=== PATIENT | male | born 1940 | race Two or more races ===

== ENCOUNTER 2020-04-18 07:06 | Inpatient (IN) | payer MEDICAID ==
[~2020-04-18] VITALS: Ht 167.6 cm; Wt 78.0 kg
--- NOTE | 2020-04-18 07:09 | Emergency Room Report ---
History of Present Illness General Source: Patient, EMS Present Illness HPI Patient is an 79-year-old male brought in by EMS after increased difficulty with breathing. Reports having previous coronavirus infection. Had been having increased fever and chills several days ago. Reports having minimal cough. Increased difficulty with sleeping. Prior history of diabetes, hypertension, high cholesterol, prostate disease. Patient had recent emergency department visit at [facility] and was diagnosed with coronavirus.He states he takes multiple medications but does not recall what they are. Patient had oxygen saturation in the mid 80s with paramedics and was started on 4 L nasal cannula. Nonproductive cough. Denies any chest pain or pressure. Allergies: Coded Allergies: No Known Allergies (Unverified , 04/18/20) Patient History Past Medical History: see triage record Reviewed Nursing Documentation: PMH: Agreed; PSxH: Agreed Review of Systems Constitutional: Reports: fever, malaise Respiratory: Reports: cough, shortness of breath All Other Systems: negative except mentioned in HPI Physical Exam General Appearance: alert, GCS 15, mild distress, obese ENT: hearing grossly normal Neck: full range of motion Respiratory: chest non-tender, normal breath sounds Cardiovascular #1: normal peripheral pulses, regular rate, rhythm, no edema Gastrointestinal: normal inspection, soft Neurologic: alert, motor strength/tone normal, supervisor fleshing III-XII nml as tested, oriented x3 Psychiatric: normal inspection Skin: no rash Medical Decision Making Diagnostic Impression: Primary Impression: Coronavirus infection Additional Impressions: Hypoxia Diabetes ER Course Patient presented for shortness of breath. Differential diagnosis include was not limited to coronavirus infection, pneumonia, congestive heart failure, myocardial infarction among others. Because of complexity of patient's case laboratory tests and imaging studies were ordered. Patient was initially hypoxic. Oxygen saturation on initial presentation was in the mid 80s. He was started on supplemental oxygen via nasal cannula. Chest x-ray 1 view interpreted by me showed normal cardiac size with patchy infiltrates to the left lung greater than the right lung, no effusion. Patient given Decadron as well as Lovenox. He was started on IV antibiotics empirically. Patient was discussed with From [facility] EPRP case #[id number]. [facility] authorized admission. Dr. Romie Murray was contacted for inpatient management due to capitated physician for [facility]. Labs Test 04/18/20 07:09 White Blood Count 6.8 K/UL (4.8-10.8) Red Blood Count 5.09 M/UL (4.70-6.10) Hemoglobin 15.2 G/DL (14.2-18.0) Hematocrit 43.2 % (42.0-52.0) Mean Corpuscular Volume 85 FL (80-99) Mean Corpuscular Hemoglobin 29.9 PG (27.0-31.0) Mean Corpuscular Hemoglobin Concent 35.2 G/DL (32.0-36.0) Red Cell Distribution Width 12.3 % (11.6-14.8) Platelet Count 242 K/UL (150-450) Mean Platelet Volume 7.6 FL (6.5-10.1) Neutrophils (%) (Auto) 70.2 % (45.0-75.0) Lymphocytes (%) (Auto) 18.6 % (20.0-45.0) Monocytes (%) (Auto) 10.4 % (1.0-10.0) Eosinophils (%) (Auto) 0.2 % (0.0-3.0) Basophils (%) (Auto) 0.6 % (0.0-2.0) EKG Diagnostic Results Rate: tachycardiac - 115 Rhythm: other - Sinus tachycardia with frequent PACs Status: unchanged Disposition: ADMITTED INPATIENT Condition: Stable Luis Espinal MD Apr 18, 2020 07:09
[2020-04-18 07:10] VITALS: BP 139/88
--- NOTE | 2020-04-18 07:10 | NUR ---
ED Nurse Note: Pt brought in by ambulance from home c/o resp distress. Pt reports being covid +. Per EMS, pt hd O2 sat of 81% on room air at home. EMS applied 4 L NC and O2 sat was 91% upon arrival. Per ED MD, placed patient on simple mask @ 6 L, pt O2 sat 96%. Respirations even and unlabored at rest. With exertion, patient becomes short of breath and O2 sat drops to 80s. A+Ox4 speaking in complete sentences. Pt reports not being able to sleep due to his symptoms. HR elevated @ 115. Pt afebrile and BP stable as documented.
[2020-04-18] MEDS ORDERED: Vitamin D 400 units TAB ORAL ONE (07:15)
[2020-04-18] MEDS ORDERED: Enoxaparin 100mg Inj SUBQ ONE (07:15)
[2020-04-18] MEDS ORDERED: Azithromycin 500 MG in NS 275 ML IVPB ONE (07:15)
[2020-04-18] MEDS ORDERED: cefTRIAXone 1 GM in NS 55 ML IV ONE (07:15)
[2020-04-18 07:29] LABS: BASOPHILS % (AUTO) 0.6 % (0.0-2.0); EOSINOPHILS % (AUTO) 0.2 % (0.0-3.0); HEMATOCRIT 43.2 % (42.0-52.0); HEMOGLOBIN 15.2 G/DL (14.2-18.0); LYMPHOCYTES % (AUTO) 18.6 % (20.0-45.0); MEAN CORPUSCULAR VOLUME 85 FL (80-99); MONOCYTES % (AUTO) 10.4 % (1.0-10.0); NEUTROPHILS % (AUTO) 70.2 % (45.0-75.0); PLATELET COUNT 242 K/UL (150-450); RED BLOOD COUNT 5.09 M/UL (4.70-6.10); RED CELL DISTRIBUTION WIDTH 12.3 % (11.6-14.8); WHITE BLOOD COUNT 6.8 K/UL (4.8-10.8)
--- NOTE | 2020-04-18 08:02 | NUR ---
ED Nurse Note: urine sent to lab
[2020-04-18 08:04] LABS: ANION GAP 7 mmol/L (5-15); BLOOD UREA NITROGEN 20 mg/dL (7-18); CARBON DIOXIDE 33 MMOL/L (21-32); CHLORIDE 95 MMOL/L (98-107); CREATININE 1.1 MG/DL (0.55-1.30); SODIUM 134 MMOL/L (136-145)
[2020-04-18 08:04] LABS: APPEARANCE,URINE CLEAR; BILIRUBIN, URINE NEGATIVE (NEGATIVE); COLOR,URINE YELLOW; GLUCOSE, URINE (UA) NEGATIVE (NEGATIVE); KETONES,URINE NEGATIVE (NEGATIVE); LEUKOCYTE ESTERASE ,URINE NEGATIVE (NEGATIVE); NITRITE,URINE NEGATIVE (NEGATIVE); PH,URINE 7 (4.5-8.0); PROTEIN,URINE 1+ (NEGATIVE); UROBILINOGEN,URINE 4 MG/DL (0.0-1.0)
[2020-04-18 08:19] LABS: ALANINE AMINOTRANSFERASE 28 U/L (12-78); ALBUMIN 2.8 G/DL (3.4-5.0); ALBUMIN/GLOBULIN RATIO 0.5 (1.0-2.7); ALKALINE PHOSPHATASE 45 U/L (46-116); ASPARTATE AMINO TRANSFERASE 38 U/L (15-37); BILIRUBIN,TOTAL 1.1 MG/DL (0.2-1.0); CKMB 1.3 NG/ML (0.0-3.6); CREATINE KINASE 58 U/L (26-308); FERRITIN 721 NG/ML (8-388); LACTATE DEHYDROGENASE 319 U/L (81-234); PHOSPHORUS 2.7 MG/DL (2.5-4.9)
[2020-04-18 08:20] LABS: BILIRUBIN,DIRECT 0.5 MG/DL (0.0-0.3)
--- NOTE | 2020-04-18 08:26 | NUR ---
CONTACTI KRISTIN FREGOSO, PATIENTS DAUGHTER [phone]
--- NOTE | 2020-04-18 08:54 | Diagnostic Imaging Report ---
Indication: Shortness of breath Technique: One view of the chest Comparison: none Findings: There are bilateral patchy and streaky infiltrates in a peribronchovascular distribution, left greater than right. Heart size is normal. Pleural spaces are clear. Impression: Bilateral infiltrates, consistent with multifocal pneumonia, likely viral
[2020-04-18 09:00] VITALS: BP 135/84
[2020-04-18] MEDS ORDERED: Metoclopramide 10mg/2ml Inj IVP ONE (10:00)
--- NOTE | 2020-04-18 10:42 | Consultation ---
History of Present Illness General Date patient seen: Apr 18, 2020 Chief Complaint: Dyspnea/Respdistress Present Illness HPI 79-year-old male with hx of DM, HTN, BPH recent [place] virus infection, brought in by EMS with CC of difficulty with breathing, fever and chills several days ago. Patient had recent emergency department visit at [place] and was diagnosed with coronavirus. Patient had oxygen saturation in the mid 80s with paramedics and was started on 4 L nasal cannula. His CXR in Er showed interstitial pneumonia. Pt is admitted for further management. Allergies: Coded Allergies: No Known Allergies (Unverified , 04/18/20) Patient History Healthcare decision maker Resuscitation status Advanced Directive on File Past Medical/Surgical History Past Medical/Surgical History: (1) BPH (benign prostatic hyperplasia) (2) History of hypertension Review of Systems Respiratory: Reports: cough, shortness of breath Physical Exam General Appearance: WD/WN, no apparent distress Lines, tubes and drains: peripheral HEENT: normocephalic, atraumatic Neck: non-tender, supple Respiratory/Chest: chest wall non-tender, normal breath sounds Cardiovascular/Chest: normal peripheral pulses, regular rhythm Abdomen: hyperactive bowel sounds Genitourinary/Rectal: normal rectal exam Extremities: normal range of motion, non-tender Last 24 Hour Vital Signs Date Time Temp Pulse Resp B/P (MAP) Pulse Ox O2 Delivery O2 Flow Rate FiO2 04/18/20 09:00 97.9 118 16 135/84 95 Simple Mask 6.0 04/18/20 07:10 98.6 112 28 139/88 96 Simple Mask 6.0 04/18/20 07:10 112 28 Simple Mask 6.0 04/18/20 07:00 98.4 101 22 145/83 (103) 94 Nasal Cannula 4.0 Laboratory Tests Test 04/18/20 07:09 04/18/20 08:00 04/18/20 09:10 White Blood Count 6.8 K/UL (4.8-10.8) Red Blood Count 5.09 M/UL (4.70-6.10) Hemoglobin 15.2 G/DL (14.2-18.0) Hematocrit 43.2 % (42.0-52.0) Mean Corpuscular Volume 85 FL (80-99) Mean Corpuscular Hemoglobin 29.9 PG (27.0-31.0) Mean Corpuscular Hemoglobin Concent 35.2 G/DL (32.0-36.0) Red Cell Distribution Width 12.3 % (11.6-14.8) Platelet Count 242 K/UL (150-450) Mean Platelet Volume 7.6 FL (6.5-10.1) Neutrophils (%) (Auto) 70.2 % (45.0-75.0) Lymphocytes (%) (Auto) 18.6 % (20.0-45.0) L Monocytes (%) (Auto) 10.4 % (1.0-10.0) H Eosinophils (%) (Auto) 0.2 % (0.0-3.0) Basophils (%) (Auto) 0.6 % (0.0-2.0) Prothrombin Time 11.1 SEC (9.30-11.50) Prothromb Time International Ratio 1.0 (0.9-1.1) Activated Partial Thromboplast Time 28 SEC (23-33) D-Dimer 0.64 mg/L FEU (0.00-0.49) H Sodium Level 134 MMOL/L (136-145) L Potassium Level 3.0 MMOL/L (3.5-5.1) L Chloride Level 95 MMOL/L (98-107) L Carbon Dioxide Level 33 MMOL/L (21-32) H Anion Gap 7 mmol/L (5-15) Blood Urea Nitrogen 20 mg/dL (7-18) H Creatinine 1.1 MG/DL (0.55-1.30) Estimat Glomerular Filtration Rate > 60 mL/min (>60) Glucose Level 200 MG/DL (74-106) H Lactic Acid Level 2.40 mmol/L (0.4-2.0) H 1.90 mmol/L (0.66-2.22) Calcium Level 9.0 MG/DL (8.5-10.1) Phosphorus Level 2.7 MG/DL (2.5-4.9) Magnesium Level 1.7 MG/DL (1.8-2.4) L Ferritin 721 NG/ML (8-388) H Total Bilirubin 1.1 MG/DL (0.2-1.0) H Direct Bilirubin 0.5 MG/DL (0.0-0.3) H Aspartate Amino Transf (AST/SGOT) 38 U/L (15-37) H Alanine Aminotransferase (ALT/SGPT) 28 U/L (12-78) Alkaline Phosphatase 45 U/L (46-116) L Lactate Dehydrogenase 319 U/L (81-234) H Total Creatine Kinase 58 U/L (26-308) Creatine Kinase MB 1.3 NG/ML (0.0-3.6) Creatine Kinase MB Relative Index 2.2 Troponin I 0.001 ng/mL (0.000-0.056) C-Reactive Protein, Quantitative 16.5 mg/dL (0.00-0.90) H Pro-B-Type Natriuretic Peptide 225 pg/mL (0-125) H Total Protein 8.0 G/DL (6.4-8.2) Albumin 2.8 G/DL (3.4-5.0) L Globulin 5.2 g/dL Albumin/Globulin Ratio 0.5 (1.0-2.7) L Lipase 261 U/L (73-393) Urine Color Yellow Urine Appearance Clear Urine pH 7 (4.5-8.0) Urine Specific [place] 1.010 (1.005-1.035) Urine Protein 1+ (NEGATIVE) H Urine Glucose (UA) Negative (NEGATIVE) Urine Ketones Negative (NEGATIVE) Urine Blood 1+ (NEGATIVE) H Urine Nitrite Negative (NEGATIVE) Urine Bilirubin Negative (NEGATIVE) Urine Urobilinogen 4 MG/DL (0.0-1.0) H Urine Leukocyte Esterase Negative (NEGATIVE) Urine RBC 0-2 /HPF (0 - 0) H Urine WBC 0 /HPF (0 - 0) Urine Squamous Epithelial Cells Occasional /LPF Urine Bacteria Occasional /HPF (NONE) Microbiology Date/Time Source Procedure Growth Status 04/18/20 07:09 Nasopharynx SARS-CoV-2 RdRp Gene Assay - Final Complete Height (Feet): 5 Height (Inches): 10.00 Weight (Pounds): 180 Medications Current Medications Medications (Trade) Dose Ordered Sig/Lucy Route PRN Reason Start Time Stop Time Status Last Admin Dose Admin Acetaminophen (Tylenol) 650 mg Q4H PRN ORAL FEVER 04/18/20 10:45 05/18/20 10:44 UNV Albuterol/ Ipratropium (Albuterol/ Ipratropium) 3 ml EVERY 4 HOURS PRN HHN Shortness of Breath 04/18/20 10:45 04/23/20 10:44 UNV Azithromycin 250 mg/Dextrose 275 ml @ 275 mls/hr Q24HRS IV 04/18/20 10:45 04/23/20 10:44 UNV Ceftriaxone Sodium 1 gm/ Dextrose 55 ml @ 110 mls/hr Q24H IVPB 04/18/20 10:45 04/25/20 10:44 UNV Dexamethasone (Decadron) 6 mg DAILY ORAL 04/19/20 09:00 05/19/20 08:59 UNV Dextrose (Dextrose 50%) 25 ml Q30M PRN IV Hypoglycemia 04/18/20 10:45 07/17/20 10:44 UNV Dextrose (Dextrose 50%) 50 ml Q30M PRN IV Hypoglycemia 04/18/20 10:45 07/17/20 10:44 UNV Heparin Sodium (Porcine) (Heparin 5000 units/ml) 5,000 units EVERY 12 HOURS SUBQ 04/18/20 21:00 06/02/20 20:59 UNV Ondansetron HCl (Zofran) 4 mg Q6H PRN IVP Nausea & Vomiting 04/18/20 10:45 05/18/20 10:44 UNV Polyethylene Glycol (Miralax) 17 gm DAILYPRN PRN ORAL Constipation 04/18/20 10:45 05/18/20 10:44 UNV Promethazine HCl/ Codeine (Phenergan with Codeine) 5 ml Q6H PRN ORAL cough 04/18/20 10:45 05/18/20 10:44 Assessment/Plan Problem List: (1) Coronavirus infection ICD Codes: B34.2 - Coronavirus infection, unspecified SNOMED: 811818710 (2) Hypoxia ICD Codes: R09.02 - Hypoxemia SNOMED: 091384942 (3) History of hypertension ICD Codes: Z86.79 - Personal history of other diseases of the circulatory system SNOMED: 415110592 (4) BPH (benign prostatic hyperplasia) ICD Codes: N40.0 - Benign prostatic hyperplasia without lower urinary tract symptoms SNOMED: 221846079 (5) Diabetes ICD Codes: E11.9 - Type 2 diabetes mellitus without complications SNOMED: 70767845 Assessment/Plan: respiratory isolation titrate fio2 to sat of 92 f/u inflammatory markers abx and sterids as per ID sliding scale and diabetic diet antitussive symptomatic treatment dvt prophylaxis Angel Daniel MD Apr 18, 2020 10:42
[2020-04-18] MEDS ORDERED: Miralax 17gm pkt ORAL PRN (10:45)
[2020-04-18] MEDS ORDERED: Albuterol/Ipratropium 3ml neb HHN PRN (10:45)
--- NOTE | 2020-04-18 10:53 | Consultation ---
Consult Note Consult Note I am asked to evaluate the patient at the request of Dr. Murray for fluid and electrolyte management Patient was seen in the emergency room Discussed with RN CONSTANZA Patient is an 79-year-old male brought in by EMS after increased difficulty with breathing. Reports having previous coronavirus infection. Had been having increased fever and chills several days ago. Reports having minimal cough. Increased difficulty with sleeping. Prior history of diabetes, hypertension, high cholesterol, prostate disease. Patient had recent emergency department visit at [facility] and was diagnosed with coronavirus.He states he takes multiple medications but does not recall what they are. Patient had oxygen saturation in the mid 80s with paramedics and was started on 4 L nasal cannula. Nonproductive cough. Denies any chest pain or pressure. Allergies: No Known Allergies (Unverified , 04/18/20) Review of Systems Constitutional: Reports: fever, malaise Respiratory: Reports: cough, shortness of breath All Other Systems: negative except mentioned in HPI Labs reviewed: Low sodium, low magnesium, low potassium Patient on oxygen via mask, tachycardic Physical Exam Narrative Gen: NAD HEENT: NCAT Pulm: BL chest rise Abd: Soft, NTND Ext: No c/c/e Neuro: Awake, interactive Last 24 Hour Vital Signs Date Time Temp Pulse Resp B/P (MAP) Pulse Ox O2 Delivery O2 Flow Rate FiO2 04/18/20 09:00 97.9 118 16 135/84 95 Simple Mask 6.0 04/18/20 07:10 98.6 112 28 139/88 96 Simple Mask 6.0 04/18/20 07:10 112 28 Simple Mask 6.0 04/18/20 07:00 98.4 101 22 145/83 (103) 94 Nasal Cannula 4.0 . Assessment/Plan Electrolyte imbalance Low sodium, low magnesium, low potassium Coronavirus infection, hypoxia Diabetes mellitus Plan: Normal saline with potassium IV Mag sulfate IV Protonix and stool softener Antibiotics Monitor electrolytes and renal parameters Per orders Roberto Yang MD Apr 18, 2020 10:53
[2020-04-18 11:00] VITALS: BP 131/79
[2020-04-18] MEDS ORDERED: HYDROCHLOROTHIA50 MG ORAL (11:00)
[2020-04-18] MEDS ORDERED: MOBIC7.5 MG ORAL (11:00)
[2020-04-18] MEDS ORDERED: AMLODIPINE BESYL5 MG ORAL (11:00)
[2020-04-18] MEDS ORDERED: CRESTOR10 M2 ORAL (11:00)
[2020-04-18] MEDS ORDERED: FLOMAX0.4 MG ORAL (11:00)
[2020-04-18] MEDS ORDERED: COZAAR50 MG ORAL (11:00)
[2020-04-18] MEDS ORDERED: ASPIRIN81 MG ORAL (11:00)
[2020-04-18] MEDS ORDERED: METFORMIN HCL500 M1 ORAL (11:00)
--- NOTE | 2020-04-18 11:37 | Consultation ---
History of Present Illness General Date patient seen: Apr 18, 2020 Time patient seen: 11:33 Chief Complaint: Dyspnea/Respdistress Referring physician: PCP Reason for Consultation: COVID+ Present Illness HPI 79yo M who p/w SOB, COVID positive for which ID is consulted. Pt reports increased fevers/chills x several days. Minimal cough. Difficulty sleeping. In house has been AF, HDS but requiring simple face mask satting only 95%. No pain, no allergies to abx Just some issues breathing Minimal cough Dx'd w/ COVID on 04/12, flu neg at that time PMH: DM2 HTN HLD Prostate disease Allergies: Coded Allergies: No Known Allergies (Unverified , 04/18/20) Medication History Scheduled Amlodipine Besylate* (Amlodipine Besylate*), 5 MG ORAL DAILY, (Reported) Aspirin* (Aspirin*), 81 MG ORAL DAILY, (Reported) Hydrochlorothiazide* (Hydrochlorothiazide*), 50 MG ORAL DAILY, (Reported) Losartan Potassium* (Cozaar*), 100 MG ORAL DAILY, (Reported) Meloxicam* (Mobic*), 7.5 MG ORAL DAILY, (Reported) Metformin Hcl* (Metformin Hcl*), 500 MG ORAL TWICE A DAY, (Reported) Rosuvastatin Calcium* (Crestor*), 10 MG ORAL DAILY, (Reported) Tamsulosin HCl (Flomax), 0.4 MG ORAL DAILY, (Reported) Patient History Healthcare decision maker Resuscitation status Advanced Directive on File Review of Systems ROS Narrative 10-point neg except as noted in HPI Physical Exam Physical Exam Narrative Gen: NAD HEENT: NCAT Pulm: BL chest rise Abd: Soft, NTND Ext: No c/c/e Neuro: Awake, interactive Last 24 Hour Vital Signs Date Time Temp Pulse Resp B/P (MAP) Pulse Ox O2 Delivery O2 Flow Rate FiO2 04/18/20 09:00 97.9 118 16 135/84 95 Simple Mask 6.0 04/18/20 07:10 98.6 112 28 139/88 96 Simple Mask 6.0 04/18/20 07:10 112 28 Simple Mask 6.0 04/18/20 07:00 98.4 101 22 145/83 (103) 94 Nasal Cannula 4.0 Laboratory Tests Test 04/18/20 07:09 04/18/20 08:00 04/18/20 09:10 White Blood Count 6.8 K/UL (4.8-10.8) Red Blood Count 5.09 M/UL (4.70-6.10) Hemoglobin 15.2 G/DL (14.2-18.0) Hematocrit 43.2 % (42.0-52.0) Mean Corpuscular Volume 85 FL (80-99) Mean Corpuscular Hemoglobin 29.9 PG (27.0-31.0) Mean Corpuscular Hemoglobin Concent 35.2 G/DL (32.0-36.0) Red Cell Distribution Width 12.3 % (11.6-14.8) Platelet Count 242 K/UL (150-450) Mean Platelet Volume 7.6 FL (6.5-10.1) Neutrophils (%) (Auto) 70.2 % (45.0-75.0) Lymphocytes (%) (Auto) 18.6 % (20.0-45.0) L Monocytes (%) (Auto) 10.4 % (1.0-10.0) H Eosinophils (%) (Auto) 0.2 % (0.0-3.0) Basophils (%) (Auto) 0.6 % (0.0-2.0) Prothrombin Time 11.1 SEC (9.30-11.50) Prothromb Time International Ratio 1.0 (0.9-1.1) Activated Partial Thromboplast Time 28 SEC (23-33) D-Dimer 0.64 mg/L FEU (0.00-0.49) H Sodium Level 134 MMOL/L (136-145) L Potassium Level 3.0 MMOL/L (3.5-5.1) L Chloride Level 95 MMOL/L (98-107) L Carbon Dioxide Level 33 MMOL/L (21-32) H Anion Gap 7 mmol/L (5-15) Blood Urea Nitrogen 20 mg/dL (7-18) H Creatinine 1.1 MG/DL (0.55-1.30) Estimat Glomerular Filtration Rate > 60 mL/min (>60) Glucose Level 200 MG/DL (74-106) H Lactic Acid Level 2.40 mmol/L (0.4-2.0) H 1.90 mmol/L (0.66-2.22) Calcium Level 9.0 MG/DL (8.5-10.1) Phosphorus Level 2.7 MG/DL (2.5-4.9) Magnesium Level 1.7 MG/DL (1.8-2.4) L Ferritin 721 NG/ML (8-388) H Total Bilirubin 1.1 MG/DL (0.2-1.0) H Direct Bilirubin 0.5 MG/DL (0.0-0.3) H Aspartate Amino Transf (AST/SGOT) 38 U/L (15-37) H Alanine Aminotransferase (ALT/SGPT) 28 U/L (12-78) Alkaline Phosphatase 45 U/L (46-116) L Lactate Dehydrogenase 319 U/L (81-234) H Total Creatine Kinase 58 U/L (26-308) Creatine Kinase MB 1.3 NG/ML (0.0-3.6) Creatine Kinase MB Relative Index 2.2 Troponin I 0.001 ng/mL (0.000-0.056) C-Reactive Protein, Quantitative 16.5 mg/dL (0.00-0.90) H Pro-B-Type Natriuretic Peptide 225 pg/mL (0-125) H Total Protein 8.0 G/DL (6.4-8.2) Albumin 2.8 G/DL (3.4-5.0) L Globulin 5.2 g/dL Albumin/Globulin Ratio 0.5 (1.0-2.7) L Lipase 261 U/L (73-393) Urine Color Yellow Urine Appearance Clear Urine pH 7 (4.5-8.0) Urine Specific [place] 1.010 (1.005-1.035) Urine Protein 1+ (NEGATIVE) H Urine Glucose (UA) Negative (NEGATIVE) Urine Ketones Negative (NEGATIVE) Urine Blood 1+ (NEGATIVE) H Urine Nitrite Negative (NEGATIVE) Urine Bilirubin Negative (NEGATIVE) Urine Urobilinogen 4 MG/DL (0.0-1.0) H Urine Leukocyte Esterase Negative (NEGATIVE) Urine RBC 0-2 /HPF (0 - 0) H Urine WBC 0 /HPF (0 - 0) Urine Squamous Epithelial Cells Occasional /LPF Urine Bacteria Occasional /HPF (NONE) Microbiology Date/Time Source Procedure Growth Status 04/18/20 07:09 Nasopharynx SARS-CoV-2 RdRp Gene Assay - Final Complete Height (Feet): 5 Height (Inches): 10.00 Weight (Pounds): 180 Medications Current Medications Medications (Trade) Dose Ordered Sig/Lucy Route PRN Reason Start Time Stop Time Status Last Admin Dose Admin Acetaminophen (Tylenol) 650 mg Q4H PRN ORAL FEVER 04/18/20 10:45 05/18/20 10:44 Albuterol/ Ipratropium (Combivent Respimat) 1 puff Q4H PRN INH Shortness of Breath 04/18/20 11:15 05/18/20 11:14 Azithromycin 250 mg/Dextrose 275 ml @ 275 mls/hr Q24H IV 04/19/20 09:00 04/24/20 08:59 Ceftriaxone Sodium 1 gm/ Dextrose 55 ml @ 110 mls/hr Q24H IVPB 04/19/20 09:00 04/26/20 08:59 Dexamethasone (Decadron) 6 mg DAILY ORAL 04/19/20 09:00 04/28/20 09:01 Dextrose (Dextrose 50%) 25 ml Q30M PRN IV Hypoglycemia 04/18/20 10:45 07/17/20 10:44 Dextrose (Dextrose 50%) 50 ml Q30M PRN IV Hypoglycemia 04/18/20 10:45 07/17/20 10:44 Docusate Sodium (Colace) 100 mg THREE TIMES A DAY ORAL 04/18/20 13:00 05/18/20 12:59 Heparin Sodium (Porcine) (Heparin 5000 units/ml) 5,000 units EVERY 12 HOURS SUBQ 04/18/20 21:00 06/02/20 20:59 Insulin Aspart (NovoLOG) BEFORE MEALS AND HS SUBQ 04/18/20 11:30 07/17/20 11:29 Magnesium Sulfate 100 ml @ 100 mls/hr Q1H IVPB 04/18/20 11:15 04/18/20 13:14 Ondansetron HCl (Zofran) 4 mg Q6H PRN IVP Nausea & Vomiting 04/18/20 10:45 05/18/20 10:44 Pantoprazole (Protonix) 40 mg EVERY 12 HOURS ORAL 04/18/20 21:00 05/18/20 20:59 Polyethylene Glycol (Miralax) 17 gm DAILYPRN PRN ORAL Constipation 04/18/20 10:45 05/18/20 10:44 Potassium Chloride 30 meq/ Sodium Chloride 1,015 ml @ 50 mls/hr [id number] IV 04/18/20 13:00 05/18/20 12:59 Promethazine HCl/ Codeine (Phenergan with Codeine) 5 ml Q6H PRN ORAL cough 04/18/20 10:45 05/18/20 10:44 Assessment/Plan Assessment/Plan: 79yo M with: COVID pna Acute hypoxia 2/2 severe COVID pna Afebrile Normal WBC Lymphopenia Elevated AST to 38 likely 2/2 COVID 04/12 COVID positive; flu neg 04/18 COVID rapid test positive BCx p Resp cx p CXR: BL pna UA neg Cr 1.1 PMH: DM2 HTN HLD Prostate disease Plan: Start RDV #1/5 Cont dex 6mg daily #1 Cont empiric CTX/azithro #1/5 for now This institution does not have access to convalescent plasma, and as pt 6 days out from diagnosis less likely to benefit from it. F/u Bcx, resp cx Monitor CBC/CMP Monitor resp status Monitor temp curve, hemodynamics D/w RN and Dr. Daniel and pharmacy Thank you for this consult. [facility] will continue to follow. Andria Pond M.D. Apr 18, 2020 11:37
[2020-04-18] MEDS: NovoLOG Insulin Flexpen SUBQ SCH ×3 (12:14→21:20)
[2020-04-18] MEDS: Docusate 100mg cap ORAL SCH ×2 (12:49→16:58)
[2020-04-18 13:00] VITALS: BP 141/79
[2020-04-18 15:00] VITALS: BP 149/74
[2020-04-18] MEDS ORDERED: Loading Dose:Remdesivir 200mg/NS 210ml IV SCH ×2 (15:00)
--- NOTE | 2020-04-18 17:45 | History & Physical ---
History and Physical History & Physicial Dictated for Int Med-Dr Murray no. [id number]. Fili Alfaro MD Apr 18, 2020 17:45
--- NOTE | 2020-04-18 18:22 | Consultation ---
History of Present Illness General Date patient seen: Apr 18, 2020 Reason for Hospitalization: Dyspnea/Respdistress Present Illness HPI 79-year-old male with multiple medical comorbidities brought in by EMS after increased difficulty with breathing. Reports having previous coronavirus infection. Had been having increased fever and chills several days ago. Reports having minimal cough. Increased difficulty with sleeping. Prior history of diabetes, hypertension, high cholesterol, prostate disease. Patient had recent emergency department visit at [facility] and was diagnosed with coronavirus.He states he takes multiple medications but does not recall what they are. Patient had oxygen saturation in the mid 80s with paramedics and was started on 4 L nasal cannula. Nonproductive cough. Denies any chest pain or pressure. on admission abnormal lft's, elevated t bili. surgery called to evaluate and assist with care. patient seen, chart reviewed. Allergies: Coded Allergies: No Known Allergies (Unverified , 04/18/20) COVID-19 Screening Contact w/high risk pt: Yes Experienced COVID-19 symptoms?: Yes Coronavirus symptoms experienc: Shortness of Breath Medication History Scheduled Amlodipine Besylate* (Amlodipine Besylate*), 5 MG ORAL DAILY, (Reported) Aspirin* (Aspirin*), 81 MG ORAL DAILY, (Reported) Hydrochlorothiazide* (Hydrochlorothiazide*), 50 MG ORAL DAILY, (Reported) Losartan Potassium* (Cozaar*), 100 MG ORAL DAILY, (Reported) Meloxicam* (Mobic*), 7.5 MG ORAL DAILY, (Reported) Metformin Hcl* (Metformin Hcl*), 500 MG ORAL TWICE A DAY, (Reported) Rosuvastatin Calcium* (Crestor*), 10 MG ORAL DAILY, (Reported) Tamsulosin HCl (Flomax), 0.4 MG ORAL DAILY, (Reported) Patient History Limited by: medical condition History Provided By: Medical Record, PMD Healthcare decision maker N Resuscitation status Advanced Directive on File Past Medical/Surgical History Past Medical/Surgical History: (1) Diabetes (2) Hypoxia (3) Coronavirus infection (4) History of hypertension (5) BPH (benign prostatic hyperplasia) Review of Systems Review of Symptoms General ROS: no weight loss or fever Psychological ROS: no depression or mood changes, no memory loss Ophthalmic ROS: no visual changes or eye irritation ENT ROS: no nasal congestion, hearing loss, dizziness Allergy and Immunology ROS: no allergic symptoms or urticaria Hematological and Lymphatic ROS: no swollen glands, unusual bleeding or bruising Endocrine ROS: no polyuria, polydipsia, weight changes, temperature intolerance Respiratory ROS: no cough, shortness of breath, or wheezing Cardiovascular ROS: no chest pain or dyspnea on exertion Gastrointestinal ROS: denies abdominal pain, bright red blood in stool. Musculoskeletal ROS: no myalgias or arthralgias Neurological ROS: no TIA or stroke symptoms Dermatological ROS: no new or changing skin lesions, rashes or pruritis Physical Exam Physical Exam General appearance: alert, cooperative, no distress, appears stated age Head: Normocephalic, without obvious abnormality, atraumatic Eyes: conjunctivae/corneas clear. PERRL, EOM's intact. Fundi benign Throat: Lips, mucosa, and tongue normal. Teeth and gums normal Neck: supple, symmetrical, trachea midline, no adenopathy, thyroid: not enlarged, symmetric, no tenderness/mass/nodules, no carotid bruit and no JVD Lungs: clear to auscultation bilaterally Heart: regular rate and rhythm, S1, S2 normal, no murmur, click, rub or gallop Abdomen: soft, non-tender. Bowel sounds normal. No masses, no organomegaly Extremities: extremities normal, atraumatic, no cyanosis or edema Pulses: 2+ and symmetric Skin: Skin color, texture, turgor normal. No rashes or lesions Neurologic: Grossly normal Last 24 Hour Vital Signs Date Time Temp Pulse Resp B/P (MAP) Pulse Ox O2 Delivery O2 Flow Rate FiO2 04/18/20 13:00 103 22 141/79 96 Simple Mask 6.0 04/18/20 11:00 98.6 112 22 131/79 96 Simple Mask 8.0 04/18/20 09:00 97.9 118 16 135/84 95 Simple Mask 6.0 04/18/20 07:10 98.6 112 28 139/88 96 Simple Mask 6.0 04/18/20 07:10 112 28 Simple Mask 6.0 04/18/20 07:00 98.4 101 22 145/83 (103) 94 Nasal Cannula 4.0 Laboratory Tests Test 04/18/20 07:09 04/18/20 08:00 04/18/20 09:10 White Blood Count 6.8 K/UL (4.8-10.8) Red Blood Count 5.09 M/UL (4.70-6.10) Hemoglobin 15.2 G/DL (14.2-18.0) Hematocrit 43.2 % (42.0-52.0) Mean Corpuscular Volume 85 FL (80-99) Mean Corpuscular Hemoglobin 29.9 PG (27.0-31.0) Mean Corpuscular Hemoglobin Concent 35.2 G/DL (32.0-36.0) Red Cell Distribution Width 12.3 % (11.6-14.8) Platelet Count 242 K/UL (150-450) Mean Platelet Volume 7.6 FL (6.5-10.1) Neutrophils (%) (Auto) 70.2 % (45.0-75.0) Lymphocytes (%) (Auto) 18.6 % (20.0-45.0) L Monocytes (%) (Auto) 10.4 % (1.0-10.0) H Eosinophils (%) (Auto) 0.2 % (0.0-3.0) Basophils (%) (Auto) 0.6 % (0.0-2.0) Prothrombin Time 11.1 SEC (9.30-11.50) Prothromb Time International Ratio 1.0 (0.9-1.1) Activated Partial Thromboplast Time 28 SEC (23-33) D-Dimer 0.64 mg/L FEU (0.00-0.49) H Sodium Level 134 MMOL/L (136-145) L Potassium Level 3.0 MMOL/L (3.5-5.1) L Chloride Level 95 MMOL/L (98-107) L Carbon Dioxide Level 33 MMOL/L (21-32) H Anion Gap 7 mmol/L (5-15) Blood Urea Nitrogen 20 mg/dL (7-18) H Creatinine 1.1 MG/DL (0.55-1.30) Estimat Glomerular Filtration Rate > 60 mL/min (>60) Glucose Level 200 MG/DL (74-106) H Lactic Acid Level 2.40 mmol/L (0.4-2.0) H 1.90 mmol/L (0.66-2.22) Calcium Level 9.0 MG/DL (8.5-10.1) Phosphorus Level 2.7 MG/DL (2.5-4.9) Magnesium Level 1.7 MG/DL (1.8-2.4) L Ferritin 721 NG/ML (8-388) H Total Bilirubin 1.1 MG/DL (0.2-1.0) H Direct Bilirubin 0.5 MG/DL (0.0-0.3) H Aspartate Amino Transf (AST/SGOT) 38 U/L (15-37) H Alanine Aminotransferase (ALT/SGPT) 28 U/L (12-78) Alkaline Phosphatase 45 U/L (46-116) L Lactate Dehydrogenase 319 U/L (81-234) H Total Creatine Kinase 58 U/L (26-308) Creatine Kinase MB 1.3 NG/ML (0.0-3.6) Creatine Kinase MB Relative Index 2.2 Troponin I 0.001 ng/mL (0.000-0.056) C-Reactive Protein, Quantitative 16.5 mg/dL (0.00-0.90) H Pro-B-Type Natriuretic Peptide 225 pg/mL (0-125) H Total Protein 8.0 G/DL (6.4-8.2) Albumin 2.8 G/DL (3.4-5.0) L Globulin 5.2 g/dL Albumin/Globulin Ratio 0.5 (1.0-2.7) L Lipase 261 U/L (73-393) Urine Color Yellow Urine Appearance Clear Urine pH 7 (4.5-8.0) Urine Specific [place] 1.010 (1.005-1.035) Urine Protein 1+ (NEGATIVE) H Urine Glucose (UA) Negative (NEGATIVE) Urine Ketones Negative (NEGATIVE) Urine Blood 1+ (NEGATIVE) H Urine Nitrite Negative (NEGATIVE) Urine Bilirubin Negative (NEGATIVE) Urine Urobilinogen 4 MG/DL (0.0-1.0) H Urine Leukocyte Esterase Negative (NEGATIVE) Urine RBC 0-2 /HPF (0 - 0) H Urine WBC 0 /HPF (0 - 0) Urine Squamous Epithelial Cells Occasional /LPF Urine Bacteria Occasional /HPF (NONE) Microbiology Date/Time Source Procedure Growth Status 04/18/20 07:09 Nasopharynx SARS-CoV-2 RdRp Gene Assay - Final Complete Height (Feet): 5 Height (Inches): 10.00 Weight (Pounds): 180 Medications Current Medications Medications (Trade) Dose Ordered Sig/Lucy Route PRN Reason Start Time Stop Time Status Last Admin Dose Admin Acetaminophen (Tylenol) 650 mg Q4H PRN ORAL FEVER 04/18/20 10:45 05/18/20 10:44 Albuterol/ Ipratropium (Combivent Respimat) 1 puff Q4H PRN INH Shortness of Breath 04/18/20 11:15 05/18/20 11:14 Azithromycin 250 mg/Dextrose 275 ml @ 275 mls/hr Q24H IV 04/19/20 09:00 04/24/20 08:59 Ceftriaxone Sodium 1 gm/ Dextrose 55 ml @ 110 mls/hr Q24H IVPB 04/19/20 09:00 04/26/20 08:59 Dexamethasone (Decadron) 6 mg DAILY ORAL 04/19/20 09:00 04/28/20 09:01 Dextrose (Dextrose 50%) 25 ml Q30M PRN IV Hypoglycemia 04/18/20 10:45 07/17/20 10:44 Dextrose (Dextrose 50%) 50 ml Q30M PRN IV Hypoglycemia 04/18/20 10:45 07/17/20 10:44 Docusate Sodium (Colace) 100 mg THREE TIMES A DAY ORAL 04/18/20 13:00 05/18/20 12:59 Heparin Sodium (Porcine) (Heparin 5000 units/ml) 5,000 units EVERY 12 HOURS SUBQ 04/18/20 21:00 06/02/20 20:59 Insulin Aspart (NovoLOG) BEFORE MEALS AND HS SUBQ 04/18/20 11:30 07/17/20 11:29 04/18/20 17:49 Ondansetron HCl (Zofran) 4 mg Q6H PRN IVP Nausea & Vomiting 04/18/20 10:45 05/18/20 10:44 Pantoprazole (Protonix) 40 mg EVERY 12 HOURS ORAL 04/18/20 21:00 05/18/20 20:59 Polyethylene Glycol (Miralax) 17 gm DAILYPRN PRN ORAL Constipation 04/18/20 10:45 05/18/20 10:44 Potassium Chloride 30 meq/ Sodium Chloride 1,015 ml @ 50 mls/hr [id number] IV 04/18/20 13:00 05/18/20 12:59 04/18/20 13:10 Promethazine HCl/ Codeine (Phenergan with Codeine) 5 ml Q6H PRN ORAL cough 04/18/20 10:45 05/18/20 10:44 Remdesivir 100 mg/ Sodium Chloride 250 ml @ 250 mls/hr Q24H IV 04/19/20 15:00 04/22/20 15:59 Assessment/Plan Problem List: (1) Abnormal LFTs Assessment & Plan: elevated lft's t bili elevated direct <50% elevated unlikely obstructed biliary unlikely alon abd exam benign US hold for now given covid will follow clinically with exam and recs thank you ICD Codes: R94.5 - Abnormal results of liver function studies SNOMED: 004330606 (2) Diabetes ICD Codes: E11.9 - Type 2 diabetes mellitus without complications SNOMED: 23303500 (3) Hypoxia ICD Codes: R09.02 - Hypoxemia SNOMED: 076151088 (4) Coronavirus infection Assessment & Plan: There are bilateral patchy and streaky infiltrates in a peribronchovascular distribution, left greater than right. Heart size is normal. Pleural spaces are clear. Impression: Bilateral infiltrates, consistent with multifocal pneumonia, likely viral pulm input appreciated ID on abx and Rx pulm respiratory support ICD Codes: B34.2 - Coronavirus infection, unspecified SNOMED: 503729492 (5) History of hypertension ICD Codes: Z86.79 - Personal history of other diseases of the circulatory system SNOMED: 596875475 (6) BPH (benign prostatic hyperplasia) ICD Codes: N40.0 - Benign prostatic hyperplasia without lower urinary tract symptoms SNOMED: 305871259 Jesus Manuel Cruz Apr 18, 2020 18:22
--- NOTE | 2020-04-18 19:12 | NUR ---
HAND-OFF: Report given to REANNA Feliciano. Pt in stable condition; plan of care endorsed.
--- NOTE | 2020-04-18 19:20 | NUR ---
ED Nurse Note: Recieved report from am nurse to resume care, pt in room sitting on side of bed, awake, alert and oriented x 4, pt is turkmen speaking only, has patent IV site in right ac with fluids infusing, site intact, pt on 10l o2 via FM with o2 sat of 96%, pt has sob on exertion very severe, at rest ok, heart rhythm in nsr, pt is waiting for hospital room for admission, remains on Covid isolation precautions, will send to floor bed when available.
[2020-04-18 19:30] VITALS: BP 125/52
--- NOTE | 2020-04-18 19:40 | NUR ---
ED Nurse Note: Report given to floor nurse for pt admission, pt continues to sit on bed awake and alert, denies cp or any pain, no sob noted at rest, o2 sat=95%, IV site patent, all forms completed including belongings list, pt being taken to floor bed via gurney with ACLS and Covid precautions with monitoring, nad noted during transport to floor.
--- NOTE | 2020-04-18 19:45 | NUR ---
Received telephone report from MELODY Fairchild RN. Pt came from home due to hypoxia, fever and chills. + coronavirus, Pt on facial mask @ 10L O2. IV on R AC 18 G. Awaiting pt on the unit.
--- NOTE | 2020-04-18 19:55 | NUR ---
NURSE NOTES: Pt arrived in the unit on the [facility]. Pt ambulates to transfer from the [facility] to the hospital bed. Pt has steady gait. A/O x 4, faroese speaking, not in distress. Calm and pleasant, obeys command. Pt is on facial mask 10L O2 saturating 95%. No skin issues noted. IV on right AC 18 G is intact and patent. Pt ambulates to the bathroom and uses the urinal bedside. Belongings endorsed by ED nurse, Devorah. Recent labs, medication, and MD orders reviewed. Bed is locked and in lowest position, bed alarm on, call light is with the pt. Will continue to monitor pt. Will continue with the plan of care.
--- NOTE | 2020-04-18 21:14 | History and Physical Report ---
DATE OF ADMISSION: 04/18/2020 CHIEF COMPLAINT: The patient is an 79-year-old male with history of COVID-19 positive, who presents with chief complaint of shortness of breath. HISTORY OF PRESENT ILLNESS: The patient has a history of COVID positive per report. The patient presented to [facility] complaining of several-day history of shortness of breath. The patient also complains of subjective fevers and chills. The patient presented to [facility] emergency [facility]. The patient is admitted with shortness of breath and possible COVID-19 pneumonia. REVIEW OF SYSTEMS: CONSTITUTIONAL: The patient denies weight loss or weight gain. The patient complains of subjective fevers and chills, as above. HEENT: The patient denies ear or throat pain. The patient denies headache. CARDIOVASCULAR: The patient denies palpitations or chest pain. CHEST: The patient complains of shortness of breath. The patient complains of nonproductive cough. The patient denies wheezes. ABDOMEN: The patient denies nausea, vomiting, diarrhea, or constipation. GENITOURINARY: The patient denies dysuria or increased frequency of urination. NEUROMUSCULAR: The patient denies seizures or generalized weakness. PAST MEDICAL HISTORY: Significant for: 1. Diabetes type 2. 2. Hypertension. 3. Hypercholesterolemia. 4. Benign prostatic hypertrophy. PAST SURGICAL HISTORY: The patient denies. CURRENT MEDICATIONS: 1. Amlodipine 5 mg p.o. daily. 2. Aspirin 81 mg p.o. daily. 3. Hydrochlorothiazide 50 mg p.o. daily. 4. Losartan 100 mg p.o. daily. 5. Meloxicam 7.5 mg p.o. daily. 6. Metformin 500 mg p.o. twice daily. 7. Simvastatin 10 mg p.o. daily. 8. Flomax 0.4 mg p.o. daily. ALLERGIES: No known drug allergies. SOCIAL HISTORY: The patient denies tobacco or alcohol use. PHYSICAL EXAMINATION: VITAL SIGNS: Temperature 98.4, respirations 22, pulse 101, blood pressure 145/83. Pulse oximetry 94% on 4 liters nasal cannula and 95% on 6 liters with simple mask. GENERAL: The patient is a well-developed and well-nourished male, in no apparent distress. HEENT: Eyes, pupils are equal and responsive to light and accommodation. Extraocular movements are intact. NECK: Supple without lymphadenopathy. CHEST: Decreased breath sounds in bilateral bases, otherwise clear to auscultation without wheezes. CARDIOVASCULAR: Tachycardic, regular rhythm. S1, S2 normal without murmurs, rubs, or gallops. ABDOMEN: Soft, nontender, and nondistended. Positive bowel sounds. No evidence of hepatosplenomegaly. Currently, no rebound or guarding noted. EXTREMITIES: Negative for clubbing, cyanosis, or edema. RECTAL/GENITAL: Refused. NEUROLOGIC: Cranial nerves II through XII are grossly intact without focal deficits. Motor strength is 5/5 bilaterally. Deep tendon reflexes are 2+ plantar. IMAGING: A chest x-ray revealed bilateral infiltrates consistent with multifocal pneumonia. A COVID-19 rapid test was reported as positive. LABORATORY STUDIES: WBC 6.8, hemoglobin 15.2, hematocrit 43.2, platelets 242,000. Sodium 134, potassium 3.0, chloride 95, CO2 33, BUN 20, creatinine 1.1. Glucose 200. Troponin 0.001. ASSESSMENT: This is an 79-year-old male with: 1. COVID-19 positive. 2. Bilateral pneumonia. 3. Diabetes type 2. 4. Hypertension. 5. Hypercholesterolemia. 6. Benign prostatic hypertrophy. TREATMENT: 1. COVID-19 positive/bilateral pneumonia. A Pulmonary consultation has been obtained with Dr. Angel Daniel. The patient has been started empirically on remdesivir and Decadron intravenously. The patient has been started on antibiotics including ceftriaxone and azithromycin. Follow recommendations of Pulmonary. 2. Diabetes type 2. NovoLog sliding scale has been instituted. 3. Hypertension. Continue amlodipine, hydrochlorothiazide, and losartan as above. 4. Hypercholesterolemia. Continue simvastatin as above. 5. Benign prostatic hypertrophy. Continue Flomax as above. Fili Alfaro M.D. DR: ALEXSANDRA JOB#: [id number] CC:
[2020-04-18] MEDS: Heparin 5000 units/ml inj SUBQ SCH (21:21)
--- NOTE | 2020-04-18 23:00 | NUR ---
NURSE NOTES: Full assessment done. Evening medications administered per order. Pt is tolerating 10L O2 via facial mask saturating 94-95%. Pt is lying in bed in high jiménez position. Vital signs are stable. Sinus Rhythm on the classroom monitor. Will continue to monitor pt.
[2020-04-19] VITALS: BP 139/62
[2020-04-19 04:00] VITALS: BP 146/74
--- NOTE | 2020-04-19 04:00 | NUR ---
NURSE NOTES: Pt is sleeping in high jiménez position. Tolerating Bipap setting with O2 saturation is 98-99%. Not in acute distress. Vital signs remain stable. Will continue to closely monitor pt. Addendum: 04/19/20 at 0417 by Germaine Manzanares RN RN Tolerating facial mask
[2020-04-19] MEDS: NovoLOG Insulin Flexpen SUBQ SCH ×4 (06:05→23:11)
[2020-04-19 06:09] LABS: BASOPHILS % (AUTO) 0.6 % (0.0-2.0); HEMATOCRIT 40.4 % (42.0-52.0); HEMOGLOBIN 13.7 G/DL (14.2-18.0); LYMPHOCYTES % (AUTO) 11.2 % (20.0-45.0); MEAN CORPUSCULAR VOLUME 90 FL (80-99); MONOCYTES % (AUTO) 11.1 % (1.0-10.0); NEUTROPHILS % (AUTO) 77.1 % (45.0-75.0); PLATELET COUNT 319 K/UL (150-450); RED BLOOD COUNT 4.49 M/UL (4.70-6.10); RED CELL DISTRIBUTION WIDTH 12.1 % (11.6-14.8); WHITE BLOOD COUNT 8.5 K/UL (4.8-10.8)
[2020-04-19 06:57] LABS: ALANINE AMINOTRANSFERASE 23 U/L (12-78); ALBUMIN 2.5 G/DL (3.4-5.0); ALBUMIN/GLOBULIN RATIO 0.5 (1.0-2.7); ALKALINE PHOSPHATASE 42 U/L (46-116); ANION GAP 6 mmol/L (5-15); ASPARTATE AMINO TRANSFERASE 28 U/L (15-37); BILIRUBIN,TOTAL 0.7 MG/DL (0.2-1.0); BLOOD UREA NITROGEN 13 mg/dL (7-18); CALCIUM 8.8 MG/DL (8.5-10.1); CARBON DIOXIDE 32 MMOL/L (21-32); CHLORIDE 103 MMOL/L (98-107); CREATININE 0.8 MG/DL (0.55-1.30); PHOSPHORUS 2.4 MG/DL (2.5-4.9); POTASSIUM 3.2 MMOL/L (3.5-5.1); SODIUM 141 MMOL/L (136-145)
--- NOTE | 2020-04-19 07:10 | NUR ---
NURSE HAND-OFF REPORT: Important Events on Shift:New admission Patient Status: Full code Diet: CCHO (medium) Pending Orders: N Pending Results/Labs:N Pending MD notification:N Latest Vital Signs: Temperature 97.0 , Pulse 92 , B/P 146 /74 , Respiratory Rate 20 , O2 SAT 97 , Simple Mask, O2 Flow Rate 10.0 . Vital Sign Comment: stable EKG Rhythm: Sinus Rhythm Rhythm change?: N MD Notified?: - MD Response: Latest Rivas Fall Score: 35 Fall Risk: Medium Risk Safety Measures: Call light Within Reach, Bed Alarm Zone 2, Side Rails Side Rails x2, Bed position Low and Locked. Fall Precautions: Yellow Socks Patient Fall Education Report given to REANNA Harding.
[2020-04-19 07:13] LABS: CHOLESTEROL 99 MG/DL (< 200); HDL CHOLESTEROL 33 MG/DL (40-60); TRIGLYCERIDES 93 MG/DL (30-150)
--- NOTE | 2020-04-19 07:30 | NUR ---
NURSE NOTES: Received report from REANNA Herron. The patient is resting on the bed in jiménez position without acute chest pain or shortness of breath. The patient is AOx4, mainly [place] speaking, and able to make needs known via verbal communication. SR w/ HR of 80-100s on the maternal fetal physician. The patient is on 10L simple mask and oxygen saturation is 95-98%. The patient is on CCHO medium diet and has no difficulty in swallowing. No skin issue noted and able to do self repositioning. The patient has R AC 18G PIV that is intact and patent and running NS w/ 30mEq KCL @ 50mL/hr per order. New PIV inserted on L AC 22G that is intact and patent. The patient is using urinal for urination and using bathroom w/ staff assistance for defecation w/ steady gait. The patient's bed in the lowest position, call light in reach, and fall and aspiration precaution reinforced. PIV sites intact and patent. Will follow up the lab and order. Will closely monitor the patient. Will continue plan of care.
[2020-04-19 08:00] VITALS: BP 139/72
--- NOTE | 2020-04-19 08:00 | NUR ---
NURSE NOTES: Initial nursing assessment done. Initial vital signs taken. The patient is stable at this time. Will continue plan of care.
[2020-04-19] MEDS: cefTRIAXone 1 GM in D5W 55 ML IVPB SCH (08:55)
[2020-04-19] MEDS: Docusate 100mg cap ORAL SCH ×3 (08:55→17:11)
[2020-04-19] MEDS: Azithromycin 250 MG in D5W 275 ML IV SCH (08:55)
[2020-04-19] MEDS: Heparin 5000 units/ml inj SUBQ SCH ×2 (08:57→22:42)
[2020-04-19] MEDS ORDERED: Azithromycin 250 MG in D5W 275 ML IV SCH (09:00)
--- NOTE | 2020-04-19 09:03 | Infectious Diseases Prog Note ---
Assessment/Plan 79yo M with: COVID pna Acute hypoxia 2/2 severe COVID pna Afebrile Normal WBC Lymphopenia Elevated AST to 38 likely 2/2 COVID 04/12 COVID positive; flu neg 04/18 COVID rapid test positive BCx p Resp cx p CXR: BL pna UA neg Cr 1.1 PMH: DM2 HTN HLD Prostate disease Plan: Cont RDV #05/25 Cont dex 6mg daily #05/30 Cont empiric CTX/azithro #05/25 This institution does not have access to convalescent plasma, and as pt 6 days out from diagnosis less likely to benefit from it. F/u Bcx, resp cx Monitor CBC/CMP Monitor resp status Monitor temp curve, hemodynamics D/w RN Thank you for this consult. [facility] will continue to follow. Subjective Allergies: Coded Allergies: No Known Allergies (Unverified , 04/18/20) AF On simple face mask 10L, doing well WBC 8.5 NAD Objective Last 24 Hour Vital Signs Date Time Temp Pulse Resp B/P (MAP) Pulse Ox O2 Delivery O2 Flow Rate FiO2 04/19/20 08:27 94 Non-Rebreather 15.0 100 04/19/20 04:00 97.0 92 20 146/74 (98) 97 04/19/20 04:00 Simple Mask 10.0 04/19/20 04:00 10.0 04/19/20 04:00 64 04/19/20 00:00 10.0 04/19/20 00:00 Simple Mask 10.0 04/19/20 00:00 88 04/19/20 00:00 97.2 93 20 139/62 (87) 96 04/18/20 20:19 Simple Mask 10.0 04/18/20 19:50 98.2 84 24 125/52 95 Simple Mask 8.0 04/18/20 19:30 98.2 84 24 125/52 95 Simple Mask 8.0 04/18/20 15:00 98.2 109 22 149/74 97 Simple Mask 8.0 04/18/20 13:00 103 22 141/79 96 Simple Mask 6.0 04/18/20 11:00 98.6 112 22 131/79 96 Simple Mask 8.0 Height (Feet): 5 Height (Inches): 6.00 Weight (Pounds): 172 Cardiovascular: normal peripheral pulses Gen: NAD HEENT: NCAT Pulm: BL chest rise Abd: Non-distended Ext: No c/c/e Skin: No visible rashes Neuro: Awake Microbiology Date/Time Source Procedure Growth Status 04/18/20 07:09 Nasopharynx SARS-CoV-2 RdRp Gene Assay - Final Complete Laboratory Tests Test 04/18/20 09:10 04/18/20 21:10 04/19/20 05:40 04/19/20 06:02 Lactic Acid Level 1.90 mmol/L (0.66-2.22) POC Whole Blood Glucose 202 MG/DL (74-106) H 122 MG/DL (74-106) H White Blood Count 8.5 K/UL (4.8-10.8) Red Blood Count 4.49 M/UL (4.70-6.10) L Hemoglobin 13.7 G/DL (14.2-18.0) L Hematocrit 40.4 % (42.0-52.0) L Mean Corpuscular Volume 90 FL (80-99) Mean Corpuscular Hemoglobin 30.6 PG (27.0-31.0) Mean Corpuscular Hemoglobin Concent 34.0 G/DL (32.0-36.0) Red Cell Distribution Width 12.1 % (11.6-14.8) Platelet Count 319 K/UL (150-450) Mean Platelet Volume 7.0 FL (6.5-10.1) Neutrophils (%) (Auto) 77.1 % (45.0-75.0) H Lymphocytes (%) (Auto) 11.2 % (20.0-45.0) L Monocytes (%) (Auto) 11.1 % (1.0-10.0) H Eosinophils (%) (Auto) 0.0 % (0.0-3.0) Basophils (%) (Auto) 0.6 % (0.0-2.0) Erythrocyte Sedimentation Rate 63 MM/HR (0-20) H Sodium Level 141 MMOL/L (136-145) Potassium Level 3.2 MMOL/L (3.5-5.1) L Chloride Level 103 MMOL/L (98-107) Carbon Dioxide Level 32 MMOL/L (21-32) Anion Gap 6 mmol/L (5-15) Blood Urea Nitrogen 13 mg/dL (7-18) Creatinine 0.8 MG/DL (0.55-1.30) Estimat Glomerular Filtration Rate > 60 mL/min (>60) Glucose Level 128 MG/DL (74-106) H Hemoglobin A1c 7.1 % (4.3-6.0) H Uric Acid 2.7 MG/DL (2.6-7.2) Calcium Level 8.8 MG/DL (8.5-10.1) Phosphorus Level 2.4 MG/DL (2.5-4.9) L Magnesium Level 1.6 MG/DL (1.8-2.4) L Total Bilirubin 0.7 MG/DL (0.2-1.0) Direct Bilirubin 0.4 MG/DL (0.0-0.3) H Gamma Glutamyl Transpeptidase 26 U/L (5-85) Aspartate Amino Transf (AST/SGOT) 28 U/L (15-37) Alanine Aminotransferase (ALT/SGPT) 23 U/L (12-78) Alkaline Phosphatase 42 U/L (46-116) L Lactate Dehydrogenase 260 U/L (81-234) H C-Reactive Protein, Quantitative 11.9 mg/dL (0.00-0.90) H Pro-B-Type Natriuretic Peptide 353 pg/mL (0-125) H Total Protein 7.4 G/DL (6.4-8.2) Albumin 2.5 G/DL (3.4-5.0) L Globulin 4.9 g/dL Albumin/Globulin Ratio 0.5 (1.0-2.7) L Triglycerides Level 93 MG/DL (30-150) Cholesterol Level 99 MG/DL (< 200) LDL Cholesterol 48 mg/dL (<100) HDL Cholesterol 33 MG/DL (40-60) L Cholesterol/HDL Ratio 3.0 (3.3-4.4) L Vitamin B12 Level 546 PG/ML (193-986) Vitamin D 25-Hydroxy Pending 25-Hydroxy Vitamin D2 Pending 25-Hydroxy Vitamin D3 Pending Folate 17.9 NG/ML (8.6-58.9) Thyroid Stimulating Hormone (TSH) < 0.010 uiU/mL (0.358-3.740) Current Medications Medications (Trade) Dose Ordered Sig/Lucy Route PRN Reason Start Time Stop Time Status Last Admin Dose Admin Acetaminophen (Tylenol) 650 mg Q4H PRN ORAL FEVER 04/18/20 10:45 05/18/20 10:44 Albuterol/ Ipratropium (Combivent Respimat) 1 puff Q4H PRN INH Shortness of Breath 04/18/20 11:15 05/18/20 11:14 Azithromycin 250 mg/Dextrose 275 ml @ 275 mls/hr Q24H IV 04/19/20 09:00 04/24/20 08:59 04/19/20 08:55 Ceftriaxone Sodium 1 gm/ Dextrose 55 ml @ 110 mls/hr Q24H IVPB 04/19/20 09:00 04/26/20 08:59 04/19/20 08:55 Dexamethasone (Decadron) 6 mg DAILY ORAL 04/19/20 09:00 04/28/20 09:01 04/19/20 08:56 Dextrose (Dextrose 50%) 25 ml Q30M PRN IV Hypoglycemia 04/18/20 10:45 07/17/20 10:44 Dextrose (Dextrose 50%) 50 ml Q30M PRN IV Hypoglycemia 04/18/20 10:45 07/17/20 10:44 Docusate Sodium (Colace) 100 mg THREE TIMES A DAY ORAL 04/18/20 13:00 05/18/20 12:59 04/19/20 08:55 Heparin Sodium (Porcine) (Heparin 5000 units/ml) 5,000 units EVERY 12 HOURS SUBQ 04/18/20 21:00 06/02/20 20:59 04/19/20 08:57 Insulin Aspart (NovoLOG) BEFORE MEALS AND HS SUBQ 04/18/20 11:30 07/17/20 11:29 04/18/20 21:20 Ondansetron HCl (Zofran) 4 mg Q6H PRN IVP Nausea & Vomiting 04/18/20 10:45 05/18/20 10:44 Pantoprazole (Protonix) 40 mg EVERY 12 HOURS ORAL 04/18/20 21:00 05/18/20 20:59 04/19/20 08:56 Polyethylene Glycol (Miralax) 17 gm DAILYPRN PRN ORAL Constipation 04/18/20 10:45 05/18/20 10:44 Potassium Chloride 30 meq/ Sodium Chloride 1,015 ml @ 50 mls/hr [id number] IV 04/19/20 09:00 05/19/20 08:59 04/19/20 08:54 Promethazine HCl/ Codeine (Phenergan with Codeine) 5 ml Q6H PRN ORAL cough 04/18/20 10:45 05/18/20 10:44 Remdesivir 100 mg/ Sodium Chloride 250 ml @ 250 mls/hr Q24H IV 04/19/20 15:00 04/22/20 15:59 Andria Pond M.D. Apr 19, 2020 09:03
--- NOTE | 2020-04-19 10:00 | NUR ---
NURSE NOTES: Medications administered to the patient. The patient tolerated well. Will closely monitor the patient. Will continue plan of care.
--- NOTE | 2020-04-19 10:56 | Pulmonology Progress Note ---
Subjective ROS Limited/Unobtainable: Yes Constitutional: Reports: no symptoms HEENT: Repors: no symptoms Respiratory: Reports: no symptoms Allergies: Coded Allergies: No Known Allergies (Unverified , 04/18/20) Objective Last 24 Hour Vital Signs Date Time Temp Pulse Resp B/P (MAP) Pulse Ox O2 Delivery O2 Flow Rate FiO2 04/19/20 08:27 94 Non-Rebreather 15.0 100 04/19/20 08:00 97.1 89 20 139/72 (94) 96 04/19/20 08:00 89 04/19/20 04:00 97.0 92 20 146/74 (98) 97 04/19/20 04:00 Simple Mask 10.0 04/19/20 04:00 10.0 04/19/20 04:00 64 04/19/20 00:00 10.0 04/19/20 00:00 Simple Mask 10.0 04/19/20 00:00 88 04/19/20 00:00 97.2 93 20 139/62 (87) 96 04/18/20 20:19 Simple Mask 10.0 04/18/20 19:50 98.2 84 24 125/52 95 Simple Mask 8.0 04/18/20 19:30 98.2 84 24 125/52 95 Simple Mask 8.0 04/18/20 15:00 98.2 109 22 149/74 97 Simple Mask 8.0 04/18/20 13:00 103 22 141/79 96 Simple Mask 6.0 04/18/20 11:00 98.6 112 22 131/79 96 Simple Mask 8.0 Intake and Output 04/18/20 04/19/20 19:00 07:00 Intake Total 640 ml Balance 640 ml Intake Oral 40 ml IV Total 600 ml # Voids 1 3 # Bowel Movements 6 General Appearance: WD/WN, no acute distress HEENT: normocephalic Respiratory: chest wall non-tender, lungs clear Cardiovascular: normal peripheral pulses, normal rate Abdomen: normal bowel sounds, no organomegaly Genitourinary: normal external genitalia Extremities: no cyanosis Skin: no rash Neurologic: machine sander II-XII grossly normal Microbiology Date/Time Source Procedure Growth Status 04/18/20 07:09 Nasopharynx SARS-CoV-2 RdRp Gene Assay - Final Complete Laboratory Tests 04/18/20 21:10: POC Whole Blood Glucose 202H 04/19/20 05:40: White Blood Count 8.5, Red Blood Count 4.49L, Hemoglobin 13.7L, Hematocrit 40.4L , Mean Corpuscular Volume 90, Mean Corpuscular Hemoglobin 30.6, Mean Corpuscular Hemoglobin Concent 34.0, Red Cell Distribution Width 12.1, Platelet Count 319, Mean Platelet Volume 7.0, Neutrophils (%) (Auto) 77.1H, Lymphocytes (%) (Auto) 11.2L, Monocytes (%) (Auto) 11.1H, Eosinophils (%) (Auto) 0.0, Basophils (%) (Auto) 0.6, Erythrocyte Sedimentation Rate 63H, Sodium Level 141, Potassium Level 3.2L, Chloride Level 103, Carbon Dioxide Level 32, Anion Gap 6, Blood Urea Nitrogen 13, Creatinine 0.8, Estimat Glomerular Filtration Rate > 60, Glucose Level 128H, Hemoglobin A1c 7.1H, Uric Acid 2.7, Calcium Level 8.8, Phosphorus Level 2.4L, Magnesium Level 1.6L, Total Bilirubin 0.7, Direct Bilirubin 0.4H, Gamma Glutamyl Transpeptidase 26, Aspartate Amino Transf (AST/SGOT) 28, Alanine Aminotransferase (ALT/SGPT) 23, Alkaline Phosphatase 42L, Lactate Dehydrogenase 260H, C-Reactive Protein, Quantitative 11.9H, Pro-B-Type Natriuretic Peptide 353H, Total Protein 7.4, Albumin 2.5L, Globulin 4.9, Albumin/Globulin Ratio 0.5L , Triglycerides Level 93, Cholesterol Level 99, LDL Cholesterol 48, HDL Cholesterol 33L, Cholesterol/HDL Ratio 3.0L, Vitamin B12 Level 546, Vitamin D 25-Hydroxy [Pending], 25-Hydroxy Vitamin D2 [Pending], 25-Hydroxy Vitamin D3 [Pending], Folate 17.9, Thyroid Stimulating Hormone (TSH) < 0.010L 04/19/20 06:02: POC Whole Blood Glucose 122H Current Medications Medications (Trade) Dose Ordered Sig/Lucy Route PRN Reason Start Time Stop Time Status Last Admin Dose Admin Acetaminophen (Tylenol) 650 mg Q4H PRN ORAL FEVER 04/18/20 10:45 05/18/20 10:44 Albuterol/ Ipratropium (Combivent Respimat) 1 puff Q4H PRN INH Shortness of Breath 04/18/20 11:15 05/18/20 11:14 Azithromycin 250 mg/Dextrose 275 ml @ 275 mls/hr Q24H IV 04/19/20 09:00 04/24/20 08:59 04/19/20 08:55 Ceftriaxone Sodium 1 gm/ Dextrose 55 ml @ 110 mls/hr Q24H IVPB 04/19/20 09:00 04/26/20 08:59 04/19/20 08:55 Dexamethasone (Decadron) 6 mg DAILY ORAL 04/19/20 09:00 04/28/20 09:01 04/19/20 08:56 Dextrose (Dextrose 50%) 25 ml Q30M PRN IV Hypoglycemia 04/18/20 10:45 07/17/20 10:44 Dextrose (Dextrose 50%) 50 ml Q30M PRN IV Hypoglycemia 04/18/20 10:45 07/17/20 10:44 Docusate Sodium (Colace) 100 mg THREE TIMES A DAY ORAL 04/18/20 13:00 05/18/20 12:59 04/19/20 08:55 Heparin Sodium (Porcine) (Heparin 5000 units/ml) 5,000 units EVERY 12 HOURS SUBQ 04/18/20 21:00 06/02/20 20:59 04/19/20 08:57 Insulin Aspart (NovoLOG) BEFORE MEALS AND HS SUBQ 04/18/20 11:30 07/17/20 11:29 04/18/20 21:20 Ondansetron HCl (Zofran) 4 mg Q6H PRN IVP Nausea & Vomiting 04/18/20 10:45 05/18/20 10:44 Pantoprazole (Protonix) 40 mg EVERY 12 HOURS ORAL 04/18/20 21:00 05/18/20 20:59 04/19/20 08:56 Polyethylene Glycol (Miralax) 17 gm DAILYPRN PRN ORAL Constipation 04/18/20 10:45 05/18/20 10:44 Potassium Chloride 30 meq/ Sodium Chloride 1,015 ml @ 50 mls/hr [id number] IV 04/19/20 09:00 05/19/20 08:59 04/19/20 08:54 Potassium Chloride (K-Dur) 40 meq ONCE ONCE ORAL 04/19/20 11:00 12/31/20 11:01 UNV Promethazine HCl/ Codeine (Phenergan with Codeine) 5 ml Q6H PRN ORAL cough 04/18/20 10:45 05/18/20 10:44 Remdesivir 100 mg/ Sodium Chloride 250 ml @ 250 mls/hr Q24H IV 04/19/20 15:00 04/22/20 15:59 Assessment/Plan Problems: (1) Coronavirus infection (2) Hypoxia (3) History of hypertension (4) BPH (benign prostatic hyperplasia) (5) Diabetes Assessment/Plan respiratory isolation titrate fio2 to sat of 92 f/u inflammatory markers, CRP decreasing abx and sterids as per ID, on Remdesivir sliding scale and diabetic diet antitussive symptomatic treatment dvt prophylaxis Angel Daniel MD Apr 19, 2020 10:56
--- NOTE | 2020-04-19 11:00 | NUR ---
NURSE NOTES: Dr. Daniel at the bedside assessed the patient. Notified abnormal lab including Hgb drop from 15.2 to 13.7, K 3.2, D-dimer of 0.64. Dr. Daniel ordered KCL 40mEq PO once. Will administer as ordered. Will continue plan of care.
--- NOTE | 2020-04-19 11:30 | NUR ---
NURSE NOTES: BS 203 noted. Novolog administered per protocol. The patient tolerated well. Will closely monitor the patient. Will continue plan of care.
[2020-04-19 12:00] VITALS: BP 136/80
--- NOTE | 2020-04-19 13:26 | Nephrology Progress Note ---
Assessment/Plan Problem List: (1) Electrolyte imbalance (2) Coronavirus infection (3) Hypoxia (4) BPH (benign prostatic hyperplasia) Assessment Electrolyte imbalance Low sodium, low magnesium, low potassium Coronavirus infection, hypoxia Diabetes mellitus Plan Normal saline with potassium IV Mag sulfate IV Protonix and stool softener Antibiotics Monitor electrolytes and renal parameters Per orders Subjective ROS Limited/Unobtainable: Yes Objective Objective Last 24 Hour Vital Signs Date Time Temp Pulse Resp B/P (MAP) Pulse Ox O2 Delivery O2 Flow Rate FiO2 04/19/20 12:00 97.2 83 20 136/80 (98) 98 04/19/20 12:00 10.0 04/19/20 12:00 Simple Mask 10.0 04/19/20 08:27 94 Non-Rebreather 15.0 100 04/19/20 08:00 97.1 89 20 139/72 (94) 96 04/19/20 08:00 89 04/19/20 08:00 10.0 04/19/20 08:00 Simple Mask 10.0 04/19/20 04:00 97.0 92 20 146/74 (98) 97 04/19/20 04:00 Simple Mask 10.0 04/19/20 04:00 10.0 04/19/20 04:00 64 04/19/20 00:00 10.0 04/19/20 00:00 Simple Mask 10.0 04/19/20 00:00 88 04/19/20 00:00 97.2 93 20 139/62 (87) 96 04/18/20 20:19 Simple Mask 10.0 04/18/20 19:50 98.2 84 24 125/52 95 Simple Mask 8.0 04/18/20 19:30 98.2 84 24 125/52 95 Simple Mask 8.0 04/18/20 15:00 98.2 109 22 149/74 97 Simple Mask 8.0 Intake and Output 04/18/20 04/19/20 19:00 07:00 Intake Total 640 ml Balance 640 ml Intake Oral 40 ml IV Total 600 ml # Voids 1 3 # Bowel Movements 6 Laboratory Tests 04/18/20 21:10: POC Whole Blood Glucose 202H 04/19/20 05:40: White Blood Count 8.5, Red Blood Count 4.49L, Hemoglobin 13.7L, Hematocrit 40.4L , Mean Corpuscular Volume 90, Mean Corpuscular Hemoglobin 30.6, Mean Corpuscular Hemoglobin Concent 34.0, Red Cell Distribution Width 12.1, Platelet Count 319, Mean Platelet Volume 7.0, Neutrophils (%) (Auto) 77.1H, Lymphocytes (%) (Auto) 11.2L, Monocytes (%) (Auto) 11.1H, Eosinophils (%) (Auto) 0.0, Basophils (%) (Auto) 0.6, Erythrocyte Sedimentation Rate 63H, Sodium Level 141, Potassium Level 3.2L, Chloride Level 103, Carbon Dioxide Level 32, Anion Gap 6, Blood Urea Nitrogen 13, Creatinine 0.8, Estimat Glomerular Filtration Rate > 60, Glucose Level 128H, Hemoglobin A1c 7.1H, Uric Acid 2.7, Calcium Level 8.8, Phosphorus Level 2.4L, Magnesium Level 1.6L, Total Bilirubin 0.7, Direct Bilirubin 0.4H, Gamma Glutamyl Transpeptidase 26, Aspartate Amino Transf (AST/SGOT) 28, Alanine Aminotransferase (ALT/SGPT) 23, Alkaline Phosphatase 42L, Lactate Dehydrogenase 260H, C-Reactive Protein, Quantitative 11.9H, Pro-B-Type Natriuretic Peptide 353H, Total Protein 7.4, Albumin 2.5L, Globulin 4.9, Albumin/Globulin Ratio 0.5L , Triglycerides Level 93, Cholesterol Level 99, LDL Cholesterol 48, HDL Cholesterol 33L, Cholesterol/HDL Ratio 3.0L, Vitamin B12 Level 546, Vitamin D 25-Hydroxy [Pending], 25-Hydroxy Vitamin D2 [Pending], 25-Hydroxy Vitamin D3 [Pending], Folate 17.9, Thyroid Stimulating Hormone (TSH) < 0.010L 04/19/20 06:02: POC Whole Blood Glucose 122H 04/19/20 11:08: POC Whole Blood Glucose 203H Height (Feet): 5 Height (Inches): 6.00 Weight (Pounds): 172 General Appearance: lethargic EENT: other - On nonrebreather mask Cardiovascular: normal rate Respiratory/Chest: decreased breath sounds Abdomen: distended Roberto Yang MD Apr 19, 2020 13:26
--- NOTE | 2020-04-19 13:30 | NUR ---
NURSE NOTES: Dr. Yang was notified regarding abnormal lab. Dr. Yang ordered Mg sulfate 1gx4 total of 4grams to be administered. Will administer as ordered. Will continue plan of care.
--- NOTE | 2020-04-19 14:05 | Surgery Progress Note ---
Surgery Progress Note Subjective Additional Comments no acute events comfortable stable labs noted Objective Last 24 Hour Vital Signs Date Time Temp Pulse Resp B/P (MAP) Pulse Ox O2 Delivery O2 Flow Rate FiO2 04/19/20 12:00 97.2 83 20 136/80 (98) 98 04/19/20 12:00 10.0 04/19/20 12:00 Simple Mask 10.0 04/19/20 08:27 94 Non-Rebreather 15.0 100 04/19/20 08:00 97.1 89 20 139/72 (94) 96 04/19/20 08:00 89 04/19/20 08:00 10.0 04/19/20 08:00 Simple Mask 10.0 04/19/20 04:00 97.0 92 20 146/74 (98) 97 04/19/20 04:00 Simple Mask 10.0 04/19/20 04:00 10.0 04/19/20 04:00 64 04/19/20 00:00 10.0 04/19/20 00:00 Simple Mask 10.0 04/19/20 00:00 88 04/19/20 00:00 97.2 93 20 139/62 (87) 96 04/18/20 20:19 Simple Mask 10.0 04/18/20 19:50 98.2 84 24 125/52 95 Simple Mask 8.0 04/18/20 19:30 98.2 84 24 125/52 95 Simple Mask 8.0 04/18/20 15:00 98.2 109 22 149/74 97 Simple Mask 8.0 I&O Intake and Output 04/18/20 04/19/20 19:00 07:00 Intake Total 640 ml Balance 640 ml Intake Oral 40 ml IV Total 600 ml # Voids 1 3 # Bowel Movements 6 Dressing: saturated Cardiovascular: RSR Respiratory: decreased breath sounds Abdomen: soft, non-tender, present bowel sounds, non-distended Extremities: no tenderness, no cyanosis, other Laboratory Tests Test 04/18/20 21:10 04/19/20 05:40 04/19/20 06:02 04/19/20 11:08 POC Whole Blood Glucose 202 MG/DL (74-106) H 122 MG/DL (74-106) H 203 MG/DL (74-106) H White Blood Count 8.5 K/UL (4.8-10.8) Red Blood Count 4.49 M/UL (4.70-6.10) L Hemoglobin 13.7 G/DL (14.2-18.0) L Hematocrit 40.4 % (42.0-52.0) L Mean Corpuscular Volume 90 FL (80-99) Mean Corpuscular Hemoglobin 30.6 PG (27.0-31.0) Mean Corpuscular Hemoglobin Concent 34.0 G/DL (32.0-36.0) Red Cell Distribution Width 12.1 % (11.6-14.8) Platelet Count 319 K/UL (150-450) Mean Platelet Volume 7.0 FL (6.5-10.1) Neutrophils (%) (Auto) 77.1 % (45.0-75.0) H Lymphocytes (%) (Auto) 11.2 % (20.0-45.0) L Monocytes (%) (Auto) 11.1 % (1.0-10.0) H Eosinophils (%) (Auto) 0.0 % (0.0-3.0) Basophils (%) (Auto) 0.6 % (0.0-2.0) Erythrocyte Sedimentation Rate 63 MM/HR (0-20) H Sodium Level 141 MMOL/L (136-145) Potassium Level 3.2 MMOL/L (3.5-5.1) L Chloride Level 103 MMOL/L (98-107) Carbon Dioxide Level 32 MMOL/L (21-32) Anion Gap 6 mmol/L (5-15) Blood Urea Nitrogen 13 mg/dL (7-18) Creatinine 0.8 MG/DL (0.55-1.30) Estimat Glomerular Filtration Rate > 60 mL/min (>60) Glucose Level 128 MG/DL (74-106) H Hemoglobin A1c 7.1 % (4.3-6.0) H Uric Acid 2.7 MG/DL (2.6-7.2) Calcium Level 8.8 MG/DL (8.5-10.1) Phosphorus Level 2.4 MG/DL (2.5-4.9) L Magnesium Level 1.6 MG/DL (1.8-2.4) L Total Bilirubin 0.7 MG/DL (0.2-1.0) Direct Bilirubin 0.4 MG/DL (0.0-0.3) H Gamma Glutamyl Transpeptidase 26 U/L (5-85) Aspartate Amino Transf (AST/SGOT) 28 U/L (15-37) Alanine Aminotransferase (ALT/SGPT) 23 U/L (12-78) Alkaline Phosphatase 42 U/L (46-116) L Lactate Dehydrogenase 260 U/L (81-234) H C-Reactive Protein, Quantitative 11.9 mg/dL (0.00-0.90) H Pro-B-Type Natriuretic Peptide 353 pg/mL (0-125) H Total Protein 7.4 G/DL (6.4-8.2) Albumin 2.5 G/DL (3.4-5.0) L Globulin 4.9 g/dL Albumin/Globulin Ratio 0.5 (1.0-2.7) L Triglycerides Level 93 MG/DL (30-150) Cholesterol Level 99 MG/DL (< 200) LDL Cholesterol 48 mg/dL (<100) HDL Cholesterol 33 MG/DL (40-60) L Cholesterol/HDL Ratio 3.0 (3.3-4.4) L Vitamin B12 Level 546 PG/ML (193-986) Vitamin D 25-Hydroxy Pending 25-Hydroxy Vitamin D2 Pending 25-Hydroxy Vitamin D3 Pending Folate 17.9 NG/ML (8.6-58.9) Thyroid Stimulating Hormone (TSH) < 0.010 uiU/mL (0.358-3.740) Plan Problems: (1) Abnormal LFTs Assessment & Plan: elevated lft's t bili elevated direct <50% elevated unlikely obstructed biliary unlikely alon abd exam benign US hold for now given covid will follow clinically with exam and recs thank you (2) Diabetes (3) Hypoxia (4) Coronavirus infection Assessment & Plan: There are bilateral patchy and streaky infiltrates in a peribronchovascular distribution, left greater than right. Heart size is normal. Pleural spaces are clear. Impression: Bilateral infiltrates, consistent with multifocal pneumonia, likely viral pulm input appreciated ID on abx and Rx pulm respiratory support (5) History of hypertension (6) BPH (benign prostatic hyperplasia) Jesus Manuel Cruz Apr 19, 2020 14:05
[2020-04-19] MEDS: Maintenance Dose:Remdesivir 100mg/NS 230ml x 4 Doses IV SCH ×2 (14:41)
[2020-04-19] MEDS ORDERED: Maintenance Dose:Remdesivir 100mg/NS 230ml x 4 Doses IV SCH ×2 (15:00)
--- NOTE | 2020-04-19 15:00 | NUR ---
NURSE NOTES: The patient is resting comfortably without acute distress or shortness of breath. Tolerating 10L simple mask well. Will closely monitor the patient. Will continue plan of care.
[2020-04-19 16:00] VITALS: BP 141/54
--- NOTE | 2020-04-19 16:30 | NUR ---
NURSE NOTES: BS 228 noted. Novolog administered per protocol. Will closely monitor the patient. Will continue plan of care.
--- NOTE | 2020-04-19 16:40 | NUR ---
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
--- NOTE | 2020-04-19 18:00 | NUR ---
NURSE NOTES: Bed bath given to the patient. The patient tolerated well. Tolerating 10L simple mask well. Will closely monitor the patient. Will continue plan of care.
--- NOTE | 2020-04-19 19:30 | NUR ---
NURSE HAND-OFF REPORT: Important Events on Shift: KCL 40mEq PO, Mg Sulfate 1gmx4 4gm replaced, Tolerating 10L simple mask well Patient Status: Stable, Full code Diet: CCHO medium diet Pending Orders: N Pending Results/Labs: N Pending notification: N Latest Vital Signs: Temperature 97.5 , Pulse 105 , B/P 141 /54 , Respiratory Rate 20 , O2 SAT 99 , Simple Mask, O2 Flow Rate 10.0 . Vital Sign Comment: Stable EKG Rhythm: Sinus Tachycardia Rhythm change?: Kiarra JOE Notified?: Y -Dr. Fredy JOE Response: No New Orders Received Latest Rivas Fall Score: 35 Fall Risk: Medium Risk Safety Measures: Call light Within Reach, Bed Alarm Zone 2, Side Rails Side Rails x2, Bed position Low and Locked. Fall Precautions: Yellow Socks Yellow Gown Door Sign Patient Fall Education Report given to REANNA Lawler. The patient is stable at this time. Endorsed plan of care.
--- NOTE | 2020-04-19 19:33 | Internal Med Progress Note ---
Subjective Date of Service: Apr 19, 2020 Physician Name AngelinaFili Attending Physician Romie Murray MD Current Medications Medications (Trade) Dose Ordered Sig/Lucy Route PRN Reason Start Time Stop Time Status Last Admin Dose Admin Acetaminophen (Tylenol) 650 mg Q4H PRN ORAL FEVER 04/18/20 10:45 05/18/20 10:44 Albuterol/ Ipratropium (Combivent Respimat) 1 puff Q4H PRN INH Shortness of Breath 04/18/20 11:15 05/18/20 11:14 Azithromycin 250 mg/Dextrose 275 ml @ 275 mls/hr Q24H IV 04/19/20 09:00 04/24/20 08:59 04/19/20 08:55 Ceftriaxone Sodium 1 gm/ Dextrose 55 ml @ 110 mls/hr Q24H IVPB 04/19/20 09:00 04/26/20 08:59 04/19/20 08:55 Dexamethasone (Decadron) 6 mg DAILY ORAL 04/19/20 09:00 04/28/20 09:01 04/19/20 08:56 Dextrose (Dextrose 50%) 25 ml Q30M PRN IV Hypoglycemia 04/18/20 10:45 07/17/20 10:44 Dextrose (Dextrose 50%) 50 ml Q30M PRN IV Hypoglycemia 04/18/20 10:45 07/17/20 10:44 Docusate Sodium (Colace) 100 mg THREE TIMES A DAY ORAL 04/18/20 13:00 05/18/20 12:59 04/19/20 17:11 Heparin Sodium (Porcine) (Heparin 5000 units/ml) 5,000 units EVERY 12 HOURS SUBQ 04/18/20 21:00 06/02/20 20:59 04/19/20 08:57 Insulin Aspart (NovoLOG) BEFORE MEALS AND HS SUBQ 04/18/20 11:30 07/17/20 11:29 04/19/20 16:03 Ondansetron HCl (Zofran) 4 mg Q6H PRN IVP Nausea & Vomiting 04/18/20 10:45 05/18/20 10:44 Pantoprazole (Protonix) 40 mg EVERY 12 HOURS ORAL 04/18/20 21:00 05/18/20 20:59 04/19/20 08:56 Polyethylene Glycol (Miralax) 17 gm DAILYPRN PRN ORAL Constipation 04/18/20 10:45 05/18/20 10:44 Potassium Chloride 30 meq/ Sodium Chloride 1,015 ml @ 50 mls/hr [id number] IV 04/19/20 09:00 05/19/20 08:59 04/19/20 08:54 Promethazine HCl/ Codeine (Phenergan with Codeine) 5 ml Q6H PRN ORAL cough 04/18/20 10:45 05/18/20 10:44 Remdesivir 100 mg/ Sodium Chloride 250 ml @ 250 mls/hr Q24H IV 04/19/20 15:00 04/22/20 15:59 04/19/20 14:41 Allergies: Coded Allergies: No Known Allergies (Unverified , 04/18/20) ROS Limited/Unobtainable: Yes Subjective 79 YO M admitted with dyspnea. Now COVID 19 pneumonia. Cover for Int Carlos Eduardo - Dr Murray Objective Last Vital Signs Date Time Temp Pulse Resp B/P (MAP) Pulse Ox O2 Delivery O2 Flow Rate FiO2 04/19/20 16:00 Simple Mask 10.0 04/19/20 16:00 97.5 79 20 141/54 (83) 99 04/19/20 08:27 100 Laboratory Tests Test 04/18/20 21:10 04/19/20 05:40 04/19/20 06:02 04/19/20 11:08 POC Whole Blood Glucose 202 MG/DL (74-106) H 122 MG/DL (74-106) H 203 MG/DL (74-106) H White Blood Count 8.5 K/UL (4.8-10.8) Red Blood Count 4.49 M/UL (4.70-6.10) L Hemoglobin 13.7 G/DL (14.2-18.0) L Hematocrit 40.4 % (42.0-52.0) L Mean Corpuscular Volume 90 FL (80-99) Mean Corpuscular Hemoglobin 30.6 PG (27.0-31.0) Mean Corpuscular Hemoglobin Concent 34.0 G/DL (32.0-36.0) Red Cell Distribution Width 12.1 % (11.6-14.8) Platelet Count 319 K/UL (150-450) Mean Platelet Volume 7.0 FL (6.5-10.1) Neutrophils (%) (Auto) 77.1 % (45.0-75.0) H Lymphocytes (%) (Auto) 11.2 % (20.0-45.0) L Monocytes (%) (Auto) 11.1 % (1.0-10.0) H Eosinophils (%) (Auto) 0.0 % (0.0-3.0) Basophils (%) (Auto) 0.6 % (0.0-2.0) Erythrocyte Sedimentation Rate 63 MM/HR (0-20) H Sodium Level 141 MMOL/L (136-145) Potassium Level 3.2 MMOL/L (3.5-5.1) L Chloride Level 103 MMOL/L (98-107) Carbon Dioxide Level 32 MMOL/L (21-32) Anion Gap 6 mmol/L (5-15) Blood Urea Nitrogen 13 mg/dL (7-18) Creatinine 0.8 MG/DL (0.55-1.30) Estimat Glomerular Filtration Rate > 60 mL/min (>60) Glucose Level 128 MG/DL (74-106) H Hemoglobin A1c 7.1 % (4.3-6.0) H Uric Acid 2.7 MG/DL (2.6-7.2) Calcium Level 8.8 MG/DL (8.5-10.1) Phosphorus Level 2.4 MG/DL (2.5-4.9) L Magnesium Level 1.6 MG/DL (1.8-2.4) L Total Bilirubin 0.7 MG/DL (0.2-1.0) Direct Bilirubin 0.4 MG/DL (0.0-0.3) H Gamma Glutamyl Transpeptidase 26 U/L (5-85) Aspartate Amino Transf (AST/SGOT) 28 U/L (15-37) Alanine Aminotransferase (ALT/SGPT) 23 U/L (12-78) Alkaline Phosphatase 42 U/L (46-116) L Lactate Dehydrogenase 260 U/L (81-234) H C-Reactive Protein, Quantitative 11.9 mg/dL (0.00-0.90) H Pro-B-Type Natriuretic Peptide 353 pg/mL (0-125) H Total Protein 7.4 G/DL (6.4-8.2) Albumin 2.5 G/DL (3.4-5.0) L Globulin 4.9 g/dL Albumin/Globulin Ratio 0.5 (1.0-2.7) L Triglycerides Level 93 MG/DL (30-150) Cholesterol Level 99 MG/DL (< 200) LDL Cholesterol 48 mg/dL (<100) HDL Cholesterol 33 MG/DL (40-60) L Cholesterol/HDL Ratio 3.0 (3.3-4.4) L Vitamin B12 Level 546 PG/ML (193-986) Vitamin D 25-Hydroxy Pending 25-Hydroxy Vitamin D2 Pending 25-Hydroxy Vitamin D3 Pending Folate 17.9 NG/ML (8.6-58.9) Thyroid Stimulating Hormone (TSH) < 0.010 uiU/mL (0.358-3.740) Microbiology Date/Time Source Procedure Growth Status 04/18/20 07:09 Nasopharynx SARS-CoV-2 RdRp Gene Assay - Final Complete 04/18/20 07:09 Blood Blood Culture - Preliminary NO GROWTH AFTER 24 HOURS Resulted 04/18/20 07:09 Blood Blood Culture - Preliminary NO GROWTH AFTER 24 HOURS Resulted Intake and Output 04/18/20 04/19/20 19:00 07:00 Intake Total 640 ml Balance 640 ml Intake Oral 40 ml IV Total 600 ml # Voids 1 3 # Bowel Movements 6 Objective PHYSICAL EXAMINATION: GENERAL: The patient is a well-developed and well-nourished male, in no apparent distress. HEENT: Eyes, pupils are equal and responsive to light and accommodation. Extraocular movements are intact. NECK: Supple without lymphadenopathy. CHEST: Decreased breath sounds in bilateral bases, otherwise clear to auscultation without wheezes. CARDIOVASCULAR: Tachycardic, regular rhythm. S1, S2 normal without murmurs, rubs, or gallops. ABDOMEN: Soft, nontender, and nondistended. Positive bowel sounds. No evidence of hepatosplenomegaly. Currently, no rebound or guarding noted. EXTREMITIES: Negative for clubbing, cyanosis, or edema. RECTAL/GENITAL: Refused. NEUROLOGIC: Cranial nerves II through XII are grossly intact without focal deficits. Motor strength is 5/5 bilaterally. Deep tendon reflexes are 2+ plantar. Assessment/Plan Assessment/Plan ASSESSMENT: This is an 79-year-old male with: 1. COVID-19 positive. 2. Bilateral pneumonia. 3. Diabetes type 2. 4. Hypertension. 5. Hypercholesterolemia. 6. Benign prostatic hypertrophy. TREATMENT: 1. COVID-19 positive/bilateral pneumonia. A Pulmonary consultation has been obtained with Dr. Angel Daniel. The patient has been started empirically on remdesivir and Decadron intravenously. The patient has been started on antibiotics including ceftriaxone and azithromycin. Follow recommendations of Pulmonary. 2. Diabetes type 2. NovoLog sliding scale has been instituted. 3. Hypertension. Continue amlodipine, hydrochlorothiazide, and losartan as above. 4. Hypercholesterolemia. Continue simvastatin as above. 5. Benign prostatic hypertrophy. Continue Flomax as above. Fili Alfaro MD Apr 19, 2020 19:33
--- NOTE | 2020-04-19 19:35 | NUR ---
NURSE NOTES: Important Events on Shift: Received report from Meaghan Castillo RN. Pt tolerating simple mask, VS WNL, denies pain at this time. Will continue plan of care and close monitoring. Patient Status: Full code Diet: CCHO M Pending Orders: cmp, cbc, bilirubin, uric acid, crp, mag AM labs Pending Results/Labs: AM labs Pending MD notification: none Latest Vital Signs: Temperature 97.5 , Pulse 76 , B/P 133 /62 , Respiratory Rate 20 , O2 SAT 97 , Simple Mask, O2 Flow Rate 10.0 . Vital Sign Comment: EKG Rhythm: Sinus Rhythm Rhythm change?: N Notified?: Kiarra Daniel MD Response: No New Orders Received Latest Rivas Fall Score: 35 Fall Risk: Medium Risk Safety Measures: Call light Within Reach, Bed Alarm Zone 2, Side Rails Side Rails x2, Bed position Low and Locked. Fall Precautions: Yellow Socks Yellow Gown Door Sign Patient Fall Education
[2020-04-19 20:00] VITALS: BP 149/75
[2020-04-20] VITALS: BP 142/74
[2020-04-20 04:00] VITALS: BP 133/62
[2020-04-20 05:16] LABS: BASOPHILS % (AUTO) 0.6 % (0.0-2.0); EOSINOPHILS % (AUTO) 0.1 % (0.0-3.0); HEMOGLOBIN 13.6 G/DL (14.2-18.0); MEAN CORPUSCULAR VOLUME 88 FL (80-99); MONOCYTES % (AUTO) 11.8 % (1.0-10.0); NEUTROPHILS % (AUTO) 74.5 % (45.0-75.0); PLATELET COUNT 367 K/UL (150-450); RED BLOOD COUNT 4.45 M/UL (4.70-6.10); WHITE BLOOD COUNT 7.5 K/UL (4.8-10.8)
[2020-04-20] MEDS: NovoLOG Insulin Flexpen SUBQ SCH ×4 (05:53→20:30)
[2020-04-20 06:30] LABS: ALANINE AMINOTRANSFERASE 19 U/L (12-78); ALBUMIN 2.4 G/DL (3.4-5.0); ALBUMIN/GLOBULIN RATIO 0.5 (1.0-2.7); ALKALINE PHOSPHATASE 36 U/L (46-116); ASPARTATE AMINO TRANSFERASE 23 U/L (15-37); BILIRUBIN,DIRECT 0.2 MG/DL (0.0-0.3); BILIRUBIN,TOTAL 0.6 MG/DL (0.2-1.0); BLOOD UREA NITROGEN 12 mg/dL (7-18); CALCIUM 8.5 MG/DL (8.5-10.1); CARBON DIOXIDE 32 MMOL/L (21-32); CREATININE 0.7 MG/DL (0.55-1.30)
--- NOTE | 2020-04-20 06:33 | NUR ---
NURSE HAND-OFF REPORT: Important Events on Shift: None. Pt denies pain or distress during shift. Called Fredy for sleep PRN orders, no new orders received. Will endorse plan of care and close monitoring. Patient Status: full code Diet: CCHO M Pending Orders: none Pending Results/Labs: AM labs Pending MD notification: none Latest Vital Signs: Temperature 97.5 , Pulse 76 , B/P 133 /62 , Respiratory Rate 20 , O2 SAT 97 , Simple Mask, O2 Flow Rate 10.0 . Vital Sign Comment: EKG Rhythm: Sinus Rhythm Rhythm change?: N MD Notified?: Kiarra Daniel MD Response: No New Orders Received Latest Rivas Fall Score: 35 Fall Risk: Medium Risk Safety Measures: Call light Within Reach, Bed Alarm Zone 2, Side Rails Side Rails x2, Bed position Low and Locked. Fall Precautions: Yellow Socks Yellow Gown Door Sign Patient Fall Education Report to be given to Omega Villalba RN .
[2020-04-20 06:34] LABS: PHOSPHORUS 3.2 MG/DL (2.5-4.9)
--- NOTE | 2020-04-20 07:05 | NUR ---
Received report from REANNA Carrasco. patient is on the bed, awake, no signs of grimacing or distress. Patient is on a simple mask, 10 L, tolerating well. Patient has a L AC 22 g IV, R AC 22 g running NS with KCl 30 @ 50 cc/hr, and R 18 g FA, all patent, and intact. HOB elevated, bed is on lowest position, locked, side rails up. Patient will continue to be monitored.
[2020-04-20 07:17] LABS: CHLORIDE 103 MMOL/L (98-107); POTASSIUM 3.8 MMOL/L (3.5-5.1); SODIUM 141 MMOL/L (136-145)
[2020-04-20 08:00] VITALS: BP 141/76
[2020-04-20] MEDS: Docusate 100mg cap ORAL SCH ×3 (08:35→18:08)
[2020-04-20] MEDS: Heparin 5000 units/ml inj SUBQ SCH ×2 (08:37→20:20)
[2020-04-20] MEDS: cefTRIAXone 1 GM in D5W 55 ML IVPB SCH (08:41)
--- NOTE | 2020-04-20 08:56 | Infectious Diseases Prog Note ---
Assessment/Plan 79yo M with: COVID pna Acute hypoxia 2/2 severe COVID pna Afebrile Normal WBC Lymphopenia Elevated AST to 38 likely 2/2 COVID 04/12 COVID positive; flu neg 04/18 COVID rapid test positive BCx NTD Resp cx p CXR: BL pna UA neg Cr 1.1 PMH: DM2 HTN HLD Prostate disease Plan: Cont RDV #06/22 Cont dex 6mg daily #06/27 Cont empiric CTX/azithro #06/22 This institution does not have access to convalescent plasma, and as pt 6 days out from diagnosis less likely to benefit from it. F/u Bcx, resp cx Monitor CBC/CMP Monitor resp status Monitor temp curve, hemodynamics D/w RN Thank you for this consult. [facility] will continue to follow. Subjective Allergies: Coded Allergies: No Known Allergies (Unverified , 04/18/20) AF On simple face mask 10L, doing well WBC 7.5 NAD Objective Last 24 Hour Vital Signs Date Time Temp Pulse Resp B/P (MAP) Pulse Ox O2 Delivery O2 Flow Rate FiO2 04/20/20 04:00 84 04/20/20 04:00 Simple Mask 10.0 04/20/20 04:00 97.5 76 20 133/62 (85) 97 04/20/20 00:00 78 04/20/20 00:00 97.3 67 22 142/74 (96) 98 04/20/20 00:00 Simple Mask 10.0 04/19/20 20:00 97.5 87 20 149/75 (99) 99 04/19/20 20:00 Simple Mask 10.0 04/19/20 20:00 86 04/19/20 16:00 Simple Mask 10.0 04/19/20 16:00 10.0 04/19/20 16:00 97.5 79 20 141/54 (83) 99 04/19/20 16:00 105 04/19/20 14:06 100 04/19/20 12:00 97.2 83 20 136/80 (98) 98 04/19/20 12:00 10.0 04/19/20 12:00 Simple Mask 10.0 Height (Feet): 5 Height (Inches): 6.00 Weight (Pounds): 172 Gen: NAD HEENT: NCAT Pulm: BL chest rise Abd: Non-distended Ext: No c/c/e Skin: No visible rashes Neuro: Awake Microbiology Date/Time Source Procedure Growth Status 04/18/20 07:09 Nasopharynx SARS-CoV-2 RdRp Gene Assay - Final Complete 04/18/20 07:09 Blood Blood Culture - Preliminary NO GROWTH AFTER 24 HOURS Resulted 04/18/20 07:09 Blood Blood Culture - Preliminary NO GROWTH AFTER 24 HOURS Resulted Laboratory Tests Test 04/19/20 11:08 04/20/20 03:30 POC Whole Blood Glucose 203 MG/DL (74-106) H White Blood Count 7.5 K/UL (4.8-10.8) Red Blood Count 4.45 M/UL (4.70-6.10) L Hemoglobin 13.6 G/DL (14.2-18.0) L Hematocrit 39.0 % (42.0-52.0) L Mean Corpuscular Volume 88 FL (80-99) Mean Corpuscular Hemoglobin 30.6 PG (27.0-31.0) Mean Corpuscular Hemoglobin Concent 34.9 G/DL (32.0-36.0) Red Cell Distribution Width 13.0 % (11.6-14.8) Platelet Count 367 K/UL (150-450) Mean Platelet Volume 6.5 FL (6.5-10.1) Neutrophils (%) (Auto) 74.5 % (45.0-75.0) Lymphocytes (%) (Auto) 13.0 % (20.0-45.0) L Monocytes (%) (Auto) 11.8 % (1.0-10.0) H Eosinophils (%) (Auto) 0.1 % (0.0-3.0) Basophils (%) (Auto) 0.6 % (0.0-2.0) Erythrocyte Sedimentation Rate 80 MM/HR (0-20) H Sodium Level 141 MMOL/L (136-145) Potassium Level 3.8 MMOL/L (3.5-5.1) Chloride Level 103 MMOL/L (98-107) Carbon Dioxide Level 32 MMOL/L (21-32) Blood Urea Nitrogen 12 mg/dL (7-18) Creatinine 0.7 MG/DL (0.55-1.30) Estimat Glomerular Filtration Rate > 60 mL/min (>60) Glucose Level 92 MG/DL (74-106) Uric Acid 2.7 MG/DL (2.6-7.2) Calcium Level 8.5 MG/DL (8.5-10.1) Phosphorus Level 3.2 MG/DL (2.5-4.9) Magnesium Level 1.9 MG/DL (1.8-2.4) Total Bilirubin 0.6 MG/DL (0.2-1.0) Direct Bilirubin 0.2 MG/DL (0.0-0.3) Aspartate Amino Transf (AST/SGOT) 23 U/L (15-37) Alanine Aminotransferase (ALT/SGPT) 19 U/L (12-78) Alkaline Phosphatase 36 U/L (46-116) L C-Reactive Protein, Quantitative 7.0 mg/dL (0.00-0.90) H Total Protein 6.9 G/DL (6.4-8.2) Albumin 2.4 G/DL (3.4-5.0) L Globulin 4.5 g/dL Albumin/Globulin Ratio 0.5 (1.0-2.7) L Current Medications Medications (Trade) Dose Ordered Sig/Lucy Route PRN Reason Start Time Stop Time Status Last Admin Dose Admin Acetaminophen (Tylenol) 650 mg Q4H PRN ORAL FEVER 04/18/20 10:45 05/18/20 10:44 Albuterol/ Ipratropium (Combivent Respimat) 1 puff Q4H PRN INH Shortness of Breath 04/18/20 11:15 05/18/20 11:14 Azithromycin 250 mg/Dextrose 275 ml @ 275 mls/hr Q24H IV 04/19/20 09:00 04/24/20 08:59 04/19/20 08:55 Ceftriaxone Sodium 1 gm/ Dextrose 55 ml @ 110 mls/hr Q24H IVPB 04/19/20 09:00 04/26/20 08:59 04/20/20 08:41 Dexamethasone (Decadron) 6 mg DAILY ORAL 04/19/20 09:00 04/28/20 09:01 04/20/20 08:35 Dextrose (Dextrose 50%) 25 ml Q30M PRN IV Hypoglycemia 04/18/20 10:45 07/17/20 10:44 Dextrose (Dextrose 50%) 50 ml Q30M PRN IV Hypoglycemia 04/18/20 10:45 07/17/20 10:44 Docusate Sodium (Colace) 100 mg THREE TIMES A DAY ORAL 04/18/20 13:00 05/18/20 12:59 04/20/20 08:35 Heparin Sodium (Porcine) (Heparin 5000 units/ml) 5,000 units EVERY 12 HOURS SUBQ 04/18/20 21:00 06/02/20 20:59 04/20/20 08:37 Insulin Aspart (NovoLOG) BEFORE MEALS AND HS SUBQ 04/18/20 11:30 07/17/20 11:29 04/19/20 23:11 Ondansetron HCl (Zofran) 4 mg Q6H PRN IVP Nausea & Vomiting 04/18/20 10:45 05/18/20 10:44 Pantoprazole (Protonix) 40 mg EVERY 12 HOURS ORAL 04/18/20 21:00 05/18/20 20:59 04/20/20 08:35 Polyethylene Glycol (Miralax) 17 gm DAILYPRN PRN ORAL Constipation 04/18/20 10:45 05/18/20 10:44 Potassium Chloride 30 meq/ Sodium Chloride 1,015 ml @ 50 mls/hr [id number] IV 04/19/20 09:00 05/19/20 08:59 04/20/20 05:43 Promethazine HCl/ Codeine (Phenergan with Codeine) 5 ml Q6H PRN ORAL cough 04/18/20 10:45 05/18/20 10:44 Remdesivir 100 mg/ Sodium Chloride 250 ml @ 250 mls/hr Q24H IV 04/19/20 15:00 04/22/20 15:59 04/19/20 14:41 Andria Pond M.D. Apr 20, 2020 08:56
[2020-04-20] MEDS: Azithromycin 250 MG in D5W 275 ML IV SCH (09:08)
[2020-04-20 12:00] VITALS: BP 136/75
--- NOTE | 2020-04-20 12:19 | Pulmonology Progress Note ---
Subjective ROS Limited/Unobtainable: Yes Constitutional: Reports: no symptoms HEENT: Repors: no symptoms Respiratory: Reports: no symptoms Allergies: Coded Allergies: No Known Allergies (Unverified , 04/18/20) Subjective afebrile, no leukocytosis on FM 10 L/min no resp distress Objective Last 24 Hour Vital Signs Date Time Temp Pulse Resp B/P (MAP) Pulse Ox O2 Delivery O2 Flow Rate FiO2 04/20/20 08:00 Simple Mask 10.0 04/20/20 08:00 97.5 97 19 141/76 (97) 97 04/20/20 07:46 70 04/20/20 04:00 84 04/20/20 04:00 Simple Mask 10.0 04/20/20 04:00 97.5 76 20 133/62 (85) 97 04/20/20 00:00 78 04/20/20 00:00 97.3 67 22 142/74 (96) 98 04/20/20 00:00 Simple Mask 10.0 04/19/20 20:00 97.5 87 20 149/75 (99) 99 04/19/20 20:00 Simple Mask 10.0 04/19/20 20:00 86 04/19/20 16:00 Simple Mask 10.0 04/19/20 16:00 10.0 04/19/20 16:00 97.5 79 20 141/54 (83) 99 04/19/20 16:00 105 04/19/20 14:06 100 Intake and Output 04/19/20 04/20/20 19:00 07:00 Intake Total 700 ml 400 ml Output Total 1000 ml 600 ml Balance -300 ml -200 ml Intake Oral 700 ml 400 ml Output Urine Total 1000 ml 600 ml # Bowel Movements 5 4 General Appearance: WD/WN, no acute distress HEENT: normocephalic Respiratory: chest wall non-tender, lungs clear - with moderate air exchange , other - O2 via FM Cardiovascular: normal peripheral pulses, normal rate Abdomen: normal bowel sounds, no organomegaly Extremities: no edema Skin: no rash Neurologic: abnormal gait Musculoskeletal: normal muscle bulk Microbiology Date/Time Source Procedure Growth Status 04/18/20 07:09 Nasopharynx SARS-CoV-2 RdRp Gene Assay - Final Complete 04/18/20 07:09 Blood Blood Culture - Preliminary NO GROWTH AFTER 24 HOURS Resulted 04/18/20 07:09 Blood Blood Culture - Preliminary NO GROWTH AFTER 24 HOURS Resulted Laboratory Tests 04/20/20 03:30: White Blood Count 7.5, Red Blood Count 4.45L, Hemoglobin 13.6L, Hematocrit 39.0L , Mean Corpuscular Volume 88, Mean Corpuscular Hemoglobin 30.6, Mean Corpuscular Hemoglobin Concent 34.9, Red Cell Distribution Width 13.0, Platelet Count 367, Mean Platelet Volume 6.5, Neutrophils (%) (Auto) 74.5, Lymphocytes (%) (Auto) 13.0L, Monocytes (%) (Auto) 11.8H, Eosinophils (%) (Auto) 0.1, Basophils (%) (Auto) 0.6, Erythrocyte Sedimentation Rate 80H, Sodium Level 141, Potassium Level 3.8, Chloride Level 103, Carbon Dioxide Level 32, Blood Urea Nitrogen 12, Creatinine 0.7, Estimat Glomerular Filtration Rate > 60, Glucose Level 92, Uric Acid 2.7, Calcium Level 8.5, Phosphorus Level 3.2, Magnesium Level 1.9, Total Bilirubin 0.6, Direct Bilirubin 0.2, Aspartate Amino Transf (AST/SGOT) 23, Alanine Aminotransferase (ALT/SGPT) 19, Alkaline Phosphatase 36L, C-Reactive Protein, Quantitative 7.0H, Total Protein 6.9, Albumin 2.4L, Globulin 4.5, Albumin/Globulin Ratio 0.5L Current Medications Medications (Trade) Dose Ordered Sig/Lucy Route PRN Reason Start Time Stop Time Status Last Admin Dose Admin Acetaminophen (Tylenol) 650 mg Q4H PRN ORAL FEVER 04/18/20 10:45 05/18/20 10:44 Albuterol/ Ipratropium (Combivent Respimat) 1 puff Q4H PRN INH Shortness of Breath 04/18/20 11:15 05/18/20 11:14 Azithromycin 250 mg/Dextrose 275 ml @ 275 mls/hr Q24H IV 04/19/20 09:00 04/24/20 08:59 04/20/20 09:08 Ceftriaxone Sodium 1 gm/ Dextrose 55 ml @ 110 mls/hr Q24H IVPB 04/19/20 09:00 04/26/20 08:59 04/20/20 08:41 Dexamethasone (Decadron) 6 mg DAILY ORAL 04/19/20 09:00 04/28/20 09:01 04/20/20 08:35 Dextrose (Dextrose 50%) 25 ml Q30M PRN IV Hypoglycemia 04/18/20 10:45 07/17/20 10:44 Dextrose (Dextrose 50%) 50 ml Q30M PRN IV Hypoglycemia 04/18/20 10:45 07/17/20 10:44 Docusate Sodium (Colace) 100 mg THREE TIMES A DAY ORAL 04/18/20 13:00 05/18/20 12:59 04/20/20 08:35 Heparin Sodium (Porcine) (Heparin 5000 units/ml) 5,000 units EVERY 12 HOURS SUBQ 04/18/20 21:00 06/02/20 20:59 04/20/20 08:37 Insulin Aspart (NovoLOG) BEFORE MEALS AND HS SUBQ 04/18/20 11:30 07/17/20 11:29 04/19/20 23:11 Ondansetron HCl (Zofran) 4 mg Q6H PRN IVP Nausea & Vomiting 04/18/20 10:45 05/18/20 10:44 Pantoprazole (Protonix) 40 mg EVERY 12 HOURS ORAL 04/18/20 21:00 05/18/20 20:59 04/20/20 08:35 Polyethylene Glycol (Miralax) 17 gm DAILYPRN PRN ORAL Constipation 04/18/20 10:45 05/18/20 10:44 Potassium Chloride 30 meq/ Sodium Chloride 1,015 ml @ 50 mls/hr [id number] IV 04/19/20 09:00 05/19/20 08:59 04/20/20 05:43 Promethazine HCl/ Codeine (Phenergan with Codeine) 5 ml Q6H PRN ORAL cough 04/18/20 10:45 05/18/20 10:44 Remdesivir 100 mg/ Sodium Chloride 250 ml @ 250 mls/hr Q24H IV 04/19/20 15:00 04/22/20 15:59 04/19/20 14:41 Assessment/Plan Assessment/Plan ASSESSMENT Acute hypoxemic respiratory failure requiring face mask mask COVID-19 pneumonia Diabetes mellitus Hypertension Hyperlipidemia BPH PLAN OF CARE LYDIA isolation room supplemental oxygen; titrate to keep pulse ox above 92% Albuterol MDI steroids, remdesivir empiric abx as epr ID recs BCX 04/18 NGTD f/up with inflammatory markers : CRP down to 7.1 fup with CXR ac with heparin PPx dose BS management with SSI BP management GI prophylaxis supportive care case discussed and evaluated by supervising physician Sridevi Alfaro NP Apr 20, 2020 12:19 Mo Hinton MD Apr 20, 2020 20:27
--- NOTE | 2020-04-20 13:26 | Surgery Progress Note ---
Surgery Progress Note Subjective Additional Comments esr/crp noted comfortable no n/v labs stable Objective Last 24 Hour Vital Signs Date Time Temp Pulse Resp B/P (MAP) Pulse Ox O2 Delivery O2 Flow Rate FiO2 04/20/20 08:00 Simple Mask 10.0 04/20/20 08:00 97.5 97 19 141/76 (97) 97 04/20/20 07:46 70 04/20/20 04:00 84 04/20/20 04:00 Simple Mask 10.0 04/20/20 04:00 97.5 76 20 133/62 (85) 97 04/20/20 00:00 78 04/20/20 00:00 97.3 67 22 142/74 (96) 98 04/20/20 00:00 Simple Mask 10.0 04/19/20 20:00 97.5 87 20 149/75 (99) 99 04/19/20 20:00 Simple Mask 10.0 04/19/20 20:00 86 04/19/20 16:00 Simple Mask 10.0 04/19/20 16:00 10.0 04/19/20 16:00 97.5 79 20 141/54 (83) 99 04/19/20 16:00 105 04/19/20 14:06 100 I&O Intake and Output 04/19/20 04/20/20 19:00 07:00 Intake Total 700 ml 400 ml Output Total 1000 ml 600 ml Balance -300 ml -200 ml Intake Oral 700 ml 400 ml Output Urine Total 1000 ml 600 ml # Bowel Movements 5 4 Dressing: saturated Cardiovascular: RSR Respiratory: decreased breath sounds Abdomen: soft, non-tender, present bowel sounds Extremities: no tenderness, no cyanosis Laboratory Tests Test 04/19/20 15:57 04/19/20 23:04 04/20/20 03:30 04/20/20 05:50 POC Whole Blood Glucose 228 MG/DL (74-106) H Pending 93 MG/DL (74-106) White Blood Count 7.5 K/UL (4.8-10.8) Red Blood Count 4.45 M/UL (4.70-6.10) L Hemoglobin 13.6 G/DL (14.2-18.0) L Hematocrit 39.0 % (42.0-52.0) L Mean Corpuscular Volume 88 FL (80-99) Mean Corpuscular Hemoglobin 30.6 PG (27.0-31.0) Mean Corpuscular Hemoglobin Concent 34.9 G/DL (32.0-36.0) Red Cell Distribution Width 13.0 % (11.6-14.8) Platelet Count 367 K/UL (150-450) Mean Platelet Volume 6.5 FL (6.5-10.1) Neutrophils (%) (Auto) 74.5 % (45.0-75.0) Lymphocytes (%) (Auto) 13.0 % (20.0-45.0) L Monocytes (%) (Auto) 11.8 % (1.0-10.0) H Eosinophils (%) (Auto) 0.1 % (0.0-3.0) Basophils (%) (Auto) 0.6 % (0.0-2.0) Erythrocyte Sedimentation Rate 80 MM/HR (0-20) H Sodium Level 141 MMOL/L (136-145) Potassium Level 3.8 MMOL/L (3.5-5.1) Chloride Level 103 MMOL/L (98-107) Carbon Dioxide Level 32 MMOL/L (21-32) Blood Urea Nitrogen 12 mg/dL (7-18) Creatinine 0.7 MG/DL (0.55-1.30) Estimat Glomerular Filtration Rate > 60 mL/min (>60) Glucose Level 92 MG/DL (74-106) Uric Acid 2.7 MG/DL (2.6-7.2) Calcium Level 8.5 MG/DL (8.5-10.1) Phosphorus Level 3.2 MG/DL (2.5-4.9) Magnesium Level 1.9 MG/DL (1.8-2.4) Total Bilirubin 0.6 MG/DL (0.2-1.0) Direct Bilirubin 0.2 MG/DL (0.0-0.3) Aspartate Amino Transf (AST/SGOT) 23 U/L (15-37) Alanine Aminotransferase (ALT/SGPT) 19 U/L (12-78) Alkaline Phosphatase 36 U/L (46-116) L C-Reactive Protein, Quantitative 7.0 mg/dL (0.00-0.90) H Total Protein 6.9 G/DL (6.4-8.2) Albumin 2.4 G/DL (3.4-5.0) L Globulin 4.5 g/dL Albumin/Globulin Ratio 0.5 (1.0-2.7) L Test 04/20/20 11:14 POC Whole Blood Glucose 129 MG/DL (74-106) H Plan Problems: (1) Abnormal LFTs Assessment & Plan: elevated lft's t bili elevated direct <50% elevated unlikely obstructed biliary unlikely alon abd exam benign US hold for now given covid will follow clinically with exam and recs thank you (2) Diabetes (3) Hypoxia (4) Coronavirus infection Assessment & Plan: There are bilateral patchy and streaky infiltrates in a peribronchovascular distribution, left greater than right. Heart size is normal. Pleural spaces are clear. Impression: Bilateral infiltrates, consistent with multifocal pneumonia, likely viral pulm input appreciated ID on abx and Rx pulm respiratory support (5) History of hypertension (6) BPH (benign prostatic hyperplasia) Jesus Manuel Cruz Apr 20, 2020 13:26
--- NOTE | 2020-04-20 14:26 | NUR ---
CASE MANAGEMENT: REVIEW 04/20/2020 SI:COVID PNA VS: T 97.5 HR 97 RR 19 B/P 141/76 SATS 97% ON 10L/SIMPLE MASK LABS: ALP 36 CRP 7 IS:KCL IV @ 50 ML/HR PROTONIX IV Q12H DECADRON PO QD INSULIN ASPART SUBQ AC/HS CEFTRIAXONE IV Q24H AZITHROMYCIN IV Q24H REMDESIVIR IV Q24H (05/24) SDU PLAN OF CARE: CXR VENOUS DUPLEX
--- NOTE | 2020-04-20 15:08 | Internal Med Progress Note ---
Subjective Date of Service: Apr 20, 2020 Physician Name Fili Alfaro Attending Physician Romie Murray MD Current Medications Medications (Trade) Dose Ordered Sig/Lucy Route PRN Reason Start Time Stop Time Status Last Admin Dose Admin Acetaminophen (Tylenol) 650 mg Q4H PRN ORAL FEVER 04/18/20 10:45 05/18/20 10:44 Albuterol/ Ipratropium (Combivent Respimat) 1 puff Q4H PRN INH Shortness of Breath 04/18/20 11:15 05/18/20 11:14 Azithromycin 250 mg/Dextrose 275 ml @ 275 mls/hr Q24H IV 04/19/20 09:00 04/24/20 08:59 04/20/20 09:08 Ceftriaxone Sodium 1 gm/ Dextrose 55 ml @ 110 mls/hr Q24H IVPB 04/19/20 09:00 04/26/20 08:59 04/20/20 08:41 Dexamethasone (Decadron) 6 mg DAILY ORAL 04/19/20 09:00 04/28/20 09:01 04/20/20 08:35 Dextrose (Dextrose 50%) 25 ml Q30M PRN IV Hypoglycemia 04/18/20 10:45 07/17/20 10:44 Dextrose (Dextrose 50%) 50 ml Q30M PRN IV Hypoglycemia 04/18/20 10:45 07/17/20 10:44 Docusate Sodium (Colace) 100 mg THREE TIMES A DAY ORAL 04/18/20 13:00 05/18/20 12:59 04/20/20 12:11 Heparin Sodium (Porcine) (Heparin 5000 units/ml) 5,000 units EVERY 12 HOURS SUBQ 04/18/20 21:00 06/02/20 20:59 04/20/20 08:37 Insulin Aspart (NovoLOG) BEFORE MEALS AND HS SUBQ 04/18/20 11:30 07/17/20 11:29 04/19/20 23:11 Ondansetron HCl (Zofran) 4 mg Q6H PRN IVP Nausea & Vomiting 04/18/20 10:45 05/18/20 10:44 Pantoprazole (Protonix) 40 mg EVERY 12 HOURS ORAL 04/18/20 21:00 05/18/20 20:59 04/20/20 08:35 Polyethylene Glycol (Miralax) 17 gm DAILYPRN PRN ORAL Constipation 04/18/20 10:45 05/18/20 10:44 Potassium Chloride 30 meq/ Sodium Chloride 1,015 ml @ 50 mls/hr [id number] IV 04/19/20 09:00 05/19/20 08:59 04/20/20 05:43 Promethazine HCl/ Codeine (Phenergan with Codeine) 5 ml Q6H PRN ORAL cough 04/18/20 10:45 05/18/20 10:44 Remdesivir 100 mg/ Sodium Chloride 250 ml @ 250 mls/hr Q24H IV 04/19/20 15:00 04/22/20 15:59 04/19/20 14:41 Allergies: Coded Allergies: No Known Allergies (Unverified , 04/18/20) ROS Limited/Unobtainable: Yes Subjective 79 YO M admitted with dyspnea. Now COVID 19 pneumonia. Cover for Int Med - Dr Murray. Step down unit Objective Last Vital Signs Date Time Temp Pulse Resp B/P (MAP) Pulse Ox O2 Delivery O2 Flow Rate FiO2 04/20/20 08:00 Simple Mask 10.0 04/20/20 08:00 97.5 97 19 141/76 (97) 97 04/19/20 08:27 100 Laboratory Tests Test 04/19/20 15:57 04/19/20 23:04 04/20/20 03:30 04/20/20 05:50 POC Whole Blood Glucose 228 MG/DL (74-106) H Pending 93 MG/DL (74-106) White Blood Count 7.5 K/UL (4.8-10.8) Red Blood Count 4.45 M/UL (4.70-6.10) L Hemoglobin 13.6 G/DL (14.2-18.0) L Hematocrit 39.0 % (42.0-52.0) L Mean Corpuscular Volume 88 FL (80-99) Mean Corpuscular Hemoglobin 30.6 PG (27.0-31.0) Mean Corpuscular Hemoglobin Concent 34.9 G/DL (32.0-36.0) Red Cell Distribution Width 13.0 % (11.6-14.8) Platelet Count 367 K/UL (150-450) Mean Platelet Volume 6.5 FL (6.5-10.1) Neutrophils (%) (Auto) 74.5 % (45.0-75.0) Lymphocytes (%) (Auto) 13.0 % (20.0-45.0) L Monocytes (%) (Auto) 11.8 % (1.0-10.0) H Eosinophils (%) (Auto) 0.1 % (0.0-3.0) Basophils (%) (Auto) 0.6 % (0.0-2.0) Erythrocyte Sedimentation Rate 80 MM/HR (0-20) H Sodium Level 141 MMOL/L (136-145) Potassium Level 3.8 MMOL/L (3.5-5.1) Chloride Level 103 MMOL/L (98-107) Carbon Dioxide Level 32 MMOL/L (21-32) Blood Urea Nitrogen 12 mg/dL (7-18) Creatinine 0.7 MG/DL (0.55-1.30) Estimat Glomerular Filtration Rate > 60 mL/min (>60) Glucose Level 92 MG/DL (74-106) Uric Acid 2.7 MG/DL (2.6-7.2) Calcium Level 8.5 MG/DL (8.5-10.1) Phosphorus Level 3.2 MG/DL (2.5-4.9) Magnesium Level 1.9 MG/DL (1.8-2.4) Total Bilirubin 0.6 MG/DL (0.2-1.0) Direct Bilirubin 0.2 MG/DL (0.0-0.3) Aspartate Amino Transf (AST/SGOT) 23 U/L (15-37) Alanine Aminotransferase (ALT/SGPT) 19 U/L (12-78) Alkaline Phosphatase 36 U/L (46-116) L C-Reactive Protein, Quantitative 7.0 mg/dL (0.00-0.90) H Total Protein 6.9 G/DL (6.4-8.2) Albumin 2.4 G/DL (3.4-5.0) L Globulin 4.5 g/dL Albumin/Globulin Ratio 0.5 (1.0-2.7) L Test 04/20/20 11:14 POC Whole Blood Glucose 129 MG/DL (74-106) H Microbiology Date/Time Source Procedure Growth Status 04/18/20 07:09 Nasopharynx SARS-CoV-2 RdRp Gene Assay - Final Complete 04/18/20 07:09 Blood Blood Culture - Preliminary NO GROWTH AFTER 24 HOURS Resulted 04/18/20 07:09 Blood Blood Culture - Preliminary NO GROWTH AFTER 24 HOURS Resulted Intake and Output 04/19/20 04/20/20 19:00 07:00 Intake Total 700 ml 400 ml Output Total 1000 ml 600 ml Balance -300 ml -200 ml Intake Oral 700 ml 400 ml Output Urine Total 1000 ml 600 ml # Bowel Movements 5 4 Objective PHYSICAL EXAMINATION: GENERAL: The patient is a well-developed and well-nourished male, in no apparent distress. HEENT: Eyes, pupils are equal and responsive to light and accommodation. Extraocular movements are intact. NECK: Supple without lymphadenopathy. CHEST: Simple mask, Decreased breath sounds in bilateral bases, otherwise clear to auscultation without wheezes. CARDIOVASCULAR: Tachycardic, regular rhythm. S1, S2 normal without murmurs, rubs, or gallops. ABDOMEN: Soft, nontender, and nondistended. Positive bowel sounds. No evidence of hepatosplenomegaly. Currently, no rebound or guarding noted. EXTREMITIES: Negative for clubbing, cyanosis, or edema. RECTAL/GENITAL: Refused. NEUROLOGIC: Cranial nerves II through XII are grossly intact without focal deficits. Motor strength is 5/5 bilaterally. Deep tendon reflexes are 2+ plantar. Assessment/Plan Assessment/Plan ASSESSMENT: This is an 79-year-old male with: 1. COVID-19 positive. 2. Bilateral pneumonia. 3. Diabetes type 2. 4. Hypertension. 5. Hypercholesterolemia. 6. Benign prostatic hypertrophy. TREATMENT: 1. COVID-19 positive/bilateral pneumonia. Pulmonary consultation = Dr. Angel Daniel. Continue remdesivir and Decadron intravenously. antibiotics = ceftriaxone Inf Dis=Dr Pond 2. Diabetes type 2. NovoLog sliding scale has been instituted. 3. Hypertension. Continue amlodipine, hydrochlorothiazide, and losartan as above. 4. Hypercholesterolemia. Continue simvastatin as above. 5. Benign prostatic hypertrophy. Continue Flomax as above. Fili Alfaro MD Apr 20, 2020 15:08
[2020-04-20] MEDS: Maintenance Dose:Remdesivir 100mg/NS 230ml x 4 Doses IV SCH ×2 (15:19)
[2020-04-20 16:00] VITALS: BP 110/64
--- NOTE | 2020-04-20 17:07 | Nephrology Progress Note ---
Assessment/Plan Problem List: (1) Electrolyte imbalance (2) Coronavirus infection (3) Hypoxia (4) BPH (benign prostatic hyperplasia) Assessment Electrolyte imbalance Low sodium, low magnesium, low potassium Coronavirus infection, hypoxia Diabetes mellitus Plan April 20: Labs reviewed. Renal parameters and electrolytes stable. Continue per consultants. Previously: Normal saline with potassium IV Mag sulfate IV Protonix and stool softener Antibiotics Monitor electrolytes and renal parameters Per orders Subjective ROS Limited/Unobtainable: Yes Objective Objective Last 24 Hour Vital Signs Date Time Temp Pulse Resp B/P (MAP) Pulse Ox O2 Delivery O2 Flow Rate FiO2 04/20/20 16:00 98.8 80 19 110/64 (79) 98 04/20/20 16:00 Simple Mask 10.0 04/20/20 16:00 83 04/20/20 12:00 Simple Mask 10.0 04/20/20 12:00 98.8 87 18 136/75 (95) 98 04/20/20 11:48 86 04/20/20 08:00 Simple Mask 10.0 04/20/20 08:00 97.5 97 19 141/76 (97) 97 04/20/20 07:46 70 04/20/20 04:00 84 04/20/20 04:00 Simple Mask 10.0 04/20/20 04:00 97.5 76 20 133/62 (85) 97 04/20/20 00:00 78 04/20/20 00:00 97.3 67 22 142/74 (96) 98 04/20/20 00:00 Simple Mask 10.0 04/19/20 20:00 97.5 87 20 149/75 (99) 99 04/19/20 20:00 Simple Mask 10.0 04/19/20 20:00 86 Intake and Output 04/19/20 04/20/20 19:00 07:00 Intake Total 700 ml 400 ml Output Total 1000 ml 600 ml Balance -300 ml -200 ml Intake Oral 700 ml 400 ml Output Urine Total 1000 ml 600 ml # Bowel Movements 5 4 Current Medications Medications (Trade) Dose Ordered Sig/Lucy Route PRN Reason Start Time Stop Time Status Last Admin Dose Admin Acetaminophen (Tylenol) 650 mg Q4H PRN ORAL FEVER 04/18/20 10:45 05/18/20 10:44 Albuterol/ Ipratropium (Combivent Respimat) 1 puff Q4H PRN INH Shortness of Breath 04/18/20 11:15 05/18/20 11:14 Azithromycin 250 mg/Dextrose 275 ml @ 275 mls/hr Q24H IV 04/19/20 09:00 04/24/20 08:59 04/20/20 09:08 Ceftriaxone Sodium 1 gm/ Dextrose 55 ml @ 110 mls/hr Q24H IVPB 04/19/20 09:00 04/26/20 08:59 04/20/20 08:41 Dexamethasone (Decadron) 6 mg DAILY ORAL 04/19/20 09:00 04/28/20 09:01 04/20/20 08:35 Dextrose (Dextrose 50%) 25 ml Q30M PRN IV Hypoglycemia 04/18/20 10:45 07/17/20 10:44 Dextrose (Dextrose 50%) 50 ml Q30M PRN IV Hypoglycemia 04/18/20 10:45 07/17/20 10:44 Docusate Sodium (Colace) 100 mg THREE TIMES A DAY ORAL 04/18/20 13:00 05/18/20 12:59 04/20/20 12:11 Heparin Sodium (Porcine) (Heparin 5000 units/ml) 5,000 units EVERY 12 HOURS SUBQ 04/18/20 21:00 06/02/20 20:59 04/20/20 08:37 Insulin Aspart (NovoLOG) BEFORE MEALS AND HS SUBQ 04/18/20 11:30 07/17/20 11:29 04/19/20 23:11 Ondansetron HCl (Zofran) 4 mg Q6H PRN IVP Nausea & Vomiting 04/18/20 10:45 05/18/20 10:44 Pantoprazole (Protonix) 40 mg EVERY 12 HOURS ORAL 04/18/20 21:00 05/18/20 20:59 04/20/20 08:35 Polyethylene Glycol (Miralax) 17 gm DAILYPRN PRN ORAL Constipation 04/18/20 10:45 05/18/20 10:44 Potassium Chloride 30 meq/ Sodium Chloride 1,015 ml @ 50 mls/hr [id number] IV 04/19/20 09:00 05/19/20 08:59 04/20/20 05:43 Promethazine HCl/ Codeine (Phenergan with Codeine) 5 ml Q6H PRN ORAL cough 04/18/20 10:45 05/18/20 10:44 Remdesivir 100 mg/ Sodium Chloride 250 ml @ 250 mls/hr Q24H IV 04/19/20 15:00 04/22/20 15:59 04/20/20 15:19 Laboratory Tests 04/19/20 23:04: POC Whole Blood Glucose [Pending] 04/20/20 03:30: White Blood Count 7.5, Red Blood Count 4.45L, Hemoglobin 13.6L, Hematocrit 39.0L , Mean Corpuscular Volume 88, Mean Corpuscular Hemoglobin 30.6, Mean Corpuscular Hemoglobin Concent 34.9, Red Cell Distribution Width 13.0, Platelet Count 367, Mean Platelet Volume 6.5, Neutrophils (%) (Auto) 74.5, Lymphocytes (%) (Auto) 13.0L, Monocytes (%) (Auto) 11.8H, Eosinophils (%) (Auto) 0.1, Basophils (%) (Auto) 0.6, Erythrocyte Sedimentation Rate 80H, Sodium Level 141, Potassium Level 3.8, Chloride Level 103, Carbon Dioxide Level 32, Blood Urea Nitrogen 12, Creatinine 0.7, Estimat Glomerular Filtration Rate > 60, Glucose Level 92, Uric Acid 2.7, Calcium Level 8.5, Phosphorus Level 3.2, Magnesium Level 1.9, Total Bilirubin 0.6, Direct Bilirubin 0.2, Aspartate Amino Transf (AST/SGOT) 23, Alanine Aminotransferase (ALT/SGPT) 19, Alkaline Phosphatase 36L, C-Reactive Protein, Quantitative 7.0H, Total Protein 6.9, Albumin 2.4L, Globulin 4.5, Albumin/Globulin Ratio 0.5L 04/20/20 05:50: POC Whole Blood Glucose 93 04/20/20 11:14: POC Whole Blood Glucose 129H Height (Feet): 5 Height (Inches): 6.00 Weight (Pounds): 172 General Appearance: no apparent distress EENT: other - On simple mask Cardiovascular: tachycardia Respiratory/Chest: decreased breath sounds Abdomen: distended Roberto Yang MD Apr 20, 2020 17:07
--- NOTE | 2020-04-20 19:20 | NUR ---
NURSE HAND-OFF REPORT: Important Events on Shift: stable Patient Status: Diet: Pending Orders: Pending Results/Labs: Pending MD notification: Latest Vital Signs: Temperature 98.8 , Pulse 80 , B/P 110 /64 , Respiratory Rate 19 , O2 SAT 98 , Simple Mask, O2 Flow Rate 10.0 . Vital Sign Comment: EKG Rhythm: Sinus Rhythm Rhythm change?: N MD Notified?: Kiarra Daniel MD Response: No New Orders Received Latest Rivas Fall Score: 35 Fall Risk: Medium Risk Safety Measures: Call light Within Reach, Bed Alarm Zone 2, Side Rails Side Rails x2, Bed position Low and Locked. Fall Precautions: Yellow Socks Yellow Gown Door Sign Patient Fall Education Report given to REANNA Florence.
--- NOTE | 2020-04-20 19:23 | NUR ---
NURSE NOTES: Received report from REANNA See. patient is on the bed, awake, no signs of grimacing or distress noted, no signs or symptoms of acute cardiac or respiratory distress noted, bed alarm on, side rails up x's 3 and safety brakes engaged. Patient is on a simple mask 10 L, tolerating well- breathing unlabored and even, urinal at bedside and within easy reach, Patient has a Lt. wrist 22 g IV intact and patent, Rt. hand 22 g running NS with KCl 30 @ 50 cc/hr- iv intact and patent, HOB elevated- aspiration precautions observed, will continue to monitor pt. and with plan of care. Addendum: 04/20/20 at 1934 by MYRA RANDOLPH RN RN pt. aware to ask for assist when ambulating to commode.
[2020-04-20 20:00] VITALS: BP 142/86
[2020-04-21] VITALS: BP 138/70
--- NOTE | 2020-04-21 03:14 | NUR ---
NURSE NOTES: bed bath given, oral care provided, pt. appears to be sating well on current simple mask settings- sating at 99%- no distress noted- resting comfortably in bed- will continue to monitor pt. and with plan of care.
[2020-04-21 04:00] VITALS: BP 140/77
[2020-04-21] MEDS: NovoLOG Insulin Flexpen SUBQ SCH ×4 (05:30→21:00)
[2020-04-21 06:29] LABS: EOSINOPHILS % (AUTO) 0.5 % (0.0-3.0); HEMATOCRIT 40.6 % (42.0-52.0); HEMOGLOBIN 13.6 G/DL (14.2-18.0); LYMPHOCYTES % (AUTO) 11.6 % (20.0-45.0); MEAN CORPUSCULAR VOLUME 92 FL (80-99); MONOCYTES % (AUTO) 10.5 % (1.0-10.0); NEUTROPHILS % (AUTO) 76.5 % (45.0-75.0); PLATELET COUNT 427 K/UL (150-450); RED BLOOD COUNT 4.41 M/UL (4.70-6.10); RED CELL DISTRIBUTION WIDTH 12.3 % (11.6-14.8); WHITE BLOOD COUNT 10.1 K/UL (4.8-10.8)
[2020-04-21 06:33] LABS: ALANINE AMINOTRANSFERASE 23 U/L (12-78); ALBUMIN 2.5 G/DL (3.4-5.0); ALBUMIN/GLOBULIN RATIO 0.6 (1.0-2.7); ALKALINE PHOSPHATASE 40 U/L (46-116); ANION GAP 5 mmol/L (5-15); ASPARTATE AMINO TRANSFERASE 32 U/L (15-37); BILIRUBIN,DIRECT 0.4 MG/DL (0.0-0.3); BILIRUBIN,TOTAL 0.7 MG/DL (0.2-1.0); BLOOD UREA NITROGEN 18 mg/dL (7-18); CALCIUM 8.8 MG/DL (8.5-10.1); CARBON DIOXIDE 31 MMOL/L (21-32); CHLORIDE 104 MMOL/L (98-107); CREATININE 0.7 MG/DL (0.55-1.30); POTASSIUM 3.9 MMOL/L (3.5-5.1); SODIUM 140 MMOL/L (136-145)
--- NOTE | 2020-04-21 06:53 | NUR ---
NURSE HAND-OFF REPORT: Important Events on Shift:none- Patient Status: stable Diet: CCHO Pending Orders: Pending Results/Labs: Pending MD notification: Latest Vital Signs: Temperature 97.9 , Pulse 61 , B/P 140 /77 , Respiratory Rate 24 , O2 SAT 100 , Simple Mask, O2 Flow Rate 10.0 . Vital Sign Comment: EKG Rhythm: Sinus Rhythm Rhythm change?: N MD Notified?: Kiarra Daniel MD Response: No New Orders Received Latest Rivas Fall Score: 35 Fall Risk: Medium Risk Safety Measures: Call light Within Reach, Bed Alarm Zone 2, Side Rails Side Rails x2, Bed position Low and Locked. Fall Precautions: Yellow Socks Yellow Gown Door Sign Patient Fall Education Report given to Haily Cruz- aware to f/u on any abnormal am labs.
--- NOTE | 2020-04-21 07:00 | NUR ---
NURSE NOTES: Received patient from REANNA Florence. patient is awake and resting in bed without any acute distress noted. sinus rhythm on the monitor. on simple face mask 10L, toelrating well. urinal and commode at bedside. bed to lowest position and locked. call light within easy reach. side rails up x2. Will continue plan of care.
[2020-04-21 08:00] VITALS: BP 148/89
--- NOTE | 2020-04-21 08:36 | Diagnostic Imaging Report ---
EXAM: XR Chest, 1 View CLINICAL HISTORY: SOB TECHNIQUE: Frontal view of the chest. COMPARISON: Chest radiograph April 18, 2020. FINDINGS/IMPRESSION: Patchy bilateral airspace consolidations, consistent with severe multifocal infiltrate. Overall, minimal worsening when compared to previous study. Follow-up chest radiograph recommended. Suspect, small pleural effusions. No pneumothorax. Cardiomegaly.
--- NOTE | 2020-04-21 09:33 | NUR ---
CASE MANAGEMENT: REVIEW 04/21/2020 SI:COVID PNA VS: T 97.9 HR 105 RR 20 B/P 148/89 SATS 100% ON 10L/SIMPLE MASK LABS: DBILI 0.4 ALP 40 IS:KCL IV @ 50 ML/HR PROTONIX IV Q12H DECADRON PO QD INSULIN ASPART SUBQ AC/HS CEFTRIAXONE IV Q24H AZITHROMYCIN IV Q24H REMDESIVIR IV Q24H (06/21) SDU PLAN OF CARE: VENOUS DUPLEX
[2020-04-21] MEDS: Azithromycin 250 MG in D5W 275 ML IV SCH (09:39)
[2020-04-21] MEDS: Docusate 100mg cap ORAL SCH ×3 (09:39→17:18)
[2020-04-21] MEDS: Enoxaparin 40mg Inj SUBQ SCH (09:40)
[2020-04-21] MEDS: cefTRIAXone 1 GM in D5W 55 ML IVPB SCH (09:43)
[2020-04-21] MEDS ORDERED: NS 275ml ONE (09:55)
[2020-04-21] MEDS ORDERED: Tubing IV Secondary IV ONE (09:55)
--- NOTE | 2020-04-21 11:49 | Pulmonology Progress Note ---
Subjective ROS Limited/Unobtainable: Yes Constitutional: Reports: no symptoms HEENT: Repors: no symptoms Respiratory: Reports: no symptoms Allergies: Coded Allergies: No Known Allergies (Unverified , 04/18/20) Subjective afebrile, no leukocytosis on FM 10 L/min no resp distress Objective Last 24 Hour Vital Signs Date Time Temp Pulse Resp B/P (MAP) Pulse Ox O2 Delivery O2 Flow Rate FiO2 04/21/20 08:00 97.9 93 20 148/89 (108) 100 04/21/20 08:00 105 04/21/20 04:05 61 04/21/20 04:00 Simple Mask 10.0 04/21/20 04:00 97.9 60 24 140/77 (98) 100 04/21/20 00:01 71 04/21/20 00:00 Simple Mask 10.0 04/21/20 00:00 97.5 74 24 138/70 (92) 97 04/20/20 20:00 Simple Mask 10.0 04/20/20 20:00 97.7 93 20 142/86 (104) 97 04/20/20 19:40 73 04/20/20 19:20 96 Non-Rebreather 15.0 100 04/20/20 16:00 98.8 80 19 110/64 (79) 98 04/20/20 16:00 Simple Mask 10.0 04/20/20 16:00 83 04/20/20 12:00 Simple Mask 10.0 04/20/20 12:00 98.8 87 18 136/75 (95) 98 04/20/20 11:48 86 Intake and Output 04/20/20 04/21/20 19:00 07:00 Intake Total 1375 ml 583 ml Output Total 700 ml Balance 675 ml 583 ml Intake Oral 800 ml IV Total 575 ml 583 ml Output Urine Total 700 ml # Voids 6 # Bowel Movements 5 3 General Appearance: WD/WN, no acute distress HEENT: normocephalic Respiratory: chest wall non-tender, lungs clear - with moderate air exchange , other - O2 via FM Cardiovascular: normal peripheral pulses, normal rate Abdomen: normal bowel sounds, no organomegaly Extremities: no edema Skin: no rash Neurologic: abnormal gait Musculoskeletal: normal muscle bulk Laboratory Tests 04/20/20 17:41: POC Whole Blood Glucose 200H 04/20/20 20:25: POC Whole Blood Glucose [Pending] 04/21/20 05:03: POC Whole Blood Glucose 107H 04/21/20 05:25: White Blood Count 10.1, Red Blood Count 4.41L, Hemoglobin 13.6L, Hematocrit 40.6L, Mean Corpuscular Volume 92, Mean Corpuscular Hemoglobin 30.7, Mean Corpuscular Hemoglobin Concent 33.4, Red Cell Distribution Width 12.3, Platelet Count 427, Mean Platelet Volume 6.5, Neutrophils (%) (Auto) 76.5H, Lymphocytes (%) (Auto) 11.6L, Monocytes (%) (Auto) 10.5H, Eosinophils (%) (Auto) 0.5, Basophils (%) (Auto) 1.0, Sodium Level 140, Potassium Level 3.9, Chloride Level 104, Carbon Dioxide Level 31, Anion Gap 5, Blood Urea Nitrogen 18, Creatinine 0.7, Estimat Glomerular Filtration Rate > 60, Glucose Level 99, Calcium Level 8.8, Total Bilirubin 0.7, Direct Bilirubin 0.4H, Aspartate Amino Transf (AST/SGOT) 32, Alanine Aminotransferase (ALT/SGPT) 23, Alkaline Phosphatase 40L, Total Protein 6.8, Albumin 2.5L, Globulin 4.3, Albumin/Globulin Ratio 0.6L Current Medications Medications (Trade) Dose Ordered Sig/Lucy Route PRN Reason Start Time Stop Time Status Last Admin Dose Admin Acetaminophen (Tylenol) 650 mg Q4H PRN ORAL FEVER 04/18/20 10:45 05/18/20 10:44 Albuterol/ Ipratropium (Combivent Respimat) 1 puff Q4H PRN INH Shortness of Breath 04/18/20 11:15 05/18/20 11:14 Azithromycin 250 mg/Dextrose 275 ml @ 275 mls/hr Q24H IV 04/19/20 09:00 04/24/20 08:59 04/21/20 09:39 Ceftriaxone Sodium 1 gm/ Dextrose 55 ml @ 110 mls/hr Q24H IVPB 04/19/20 09:00 04/26/20 08:59 04/21/20 09:43 Dexamethasone (Decadron) 6 mg DAILY ORAL 04/19/20 09:00 04/28/20 09:01 04/21/20 09:40 Dextrose (Dextrose 50%) 25 ml Q30M PRN IV Hypoglycemia 04/18/20 10:45 07/17/20 10:44 Dextrose (Dextrose 50%) 50 ml Q30M PRN IV Hypoglycemia 04/18/20 10:45 07/17/20 10:44 Docusate Sodium (Colace) 100 mg THREE TIMES A DAY ORAL 04/18/20 13:00 05/18/20 12:59 04/21/20 09:39 Enoxaparin Sodium (Lovenox) 40 mg DAILY SUBQ 04/21/20 09:00 07/20/20 08:59 04/21/20 09:40 Insulin Aspart (NovoLOG) BEFORE MEALS AND HS SUBQ 04/18/20 11:30 07/17/20 11:29 04/20/20 20:30 Ondansetron HCl (Zofran) 4 mg Q6H PRN IVP Nausea & Vomiting 04/18/20 10:45 05/18/20 10:44 Pantoprazole (Protonix) 40 mg EVERY 12 HOURS ORAL 04/18/20 21:00 05/18/20 20:59 04/21/20 09:39 Polyethylene Glycol (Miralax) 17 gm DAILYPRN PRN ORAL Constipation 04/18/20 10:45 05/18/20 10:44 Potassium Chloride 30 meq/ Sodium Chloride 1,015 ml @ 50 mls/hr [id number] IV 04/19/20 09:00 05/19/20 08:59 04/21/20 00:17 Promethazine HCl/ Codeine (Phenergan with Codeine) 5 ml Q6H PRN ORAL cough 04/18/20 10:45 05/18/20 10:44 Remdesivir 100 mg/ Sodium Chloride 250 ml @ 250 mls/hr Q24H IV 04/19/20 15:00 04/22/20 15:59 04/20/20 15:19 Assessment/Plan Assessment/Plan ASSESSMENT Acute hypoxemic respiratory failure requiring face mask mask COVID-19 pneumonia Diabetes mellitus Hypertension Hyperlipidemia BPH PLAN OF CARE [facility] isolation room Date of sx onset: few days prior to presentation to ED on 04/18 Positive test: 04/18 rapid COVID + ( was tested positive prior as well) O2 FM 10 L/min HFA REM Day # 4 ( 04/18 - ) Dex Day# 4 ( 04/18 -) DVT PPX: Lovenox D dimer 0.64 Trend CRP 16.5 - > 7 CXR 1/2 -> Patchy bilateral airspace consolidations, consistent with severe multifocal infiltrate Abx per ID recs Monitor volumes and renal function Fup with consultants recs FC Discuss GOC BS management with SSI BP management GI prophylaxis supportive care case discussed and evaluated by supervising physician Sridevi Alfaro NP Apr 21, 2020 11:49 Mo Hinton MD Apr 21, 2020 19:29
[2020-04-21 12:00] VITALS: BP 140/75
--- NOTE | 2020-04-21 14:34 | Internal Med Progress Note ---
Subjective Date of Service: Apr 21, 2020 Physician Name Fili Alfaro Attending Physician Romie Murray MD Current Medications Medications (Trade) Dose Ordered Sig/Lucy Route PRN Reason Start Time Stop Time Status Last Admin Dose Admin Acetaminophen (Tylenol) 650 mg Q4H PRN ORAL FEVER 04/18/20 10:45 05/18/20 10:44 Albuterol/ Ipratropium (Combivent Respimat) 1 puff Q4H PRN INH Shortness of Breath 04/18/20 11:15 05/18/20 11:14 Azithromycin 250 mg/Dextrose 275 ml @ 275 mls/hr Q24H IV 04/19/20 09:00 04/24/20 08:59 04/21/20 09:39 Ceftriaxone Sodium 1 gm/ Dextrose 55 ml @ 110 mls/hr Q24H IVPB 04/19/20 09:00 04/26/20 08:59 04/21/20 09:43 Dexamethasone (Decadron) 6 mg DAILY ORAL 04/19/20 09:00 04/28/20 09:01 04/21/20 09:40 Dextrose (Dextrose 50%) 25 ml Q30M PRN IV Hypoglycemia 04/18/20 10:45 07/17/20 10:44 Dextrose (Dextrose 50%) 50 ml Q30M PRN IV Hypoglycemia 04/18/20 10:45 07/17/20 10:44 Docusate Sodium (Colace) 100 mg THREE TIMES A DAY ORAL 04/18/20 13:00 05/18/20 12:59 04/21/20 09:39 Enoxaparin Sodium (Lovenox) 40 mg DAILY SUBQ 04/21/20 09:00 07/20/20 08:59 04/21/20 09:40 Insulin Aspart (NovoLOG) BEFORE MEALS AND HS SUBQ 04/18/20 11:30 07/17/20 11:29 04/20/20 20:30 Ondansetron HCl (Zofran) 4 mg Q6H PRN IVP Nausea & Vomiting 04/18/20 10:45 05/18/20 10:44 Pantoprazole (Protonix) 40 mg EVERY 12 HOURS ORAL 04/18/20 21:00 05/18/20 20:59 04/21/20 09:39 Polyethylene Glycol (Miralax) 17 gm DAILYPRN PRN ORAL Constipation 04/18/20 10:45 05/18/20 10:44 Potassium Chloride 30 meq/ Sodium Chloride 1,015 ml @ 50 mls/hr [id number] IV 04/19/20 09:00 05/19/20 08:59 04/21/20 00:17 Promethazine HCl/ Codeine (Phenergan with Codeine) 5 ml Q6H PRN ORAL cough 04/18/20 10:45 05/18/20 10:44 Remdesivir 100 mg/ Sodium Chloride 250 ml @ 250 mls/hr Q24H IV 04/19/20 15:00 04/22/20 15:59 04/20/20 15:19 Allergies: Coded Allergies: No Known Allergies (Unverified , 04/18/20) ROS Limited/Unobtainable: Yes Subjective 79 YO M admitted with dyspnea. Now COVID 19 pneumonia. Cover for Int Med - Dr Murray. Step down unit Objective Last Vital Signs Date Time Temp Pulse Resp B/P (MAP) Pulse Ox O2 Delivery O2 Flow Rate FiO2 04/21/20 10:35 96 Non-Rebreather 15.0 100 04/21/20 08:00 97.9 93 20 148/89 (108) Laboratory Tests Test 04/20/20 17:41 04/20/20 20:25 04/21/20 05:03 04/21/20 05:25 POC Whole Blood Glucose 200 MG/DL (74-106) H Pending 107 MG/DL (74-106) H White Blood Count 10.1 K/UL (4.8-10.8) Red Blood Count 4.41 M/UL (4.70-6.10) L Hemoglobin 13.6 G/DL (14.2-18.0) L Hematocrit 40.6 % (42.0-52.0) L Mean Corpuscular Volume 92 FL (80-99) Mean Corpuscular Hemoglobin 30.7 PG (27.0-31.0) Mean Corpuscular Hemoglobin Concent 33.4 G/DL (32.0-36.0) Red Cell Distribution Width 12.3 % (11.6-14.8) Platelet Count 427 K/UL (150-450) Mean Platelet Volume 6.5 FL (6.5-10.1) Neutrophils (%) (Auto) 76.5 % (45.0-75.0) H Lymphocytes (%) (Auto) 11.6 % (20.0-45.0) L Monocytes (%) (Auto) 10.5 % (1.0-10.0) H Eosinophils (%) (Auto) 0.5 % (0.0-3.0) Basophils (%) (Auto) 1.0 % (0.0-2.0) Sodium Level 140 MMOL/L (136-145) Potassium Level 3.9 MMOL/L (3.5-5.1) Chloride Level 104 MMOL/L (98-107) Carbon Dioxide Level 31 MMOL/L (21-32) Anion Gap 5 mmol/L (5-15) Blood Urea Nitrogen 18 mg/dL (7-18) Creatinine 0.7 MG/DL (0.55-1.30) Estimat Glomerular Filtration Rate > 60 mL/min (>60) Glucose Level 99 MG/DL (74-106) Calcium Level 8.8 MG/DL (8.5-10.1) Total Bilirubin 0.7 MG/DL (0.2-1.0) Direct Bilirubin 0.4 MG/DL (0.0-0.3) H Aspartate Amino Transf (AST/SGOT) 32 U/L (15-37) Alanine Aminotransferase (ALT/SGPT) 23 U/L (12-78) Alkaline Phosphatase 40 U/L (46-116) L Total Protein 6.8 G/DL (6.4-8.2) Albumin 2.5 G/DL (3.4-5.0) L Globulin 4.3 g/dL Albumin/Globulin Ratio 0.6 (1.0-2.7) L Intake and Output 04/20/20 04/21/20 19:00 07:00 Intake Total 1375 ml 583 ml Output Total 700 ml Balance 675 ml 583 ml Intake Oral 800 ml IV Total 575 ml 583 ml Output Urine Total 700 ml # Voids 6 # Bowel Movements 5 3 Objective PHYSICAL EXAMINATION: GENERAL: The patient is a well-developed and well-nourished male, in no apparent distress. HEENT: Eyes, pupils are equal and responsive to light and accommodation. Extraocular movements are intact. NECK: Supple without lymphadenopathy. CHEST: Non rebreather mask, Decreased breath sounds in bilateral bases, otherwise clear to auscultation without wheezes. CARDIOVASCULAR: Tachycardic, regular rhythm. S1, S2 normal without murmurs, rubs, or gallops. ABDOMEN: Soft, nontender, and nondistended. Positive bowel sounds. No evidence of hepatosplenomegaly. Currently, no rebound or guarding noted. EXTREMITIES: Negative for clubbing, cyanosis, or edema. RECTAL/GENITAL: Refused. NEUROLOGIC: Cranial nerves II through XII are grossly intact without focal deficits. Motor strength is 5/5 bilaterally. Deep tendon reflexes are 2+ plantar. Assessment/Plan Assessment/Plan ASSESSMENT: This is an 79-year-old male with: 1. COVID-19 positive. 2. Bilateral pneumonia. 3. Diabetes type 2. 4. Hypertension. 5. Hypercholesterolemia. 6. Benign prostatic hypertrophy. TREATMENT: 1. COVID-19 positive/bilateral pneumonia. Pulmonary consultation = Dr. Angel Daniel. Continue remdesivir and Decadron intravenously. antibiotics = ceftriaxone and azithromycin Inf Dis=Dr Pond 2. Diabetes type 2. NovoLog sliding scale has been instituted. 3. Hypertension. Continue amlodipine, hydrochlorothiazide, and losartan as above. 4. Hypercholesterolemia. Continue simvastatin as above. 5. Benign prostatic hypertrophy. Continue Flomax as above. Fili Alfaro MD Apr 21, 2020 14:34
[2020-04-21] MEDS: Maintenance Dose:Remdesivir 100mg/NS 230ml x 4 Doses IV SCH ×2 (15:05)
--- NOTE | 2020-04-21 15:35 | Nephrology Progress Note ---
Assessment/Plan Problem List: (1) Electrolyte imbalance (2) Coronavirus infection (3) Hypoxia (4) BPH (benign prostatic hyperplasia) Assessment Electrolyte imbalance Low sodium, low magnesium, low potassium Coronavirus infection, hypoxia Diabetes mellitus Plan April 21: Labs reviewed. Renal parameters stable. Continue per consultants. Medication list reviewed. April 20: Labs reviewed. Renal parameters and electrolytes stable. Continue per consultants. Previously: Normal saline with potassium IV Mag sulfate IV Protonix and stool softener Antibiotics Monitor electrolytes and renal parameters Per orders Subjective ROS Limited/Unobtainable: No Constitutional: Reports: malaise, weakness Objective Objective Last 24 Hour Vital Signs Date Time Temp Pulse Resp B/P (MAP) Pulse Ox O2 Delivery O2 Flow Rate FiO2 04/21/20 12:00 Non-Rebreather 10.0 04/21/20 11:42 64 04/21/20 10:35 96 Non-Rebreather 15.0 100 04/21/20 08:00 97.9 93 20 148/89 (108) 100 04/21/20 08:00 105 04/21/20 08:00 Non-Rebreather 10.0 04/21/20 04:05 61 04/21/20 04:00 Simple Mask 10.0 04/21/20 04:00 97.9 60 24 140/77 (98) 100 04/21/20 00:01 71 04/21/20 00:00 Simple Mask 10.0 04/21/20 00:00 97.5 74 24 138/70 (92) 97 04/20/20 20:00 Simple Mask 10.0 04/20/20 20:00 97.7 93 20 142/86 (104) 97 04/20/20 19:40 73 04/20/20 19:20 96 Non-Rebreather 15.0 100 04/20/20 16:00 98.8 80 19 110/64 (79) 98 04/20/20 16:00 Simple Mask 10.0 04/20/20 16:00 83 Intake and Output 04/20/20 04/21/20 19:00 07:00 Intake Total 1375 ml 583 ml Output Total 700 ml Balance 675 ml 583 ml Intake Oral 800 ml IV Total 575 ml 583 ml Output Urine Total 700 ml # Voids 6 # Bowel Movements 5 3 Laboratory Tests 04/20/20 17:41: POC Whole Blood Glucose 200H 04/20/20 20:25: POC Whole Blood Glucose [Pending] 04/21/20 05:03: POC Whole Blood Glucose 107H 04/21/20 05:25: White Blood Count 10.1, Red Blood Count 4.41L, Hemoglobin 13.6L, Hematocrit 40.6L, Mean Corpuscular Volume 92, Mean Corpuscular Hemoglobin 30.7, Mean Corpuscular Hemoglobin Concent 33.4, Red Cell Distribution Width 12.3, Platelet Count 427, Mean Platelet Volume 6.5, Neutrophils (%) (Auto) 76.5H, Lymphocytes (%) (Auto) 11.6L, Monocytes (%) (Auto) 10.5H, Eosinophils (%) (Auto) 0.5, Basophils (%) (Auto) 1.0, Sodium Level 140, Potassium Level 3.9, Chloride Level 104, Carbon Dioxide Level 31, Anion Gap 5, Blood Urea Nitrogen 18, Creatinine 0.7, Estimat Glomerular Filtration Rate > 60, Glucose Level 99, Calcium Level 8.8, Total Bilirubin 0.7, Direct Bilirubin 0.4H, Aspartate Amino Transf (AST/SGOT) 32, Alanine Aminotransferase (ALT/SGPT) 23, Alkaline Phosphatase 40L, Total Protein 6.8, Albumin 2.5L, Globulin 4.3, Albumin/Globulin Ratio 0.6L 04/21/20 15:02: POC Whole Blood Glucose 174H Height (Feet): 5 Height (Inches): 6.00 Weight (Pounds): 172 General Appearance: no apparent distress EENT: other - On nonrebreather mask Cardiovascular: tachycardia, other - Variable rate Respiratory/Chest: decreased breath sounds Abdomen: distended Roberto Yang MD Apr 21, 2020 15:35
--- NOTE | 2020-04-21 15:51 | Surgery Progress Note ---
Surgery Progress Note Subjective Additional Comments ill appearing no n/v labs noted exam stable Objective Last 24 Hour Vital Signs Date Time Temp Pulse Resp B/P (MAP) Pulse Ox O2 Delivery O2 Flow Rate FiO2 04/21/20 12:00 Non-Rebreather 10.0 04/21/20 11:42 64 04/21/20 10:35 96 Non-Rebreather 15.0 100 04/21/20 08:00 97.9 93 20 148/89 (108) 100 04/21/20 08:00 105 04/21/20 08:00 Non-Rebreather 10.0 04/21/20 04:05 61 04/21/20 04:00 Simple Mask 10.0 04/21/20 04:00 97.9 60 24 140/77 (98) 100 04/21/20 00:01 71 04/21/20 00:00 Simple Mask 10.0 04/21/20 00:00 97.5 74 24 138/70 (92) 97 04/20/20 20:00 Simple Mask 10.0 04/20/20 20:00 97.7 93 20 142/86 (104) 97 04/20/20 19:40 73 04/20/20 19:20 96 Non-Rebreather 15.0 100 04/20/20 16:00 98.8 80 19 110/64 (79) 98 04/20/20 16:00 Simple Mask 10.0 04/20/20 16:00 83 I&O Intake and Output 04/20/20 04/21/20 19:00 07:00 Intake Total 1375 ml 583 ml Output Total 700 ml Balance 675 ml 583 ml Intake Oral 800 ml IV Total 575 ml 583 ml Output Urine Total 700 ml # Voids 6 # Bowel Movements 5 3 Dressing: saturated Cardiovascular: RSR Respiratory: decreased breath sounds Abdomen: non-tender, present bowel sounds, non-distended Extremities: no edema, no tenderness, no cyanosis Laboratory Tests Test 04/20/20 17:41 04/20/20 20:25 04/21/20 05:03 04/21/20 05:25 POC Whole Blood Glucose 200 MG/DL (74-106) H Pending 107 MG/DL (74-106) H White Blood Count 10.1 K/UL (4.8-10.8) Red Blood Count 4.41 M/UL (4.70-6.10) L Hemoglobin 13.6 G/DL (14.2-18.0) L Hematocrit 40.6 % (42.0-52.0) L Mean Corpuscular Volume 92 FL (80-99) Mean Corpuscular Hemoglobin 30.7 PG (27.0-31.0) Mean Corpuscular Hemoglobin Concent 33.4 G/DL (32.0-36.0) Red Cell Distribution Width 12.3 % (11.6-14.8) Platelet Count 427 K/UL (150-450) Mean Platelet Volume 6.5 FL (6.5-10.1) Neutrophils (%) (Auto) 76.5 % (45.0-75.0) H Lymphocytes (%) (Auto) 11.6 % (20.0-45.0) L Monocytes (%) (Auto) 10.5 % (1.0-10.0) H Eosinophils (%) (Auto) 0.5 % (0.0-3.0) Basophils (%) (Auto) 1.0 % (0.0-2.0) Sodium Level 140 MMOL/L (136-145) Potassium Level 3.9 MMOL/L (3.5-5.1) Chloride Level 104 MMOL/L (98-107) Carbon Dioxide Level 31 MMOL/L (21-32) Anion Gap 5 mmol/L (5-15) Blood Urea Nitrogen 18 mg/dL (7-18) Creatinine 0.7 MG/DL (0.55-1.30) Estimat Glomerular Filtration Rate > 60 mL/min (>60) Glucose Level 99 MG/DL (74-106) Calcium Level 8.8 MG/DL (8.5-10.1) Total Bilirubin 0.7 MG/DL (0.2-1.0) Direct Bilirubin 0.4 MG/DL (0.0-0.3) H Aspartate Amino Transf (AST/SGOT) 32 U/L (15-37) Alanine Aminotransferase (ALT/SGPT) 23 U/L (12-78) Alkaline Phosphatase 40 U/L (46-116) L Total Protein 6.8 G/DL (6.4-8.2) Albumin 2.5 G/DL (3.4-5.0) L Globulin 4.3 g/dL Albumin/Globulin Ratio 0.6 (1.0-2.7) L Test 04/21/20 15:02 POC Whole Blood Glucose 174 MG/DL (74-106) H Plan Problems: (1) Abnormal LFTs Assessment & Plan: elevated lft's t bili elevated direct <50% elevated unlikely obstructed biliary unlikely alon abd exam benign US hold for now given covid will follow clinically with exam and recs thank you (2) Diabetes (3) Hypoxia (4) Coronavirus infection Assessment & Plan: There are bilateral patchy and streaky infiltrates in a peribronchovascular distribution, left greater than right. Heart size is normal. Pleural spaces are clear. Impression: Bilateral infiltrates, consistent with multifocal pneumonia, likely viral pulm input appreciated ID on abx and Rx pulm respiratory support (5) History of hypertension (6) BPH (benign prostatic hyperplasia) Jesus Manuel Cruz Apr 21, 2020 15:51
[2020-04-21 16:00] VITALS: BP 143/79
--- NOTE | 2020-04-21 16:37 | NUR ---
NURSE NOTES: noted patient with a transfer order to Tele. vital signs stable. Belongings transferred. gave report to REANNA Jerez.
--- NOTE | 2020-04-21 19:22 | NUR ---
NURSE HAND-OFF REPORT: Important Events on Shift:[transfer from SDU to telemetry] Patient Status: [FULL CODE/stable] Diet: [CCHO medium] Pending Orders: [] Pending Results/Labs:[] Pending MD notification:[] Latest Vital Signs: Temperature 98.4 , Pulse 91 , B/P 143 /79 , Respiratory Rate 22 , O2 SAT 100 , Simple Mask, O2 Flow Rate 10.0 . Vital Sign Comment: [] EKG Rhythm: Sinus Rhythm Rhythm change?: N MD Notified?: Kiarra Daniel MD Response: No New Orders Received Latest Rivas Fall Score: 35 Fall Risk: Medium Risk Safety Measures: Call light Within Reach, Bed Alarm Zone 2, Side Rails Side Rails x2, Bed position Low and Locked. Fall Precautions: Yellow Socks Yellow Gown Door Sign Patient Fall Education Report given to [Juanita RN].
--- NOTE | 2020-04-21 19:33 | NUR ---
NURSE NOTES: Received pt from REANNA Jerez. Pt is resting comfortably in bed and denies any pain. Pt is A/Ox4 and ambulatory with assistance to commode; pt shows signs of weakness. Pt is on cardiac monitoring SR and asymptomatic. Pt is breathing unlabored on 15 LPM NRB and has SOB with exertion. Pt has LWrist 22G SL and RHand 22G patent with skin dry and intact. Bed locked in lowest position and call light within reach. Will continue to monitor.
[2020-04-21 20:00] VITALS: BP 146/70
--- NOTE | 2020-04-21 22:02 | Diagnostic Imaging Report ---
EXAM: US Duplex Bilateral Lower Extremities Veins CLINICAL HISTORY: LE pain TECHNIQUE: Real-time duplex ultrasound scan of the bilateral lower extremity veins integrating B-mode two-dimensional vascular structure, Doppler spectral analysis, color flow Doppler imaging and compression. COMPARISON: None FINDINGS: Right deep veins: Unremarkable. No DVT in the right common femoral, femoral, proximal deep femoral or popliteal veins. The veins demonstrate normal color flow, are normally compressible, with normal phasic flow and/or augmentation response. Right superficial veins: Unremarkable. No thrombus in the visualized right great saphenous vein. Left deep veins: Unremarkable. No DVT in the left common femoral, femoral, proximal deep femoral or popliteal veins. The veins demonstrate normal color flow, are normally compressible, with normal phasic flow and/or augmentation response. Left superficial veins: Unremarkable. No thrombus in the visualized left great saphenous vein. Soft tissues: No acute findings. No popliteal cyst. IMPRESSION: No deep venous thrombosis identified in the lower extremity.
[2020-04-22] VITALS: BP 134/72
[2020-04-22 04:00] VITALS: BP 136/68
[2020-04-22] MEDS: NovoLOG Insulin Flexpen SUBQ SCH ×4 (06:17→21:04)
--- NOTE | 2020-04-22 07:15 | NUR ---
NURSE HAND-OFF REPORT: Important Events on Shift:Pt continued scheduled medications Patient Status: Stable Diet: CCHO Med Pending Orders: Pending Results/Labs:AM Labs Pending MD notification: Latest Vital Signs: Temperature 98.2 , Pulse 64 , B/P 136 /68 , Respiratory Rate 17 , O2 SAT 97 , Simple Mask, O2 Flow Rate 10.0 . Vital Sign Comment: VSS EKG Rhythm: Sinus Rhythm Rhythm change?: N MD Notified?: Kiarra Daniel MD Response: No New Orders Received Latest Rivas Fall Score: 35 Fall Risk: Medium Risk Safety Measures: Call light Within Reach, Bed Alarm Zone 2, Side Rails Side Rails x2, Bed position Low and Locked. Fall Precautions: Yellow Socks Yellow Gown Door Sign Patient Fall Education Report to be given.
--- NOTE | 2020-04-22 07:56 | NUR ---
NURSE NOTES: Report received from Bc FORTE. Patient seen on rounds, awake and sitting up in bed, on O2 at 15lpm via NRM with no signs of acute distress, nurse reports attempted to wean last night but patient unable to tolerate. PIV on left wrist G.22 patent and infusing NS + 30meqs KCL at 50ml/hr, right hand PIV G.22 patent and saline locked. Pt is continent and able to use bedside commode and urinal. Bed low and locked, siderails up x2, call light placed within reach and instructed to call nurse for assistance. Will continue to monitor.
[2020-04-22 08:00] VITALS: BP 124/67
[2020-04-22] MEDS: Docusate 100mg cap ORAL SCH ×3 (08:45→17:21)
[2020-04-22] MEDS: cefTRIAXone 1 GM in D5W 55 ML IVPB SCH (08:46)
[2020-04-22] MEDS: Enoxaparin 40mg Inj SUBQ SCH (08:48)
[2020-04-22 08:59] LABS: BASOPHILS % (AUTO) 2.5 % (0.0-2.0); EOSINOPHILS % (AUTO) 1.7 % (0.0-3.0); HEMATOCRIT 43.9 % (42.0-52.0); HEMOGLOBIN 14.8 G/DL (14.2-18.0); LYMPHOCYTES % (AUTO) 12.1 % (20.0-45.0); MEAN CORPUSCULAR VOLUME 90 FL (80-99); MONOCYTES % (AUTO) 8.7 % (1.0-10.0); PLATELET COUNT 440 K/UL (150-450); RED BLOOD COUNT 4.88 M/UL (4.70-6.10); RED CELL DISTRIBUTION WIDTH 12.2 % (11.6-14.8); WHITE BLOOD COUNT 9.1 K/UL (4.8-10.8)
[2020-04-22 09:26] LABS: ALANINE AMINOTRANSFERASE 33 U/L (12-78); ALBUMIN 2.5 G/DL (3.4-5.0); ALBUMIN/GLOBULIN RATIO 0.6 (1.0-2.7); ALKALINE PHOSPHATASE 40 U/L (46-116); ANION GAP 4 mmol/L (5-15); ASPARTATE AMINO TRANSFERASE 30 U/L (15-37); BILIRUBIN,DIRECT 0.2 MG/DL (0.0-0.3); BILIRUBIN,TOTAL 0.8 MG/DL (0.2-1.0); BLOOD UREA NITROGEN 16 mg/dL (7-18); CARBON DIOXIDE 33 MMOL/L (21-32); CHLORIDE 103 MMOL/L (98-107); CREATININE 0.8 MG/DL (0.55-1.30); SODIUM 140 MMOL/L (136-145)
--- NOTE | 2020-04-22 10:08 | Infectious Diseases Prog Note ---
Assessment/Plan 79yo M with: COVID pna Acute hypoxia 2/2 severe COVID pna Afebrile Normal WBC Lymphopenia Elevated AST to 38 likely 2/2 COVID 04/12 COVID positive; flu neg 04/18 COVID rapid test positive BCx NTD Resp cx NTD CXR: BL pna UA neg 04/21 CXR: Patchy bilateral airspace consolidations, consistent with severe multifocal infiltrate. Overall, minimal worsening when compared to previous study. Cr 1.1 No DVT on US 04/21 PMH: DM2 HTN HLD Prostate disease Plan: Cont RDV #08/22 Cont dex 6mg daily #08/27 Cont empiric CTX/azithro #08/22 This institution does not have access to convalescent plasma, and as pt 6 days out from diagnosis less likely to benefit from it. F/u Bcx, resp cx Monitor CBC/CMP Monitor resp status Monitor temp curve, hemodynamics D/w RN Thank you for this consult. [facility] will continue to follow. Subjective Allergies: Coded Allergies: No Known Allergies (Unverified , 04/18/20) AF WBC 9.1, stable Satting 97% on 10L NRB mask --> on exam on 15L NRB, doing well NAD Objective Last 24 Hour Vital Signs Date Time Temp Pulse Resp B/P (MAP) Pulse Ox O2 Delivery O2 Flow Rate FiO2 04/22/20 04:00 64 04/22/20 04:00 98.2 86 17 136/68 (90) 97 04/22/20 00:00 61 04/22/20 00:00 98.1 74 18 134/72 (92) 97 04/21/20 21:00 Non-Rebreather 10.0 04/21/20 20:00 98.3 76 18 146/70 (95) 96 04/21/20 20:00 76 04/21/20 16:00 Non-Rebreather 10.0 04/21/20 16:00 91 04/21/20 16:00 98.4 93 22 143/79 (100) 100 04/21/20 12:00 Non-Rebreather 10.0 04/21/20 12:00 98.0 93 22 140/75 (96) 100 04/21/20 11:42 64 04/21/20 10:35 96 Non-Rebreather 15.0 100 Height (Feet): 5 Height (Inches): 6.00 Weight (Pounds): 172 Gen: NAD HEENT: NCAT Pulm: BL chest rise Abd: Non-distended Ext: No c/c/e Skin: No visible rashes Neuro: Awake Laboratory Tests Test 04/21/20 15:02 04/21/20 20:38 04/22/20 06:09 04/22/20 06:45 POC Whole Blood Glucose 174 MG/DL (74-106) H Pending Pending White Blood Count 9.1 K/UL (4.8-10.8) Red Blood Count 4.88 M/UL (4.70-6.10) Hemoglobin 14.8 G/DL (14.2-18.0) Hematocrit 43.9 % (42.0-52.0) Mean Corpuscular Volume 90 FL (80-99) Mean Corpuscular Hemoglobin 30.4 PG (27.0-31.0) Mean Corpuscular Hemoglobin Concent 33.8 G/DL (32.0-36.0) Red Cell Distribution Width 12.2 % (11.6-14.8) Platelet Count 440 K/UL (150-450) Mean Platelet Volume 6.4 FL (6.5-10.1) L Neutrophils (%) (Auto) 75.0 % (45.0-75.0) Lymphocytes (%) (Auto) 12.1 % (20.0-45.0) L Monocytes (%) (Auto) 8.7 % (1.0-10.0) Eosinophils (%) (Auto) 1.7 % (0.0-3.0) Basophils (%) (Auto) 2.5 % (0.0-2.0) H Sodium Level 140 MMOL/L (136-145) Potassium Level 4.0 MMOL/L (3.5-5.1) Chloride Level 103 MMOL/L (98-107) Carbon Dioxide Level 33 MMOL/L (21-32) H Anion Gap 4 mmol/L (5-15) L Blood Urea Nitrogen 16 mg/dL (7-18) Creatinine 0.8 MG/DL (0.55-1.30) Estimat Glomerular Filtration Rate > 60 mL/min (>60) Glucose Level 125 MG/DL (74-106) H Calcium Level 9.0 MG/DL (8.5-10.1) Total Bilirubin 0.8 MG/DL (0.2-1.0) Direct Bilirubin 0.2 MG/DL (0.0-0.3) Aspartate Amino Transf (AST/SGOT) 30 U/L (15-37) Alanine Aminotransferase (ALT/SGPT) 33 U/L (12-78) Alkaline Phosphatase 40 U/L (46-116) L C-Reactive Protein, Quantitative 7.2 mg/dL (0.00-0.90) H Total Protein 7.0 G/DL (6.4-8.2) Albumin 2.5 G/DL (3.4-5.0) L Globulin 4.5 g/dL Albumin/Globulin Ratio 0.6 (1.0-2.7) L Current Medications Medications (Trade) Dose Ordered Sig/Lucy Route PRN Reason Start Time Stop Time Status Last Admin Dose Admin Acetaminophen (Tylenol) 650 mg Q4H PRN ORAL FEVER 04/18/20 10:45 05/18/20 10:44 Albuterol/ Ipratropium (Combivent Respimat) 1 puff Q4H PRN INH Shortness of Breath 04/18/20 11:15 05/18/20 11:14 Azithromycin 250 mg/Dextrose 275 ml @ 275 mls/hr Q24H IV 04/19/20 09:00 04/24/20 08:59 04/21/20 09:39 Ceftriaxone Sodium 1 gm/ Dextrose 55 ml @ 110 mls/hr Q24H IVPB 04/19/20 09:00 04/26/20 08:59 04/22/20 08:46 Dexamethasone (Decadron) 6 mg DAILY ORAL 04/19/20 09:00 04/28/20 09:01 04/22/20 08:45 Dextrose (Dextrose 50%) 25 ml Q30M PRN IV Hypoglycemia 04/18/20 10:45 07/17/20 10:44 Dextrose (Dextrose 50%) 50 ml Q30M PRN IV Hypoglycemia 04/18/20 10:45 07/17/20 10:44 Docusate Sodium (Colace) 100 mg THREE TIMES A DAY ORAL 04/18/20 13:00 05/18/20 12:59 04/22/20 08:45 Enoxaparin Sodium (Lovenox) 40 mg DAILY SUBQ 04/21/20 09:00 07/20/20 08:59 04/22/20 08:48 Insulin Aspart (NovoLOG) BEFORE MEALS AND HS SUBQ 04/18/20 11:30 07/17/20 11:29 04/21/20 21:00 Ondansetron HCl (Zofran) 4 mg Q6H PRN IVP Nausea & Vomiting 04/18/20 10:45 05/18/20 10:44 Pantoprazole (Protonix) 40 mg EVERY 12 HOURS ORAL 04/18/20 21:00 05/18/20 20:59 04/22/20 08:44 Polyethylene Glycol (Miralax) 17 gm DAILYPRN PRN ORAL Constipation 04/18/20 10:45 05/18/20 10:44 Potassium Chloride 30 meq/ Sodium Chloride 1,015 ml @ 50 mls/hr [id number] IV 04/19/20 09:00 05/19/20 08:59 04/21/20 21:54 Promethazine HCl/ Codeine (Phenergan with Codeine) 5 ml Q6H PRN ORAL cough 04/18/20 10:45 05/18/20 10:44 Remdesivir 100 mg/ Sodium Chloride 250 ml @ 250 mls/hr Q24H IV 04/19/20 15:00 04/22/20 15:59 04/21/20 15:05 Andria Pond M.D. Apr 22, 2020 10:08
[2020-04-22] MEDS: Azithromycin 250 MG in D5W 275 ML IV SCH (10:31)
--- NOTE | 2020-04-22 11:09 | Pulmonology Progress Note ---
Subjective ROS Limited/Unobtainable: No Allergies: Coded Allergies: No Known Allergies (Unverified , 04/18/20) Subjective worsening hypoxemia , now on NRM reports intermittent dry cough, chest discomfort with cough and deep breathing afebrile, no leukocytosis Objective Last 24 Hour Vital Signs Date Time Temp Pulse Resp B/P (MAP) Pulse Ox O2 Delivery O2 Flow Rate FiO2 04/22/20 09:00 Non-Rebreather 15.0 04/22/20 08:00 97.5 87 22 124/67 (86) 97 04/22/20 08:00 91 04/22/20 04:00 64 04/22/20 04:00 98.2 86 17 136/68 (90) 97 04/22/20 00:00 61 04/22/20 00:00 98.1 74 18 134/72 (92) 97 04/21/20 21:00 Non-Rebreather 10.0 04/21/20 20:00 98.3 76 18 146/70 (95) 96 04/21/20 20:00 76 04/21/20 16:00 Non-Rebreather 10.0 04/21/20 16:00 91 04/21/20 16:00 98.4 93 22 143/79 (100) 100 04/21/20 12:00 Non-Rebreather 10.0 04/21/20 12:00 98.0 93 22 140/75 (96) 100 04/21/20 11:42 64 Intake and Output 04/21/20 04/22/20 19:00 07:00 Intake Total 650 ml 360 ml Output Total 200 ml 2000 ml Balance 450 ml -1640 ml Intake Oral 200 ml 360 ml IV Total 450 ml Output Urine Total 200 ml 2000 ml # Voids 1 2 General Appearance: WD/WN, no acute distress HEENT: normocephalic Respiratory: chest wall non-tender, lungs clear - with moderate air exchange , other - on NRM Cardiovascular: normal peripheral pulses, normal rate Abdomen: normal bowel sounds, no organomegaly Extremities: no edema Skin: no rash Neurologic: abnormal gait Musculoskeletal: normal muscle bulk Laboratory Tests 04/21/20 15:02: POC Whole Blood Glucose 174H 04/21/20 20:38: POC Whole Blood Glucose [Pending] 04/22/20 06:09: POC Whole Blood Glucose [Pending] 04/22/20 06:45: White Blood Count 9.1, Red Blood Count 4.88, Hemoglobin 14.8, Hematocrit 43.9, Mean Corpuscular Volume 90, Mean Corpuscular Hemoglobin 30.4, Mean Corpuscular Hemoglobin Concent 33.8, Red Cell Distribution Width 12.2, Platelet Count 440, Mean Platelet Volume 6.4L, Neutrophils (%) (Auto) 75.0, Lymphocytes (%) (Auto) 12.1L, Monocytes (%) (Auto) 8.7, Eosinophils (%) (Auto) 1.7, Basophils (%) (Auto) 2.5H, Sodium Level 140, Potassium Level 4.0, Chloride Level 103, Carbon Dioxide Level 33H, Anion Gap 4L, Blood Urea Nitrogen 16, Creatinine 0.8, Estimat Glomerular Filtration Rate > 60, Glucose Level 125H, Calcium Level 9.0, Total Bilirubin 0.8, Direct Bilirubin 0.2, Aspartate Amino Transf (AST/SGOT) 30, Alanine Aminotransferase (ALT/SGPT) 33, Alkaline Phosphatase 40L, C-Reactive Protein, Quantitative 7.2H, Total Protein 7.0, Albumin 2.5L, Globulin 4.5, Albumin/Globulin Ratio 0.6L Current Medications Medications (Trade) Dose Ordered Sig/Lucy Route PRN Reason Start Time Stop Time Status Last Admin Dose Admin Acetaminophen (Tylenol) 650 mg Q4H PRN ORAL FEVER 04/18/20 10:45 05/18/20 10:44 Albuterol/ Ipratropium (Combivent Respimat) 1 puff Q4H PRN INH Shortness of Breath 04/18/20 11:15 05/18/20 11:14 Azithromycin 250 mg/Dextrose 275 ml @ 275 mls/hr Q24H IV 04/19/20 09:00 04/24/20 08:59 04/22/20 10:31 Ceftriaxone Sodium 1 gm/ Dextrose 55 ml @ 110 mls/hr Q24H IVPB 04/19/20 09:00 04/26/20 08:59 04/22/20 08:46 Dexamethasone (Decadron) 6 mg DAILY ORAL 04/19/20 09:00 04/28/20 09:01 04/22/20 08:45 Dextrose (Dextrose 50%) 25 ml Q30M PRN IV Hypoglycemia 04/18/20 10:45 3/30/21 10:44 Dextrose (Dextrose 50%) 50 ml Q30M PRN IV Hypoglycemia 04/18/20 10:45 07/17/20 10:44 Docusate Sodium (Colace) 100 mg THREE TIMES A DAY ORAL 04/18/20 13:00 05/18/20 12:59 04/22/20 08:45 Enoxaparin Sodium (Lovenox) 40 mg DAILY SUBQ 04/21/20 09:00 07/20/20 08:59 04/22/20 08:48 Insulin Aspart (NovoLOG) BEFORE MEALS AND HS SUBQ 04/18/20 11:30 07/17/20 11:29 04/21/20 21:00 Ondansetron HCl (Zofran) 4 mg Q6H PRN IVP Nausea & Vomiting 04/18/20 10:45 05/18/20 10:44 Pantoprazole (Protonix) 40 mg EVERY 12 HOURS ORAL 04/18/20 21:00 05/18/20 20:59 04/22/20 08:44 Polyethylene Glycol (Miralax) 17 gm DAILYPRN PRN ORAL Constipation 04/18/20 10:45 05/18/20 10:44 Potassium Chloride 30 meq/ Sodium Chloride 1,015 ml @ 50 mls/hr [id number] IV 04/19/20 09:00 05/19/20 08:59 04/21/20 21:54 Promethazine HCl/ Codeine (Phenergan with Codeine) 5 ml Q6H PRN ORAL cough 04/18/20 10:45 05/18/20 10:44 Remdesivir 100 mg/ Sodium Chloride 250 ml @ 250 mls/hr Q24H IV 04/19/20 15:00 04/22/20 15:59 04/21/20 15:05 Assessment/Plan Assessment/Plan ASSESSMENT Acute hypoxemic respiratory failure requiring face mask mask COVID-19 pneumonia Diabetes mellitus Hypertension Hyperlipidemia BPH PLAN OF CARE tele isolation room Date of sx onset: few days prior to presentation to ED on 04/18 Positive test: 04/18 rapid COVID + ( was tested positive prior as well) O2 NRM ( worsening hypoxemia), HFA REM Day # 5 ( 04/18 - 04/22 ) Dex Day# 5 ( 04/18 -) DVT PPX: Lovenox Venous Duplex BLE 1/2 NGT D dimer 0.64 Trend CRP 16.5 - > 7->7.2 CXR 1/2 -> Patchy bilateral airspace consolidations, consistent with severe multifocal infiltrate Abx per ID recs Monitor volumes and renal function Fup with consultants recs FC Discuss GOC BS management with SSI BP management GI prophylaxis supportive care case discussed and evaluated by supervising physician Sridevi Alfaro NP Apr 22, 2020 11:09 Mo Hinton MD Apr 22, 2020 20:33
[2020-04-22 12:00] VITALS: BP 134/63
--- NOTE | 2020-04-22 13:18 | Surgery Progress Note ---
Surgery Progress Note Subjective Additional Comments afebrile, HD stable, labs stable comfortable no complaints Objective Last 24 Hour Vital Signs Date Time Temp Pulse Resp B/P (MAP) Pulse Ox O2 Delivery O2 Flow Rate FiO2 04/22/20 12:00 98.3 82 22 134/63 (86) 98 04/22/20 09:00 Non-Rebreather 15.0 04/22/20 08:00 97.5 87 22 124/67 (86) 97 04/22/20 08:00 91 04/22/20 04:00 64 04/22/20 04:00 98.2 86 17 136/68 (90) 97 04/22/20 00:00 61 04/22/20 00:00 98.1 74 18 134/72 (92) 97 04/21/20 21:00 Non-Rebreather 10.0 04/21/20 20:00 98.3 76 18 146/70 (95) 96 04/21/20 20:00 76 04/21/20 16:00 Non-Rebreather 10.0 04/21/20 16:00 91 04/21/20 16:00 98.4 93 22 143/79 (100) 100 I&O Intake and Output 04/21/20 04/22/20 18:59 06:59 Intake Total 700 ml 360 ml Output Total 200 ml 2000 ml Balance 500 ml -1640 ml Intake Oral 200 ml 360 ml IV Total 500 ml Output Urine Total 200 ml 2000 ml # Voids 1 2 Dressing: saturated Cardiovascular: RSR Respiratory: decreased breath sounds Abdomen: non-tender, present bowel sounds, non-distended Extremities: no tenderness, no cyanosis Laboratory Tests Test 04/21/20 15:02 04/21/20 20:38 04/22/20 06:09 04/22/20 06:45 POC Whole Blood Glucose 174 MG/DL (74-106) H Pending Pending White Blood Count 9.1 K/UL (4.8-10.8) Red Blood Count 4.88 M/UL (4.70-6.10) Hemoglobin 14.8 G/DL (14.2-18.0) Hematocrit 43.9 % (42.0-52.0) Mean Corpuscular Volume 90 FL (80-99) Mean Corpuscular Hemoglobin 30.4 PG (27.0-31.0) Mean Corpuscular Hemoglobin Concent 33.8 G/DL (32.0-36.0) Red Cell Distribution Width 12.2 % (11.6-14.8) Platelet Count 440 K/UL (150-450) Mean Platelet Volume 6.4 FL (6.5-10.1) L Neutrophils (%) (Auto) 75.0 % (45.0-75.0) Lymphocytes (%) (Auto) 12.1 % (20.0-45.0) L Monocytes (%) (Auto) 8.7 % (1.0-10.0) Eosinophils (%) (Auto) 1.7 % (0.0-3.0) Basophils (%) (Auto) 2.5 % (0.0-2.0) H Sodium Level 140 MMOL/L (136-145) Potassium Level 4.0 MMOL/L (3.5-5.1) Chloride Level 103 MMOL/L (98-107) Carbon Dioxide Level 33 MMOL/L (21-32) H Anion Gap 4 mmol/L (5-15) L Blood Urea Nitrogen 16 mg/dL (7-18) Creatinine 0.8 MG/DL (0.55-1.30) Estimat Glomerular Filtration Rate > 60 mL/min (>60) Glucose Level 125 MG/DL (74-106) H Calcium Level 9.0 MG/DL (8.5-10.1) Total Bilirubin 0.8 MG/DL (0.2-1.0) Direct Bilirubin 0.2 MG/DL (0.0-0.3) Aspartate Amino Transf (AST/SGOT) 30 U/L (15-37) Alanine Aminotransferase (ALT/SGPT) 33 U/L (12-78) Alkaline Phosphatase 40 U/L (46-116) L C-Reactive Protein, Quantitative 7.2 mg/dL (0.00-0.90) H Total Protein 7.0 G/DL (6.4-8.2) Albumin 2.5 G/DL (3.4-5.0) L Globulin 4.5 g/dL Albumin/Globulin Ratio 0.6 (1.0-2.7) L Test 04/22/20 12:06 POC Whole Blood Glucose 205 MG/DL (74-106) H Plan Problems: (1) Abnormal LFTs Assessment & Plan: elevated lft's t bili elevated direct <50% elevated unlikely obstructed biliary unlikely alon abd exam benign US hold for now given covid will follow clinically with exam and recs thank you (2) Diabetes (3) Hypoxia (4) Coronavirus infection Assessment & Plan: There are bilateral patchy and streaky infiltrates in a peribronchovascular distribution, left greater than right. Heart size is normal. Pleural spaces are clear. Impression: Bilateral infiltrates, consistent with multifocal pneumonia, likely viral pulm input appreciated ID on abx and Rx pulm respiratory support (5) History of hypertension (6) BPH (benign prostatic hyperplasia) Jesus Manuel Cruz Apr 22, 2020 13:18
--- NOTE | 2020-04-22 13:24 | Nephrology Progress Note ---
Assessment/Plan Problem List: (1) Electrolyte imbalance (2) Coronavirus infection (3) Hypoxia (4) BPH (benign prostatic hyperplasia) Assessment Electrolyte imbalance Low sodium, low magnesium, low potassium Coronavirus infection, hypoxia Diabetes mellitus Plan April 22: Today's labs reviewed and renal parameters remain stable continue per consultants April 21: Labs reviewed. Renal parameters stable. Continue per consultants. Medication list reviewed. April 20: Labs reviewed. Renal parameters and electrolytes stable. Continue per consultants. Previously: Normal saline with potassium IV Mag sulfate IV Protonix and stool softener Antibiotics Monitor electrolytes and renal parameters Per orders Subjective ROS Limited/Unobtainable: No Constitutional: Reports: malaise Objective Objective Last 24 Hour Vital Signs Date Time Temp Pulse Resp B/P (MAP) Pulse Ox O2 Delivery O2 Flow Rate FiO2 04/22/20 12:00 98.3 82 22 134/63 (86) 98 04/22/20 09:00 Non-Rebreather 15.0 04/22/20 08:00 97.5 87 22 124/67 (86) 97 04/22/20 08:00 91 04/22/20 04:00 64 04/22/20 04:00 98.2 86 17 136/68 (90) 97 04/22/20 00:00 61 04/22/20 00:00 98.1 74 18 134/72 (92) 97 04/21/20 21:00 Non-Rebreather 10.0 04/21/20 20:00 98.3 76 18 146/70 (95) 96 04/21/20 20:00 76 04/21/20 16:00 Non-Rebreather 10.0 04/21/20 16:00 91 04/21/20 16:00 98.4 93 22 143/79 (100) 100 Intake and Output 04/21/20 04/22/20 19:00 07:00 Intake Total 650 ml 360 ml Output Total 200 ml 2000 ml Balance 450 ml -1640 ml Intake Oral 200 ml 360 ml IV Total 450 ml Output Urine Total 200 ml 2000 ml # Voids 1 2 Current Medications Medications (Trade) Dose Ordered Sig/Lucy Route PRN Reason Start Time Stop Time Status Last Admin Dose Admin Acetaminophen (Tylenol) 650 mg Q4H PRN ORAL FEVER 04/18/20 10:45 05/18/20 10:44 Albuterol/ Ipratropium (Combivent Respimat) 1 puff Q4H PRN INH Shortness of Breath 04/18/20 11:15 05/18/20 11:14 Azithromycin 250 mg/Dextrose 275 ml @ 275 mls/hr Q24H IV 04/19/20 09:00 04/24/20 08:59 04/22/20 10:31 Ceftriaxone Sodium 1 gm/ Dextrose 55 ml @ 110 mls/hr Q24H IVPB 04/19/20 09:00 04/24/20 08:59 04/22/20 08:46 Dexamethasone (Decadron) 6 mg DAILY ORAL 04/19/20 09:00 04/28/20 09:01 04/22/20 08:45 Dextrose (Dextrose 50%) 25 ml Q30M PRN IV Hypoglycemia 04/18/20 10:45 07/17/20 10:44 Dextrose (Dextrose 50%) 50 ml Q30M PRN IV Hypoglycemia 04/18/20 10:45 07/17/20 10:44 Docusate Sodium (Colace) 100 mg THREE TIMES A DAY ORAL 04/18/20 13:00 05/18/20 12:59 04/22/20 12:25 Enoxaparin Sodium (Lovenox) 40 mg DAILY SUBQ 04/21/20 09:00 07/20/20 08:59 04/22/20 08:48 Insulin Aspart (NovoLOG) BEFORE MEALS AND HS SUBQ 04/18/20 11:30 07/17/20 11:29 04/22/20 12:24 Ondansetron HCl (Zofran) 4 mg Q6H PRN IVP Nausea & Vomiting 04/18/20 10:45 05/18/20 10:44 Pantoprazole (Protonix) 40 mg EVERY 12 HOURS ORAL 04/18/20 21:00 05/18/20 20:59 04/22/20 08:44 Polyethylene Glycol (Miralax) 17 gm DAILYPRN PRN ORAL Constipation 04/18/20 10:45 05/18/20 10:44 Potassium Chloride 30 meq/ Sodium Chloride 1,015 ml @ 50 mls/hr [id number] IV 04/19/20 09:00 05/19/20 08:59 04/21/20 21:54 Promethazine HCl/ Codeine (Phenergan with Codeine) 5 ml Q6H PRN ORAL cough 04/18/20 10:45 05/18/20 10:44 Remdesivir 100 mg/ Sodium Chloride 250 ml @ 250 mls/hr Q24H IV 04/19/20 15:00 04/22/20 15:59 04/21/20 15:05 Laboratory Tests 04/21/20 15:02: POC Whole Blood Glucose 174H 04/21/20 20:38: POC Whole Blood Glucose [Pending] 04/22/20 06:09: POC Whole Blood Glucose [Pending] 04/22/20 06:45: White Blood Count 9.1, Red Blood Count 4.88, Hemoglobin 14.8, Hematocrit 43.9, Mean Corpuscular Volume 90, Mean Corpuscular Hemoglobin 30.4, Mean Corpuscular Hemoglobin Concent 33.8, Red Cell Distribution Width 12.2, Platelet Count 440, Mean Platelet Volume 6.4L, Neutrophils (%) (Auto) 75.0, Lymphocytes (%) (Auto) 12.1L, Monocytes (%) (Auto) 8.7, Eosinophils (%) (Auto) 1.7, Basophils (%) (Auto) 2.5H, Sodium Level 140, Potassium Level 4.0, Chloride Level 103, Carbon Dioxide Level 33H, Anion Gap 4L, Blood Urea Nitrogen 16, Creatinine 0.8, Estimat Glomerular Filtration Rate > 60, Glucose Level 125H, Calcium Level 9.0, Total Bilirubin 0.8, Direct Bilirubin 0.2, Aspartate Amino Transf (AST/SGOT) 30, Alanine Aminotransferase (ALT/SGPT) 33, Alkaline Phosphatase 40L, C-Reactive Protein, Quantitative 7.2H, Total Protein 7.0, Albumin 2.5L, Globulin 4.5, Albumin/Globulin Ratio 0.6L 04/22/20 12:06: POC Whole Blood Glucose 205H Height (Feet): 5 Height (Inches): 6.00 Weight (Pounds): 172 General Appearance: no apparent distress EENT: other - On nonrebreather mask Cardiovascular: normal rate Respiratory/Chest: decreased breath sounds Abdomen: soft Roberto Yang MD Apr 22, 2020 13:24
[2020-04-22] MEDS: Maintenance Dose:Remdesivir 100mg/NS 230ml x 4 Doses IV SCH ×2 (14:16)
--- NOTE | 2020-04-22 15:20 | Internal Med Progress Note ---
Subjective Date of Service: Apr 22, 2020 Physician Name Fili Alfaro Attending Physician Romie Murray MD Current Medications Medications (Trade) Dose Ordered Sig/Lucy Route PRN Reason Start Time Stop Time Status Last Admin Dose Admin Acetaminophen (Tylenol) 650 mg Q4H PRN ORAL FEVER 04/18/20 10:45 05/18/20 10:44 Albuterol/ Ipratropium (Combivent Respimat) 1 puff Q4H PRN INH Shortness of Breath 04/18/20 11:15 05/18/20 11:14 Azithromycin 250 mg/Dextrose 275 ml @ 275 mls/hr Q24H IV 04/19/20 09:00 04/24/20 08:59 04/22/20 10:31 Ceftriaxone Sodium 1 gm/ Dextrose 55 ml @ 110 mls/hr Q24H IVPB 04/19/20 09:00 04/24/20 08:59 04/22/20 08:46 Dexamethasone (Decadron) 6 mg DAILY ORAL 04/19/20 09:00 04/28/20 09:01 04/22/20 08:45 Dextrose (Dextrose 50%) 25 ml Q30M PRN IV Hypoglycemia 04/18/20 10:45 07/17/20 10:44 Dextrose (Dextrose 50%) 50 ml Q30M PRN IV Hypoglycemia 04/18/20 10:45 07/17/20 10:44 Docusate Sodium (Colace) 100 mg THREE TIMES A DAY ORAL 04/18/20 13:00 05/18/20 12:59 04/22/20 12:25 Enoxaparin Sodium (Lovenox) 40 mg DAILY SUBQ 04/21/20 09:00 07/20/20 08:59 04/22/20 08:48 Insulin Aspart (NovoLOG) BEFORE MEALS AND HS SUBQ 04/18/20 11:30 07/17/20 11:29 04/22/20 12:24 Ondansetron HCl (Zofran) 4 mg Q6H PRN IVP Nausea & Vomiting 04/18/20 10:45 05/18/20 10:44 Pantoprazole (Protonix) 40 mg EVERY 12 HOURS ORAL 04/18/20 21:00 05/18/20 20:59 04/22/20 08:44 Polyethylene Glycol (Miralax) 17 gm DAILYPRN PRN ORAL Constipation 04/18/20 10:45 05/18/20 10:44 Potassium Chloride 30 meq/ Sodium Chloride 1,015 ml @ 50 mls/hr [id number] IV 04/19/20 09:00 05/19/20 08:59 04/21/20 21:54 Promethazine HCl/ Codeine (Phenergan with Codeine) 5 ml Q6H PRN ORAL cough 04/18/20 10:45 05/18/20 10:44 Remdesivir 100 mg/ Sodium Chloride 250 ml @ 250 mls/hr Q24H IV 04/19/20 15:00 04/22/20 15:59 04/22/20 14:16 Allergies: Coded Allergies: No Known Allergies (Unverified , 04/18/20) ROS Limited/Unobtainable: Yes Subjective 79 YO M admitted with dyspnea. Now COVID 19 pneumonia. Cover for Int Med - Dr Murray. Objective Last Vital Signs Date Time Temp Pulse Resp B/P (MAP) Pulse Ox O2 Delivery O2 Flow Rate FiO2 04/22/20 12:00 98.3 82 22 134/63 (86) 98 04/22/20 09:00 Non-Rebreather 15.0 04/21/20 10:35 100 Laboratory Tests Test 04/21/20 20:38 04/22/20 06:09 04/22/20 06:45 04/22/20 12:06 POC Whole Blood Glucose Pending Pending 205 MG/DL (74-106) H White Blood Count 9.1 K/UL (4.8-10.8) Red Blood Count 4.88 M/UL (4.70-6.10) Hemoglobin 14.8 G/DL (14.2-18.0) Hematocrit 43.9 % (42.0-52.0) Mean Corpuscular Volume 90 FL (80-99) Mean Corpuscular Hemoglobin 30.4 PG (27.0-31.0) Mean Corpuscular Hemoglobin Concent 33.8 G/DL (32.0-36.0) Red Cell Distribution Width 12.2 % (11.6-14.8) Platelet Count 440 K/UL (150-450) Mean Platelet Volume 6.4 FL (6.5-10.1) L Neutrophils (%) (Auto) 75.0 % (45.0-75.0) Lymphocytes (%) (Auto) 12.1 % (20.0-45.0) L Monocytes (%) (Auto) 8.7 % (1.0-10.0) Eosinophils (%) (Auto) 1.7 % (0.0-3.0) Basophils (%) (Auto) 2.5 % (0.0-2.0) H Sodium Level 140 MMOL/L (136-145) Potassium Level 4.0 MMOL/L (3.5-5.1) Chloride Level 103 MMOL/L (98-107) Carbon Dioxide Level 33 MMOL/L (21-32) H Anion Gap 4 mmol/L (5-15) L Blood Urea Nitrogen 16 mg/dL (7-18) Creatinine 0.8 MG/DL (0.55-1.30) Estimat Glomerular Filtration Rate > 60 mL/min (>60) Glucose Level 125 MG/DL (74-106) H Calcium Level 9.0 MG/DL (8.5-10.1) Total Bilirubin 0.8 MG/DL (0.2-1.0) Direct Bilirubin 0.2 MG/DL (0.0-0.3) Aspartate Amino Transf (AST/SGOT) 30 U/L (15-37) Alanine Aminotransferase (ALT/SGPT) 33 U/L (12-78) Alkaline Phosphatase 40 U/L (46-116) L C-Reactive Protein, Quantitative 7.2 mg/dL (0.00-0.90) H Total Protein 7.0 G/DL (6.4-8.2) Albumin 2.5 G/DL (3.4-5.0) L Globulin 4.5 g/dL Albumin/Globulin Ratio 0.6 (1.0-2.7) L Intake and Output 04/21/20 04/22/20 19:00 07:00 Intake Total 650 ml 360 ml Output Total 200 ml 2000 ml Balance 450 ml -1640 ml Intake Oral 200 ml 360 ml IV Total 450 ml Output Urine Total 200 ml 2000 ml # Voids 1 2 Objective PHYSICAL EXAMINATION: GENERAL: The patient is a well-developed and well-nourished male, in no apparent distress. HEENT: Eyes, pupils are equal and responsive to light and accommodation. Extraocular movements are intact. NECK: Supple without lymphadenopathy. CHEST: Non rebreather mask, Decreased breath sounds in bilateral bases, otherwise clear to auscultation without wheezes. CARDIOVASCULAR: Tachycardic, regular rhythm. S1, S2 normal without murmurs, rubs, or gallops. ABDOMEN: Soft, nontender, and nondistended. Positive bowel sounds. No evidence of hepatosplenomegaly. Currently, no rebound or guarding noted. EXTREMITIES: Negative for clubbing, cyanosis, or edema. RECTAL/GENITAL: Refused. NEUROLOGIC: Cranial nerves II through XII are grossly intact without focal deficits. Motor strength is 5/5 bilaterally. Deep tendon reflexes are 2+ plantar. Assessment/Plan Assessment/Plan ASSESSMENT: This is an 79-year-old male with: 1. COVID-19 positive. 2. Bilateral pneumonia. 3. Diabetes type 2. 4. Hypertension. 5. Hypercholesterolemia. 6. Benign prostatic hypertrophy. TREATMENT: 1. COVID-19 positive/bilateral pneumonia. On non rebreather mask @ 15 LPM O2. Pulmonary consultation = Dr. Angel Daniel. Continue remdesivir and Decadron intravenously. antibiotics = ceftriaxone and azithromycin Inf Dis=Dr Pond 2. Diabetes type 2. NovoLog sliding scale has been instituted. 3. Hypertension. Continue amlodipine, hydrochlorothiazide, and losartan as above. 4. Hypercholesterolemia. Continue simvastatin as above. 5. Benign prostatic hypertrophy. Continue Flomax as above. Fili Alfaro MD Apr 22, 2020 15:20
[2020-04-22 16:00] VITALS: BP 134/70
--- NOTE | 2020-04-22 16:14 | NUR ---
NURSE NOTES: Patient sats 98-99% on nonrebreather mask. Called RT to reassess if patient can be weaned to a venturi mask.
--- NOTE | 2020-04-22 17:38 | NUR ---
NURSE NOTES: RT came to reassess patient. Placed on venturi mask at 10lpm, FiO2 50%, sats 94% with no signs of acute distress. Will continue to monitor.
--- NOTE | 2020-04-22 19:00 | NUR ---
NURSE HAND-OFF REPORT: Important Events on Shift: Patient weaned to venturi mask at 10lpm sats 94% with no signs of acute distress, 5th dose remdesivir completed Patient Status: Stable Diet:CCHO medium Pending Orders: N Pending Results/Labs:N Pending MD notification:N Latest Vital Signs: Temperature 97.2 , Pulse 83 , B/P 134 /70 , Respiratory Rate 21 , O2 SAT 98 , Simple Mask, O2 Flow Rate 10.0 . Vital Sign Comment: EKG Rhythm: Sinus Rhythm Rhythm change?: N Notified?: Kiarra Daniel MD Response: No New Orders Received Latest Rivas Fall Score: 35 Fall Risk: Medium Risk Safety Measures: Call light Within Reach, Bed Alarm Zone 2, Side Rails Side Rails x2, Bed position Low and Locked. Fall Precautions: Yellow Socks Yellow Gown Door Sign Patient Fall Education Report given to Neto FORTE.
--- NOTE | 2020-04-22 19:01 | NUR ---
NURSE NOTES: Patient received from Erin FORTE. Patient alert and oriented x4. Saturating well on Venturi Mask 10L. IV site patent and intact on Left wrist 22G slocked and R hand 22g w/ [id number]@50. No c/o pain and no s/s of distress. Bed in lowest position and call light within reach. Continue to monitor.
[2020-04-22 20:00] VITALS: BP 142/87
--- NOTE | 2020-04-22 23:00 | NUR ---
NURSE HAND-OFF REPORT: Important Events on Shift:[] Patient Status: [STABLE] Diet: [] Pending Orders: [] Pending Results/Labs:[] Pending MD notification:[] Latest Vital Signs: Temperature 97.9 , Pulse 68 , B/P 142 /87 , Respiratory Rate 20 , O2 SAT 95 , Simple Mask, O2 Flow Rate 10.0 . Vital Sign Comment: [] EKG Rhythm: Sinus Rhythm Rhythm change?: N MD Notified?: Kiarra Daniel MD Response: No New Orders Received Latest Rivas Fall Score: 35 Fall Risk: Medium Risk Safety Measures: Call light Within Reach, Bed Alarm Zone 2, Side Rails Side Rails x2, Bed position Low and Locked. Fall Precautions: Yellow Socks Yellow Gown Door Sign Patient Fall Education Report given to [ERI FORTE].
--- NOTE | 2020-04-22 23:15 | NUR ---
NURSE NOTES: Pt. received from REANNA Duque. Pt. AAOx4, on VM at 10L satting 96%, breathing even, no indications of respiratory distress, no complaints of pain. IV right hand 22g with NS + 30 KCl and 50cc, running; IC left wrist saline locked. Bed low and locked, side rails x2 up, bed alarm active, and call light in reach.
[2020-04-23] VITALS: BP 129/68
[2020-04-23] MEDS: Promethazine/Codeine 5ml UD ORAL PRN ×2 (00:27→08:25)
[2020-04-23 04:00] VITALS: BP 134/72
[2020-04-23] MEDS: NovoLOG Insulin Flexpen SUBQ SCH ×4 (06:00→20:59)
[2020-04-23 06:43] LABS: BASOPHILS % (AUTO) 0.9 % (0.0-2.0); EOSINOPHILS % (AUTO) 1.7 % (0.0-3.0); HEMATOCRIT 42.7 % (42.0-52.0); HEMOGLOBIN 14.1 G/DL (14.2-18.0); LYMPHOCYTES % (AUTO) 13.1 % (20.0-45.0); MEAN CORPUSCULAR VOLUME 93 FL (80-99); MONOCYTES % (AUTO) 11.1 % (1.0-10.0); NEUTROPHILS % (AUTO) 73.2 % (45.0-75.0); PLATELET COUNT 401 K/UL (150-450); RED BLOOD COUNT 4.61 M/UL (4.70-6.10); RED CELL DISTRIBUTION WIDTH 12.4 % (11.6-14.8); WHITE BLOOD COUNT 8.5 K/UL (4.8-10.8)
--- NOTE | 2020-04-23 06:58 | NUR ---
NURSE HAND-OFF REPORT: Important Events on Shift:[pt. ambulatory steady gait to bathroom, with BM x1. cough syrup given overnight for cough. ] Patient Status: stable Diet: ccho med Pending Orders: na Pending Results/Labs:na Pending notification:na Latest Vital Signs: Temperature 97.5 , Pulse 69 , B/P 134 /72 , Respiratory Rate 20 , O2 SAT 93 , Simple Mask, O2 Flow Rate 10.0 . Vital Sign Comment: stable EKG Rhythm: Sinus Rhythm Rhythm change?: N MD Notified?: Kiarra Daniel MD Response: No New Orders Received Latest Rivas Fall Score: 35 Fall Risk: Medium Risk Safety Measures: Call light Within Reach, Bed Alarm Zone 2, Side Rails Side Rails x2, Bed position Low and Locked. Fall Precautions: Yellow Socks Yellow Gown Door Sign Patient Fall Education Report given to REANNA Khan.
[2020-04-23 07:15] LABS: ANION GAP 5 mmol/L (5-15); BLOOD UREA NITROGEN 16 mg/dL (7-18); CALCIUM 9.3 MG/DL (8.5-10.1); CARBON DIOXIDE 32 MMOL/L (21-32); CHLORIDE 106 MMOL/L (98-107); CREATININE 0.7 MG/DL (0.55-1.30); POTASSIUM 4.6 MMOL/L (3.5-5.1); SODIUM 142 MMOL/L (136-145)
--- NOTE | 2020-04-23 07:55 | NUR ---
NURSE NOTES: Report received from Gerald FORTE. Patient seen on rounds, awake and sitting up in bed eating breakfast, on O2 at 10lpm via venturi mask with no signs of acute distress, sats 90-91%. Pt noted with mild productive cough. PIV on left wrist G.22 patent and infusing NS + 30meqs KCL at 50ml/hr, right hand PIV G.22 patent and saline locked. Pt is continent and able to use bedside commode and urinal. Bed low and locked, siderails up x2, call light placed within reach and instructed to call nurse for assistance. Will continue to monitor.
--- NOTE | 2020-04-23 07:57 | NUR ---
CASE MANAGEMENT:REVIEW 04/23/20 SI: COVID PNEUMONIA 97.5 69 20 134/72 93% ON VENTURI MASK 10L/50% FIO2 GLUCOSE+120 IS: LOVENOX SQ QD IVF+KCL@50/HR IV AZITHROMYCIN Q24 IV ROCEPHIN Q24 DECADRON PO QD PROTONIX PO Q12 : TELEMETRY STATUS DCP: FROM HOME PLAN: TRANSFER TO [place]. IT HAS BEEN VERY DIFFICULT TO GET THROUGH TO [facility] DEPARTMENT. MULTIPLE ATTEMPTS HAVE BEEN MADE. WE HAVE BEEN ON PLACED ON HOLD FOR 1-2 HOURS THEN PHONE DISCONNECTS FAXED CLINICALS TO [phone]
[2020-04-23 08:00] VITALS: BP 124/64
[2020-04-23] MEDS: Docusate 100mg cap ORAL SCH ×3 (08:19→17:27)
[2020-04-23] MEDS: cefTRIAXone 1 GM in D5W 55 ML IVPB SCH (08:21)
--- NOTE | 2020-04-23 09:09 | Infectious Diseases Prog Note ---
Assessment/Plan 79yo M with: COVID pna Acute hypoxia 2/2 severe COVID pna Afebrile Normal WBC Lymphopenia Elevated AST to 38 likely 2/2 COVID 04/12 COVID positive; flu neg 04/18 COVID rapid test positive BCx NTD Resp cx NTD CXR: BL pna UA neg 04/21 CXR: Patchy bilateral airspace consolidations, consistent with severe multifocal infiltrate. Overall, minimal worsening when compared to previous study. Cr 1.1 No DVT on US 04/21 PMH: DM2 HTN HLD Prostate disease Plan: Stop RDV #5/5 Stop empiric CTX/azithro #5/5 Cont dex 6mg daily #09/27 04/23 SP RDV #5, CTX/az #5 This institution does not have access to convalescent plasma, and as pt 6 days out from diagnosis less likely to benefit from it. Monitor CBC/CMP Monitor resp status Monitor temp curve, hemodynamics D/w RN Thank you for this consult. [facility] will continue to follow. Subjective Allergies: Coded Allergies: No Known Allergies (Unverified , 04/18/20) AF WBC 8.5 NAD on venturi 10L mask Sitting up on side of bed, feeling about the same Objective Last 24 Hour Vital Signs Date Time Temp Pulse Resp B/P (MAP) Pulse Ox O2 Delivery O2 Flow Rate FiO2 04/23/20 08:00 97.7 73 20 124/64 (84) 90 04/23/20 04:00 97.5 69 20 134/72 (92) 93 04/23/20 04:00 69 04/23/20 00:00 97.3 79 18 129/68 (88) 96 04/23/20 00:00 79 04/22/20 21:00 Venturi Mask 10.0 04/22/20 20:00 68 04/22/20 20:00 97.9 89 20 142/87 (105) 95 04/22/20 19:00 95 Venturi Mask 10.0 50 04/22/20 17:39 Venturi Mask 10.0 04/22/20 16:00 97.2 79 21 134/70 (91) 98 04/22/20 16:00 83 04/22/20 12:00 98.3 82 22 134/63 (86) 98 04/22/20 12:00 71 Height (Feet): 5 Height (Inches): 6.00 Weight (Pounds): 172 Gen: NAD HEENT: NCAT Pulm: BL chest rise Abd: Non-distended Ext: No c/c/e Skin: No visible rashes Neuro: Awake Laboratory Tests Test 04/22/20 12:06 04/23/20 04:45 04/23/20 05:59 POC Whole Blood Glucose 205 MG/DL (74-106) H 124 MG/DL (74-106) H White Blood Count 8.5 K/UL (4.8-10.8) Red Blood Count 4.61 M/UL (4.70-6.10) L Hemoglobin 14.1 G/DL (14.2-18.0) L Hematocrit 42.7 % (42.0-52.0) Mean Corpuscular Volume 93 FL (80-99) Mean Corpuscular Hemoglobin 30.7 PG (27.0-31.0) Mean Corpuscular Hemoglobin Concent 33.1 G/DL (32.0-36.0) Red Cell Distribution Width 12.4 % (11.6-14.8) Platelet Count 401 K/UL (150-450) Mean Platelet Volume 6.4 FL (6.5-10.1) L Neutrophils (%) (Auto) 73.2 % (45.0-75.0) Lymphocytes (%) (Auto) 13.1 % (20.0-45.0) L Monocytes (%) (Auto) 11.1 % (1.0-10.0) H Eosinophils (%) (Auto) 1.7 % (0.0-3.0) Basophils (%) (Auto) 0.9 % (0.0-2.0) Sodium Level 142 MMOL/L (136-145) Potassium Level 4.6 MMOL/L (3.5-5.1) Chloride Level 106 MMOL/L (98-107) Carbon Dioxide Level 32 MMOL/L (21-32) Anion Gap 5 mmol/L (5-15) Blood Urea Nitrogen 16 mg/dL (7-18) Creatinine 0.7 MG/DL (0.55-1.30) Estimat Glomerular Filtration Rate > 60 mL/min (>60) Glucose Level 120 MG/DL (74-106) H Calcium Level 9.3 MG/DL (8.5-10.1) C-Reactive Protein, Quantitative Pending Current Medications Medications (Trade) Dose Ordered Sig/Lucy Route PRN Reason Start Time Stop Time Status Last Admin Dose Admin Acetaminophen (Tylenol) 650 mg Q4H PRN ORAL FEVER 04/18/20 10:45 05/18/20 10:44 Albuterol/ Ipratropium (Combivent Respimat) 1 puff Q4H PRN INH Shortness of Breath 04/18/20 11:15 05/18/20 11:14 Azithromycin 250 mg/Dextrose 275 ml @ 275 mls/hr Q24H IV 04/19/20 09:00 04/24/20 08:59 04/22/20 10:31 Ceftriaxone Sodium 1 gm/ Dextrose 55 ml @ 110 mls/hr Q24H IVPB 04/19/20 09:00 04/24/20 08:59 04/23/20 08:21 Dexamethasone (Decadron) 6 mg DAILY ORAL 04/19/20 09:00 04/28/20 09:01 04/23/20 08:20 Dextrose (Dextrose 50%) 25 ml Q30M PRN IV Hypoglycemia 04/18/20 10:45 07/17/20 10:44 Dextrose (Dextrose 50%) 50 ml Q30M PRN IV Hypoglycemia 04/18/20 10:45 07/17/20 10:44 Docusate Sodium (Colace) 100 mg THREE TIMES A DAY ORAL 04/18/20 13:00 05/18/20 12:59 04/23/20 08:19 Enoxaparin Sodium (Lovenox) 40 mg DAILY SUBQ 04/21/20 09:00 07/20/20 08:59 04/22/20 08:48 Insulin Aspart (NovoLOG) BEFORE MEALS AND HS SUBQ 04/18/20 11:30 07/17/20 11:29 04/22/20 21:04 Ondansetron HCl (Zofran) 4 mg Q6H PRN IVP Nausea & Vomiting 04/18/20 10:45 05/18/20 10:44 Pantoprazole (Protonix) 40 mg EVERY 12 HOURS ORAL 04/18/20 21:00 05/18/20 20:59 04/23/20 08:19 Polyethylene Glycol (Miralax) 17 gm DAILYPRN PRN ORAL Constipation 04/18/20 10:45 05/18/20 10:44 Potassium Chloride 30 meq/ Sodium Chloride 1,015 ml @ 50 mls/hr [id number] IV 04/19/20 09:00 05/19/20 08:59 04/22/20 17:22 Promethazine HCl/ Codeine (Phenergan with Codeine) 5 ml Q6H PRN ORAL cough 04/18/20 10:45 05/18/20 10:44 04/23/20 08:25 Andria Pond M.D. Apr 23, 2020 09:09
--- NOTE | 2020-04-23 09:14 | Pulmonology Progress Note ---
Subjective ROS Limited/Unobtainable: Yes Allergies: Coded Allergies: No Known Allergies (Unverified , 04/18/20) Subjective now down to 50% VM breathing slightly better remains afebrile, no leukocytosis reports intermittent dry cough, chest discomfort with cough and deep breathing Objective Last 24 Hour Vital Signs Date Time Temp Pulse Resp B/P (MAP) Pulse Ox O2 Delivery O2 Flow Rate FiO2 04/23/20 08:00 97.7 73 20 124/64 (84) 90 04/23/20 04:00 97.5 69 20 134/72 (92) 93 04/23/20 04:00 69 04/23/20 00:00 97.3 79 18 129/68 (88) 96 04/23/20 00:00 79 04/22/20 21:00 Venturi Mask 10.0 04/22/20 20:00 68 04/22/20 20:00 97.9 89 20 142/87 (105) 95 04/22/20 19:00 95 Venturi Mask 10.0 50 04/22/20 17:39 Venturi Mask 10.0 04/22/20 16:00 97.2 79 21 134/70 (91) 98 04/22/20 16:00 83 04/22/20 12:00 98.3 82 22 134/63 (86) 98 04/22/20 12:00 71 Intake and Output 04/22/20 04/23/20 19:00 07:00 Intake Total 1550 ml 750 ml Output Total 700 ml 900 ml Balance 850 ml -150 ml Intake Oral 720 ml 400 ml IV Total 830 ml 350 ml Output Urine Total 700 ml 900 ml # Voids 4 3 # Bowel Movements 1 General Appearance: WD/WN, no acute distress HEENT: normocephalic Respiratory: chest wall non-tender, lungs clear - with moderate air exchange , other - on 50% VM Cardiovascular: normal peripheral pulses, normal rate Abdomen: normal bowel sounds, no organomegaly Extremities: no edema Skin: no rash Neurologic: abnormal gait Musculoskeletal: normal muscle bulk Laboratory Tests 04/22/20 12:06: POC Whole Blood Glucose 205H 04/23/20 04:45: White Blood Count 8.5, Red Blood Count 4.61L, Hemoglobin 14.1L, Hematocrit 42.7, Mean Corpuscular Volume 93, Mean Corpuscular Hemoglobin 30.7, Mean Corpuscular Hemoglobin Concent 33.1, Red Cell Distribution Width 12.4, Platelet Count 401, Mean Platelet Volume 6.4L, Neutrophils (%) (Auto) 73.2, Lymphocytes (%) (Auto) 13.1L, Monocytes (%) (Auto) 11.1H, Eosinophils (%) (Auto) 1.7, Basophils (%) (Auto) 0.9, Sodium Level 142, Potassium Level 4.6, Chloride Level 106, Carbon Dioxide Level 32, Anion Gap 5, Blood Urea Nitrogen 16, Creatinine 0.7, Estimat Glomerular Filtration Rate > 60, Glucose Level 120H, Calcium Level 9.3, C- Reactive Protein, Quantitative [Pending] 04/23/20 05:59: POC Whole Blood Glucose 124H Current Medications Medications (Trade) Dose Ordered Sig/Lucy Route PRN Reason Start Time Stop Time Status Last Admin Dose Admin Acetaminophen (Tylenol) 650 mg Q4H PRN ORAL FEVER 04/18/20 10:45 05/18/20 10:44 Albuterol/ Ipratropium (Combivent Respimat) 1 puff Q4H PRN INH Shortness of Breath 04/18/20 11:15 05/18/20 11:14 Azithromycin 250 mg/Dextrose 275 ml @ 275 mls/hr Q24H IV 04/19/20 09:00 04/24/20 08:59 04/22/20 10:31 Ceftriaxone Sodium 1 gm/ Dextrose 55 ml @ 110 mls/hr Q24H IVPB 04/19/20 09:00 04/24/20 08:59 04/23/20 08:21 Dexamethasone (Decadron) 6 mg DAILY ORAL 04/19/20 09:00 04/28/20 09:01 04/23/20 08:20 Dextrose (Dextrose 50%) 25 ml Q30M PRN IV Hypoglycemia 04/18/20 10:45 07/17/20 10:44 Dextrose (Dextrose 50%) 50 ml Q30M PRN IV Hypoglycemia 04/18/20 10:45 07/17/20 10:44 Docusate Sodium (Colace) 100 mg THREE TIMES A DAY ORAL 04/18/20 13:00 05/18/20 12:59 04/23/20 08:19 Enoxaparin Sodium (Lovenox) 40 mg DAILY SUBQ 04/21/20 09:00 07/20/20 08:59 04/22/20 08:48 Insulin Aspart (NovoLOG) BEFORE MEALS AND HS SUBQ 04/18/20 11:30 07/17/20 11:29 04/22/20 21:04 Ondansetron HCl (Zofran) 4 mg Q6H PRN IVP Nausea & Vomiting 04/18/20 10:45 05/18/20 10:44 Pantoprazole (Protonix) 40 mg EVERY 12 HOURS ORAL 04/18/20 21:00 05/18/20 20:59 04/23/20 08:19 Polyethylene Glycol (Miralax) 17 gm DAILYPRN PRN ORAL Constipation 04/18/20 10:45 05/18/20 10:44 Potassium Chloride 30 meq/ Sodium Chloride 1,015 ml @ 50 mls/hr [id number] IV 04/19/20 09:00 05/19/20 08:59 04/22/20 17:22 Promethazine HCl/ Codeine (Phenergan with Codeine) 5 ml Q6H PRN ORAL cough 04/18/20 10:45 05/18/20 10:44 04/23/20 08:25 Assessment/Plan Assessment/Plan ASSESSMENT Acute hypoxemic respiratory failure requiring face mask mask COVID-19 pneumonia Diabetes mellitus Hypertension Hyperlipidemia BPH PLAN OF CARE tele isolation room Date of sx onset: few days prior to presentation to ED on 04/18 Positive test: 04/18 rapid COVID + ( was tested positive prior as well) O2 - 50% VM HFA s/p REM x 5 days ( 04/18 - 04/22 ) Dex Day# 6( 04/18 -) DVT PPX: Lovenox Venous Duplex BLE 1/2 NGT D dimer 0.64 Trend CRP 16.5 - > 7-> 7.2 CXR 1/2 -> Patchy bilateral airspace consolidations, consistent with severe multifocal infiltrate fup CXR in am s/p abx per ID recs, completed 04/23 monitor volumes and renal function Fup with consultants recs FC Discuss GOC BS management with SSI BP management GI prophylaxis supportive care case discussed and evaluated by supervising physician Sridevi Alfaro NP Apr 23, 2020 09:14 Mo Hinton MD Apr 23, 2020 21:40
[2020-04-23] MEDS ORDERED: Enoxaparin 60mg Inj SUBQ SCH (09:45)
[2020-04-23 12:00] VITALS: BP 127/69
--- NOTE | 2020-04-23 13:01 | Surgery Progress Note ---
Surgery Progress Note Subjective Additional Comments no acute events comfortable unable to transfer to [place] abd discomfort but no pain no n/v tolerating diet o2 sat noted Objective Last 24 Hour Vital Signs Date Time Temp Pulse Resp B/P (MAP) Pulse Ox O2 Delivery O2 Flow Rate FiO2 04/23/20 12:00 97.9 81 20 127/69 (88) 91 04/23/20 12:00 71 04/23/20 09:00 Venturi Mask 10.0 04/23/20 08:00 87 04/23/20 08:00 97.7 73 20 124/64 (84) 90 04/23/20 04:00 97.5 69 20 134/72 (92) 93 04/23/20 04:00 69 04/23/20 00:00 97.3 79 18 129/68 (88) 96 04/23/20 00:00 79 04/22/20 21:00 Venturi Mask 10.0 04/22/20 20:00 68 04/22/20 20:00 97.9 89 20 142/87 (105) 95 04/22/20 19:00 95 Venturi Mask 10.0 50 04/22/20 17:39 Venturi Mask 10.0 04/22/20 16:00 97.2 79 21 134/70 (91) 98 04/22/20 16:00 83 I&O Intake and Output 04/22/20 04/23/20 19:00 07:00 Intake Total 1550 ml 750 ml Output Total 700 ml 900 ml Balance 850 ml -150 ml Intake Oral 720 ml 400 ml IV Total 830 ml 350 ml Output Urine Total 700 ml 900 ml # Voids 4 3 # Bowel Movements 1 Cardiovascular: RSR Respiratory: decreased breath sounds Abdomen: soft, non-tender, present bowel sounds, non-distended Extremities: no edema, no tenderness, no cyanosis Laboratory Tests Test 04/23/20 04:45 04/23/20 05:59 04/23/20 11:28 White Blood Count 8.5 K/UL (4.8-10.8) Red Blood Count 4.61 M/UL (4.70-6.10) L Hemoglobin 14.1 G/DL (14.2-18.0) L Hematocrit 42.7 % (42.0-52.0) Mean Corpuscular Volume 93 FL (80-99) Mean Corpuscular Hemoglobin 30.7 PG (27.0-31.0) Mean Corpuscular Hemoglobin Concent 33.1 G/DL (32.0-36.0) Red Cell Distribution Width 12.4 % (11.6-14.8) Platelet Count 401 K/UL (150-450) Mean Platelet Volume 6.4 FL (6.5-10.1) L Neutrophils (%) (Auto) 73.2 % (45.0-75.0) Lymphocytes (%) (Auto) 13.1 % (20.0-45.0) L Monocytes (%) (Auto) 11.1 % (1.0-10.0) H Eosinophils (%) (Auto) 1.7 % (0.0-3.0) Basophils (%) (Auto) 0.9 % (0.0-2.0) Sodium Level 142 MMOL/L (136-145) Potassium Level 4.6 MMOL/L (3.5-5.1) Chloride Level 106 MMOL/L (98-107) Carbon Dioxide Level 32 MMOL/L (21-32) Anion Gap 5 mmol/L (5-15) Blood Urea Nitrogen 16 mg/dL (7-18) Creatinine 0.7 MG/DL (0.55-1.30) Estimat Glomerular Filtration Rate > 60 mL/min (>60) Glucose Level 120 MG/DL (74-106) H Calcium Level 9.3 MG/DL (8.5-10.1) C-Reactive Protein, Quantitative Pending POC Whole Blood Glucose 124 MG/DL (74-106) H 151 MG/DL (74-106) H Plan Problems: (1) Abnormal LFTs Assessment & Plan: elevated lft's t bili elevated direct <50% elevated unlikely obstructed biliary unlikely alon abd exam benign US hold for now given covid will follow clinically with exam and recs thank you (2) Diabetes (3) Hypoxia (4) Coronavirus infection Assessment & Plan: There are bilateral patchy and streaky infiltrates in a peribronchovascular distribution, left greater than right. Heart size is normal. Pleural spaces are clear. Impression: Bilateral infiltrates, consistent with multifocal pneumonia, likely viral pulm input appreciated ID on abx and Rx pulm respiratory support (5) History of hypertension (6) BPH (benign prostatic hyperplasia) (7) Electrolyte imbalance Assessment & Plan: being replaced cont diet Jesus Manuel Cruz Apr 23, 2020 13:01
--- NOTE | 2020-04-23 13:17 | Nephrology Progress Note ---
Assessment/Plan Problem List: (1) Electrolyte imbalance (2) Coronavirus infection (3) Hypoxia (4) BPH (benign prostatic hyperplasia) Assessment Electrolyte imbalance Low sodium, low magnesium, low potassium Coronavirus infection, hypoxia Diabetes mellitus Plan April 23: Labs reviewed. Renal parameters stable. Continue as current treatment plan. April 22: Today's labs reviewed and renal parameters remain stable continue per consultants April 21: Labs reviewed. Renal parameters stable. Continue per consultants. Medication list reviewed. April 20: Labs reviewed. Renal parameters and electrolytes stable. Continue per consultants. Previously: Normal saline with potassium IV Mag sulfate IV Protonix and stool softener Antibiotics Monitor electrolytes and renal parameters Per orders Subjective ROS Limited/Unobtainable: No Constitutional: Reports: malaise, weakness Objective Objective Last 24 Hour Vital Signs Date Time Temp Pulse Resp B/P (MAP) Pulse Ox O2 Delivery O2 Flow Rate FiO2 04/23/20 12:00 97.9 81 20 127/69 (88) 91 04/23/20 12:00 71 04/23/20 09:00 Venturi Mask 10.0 04/23/20 08:00 87 04/23/20 08:00 97.7 73 20 124/64 (84) 90 04/23/20 04:00 97.5 69 20 134/72 (92) 93 04/23/20 04:00 69 04/23/20 00:00 97.3 79 18 129/68 (88) 96 04/23/20 00:00 79 04/22/20 21:00 Venturi Mask 10.0 04/22/20 20:00 68 04/22/20 20:00 97.9 89 20 142/87 (105) 95 04/22/20 19:00 95 Venturi Mask 10.0 50 04/22/20 17:39 Venturi Mask 10.0 04/22/20 16:00 97.2 79 21 134/70 (91) 98 04/22/20 16:00 83 Intake and Output 04/22/20 04/23/20 19:00 07:00 Intake Total 1550 ml 750 ml Output Total 700 ml 900 ml Balance 850 ml -150 ml Intake Oral 720 ml 400 ml IV Total 830 ml 350 ml Output Urine Total 700 ml 900 ml # Voids 4 3 # Bowel Movements 1 Laboratory Tests 04/23/20 04:45: White Blood Count 8.5, Red Blood Count 4.61L, Hemoglobin 14.1L, Hematocrit 42.7, Mean Corpuscular Volume 93, Mean Corpuscular Hemoglobin 30.7, Mean Corpuscular Hemoglobin Concent 33.1, Red Cell Distribution Width 12.4, Platelet Count 401, Mean Platelet Volume 6.4L, Neutrophils (%) (Auto) 73.2, Lymphocytes (%) (Auto) 13.1L, Monocytes (%) (Auto) 11.1H, Eosinophils (%) (Auto) 1.7, Basophils (%) (Auto) 0.9, Sodium Level 142, Potassium Level 4.6, Chloride Level 106, Carbon Dioxide Level 32, Anion Gap 5, Blood Urea Nitrogen 16, Creatinine 0.7, Estimat Glomerular Filtration Rate > 60, Glucose Level 120H, Calcium Level 9.3, C- Reactive Protein, Quantitative [Pending] 04/23/20 05:59: POC Whole Blood Glucose 124H 04/23/20 11:28: POC Whole Blood Glucose 151H Height (Feet): 5 Height (Inches): 6.00 Weight (Pounds): 172 General Appearance: no apparent distress EENT: other - On Venturi mask Cardiovascular: normal rate Respiratory/Chest: decreased breath sounds Abdomen: distended Roberto Yang MD Apr 23, 2020 13:17
[2020-04-23 16:00] VITALS: BP 146/75
--- NOTE | 2020-04-23 19:29 | NUR ---
NURSE HAND-OFF REPORT: Important Events on Shift: Still on venturi mask at 10lpm Patient Status: Stable Diet: CCHO med Pending Orders: N Pending Results/Labs: AM labs, CXR Pending MD notification: N Latest Vital Signs: Temperature 97.7 , Pulse 76 , B/P 146 /75 , Respiratory Rate 20 , O2 SAT 95 , Simple Mask, O2 Flow Rate 10.0 . Vital Sign Comment: EKG Rhythm: Sinus Rhythm Rhythm change?: N MD Notified?: Kiarra Daniel MD Response: No New Orders Received Latest Rivas Fall Score: 35 Fall Risk: Medium Risk Safety Measures: Call light Within Reach, Bed Alarm Zone 2, Side Rails Side Rails x2, Bed position Low and Locked. Fall Precautions: Yellow Socks Yellow Gown Door Sign Patient Fall Education Report given to Neto FORTE.
--- NOTE | 2020-04-23 19:30 | NUR ---
NURSE NOTES: Patient received from Erin FORTE. Patient alert and oriented x4. Saturating well on Venturi Mask 10L. IV site patent and intact on Left wrist 22G slocked and R hand 22g w/ [id number]. No c/o pain and no s/s of distress. Bed in lowest position and call light within reach. Continue to monitor.
--- NOTE | 2020-04-23 19:50 | Internal Med Progress Note ---
Subjective Date of Service: Apr 23, 2020 Physician Name Fili Alfaro Attending Physician Romie Murray MD Current Medications Medications (Trade) Dose Ordered Sig/Lucy Route PRN Reason Start Time Stop Time Status Last Admin Dose Admin Acetaminophen (Tylenol) 650 mg Q4H PRN ORAL FEVER 04/18/20 10:45 05/18/20 10:44 Albuterol/ Ipratropium (Combivent Respimat) 1 puff Q4H PRN INH Shortness of Breath 04/18/20 11:15 05/18/20 11:14 Dexamethasone (Decadron) 6 mg DAILY ORAL 04/19/20 09:00 04/28/20 09:01 04/23/20 08:20 Dextrose (Dextrose 50%) 25 ml Q30M PRN IV Hypoglycemia 04/18/20 10:45 07/17/20 10:44 Dextrose (Dextrose 50%) 50 ml Q30M PRN IV Hypoglycemia 04/18/20 10:45 07/17/20 10:44 Docusate Sodium (Colace) 100 mg THREE TIMES A DAY ORAL 04/18/20 13:00 05/18/20 12:59 04/23/20 17:27 Enoxaparin Sodium (Lovenox) 40 mg DAILY SUBQ 04/24/20 09:00 07/23/20 08:59 Insulin Aspart (NovoLOG) BEFORE MEALS AND HS SUBQ 04/18/20 11:30 07/17/20 11:29 04/23/20 17:25 Ondansetron HCl (Zofran) 4 mg Q6H PRN IVP Nausea & Vomiting 04/18/20 10:45 05/18/20 10:44 Pantoprazole (Protonix) 40 mg EVERY 12 HOURS ORAL 04/18/20 21:00 05/18/20 20:59 04/23/20 08:19 Polyethylene Glycol (Miralax) 17 gm DAILYPRN PRN ORAL Constipation 04/18/20 10:45 05/18/20 10:44 Potassium Chloride 30 meq/ Sodium Chloride 1,015 ml @ 50 mls/hr [id number] IV 04/19/20 09:00 05/19/20 08:59 04/23/20 14:37 Promethazine HCl/ Codeine (Phenergan with Codeine) 5 ml Q6H PRN ORAL cough 04/18/20 10:45 05/18/20 10:44 04/23/20 08:25 Allergies: Coded Allergies: No Known Allergies (Unverified , 04/18/20) ROS Limited/Unobtainable: Yes Subjective 79 YO M admitted with dyspnea. Now COVID 19 pneumonia. Cover for Int Med - Dr Murray. Objective Last Vital Signs Date Time Temp Pulse Resp B/P (MAP) Pulse Ox O2 Delivery O2 Flow Rate FiO2 04/23/20 19:10 96 Venturi Mask 10.0 50 04/23/20 16:00 97.7 85 20 146/75 (98) Laboratory Tests Test 04/23/20 04:45 04/23/20 05:59 04/23/20 11:28 White Blood Count 8.5 K/UL (4.8-10.8) Red Blood Count 4.61 M/UL (4.70-6.10) L Hemoglobin 14.1 G/DL (14.2-18.0) L Hematocrit 42.7 % (42.0-52.0) Mean Corpuscular Volume 93 FL (80-99) Mean Corpuscular Hemoglobin 30.7 PG (27.0-31.0) Mean Corpuscular Hemoglobin Concent 33.1 G/DL (32.0-36.0) Red Cell Distribution Width 12.4 % (11.6-14.8) Platelet Count 401 K/UL (150-450) Mean Platelet Volume 6.4 FL (6.5-10.1) L Neutrophils (%) (Auto) 73.2 % (45.0-75.0) Lymphocytes (%) (Auto) 13.1 % (20.0-45.0) L Monocytes (%) (Auto) 11.1 % (1.0-10.0) H Eosinophils (%) (Auto) 1.7 % (0.0-3.0) Basophils (%) (Auto) 0.9 % (0.0-2.0) Sodium Level 142 MMOL/L (136-145) Potassium Level 4.6 MMOL/L (3.5-5.1) Chloride Level 106 MMOL/L (98-107) Carbon Dioxide Level 32 MMOL/L (21-32) Anion Gap 5 mmol/L (5-15) Blood Urea Nitrogen 16 mg/dL (7-18) Creatinine 0.7 MG/DL (0.55-1.30) Estimat Glomerular Filtration Rate > 60 mL/min (>60) Glucose Level 120 MG/DL (74-106) H Calcium Level 9.3 MG/DL (8.5-10.1) C-Reactive Protein, Quantitative Pending POC Whole Blood Glucose 124 MG/DL (74-106) H 151 MG/DL (74-106) H Intake and Output 04/22/20 04/23/20 19:00 07:00 Intake Total 1550 ml 800 ml Output Total 700 ml 900 ml Balance 850 ml -100 ml Intake Oral 720 ml 400 ml IV Total 830 ml 400 ml Output Urine Total 700 ml 900 ml # Voids 4 3 # Bowel Movements 1 Objective PHYSICAL EXAMINATION: GENERAL: The patient is a well-developed and well-nourished male, in no apparent distress. HEENT: Eyes, pupils are equal and responsive to light and accommodation. Extraocular movements are intact. NECK: Supple without lymphadenopathy. CHEST: Venturi mask, Decreased breath sounds in bilateral bases, otherwise clear to auscultation without wheezes. CARDIOVASCULAR: Tachycardic, regular rhythm. S1, S2 normal without murmurs, rubs, or gallops. ABDOMEN: Soft, nontender, and nondistended. Positive bowel sounds. No evidence of hepatosplenomegaly. Currently, no rebound or guarding noted. EXTREMITIES: Negative for clubbing, cyanosis, or edema. RECTAL/GENITAL: Refused. NEUROLOGIC: Cranial nerves II through XII are grossly intact without focal deficits. Motor strength is 5/5 bilaterally. Deep tendon reflexes are 2+ plantar. Assessment/Plan Assessment/Plan ASSESSMENT: This is an 79-year-old male with: 1. COVID-19 positive. 2. Bilateral pneumonia. 3. Diabetes type 2. 4. Hypertension. 5. Hypercholesterolemia. 6. Benign prostatic hypertrophy. TREATMENT: 1. COVID-19 positive/bilateral pneumonia. Venturi. Pulmonary consultation = Dr. Angel Daniel. Continue remdesivir and Decadron intravenously. antibiotics = ceftriaxone and azithromycin Inf Dis=Dr Pond 2. Diabetes type 2. NovoLog sliding scale has been instituted. 3. Hypertension. Continue amlodipine, hydrochlorothiazide, and losartan as above. 4. Hypercholesterolemia. Continue simvastatin as above. 5. Benign prostatic hypertrophy. Continue Flomax as above. Alfaro,Fili MD Apr 23, 2020 19:50
[2020-04-23 20:00] VITALS: BP 142/60
[2020-04-24] VITALS: BP 150/84
[2020-04-24 04:00] VITALS: BP 143/57
[2020-04-24] MEDS: NovoLOG Insulin Flexpen SUBQ SCH ×4 (06:25→20:21)
--- NOTE | 2020-04-24 07:00 | NUR ---
NURSE HAND-OFF REPORT: Important Events on Shift:[] Patient Status: [STABLE] Diet: [] Pending Orders: [] Pending Results/Labs:[] Pending MD notification:[] Latest Vital Signs: Temperature 97.1 , Pulse 68 , B/P 143 /57 , Respiratory Rate 20 , O2 SAT 95 , Simple Mask, O2 Flow Rate 10.0 . Vital Sign Comment: [] EKG Rhythm: Sinus Rhythm Rhythm change?: N MD Notified?: Kiarra Daniel MD Response: No New Orders Received Latest Rivas Fall Score: 35 Fall Risk: Medium Risk Safety Measures: Call light Within Reach, Bed Alarm Zone 2, Side Rails Side Rails x2, Bed position Low and Locked. Fall Precautions: Yellow Socks Yellow Gown Door Sign Patient Fall Education Report given to [ROCIO FORTE].
--- NOTE | 2020-04-24 07:48 | NUR ---
NURSE NOTES: Patient seen in bed AAOx4 sitting up in bed ready to eat breakfast. Patient did not complain of any pain or SOB. Patient was receiving KCl 30Meq at 50cc/hr through Right hand 22G patent and intact IV. The patients bed was in lowest position, locked, side rails x2 and call light within reach. Will continue patients plan of care.
[2020-04-24 07:59] LABS: BASOPHILS % (AUTO) 1.3 % (0.0-2.0); EOSINOPHILS % (AUTO) 1.6 % (0.0-3.0); HEMOGLOBIN 13.5 G/DL (14.2-18.0); LYMPHOCYTES % (AUTO) 15.1 % (20.0-45.0); MEAN CORPUSCULAR VOLUME 90 FL (80-99); MONOCYTES % (AUTO) 10.4 % (1.0-10.0); NEUTROPHILS % (AUTO) 71.6 % (45.0-75.0); PLATELET COUNT 398 K/UL (150-450); RED BLOOD COUNT 4.47 M/UL (4.70-6.10); RED CELL DISTRIBUTION WIDTH 12.8 % (11.6-14.8); WHITE BLOOD COUNT 8.3 K/UL (4.8-10.8)
[2020-04-24 08:00] VITALS: BP 148/76
[2020-04-24 08:21] LABS: ANION GAP 6 mmol/L (5-15); BLOOD UREA NITROGEN 20 mg/dL (7-18); CALCIUM 9.1 MG/DL (8.5-10.1); CARBON DIOXIDE 29 MMOL/L (21-32); CHLORIDE 105 MMOL/L (98-107); CREATININE 0.7 MG/DL (0.55-1.30); POTASSIUM 4.2 MMOL/L (3.5-5.1); SODIUM 140 MMOL/L (136-145)
--- NOTE | 2020-04-24 08:36 | Infectious Diseases Prog Note ---
Assessment/Plan 79yo M with: COVID pna Acute hypoxia 2/2 severe COVID pna Afebrile Normal WBC Lymphopenia Elevated AST to 38 likely 2/2 COVID 04/12 COVID positive; flu neg 04/18 COVID rapid test positive BCx NTD Resp cx NTD CXR: BL pna UA neg 04/21 CXR: Patchy bilateral airspace consolidations, consistent with severe multifocal infiltrate. Overall, minimal worsening when compared to previous study. Cr 1.1 No DVT on US 04/21 PMH: DM2 HTN HLD Prostate disease Plan: Cont dex 6mg daily #7/10 Monitor off abx 04/23 SP RDV #5, CTX/az #5 This institution does not have access to convalescent plasma, and as pt 6 days out from diagnosis less likely to benefit from it. Monitor CBC/CMP Monitor resp status Monitor temp curve, hemodynamics D/w RN Thank you for this consult. [facility] will continue to follow. Subjective Allergies: Coded Allergies: No Known Allergies (Unverified , 04/18/20) AF WBC 8.3 NAD on venturi 10L mask --> now improved to 4L NC, doing well, walking around, minimal intermittent cough Objective Last 24 Hour Vital Signs Date Time Temp Pulse Resp B/P (MAP) Pulse Ox O2 Delivery O2 Flow Rate FiO2 04/24/20 04:00 97.1 82 20 143/57 (85) 95 04/24/20 04:00 68 04/24/20 00:00 97.7 70 20 150/84 (106) 96 04/24/20 00:00 70 04/23/20 21:00 Venturi Mask 10.0 04/23/20 20:00 71 04/23/20 20:00 97.7 62 18 142/60 (87) 98 04/23/20 19:10 96 Venturi Mask 10.0 50 04/23/20 16:00 97.7 85 20 146/75 (98) 95 04/23/20 16:00 76 04/23/20 12:00 97.9 81 20 127/69 (88) 91 04/23/20 12:00 71 04/23/20 09:00 Venturi Mask 10.0 Height (Feet): 5 Height (Inches): 6.00 Weight (Pounds): 172 Gen: NAD HEENT: NCAT Pulm: BL chest rise Abd: Non-distended Ext: No c/c/e Skin: No visible rashes Neuro: Awake Laboratory Tests Test 04/23/20 11:28 04/24/20 05:52 POC Whole Blood Glucose 151 MG/DL (74-106) H White Blood Count 8.3 K/UL (4.8-10.8) Red Blood Count 4.47 M/UL (4.70-6.10) L Hemoglobin 13.5 G/DL (14.2-18.0) L Hematocrit 40.0 % (42.0-52.0) L Mean Corpuscular Volume 90 FL (80-99) Mean Corpuscular Hemoglobin 30.3 PG (27.0-31.0) Mean Corpuscular Hemoglobin Concent 33.9 G/DL (32.0-36.0) Red Cell Distribution Width 12.8 % (11.6-14.8) Platelet Count 398 K/UL (150-450) Mean Platelet Volume 6.1 FL (6.5-10.1) L Neutrophils (%) (Auto) 71.6 % (45.0-75.0) Lymphocytes (%) (Auto) 15.1 % (20.0-45.0) L Monocytes (%) (Auto) 10.4 % (1.0-10.0) H Eosinophils (%) (Auto) 1.6 % (0.0-3.0) Basophils (%) (Auto) 1.3 % (0.0-2.0) Sodium Level 140 MMOL/L (136-145) Potassium Level 4.2 MMOL/L (3.5-5.1) Chloride Level 105 MMOL/L (98-107) Carbon Dioxide Level 29 MMOL/L (21-32) Anion Gap 6 mmol/L (5-15) Blood Urea Nitrogen 20 mg/dL (7-18) H Creatinine 0.7 MG/DL (0.55-1.30) Estimat Glomerular Filtration Rate > 60 mL/min (>60) Glucose Level 118 MG/DL (74-106) H Calcium Level 9.1 MG/DL (8.5-10.1) Current Medications Medications (Trade) Dose Ordered Sig/Lucy Route PRN Reason Start Time Stop Time Status Last Admin Dose Admin Acetaminophen (Tylenol) 650 mg Q4H PRN ORAL FEVER 04/18/20 10:45 05/18/20 10:44 Albuterol/ Ipratropium (Combivent Respimat) 1 puff Q4H PRN INH Shortness of Breath 04/18/20 11:15 05/18/20 11:14 Dexamethasone (Decadron) 6 mg DAILY ORAL 04/19/20 09:00 04/28/20 09:01 04/23/20 08:20 Dextrose (Dextrose 50%) 25 ml Q30M PRN IV Hypoglycemia 04/18/20 10:45 07/17/20 10:44 Dextrose (Dextrose 50%) 50 ml Q30M PRN IV Hypoglycemia 04/18/20 10:45 07/17/20 10:44 Docusate Sodium (Colace) 100 mg THREE TIMES A DAY ORAL 04/18/20 13:00 05/18/20 12:59 04/23/20 17:27 Enoxaparin Sodium (Lovenox) 40 mg DAILY SUBQ 04/24/20 09:00 07/23/20 08:59 Insulin Aspart (NovoLOG) BEFORE MEALS AND HS SUBQ 04/18/20 11:30 07/17/20 11:29 04/23/20 17:25 Ondansetron HCl (Zofran) 4 mg Q6H PRN IVP Nausea & Vomiting 04/18/20 10:45 05/18/20 10:44 Pantoprazole (Protonix) 40 mg EVERY 12 HOURS ORAL 04/18/20 21:00 05/18/20 20:59 04/23/20 20:54 Polyethylene Glycol (Miralax) 17 gm DAILYPRN PRN ORAL Constipation 04/18/20 10:45 05/18/20 10:44 Potassium Chloride 30 meq/ Sodium Chloride 1,015 ml @ 50 mls/hr [id number] IV 04/19/20 09:00 05/19/20 08:59 04/23/20 14:37 Promethazine HCl/ Codeine (Phenergan with Codeine) 5 ml Q6H PRN ORAL cough 04/18/20 10:45 05/18/20 10:44 04/23/20 08:25 Andria Pond M.D. Apr 24, 2020 08:36
--- NOTE | 2020-04-24 08:45 | Pulmonology Progress Note ---
Subjective ROS Limited/Unobtainable: Yes Allergies: Coded Allergies: No Known Allergies (Unverified , 04/18/20) Subjective now just placed on NC by RT so far no resp distress, no SOB pulse ox stable remains afebrile, no leukocytosis still intermittent dry cough, chest discomfort with cough and deep breathing Objective Last 24 Hour Vital Signs Date Time Temp Pulse Resp B/P (MAP) Pulse Ox O2 Delivery O2 Flow Rate FiO2 04/24/20 04:00 97.1 82 20 143/57 (85) 95 04/24/20 04:00 68 04/24/20 00:00 97.7 70 20 150/84 (106) 96 04/24/20 00:00 70 04/23/20 21:00 Venturi Mask 10.0 04/23/20 20:00 71 04/23/20 20:00 97.7 62 18 142/60 (87) 98 04/23/20 19:10 96 Venturi Mask 10.0 50 04/23/20 16:00 97.7 85 20 146/75 (98) 95 04/23/20 16:00 76 04/23/20 12:00 97.9 81 20 127/69 (88) 91 04/23/20 12:00 71 04/23/20 09:00 Venturi Mask 10.0 Intake and Output 04/23/20 04/24/20 19:00 07:00 Intake Total 600 ml Output Total 1000 ml 1700 ml Balance -400 ml -1700 ml Intake Oral 600 ml Output Urine Total 1000 ml 1700 ml # Bowel Movements 1 1 General Appearance: WD/WN, no acute distress HEENT: normocephalic Respiratory: chest wall non-tender, lungs clear - with moderate air exchange , other - NC Cardiovascular: normal peripheral pulses, normal rate Abdomen: normal bowel sounds, no organomegaly Extremities: no edema Skin: no rash Neurologic: abnormal gait Musculoskeletal: normal muscle bulk Laboratory Tests 04/23/20 11:28: POC Whole Blood Glucose 151H 04/24/20 05:52: White Blood Count 8.3, Red Blood Count 4.47L, Hemoglobin 13.5L, Hematocrit 40.0L , Mean Corpuscular Volume 90, Mean Corpuscular Hemoglobin 30.3, Mean Corpuscular Hemoglobin Concent 33.9, Red Cell Distribution Width 12.8, Platelet Count 398, Mean Platelet Volume 6.1L, Neutrophils (%) (Auto) 71.6, Lymphocytes (%) (Auto) 15.1L, Monocytes (%) (Auto) 10.4H, Eosinophils (%) (Auto) 1.6, Basophils (%) (Auto) 1.3, Sodium Level 140, Potassium Level 4.2, Chloride Level 105, Carbon Dioxide Level 29, Anion Gap 6, Blood Urea Nitrogen 20H, Creatinine 0.7, Estimat Glomerular Filtration Rate > 60, Glucose Level 118H, Calcium Level 9.1 Current Medications Medications (Trade) Dose Ordered Sig/Lucy Route PRN Reason Start Time Stop Time Status Last Admin Dose Admin Acetaminophen (Tylenol) 650 mg Q4H PRN ORAL FEVER 04/18/20 10:45 05/18/20 10:44 Albuterol/ Ipratropium (Combivent Respimat) 1 puff Q4H PRN INH Shortness of Breath 04/18/20 11:15 05/18/20 11:14 Dexamethasone (Decadron) 6 mg DAILY ORAL 04/19/20 09:00 04/28/20 09:01 04/23/20 08:20 Dextrose (Dextrose 50%) 25 ml Q30M PRN IV Hypoglycemia 04/18/20 10:45 07/17/20 10:44 Dextrose (Dextrose 50%) 50 ml Q30M PRN IV Hypoglycemia 04/18/20 10:45 07/17/20 10:44 Docusate Sodium (Colace) 100 mg THREE TIMES A DAY ORAL 04/18/20 13:00 05/18/20 12:59 04/23/20 17:27 Enoxaparin Sodium (Lovenox) 40 mg DAILY SUBQ 04/24/20 09:00 07/23/20 08:59 Insulin Aspart (NovoLOG) BEFORE MEALS AND HS SUBQ 04/18/20 11:30 07/17/20 11:29 04/23/20 17:25 Ondansetron HCl (Zofran) 4 mg Q6H PRN IVP Nausea & Vomiting 04/18/20 10:45 05/18/20 10:44 Pantoprazole (Protonix) 40 mg EVERY 12 HOURS ORAL 04/18/20 21:00 05/18/20 20:59 04/23/20 20:54 Polyethylene Glycol (Miralax) 17 gm DAILYPRN PRN ORAL Constipation 04/18/20 10:45 05/18/20 10:44 Potassium Chloride 30 meq/ Sodium Chloride 1,015 ml @ 50 mls/hr [id number] IV 04/19/20 09:00 05/19/20 08:59 04/23/20 14:37 Promethazine HCl/ Codeine (Phenergan with Codeine) 5 ml Q6H PRN ORAL cough 04/18/20 10:45 05/18/20 10:44 04/23/20 08:25 Assessment/Plan Assessment/Plan ASSESSMENT Acute hypoxemic respiratory failure requiring face mask mask COVID-19 pneumonia Diabetes mellitus Hypertension Hyperlipidemia BPH PLAN OF CARE tele isolation room Date of sx onset: few days prior to presentation to ED on 04/18 Positive test: 04/18 rapid COVID + ( was tested positive prior as well) O2 - NC HFA s/p REM x 5 days ( 04/18 - 04/22 ) Dex Day# 7( 04/18 -) DVT PPX: Lovenox Venous Duplex BLE 1/2 NGT D dimer 0.64 Trend CRP 16.5 - > 7-> 7.2-> 55.2 CXR 1/2 -> Patchy bilateral airspace consolidations, consistent with severe multifocal infiltrate fup CXR s/p abx per ID recs, completed 04/23 monitor volumes and renal function Fup with consultants recs FC Discuss GOC BS management with SSI BP management GI prophylaxis supportive care case discussed and evaluated by supervising physician Sridevi Alfaro NP Apr 24, 2020 08:45
[2020-04-24] MEDS: Enoxaparin 40mg Inj SUBQ SCH (09:00)
--- NOTE | 2020-04-24 09:23 | Nephrology Progress Note ---
Assessment/Plan Problem List: (1) Electrolyte imbalance (2) Coronavirus infection (3) Hypoxia (4) BPH (benign prostatic hyperplasia) Assessment Electrolyte imbalance Low sodium, low magnesium, low potassium Coronavirus infection, hypoxia Diabetes mellitus Plan April 24: Labs reviewed. Renal parameters stable. Continue per consultants. April 23: Labs reviewed. Renal parameters stable. Continue as current treatment plan. April 22: Today's labs reviewed and renal parameters remain stable continue per consultants April 21: Labs reviewed. Renal parameters stable. Continue per consultants. Medication list reviewed. April 20: Labs reviewed. Renal parameters and electrolytes stable. Continue per consultants. Previously: Normal saline with potassium IV Mag sulfate IV Protonix and stool softener Antibiotics Monitor electrolytes and renal parameters Per orders Subjective ROS Limited/Unobtainable: No Constitutional: Reports: malaise Objective Objective Last 24 Hour Vital Signs Date Time Temp Pulse Resp B/P (MAP) Pulse Ox O2 Delivery O2 Flow Rate FiO2 04/24/20 04:00 97.1 82 20 143/57 (85) 95 04/24/20 04:00 68 04/24/20 00:00 97.7 70 20 150/84 (106) 96 04/24/20 00:00 70 04/23/20 21:00 Venturi Mask 10.0 04/23/20 20:00 71 04/23/20 20:00 97.7 62 18 142/60 (87) 98 04/23/20 19:10 96 Venturi Mask 10.0 50 04/23/20 16:00 97.7 85 20 146/75 (98) 95 04/23/20 16:00 76 04/23/20 12:00 97.9 81 20 127/69 (88) 91 04/23/20 12:00 71 Intake and Output 04/23/20 04/24/20 19:00 07:00 Intake Total 600 ml Output Total 1000 ml 1700 ml Balance -400 ml -1700 ml Intake Oral 600 ml Output Urine Total 1000 ml 1700 ml # Bowel Movements 1 1 Laboratory Tests 04/23/20 11:28: POC Whole Blood Glucose 151H 04/24/20 05:52: White Blood Count 8.3, Red Blood Count 4.47L, Hemoglobin 13.5L, Hematocrit 40.0L , Mean Corpuscular Volume 90, Mean Corpuscular Hemoglobin 30.3, Mean Corpuscular Hemoglobin Concent 33.9, Red Cell Distribution Width 12.8, Platelet Count 398, Mean Platelet Volume 6.1L, Neutrophils (%) (Auto) 71.6, Lymphocytes (%) (Auto) 15.1L, Monocytes (%) (Auto) 10.4H, Eosinophils (%) (Auto) 1.6, Basophils (%) (Auto) 1.3, Sodium Level 140, Potassium Level 4.2, Chloride Level 105, Carbon Dioxide Level 29, Anion Gap 6, Blood Urea Nitrogen 20H, Creatinine 0.7, Estimat Glomerular Filtration Rate > 60, Glucose Level 118H, Calcium Level 9.1 Height (Feet): 5 Height (Inches): 6.00 Weight (Pounds): 172 General Appearance: no apparent distress Cardiovascular: normal rate, tachycardia - Rate late 80s Respiratory/Chest: decreased breath sounds Abdomen: distended Roberto Yang MD Apr 24, 2020 09:23
[2020-04-24] MEDS: Docusate 100mg cap ORAL SCH ×3 (09:46→17:18)
--- NOTE | 2020-04-24 10:00 | NUR ---
NURSE NOTES: Patient has been titrated down from Venturi mask 10L to nasal cannula 4L and is saturating above 94%. Patient does not complain of shortness of breath and is not tachypneic.
[2020-04-24 12:00] VITALS: BP 140/74
--- NOTE | 2020-04-24 12:36 | NUR ---
RADIOLOGY DEPT., CHEST X-RAY DONE.-P.DYE
--- NOTE | 2020-04-24 14:38 | Diagnostic Imaging Report ---
Indication: Shortness of breath Technique: One view of the chest Comparison: 04/21/2020 Findings: Bilateral infiltrates are unchanged. The heart is upper limits normal in size. Pleural spaces are clear. Impression: Unchanged, over one day, findings as above.
--- NOTE | 2020-04-24 14:47 | Surgery Progress Note ---
Surgery Progress Note Subjective Additional Comments titrated down from Venturi mask 10L to nasal cannula 4L and is saturating above 94%. no shortness of breath and is not tachypneic. labs okay exam stable Objective Last 24 Hour Vital Signs Date Time Temp Pulse Resp B/P (MAP) Pulse Ox O2 Delivery O2 Flow Rate FiO2 04/24/20 12:00 86 04/24/20 12:00 98.2 89 20 140/74 (96) 94 04/24/20 09:00 Nasal Cannula 4.0 04/24/20 08:00 97.7 96 20 148/76 (100) 97 04/24/20 08:00 99 04/24/20 04:00 97.1 82 20 143/57 (85) 95 04/24/20 04:00 68 04/24/20 00:00 97.7 70 20 150/84 (106) 96 04/24/20 00:00 70 04/23/20 21:00 Venturi Mask 10.0 04/23/20 20:00 71 04/23/20 20:00 97.7 62 18 142/60 (87) 98 04/23/20 19:10 96 Venturi Mask 10.0 50 04/23/20 16:00 97.7 85 20 146/75 (98) 95 04/23/20 16:00 76 I&O Intake and Output 04/23/20 04/24/20 18:59 06:59 Intake Total 650 ml Output Total 1000 ml 1700 ml Balance -350 ml -1700 ml Intake Oral 600 ml IV Total 50 ml Output Urine Total 1000 ml 1700 ml # Bowel Movements 1 1 Dressing: saturated Cardiovascular: RSR Respiratory: decreased breath sounds Abdomen: soft, non-tender, present bowel sounds Extremities: no tenderness, no cyanosis Laboratory Tests Test 04/24/20 05:52 White Blood Count 8.3 K/UL (4.8-10.8) Red Blood Count 4.47 M/UL (4.70-6.10) L Hemoglobin 13.5 G/DL (14.2-18.0) L Hematocrit 40.0 % (42.0-52.0) L Mean Corpuscular Volume 90 FL (80-99) Mean Corpuscular Hemoglobin 30.3 PG (27.0-31.0) Mean Corpuscular Hemoglobin Concent 33.9 G/DL (32.0-36.0) Red Cell Distribution Width 12.8 % (11.6-14.8) Platelet Count 398 K/UL (150-450) Mean Platelet Volume 6.1 FL (6.5-10.1) L Neutrophils (%) (Auto) 71.6 % (45.0-75.0) Lymphocytes (%) (Auto) 15.1 % (20.0-45.0) L Monocytes (%) (Auto) 10.4 % (1.0-10.0) H Eosinophils (%) (Auto) 1.6 % (0.0-3.0) Basophils (%) (Auto) 1.3 % (0.0-2.0) Sodium Level 140 MMOL/L (136-145) Potassium Level 4.2 MMOL/L (3.5-5.1) Chloride Level 105 MMOL/L (98-107) Carbon Dioxide Level 29 MMOL/L (21-32) Anion Gap 6 mmol/L (5-15) Blood Urea Nitrogen 20 mg/dL (7-18) H Creatinine 0.7 MG/DL (0.55-1.30) Estimat Glomerular Filtration Rate > 60 mL/min (>60) Glucose Level 118 MG/DL (74-106) H Calcium Level 9.1 MG/DL (8.5-10.1) Plan Problems: (1) Abnormal LFTs Assessment & Plan: elevated lft's t bili elevated direct <50% elevated unlikely obstructed biliary unlikely alon abd exam benign US hold for now given covid will follow clinically with exam and recs thank you (2) Diabetes (3) Hypoxia (4) Coronavirus infection Assessment & Plan: There are bilateral patchy and streaky infiltrates in a peribronchovascular distribution, left greater than right. Heart size is normal. Pleural spaces are clear. Impression: Bilateral infiltrates, consistent with multifocal pneumonia, likely viral pulm input appreciated ID on abx and Rx pulm respiratory support (5) History of hypertension (6) BPH (benign prostatic hyperplasia) (7) Electrolyte imbalance Assessment & Plan: being replaced cont diet Jesus Manuel Cruz Apr 24, 2020 14:47
[2020-04-24 16:00] VITALS: BP 140/72
--- NOTE | 2020-04-24 16:15 | NUR ---
CASE MANAGEMENT:REVIEW 04/24/20 SI: COVID PNEUMONIA 98.2 89 20 140/74 94% ON 4L/NC H/H-13.5/40.0 BUN+20 IS: LOVENOX SQ QD IVF+KCL@50/HR DECADRON PO QD PROTONIX PO Q12 : TELEMETRY STATUS DCP: FROM HOME PLAN: TRANSFER TO [facility]. IT HAS BEEN VERY DIFFICULT TO GET THROUGH TO [facility]. MULTIPLE ATTEMPTS HAVE BEEN MADE. WE HAVE BEEN ON PLACED ON HOLD FOR 1-2 HOURS THEN PHONE DISCONNECTS FAXED CLINICALS TO [phone]
--- NOTE | 2020-04-24 17:35 | Internal Med Progress Note ---
Subjective Date of Service: Apr 24, 2020 Physician Name Fili Alfaro Attending Physician Romie Murray MD Current Medications Medications (Trade) Dose Ordered Sig/Lucy Route PRN Reason Start Time Stop Time Status Last Admin Dose Admin Acetaminophen (Tylenol) 650 mg Q4H PRN ORAL FEVER 04/18/20 10:45 05/18/20 10:44 Albuterol/ Ipratropium (Combivent Respimat) 1 puff Q4H PRN INH Shortness of Breath 04/18/20 11:15 05/18/20 11:14 Dexamethasone (Decadron) 6 mg DAILY ORAL 04/19/20 09:00 04/28/20 09:01 04/24/20 09:46 Dextrose (Dextrose 50%) 25 ml Q30M PRN IV Hypoglycemia 04/18/20 10:45 07/17/20 10:44 Dextrose (Dextrose 50%) 50 ml Q30M PRN IV Hypoglycemia 04/18/20 10:45 07/17/20 10:44 Docusate Sodium (Colace) 100 mg THREE TIMES A DAY ORAL 04/18/20 13:00 05/18/20 12:59 04/24/20 17:18 Enoxaparin Sodium (Lovenox) 40 mg DAILY SUBQ 04/24/20 09:00 07/23/20 08:59 04/24/20 09:00 Insulin Aspart (NovoLOG) BEFORE MEALS AND HS SUBQ 04/18/20 11:30 07/17/20 11:29 04/24/20 17:20 Ondansetron HCl (Zofran) 4 mg Q6H PRN IVP Nausea & Vomiting 04/18/20 10:45 05/18/20 10:44 Pantoprazole (Protonix) 40 mg EVERY 12 HOURS ORAL 04/18/20 21:00 05/18/20 20:59 04/24/20 09:46 Polyethylene Glycol (Miralax) 17 gm DAILYPRN PRN ORAL Constipation 04/18/20 10:45 05/18/20 10:44 Potassium Chloride 30 meq/ Sodium Chloride 1,015 ml @ 50 mls/hr [id number] IV 04/19/20 09:00 05/19/20 08:59 04/24/20 11:29 Promethazine HCl/ Codeine (Phenergan with Codeine) 5 ml Q6H PRN ORAL cough 04/18/20 10:45 05/18/20 10:44 04/23/20 08:25 Allergies: Coded Allergies: No Known Allergies (Unverified , 04/18/20) ROS Limited/Unobtainable: Yes Subjective 79 YO M admitted with dyspnea. Now COVID 19 pneumonia. Cover for Int Med - Dr Murray. Objective Last Vital Signs Date Time Temp Pulse Resp B/P (MAP) Pulse Ox O2 Delivery O2 Flow Rate FiO2 04/24/20 16:00 98.0 92 20 140/72 (94) 92 04/24/20 09:00 Nasal Cannula 4.0 04/23/20 19:10 50 Laboratory Tests Test 04/24/20 05:52 04/24/20 15:50 White Blood Count 8.3 K/UL (4.8-10.8) Red Blood Count 4.47 M/UL (4.70-6.10) L Hemoglobin 13.5 G/DL (14.2-18.0) L Hematocrit 40.0 % (42.0-52.0) L Mean Corpuscular Volume 90 FL (80-99) Mean Corpuscular Hemoglobin 30.3 PG (27.0-31.0) Mean Corpuscular Hemoglobin Concent 33.9 G/DL (32.0-36.0) Red Cell Distribution Width 12.8 % (11.6-14.8) Platelet Count 398 K/UL (150-450) Mean Platelet Volume 6.1 FL (6.5-10.1) L Neutrophils (%) (Auto) 71.6 % (45.0-75.0) Lymphocytes (%) (Auto) 15.1 % (20.0-45.0) L Monocytes (%) (Auto) 10.4 % (1.0-10.0) H Eosinophils (%) (Auto) 1.6 % (0.0-3.0) Basophils (%) (Auto) 1.3 % (0.0-2.0) Sodium Level 140 MMOL/L (136-145) Potassium Level 4.2 MMOL/L (3.5-5.1) Chloride Level 105 MMOL/L (98-107) Carbon Dioxide Level 29 MMOL/L (21-32) Anion Gap 6 mmol/L (5-15) Blood Urea Nitrogen 20 mg/dL (7-18) H Creatinine 0.7 MG/DL (0.55-1.30) Estimat Glomerular Filtration Rate > 60 mL/min (>60) Glucose Level 118 MG/DL (74-106) H Calcium Level 9.1 MG/DL (8.5-10.1) POC Whole Blood Glucose 232 MG/DL (74-106) H Intake and Output 04/23/20 04/24/20 19:00 07:00 Intake Total 600 ml Output Total 1000 ml 1700 ml Balance -400 ml -1700 ml Intake Oral 600 ml Output Urine Total 1000 ml 1700 ml # Bowel Movements 1 1 Objective PHYSICAL EXAMINATION: GENERAL: The patient is a well-developed and well-nourished male, in no apparent distress. HEENT: Eyes, pupils are equal and responsive to light and accommodation. Extraocular movements are intact. NECK: Supple without lymphadenopathy. CHEST: Nasal canula, Decreased breath sounds in bilateral bases, otherwise clear to auscultation without wheezes. CARDIOVASCULAR: Tachycardic, regular rhythm. S1, S2 normal without murmurs, rubs, or gallops. ABDOMEN: Soft, nontender, and nondistended. Positive bowel sounds. No evidence of hepatosplenomegaly. Currently, no rebound or guarding noted. EXTREMITIES: Negative for clubbing, cyanosis, or edema. RECTAL/GENITAL: Refused. NEUROLOGIC: Cranial nerves II through XII are grossly intact without focal deficits. Motor strength is 5/5 bilaterally. Deep tendon reflexes are 2+ plantar. Assessment/Plan Assessment/Plan ASSESSMENT: This is an 79-year-old male with: 1. COVID-19 positive. 2. Bilateral pneumonia. 3. Diabetes type 2. 4. Hypertension. 5. Hypercholesterolemia. 6. Benign prostatic hypertrophy. TREATMENT: 1. COVID-19 positive/bilateral pneumonia. Nasal Canula. Pulmonary consultation = Dr. Angel Daniel. Continue remdesivir and Decadron intravenously. antibiotics = S/P ceftriaxone and azithromycin Inf Dis=Dr Pond 2. Diabetes type 2. NovoLog sliding scale has been instituted. 3. Hypertension. Continue amlodipine, hydrochlorothiazide, and losartan as above. 4. Hypercholesterolemia. Continue simvastatin as above. 5. Benign prostatic hypertrophy. Continue Flomax as above. Fili Alfaro MD Apr 24, 2020 17:35
--- NOTE | 2020-04-24 19:39 | NUR ---
NURSE NOTES: Report received from REANNA Wilson. Patient is awake on bed, alert and oriented x 4. threat monitoring analyst is in place, shows sinus rhythm with no chest pain reported. On CCHO (Medium) and can swallow whole pills with no difficulty swallowing reported. Patient can ambulate but needs assistance. IV site is on right hand g-22 saline locked and Left wrist g-22 running IVF of NS + 30 Meqs KCL @ 50 cc/hour that is patent and intact. Safety measures are in place, bed in lowest and locked position, side rails up x 2, call light button and bedside table within reach, instructed to call for any assistance needed. Will continue plan of care.
--- NOTE | 2020-04-24 19:57 | NUR ---
NURSE HAND-OFF REPORT: Important Events on Shift:[Titrated down to 4L nasal cannula] Patient Status: [Full code] Diet: [CCHO medium] Pending Orders: [N/A] Pending Results/Labs:[N/A] Pending MD notification:[N/A] Latest Vital Signs: Temperature 98.0 , Pulse 96 , B/P 140 /72 , Respiratory Rate 20 , O2 SAT 92 , Simple Mask, O2 Flow Rate 4.0 . Vital Sign Comment: [] EKG Rhythm: Sinus Rhythm Rhythm change?: N MD Notified?: Kiarra Daniel MD Response: No New Orders Received Latest Rivas Fall Score: 35 Fall Risk: Medium Risk Safety Measures: Call light Within Reach, Bed Alarm Zone 2, Side Rails Side Rails x2, Bed position Low and Locked. Fall Precautions: Yellow Socks Yellow Gown Door Sign Patient Fall Education Report given to [REANNA Garcia].
[2020-04-24 20:00] VITALS: BP 158/76
--- NOTE | 2020-04-24 22:00 | NUR ---
NURSE NOTES: Noted IV site was infiltrated, removed IV line and re-inserted on right hand using g-20.
[2020-04-25] VITALS: BP 162/85
[2020-04-25] MEDS: Promethazine/Codeine 5ml UD ORAL PRN (01:50)
[2020-04-25 04:00] VITALS: BP 153/72
[2020-04-25 04:46] LABS: EOSINOPHILS % (AUTO) 1.6 % (0.0-3.0); HEMATOCRIT 35.2 % (42.0-52.0); HEMOGLOBIN 12.6 G/DL (14.2-18.0); MEAN CORPUSCULAR VOLUME 88 FL (80-99); NEUTROPHILS % (AUTO) 73.4 % (45.0-75.0); PLATELET COUNT 342 K/UL (150-450); RED BLOOD COUNT 4.02 M/UL (4.70-6.10); RED CELL DISTRIBUTION WIDTH 13.4 % (11.6-14.8); WHITE BLOOD COUNT 7.3 K/UL (4.8-10.8)
[2020-04-25 05:22] LABS: ANION GAP 2 mmol/L (5-15); BLOOD UREA NITROGEN 18 mg/dL (7-18); CALCIUM 8.9 MG/DL (8.5-10.1); CARBON DIOXIDE 33 MMOL/L (21-32); CHLORIDE 104 MMOL/L (98-107); CREATININE 0.8 MG/DL (0.55-1.30); POTASSIUM 3.9 MMOL/L (3.5-5.1); SODIUM 139 MMOL/L (136-145)
[2020-04-25] MEDS: NovoLOG Insulin Flexpen SUBQ SCH ×4 (05:25→21:19)
--- NOTE | 2020-04-25 07:18 | NUR ---
NURSE HAND-OFF REPORT: Important Events on Shift:Patient has non productive cough, phenergan with codeine was given. Specimen cup provided at bedside and instructed for sputum collection. Patient Status: Patient is awake on bed, no desaturation nor complaints of chest pain the whole shift. Diet: CCHO(Medium) Pending Orders: none Pending Results/Labs:AM lab result Pending MD notification:none Latest Vital Signs: Temperature 97.9 , Pulse 88 , B/P 153 /72 , Respiratory Rate 19 , O2 SAT 96 , Simple Mask, O2 Flow Rate 4.0 . Vital Sign Comment: stable EKG Rhythm: Sinus Rhythm Rhythm change?: N MD Notified?: Kiarra Daniel MD Response: No New Orders Received Latest Rivas Fall Score: 45 Fall Risk: High Risk Safety Measures: Call light Within Reach, Bed Alarm Zone 1, Side Rails Side Rails x2, Bed position Low and Locked. Fall Precautions: Yellow Socks Yellow Gown Door Sign Patient Fall Education Report given to REANNA Wilson.
--- NOTE | 2020-04-25 07:21 | NUR ---
NURSE NOTES: Patient seen in bed sitting up in bed eating sleep. Patient is AAOx4, no complaints of pain and under no signs of distress. VS are within normal limits. The patient is receiving KCL 30mEq IN NS AT 50cc THROUGH PATIENTS PATENT R HAND 20g iv THAT IS PATENT AND INTACT. The patients bed is in lowest position, locked, side rails x2 and call light within reach. Patient educated to press call light for any needs.
--- NOTE | 2020-04-25 07:43 | NUR ---
CASE MANAGEMENT:REVIEW 04/25/20 SI: COVID PNEUMONIA 97.9 88 19 153/72 96% ON 4L/NC H/H-12.6/35.2 CO2+33 GLUCOSE+245 IS: LOVENOX SQ QD IVF+KCL@50/HR DECADRON PO QD PROTONIX PO Q12 SS INSULIN AC+HS : TELEMETRY STATUS DCP: FROM HOME PLAN: TRANSFER TO [facility]. FAXING CLINICALS DAILY TO [phone]
[2020-04-25 08:00] VITALS: BP 106/59
[2020-04-25] MEDS: Docusate 100mg cap ORAL SCH ×3 (08:11→17:13)
[2020-04-25] MEDS: Enoxaparin 40mg Inj SUBQ SCH (08:14)
--- NOTE | 2020-04-25 08:36 | NUR ---
RD ASSESSMENT & RECOMMENDATIONS SEE CARE ACTIVITY FOR COMPLETE ASSESSMENT DAILY ESTIMATED NEEDS: Needs based on pulmonary, DM 67.5kg 25-30 kcals/kg 5142-1552 total kcals 1-1.5 g protein/kg 68-101 g total protein 25-30 mL/kg total fluid mLs NUTRITION DIAGNOSIS: Altered nutrition related lab values r/t clinical status and diabetes as evidenced by A1C 7.1, elev BG (118-245), elev CO2 (33). CUR[facility]ET:[facility] PO DIET RECOMMENDATIONS: [facility] ADDITIONAL RECOMMENDATIONS: 1) Maintain daily calibrated bed scale wts Obtain a standing weight as able 2) Good po intake on all meals, consider increasing insulin coverage for improved glycemic control
--- NOTE | 2020-04-25 08:36 | Infectious Diseases Prog Note ---
Assessment/Plan 79yo M with: COVID pna Acute hypoxia 2/2 severe COVID pna Afebrile Normal WBC Lymphopenia Elevated AST to 38 likely 2/2 COVID 04/12 COVID positive; flu neg 04/18 COVID rapid test positive BCx NTD Resp cx NTD CXR: BL pna UA neg 04/21 CXR: Patchy bilateral airspace consolidations, consistent with severe multifocal infiltrate. Overall, minimal worsening when compared to previous study. 04/24 CXR: No change from prior Cr 1.1 No DVT on US 04/21 PMH: DM2 HTN HLD Prostate disease Plan: Cont dex 6mg daily #11/27 - if discharged home please complete course of steroids Monitor off abx Check O2 sat on RA and with ambulation on RA If >94% on RA then OK to d/c home off O2 If <94% on RA then either keep in house another day to reassess or d/c home w/ home O2 04/23 SP RDV #5, CTX/az #5 This institution does not have access to convalescent plasma, and as pt 6 days out from diagnosis less likely to benefit from it. Monitor CBC/CMP Monitor resp status Monitor temp curve, hemodynamics D/w RN Thank you for this consult. [facility] will continue to follow. Subjective Allergies: Coded Allergies: No Known Allergies (Unverified , 04/18/20) AF WBC 7.3 NAD on 4L NC Doing well, no new complaints Objective Last 24 Hour Vital Signs Date Time Temp Pulse Resp B/P (MAP) Pulse Ox O2 Delivery O2 Flow Rate FiO2 04/25/20 08:00 97.3 98 18 106/59 (75) 94 04/25/20 04:00 97.9 88 19 153/72 (99) 96 04/25/20 03:12 60 04/25/20 00:00 96.6 82 17 162/85 (110) 97 04/24/20 23:12 81 04/24/20 21:00 Nasal Cannula 4.0 04/24/20 20:14 95 Nasal Cannula 4.0 36 04/24/20 20:00 97.3 76 17 158/76 (103) 99 04/24/20 19:48 76 04/24/20 16:00 98.0 92 20 140/72 (94) 92 04/24/20 16:00 96 04/24/20 12:00 86 04/24/20 12:00 98.2 89 20 140/74 (96) 94 04/24/20 09:00 Nasal Cannula 4.0 Height (Feet): 5 Height (Inches): 6.00 Weight (Pounds): 172 Gen: NAD HEENT: NCAT Pulm: BL chest rise Abd: Non-distended Ext: No c/c/e Skin: No visible rashes Neuro: Awake Laboratory Tests Test 04/24/20 15:50 04/25/20 04:00 04/25/20 04:49 POC Whole Blood Glucose 232 MG/DL (74-106) H White Blood Count 7.3 K/UL (4.8-10.8) Red Blood Count 4.02 M/UL (4.70-6.10) L Hemoglobin 12.6 G/DL (14.2-18.0) L Hematocrit 35.2 % (42.0-52.0) L Mean Corpuscular Volume 88 FL (80-99) Mean Corpuscular Hemoglobin 31.3 PG (27.0-31.0) H Mean Corpuscular Hemoglobin Concent 35.7 G/DL (32.0-36.0) Red Cell Distribution Width 13.4 % (11.6-14.8) Platelet Count 342 K/UL (150-450) Mean Platelet Volume 6.5 FL (6.5-10.1) Neutrophils (%) (Auto) 73.4 % (45.0-75.0) Lymphocytes (%) (Auto) 13.0 % (20.0-45.0) L Monocytes (%) (Auto) 11.0 % (1.0-10.0) H Eosinophils (%) (Auto) 1.6 % (0.0-3.0) Basophils (%) (Auto) 1.0 % (0.0-2.0) C-Reactive Protein, Quantitative Pending Sodium Level 139 MMOL/L (136-145) Potassium Level 3.9 MMOL/L (3.5-5.1) Chloride Level 104 MMOL/L (98-107) Carbon Dioxide Level 33 MMOL/L (21-32) H Anion Gap 2 mmol/L (5-15) L Blood Urea Nitrogen 18 mg/dL (7-18) Creatinine 0.8 MG/DL (0.55-1.30) Estimat Glomerular Filtration Rate > 60 mL/min (>60) Glucose Level 245 MG/DL (74-106) #H Calcium Level 8.9 MG/DL (8.5-10.1) Current Medications Medications (Trade) Dose Ordered Sig/Lucy Route PRN Reason Start Time Stop Time Status Last Admin Dose Admin Acetaminophen (Tylenol) 650 mg Q4H PRN ORAL FEVER 04/18/20 10:45 05/18/20 10:44 Albuterol/ Ipratropium (Combivent Respimat) 1 puff Q4H PRN INH Shortness of Breath 04/18/20 11:15 05/18/20 11:14 Dexamethasone (Decadron) 6 mg DAILY ORAL 04/19/20 09:00 04/28/20 09:01 04/25/20 08:11 Dextrose (Dextrose 50%) 25 ml Q30M PRN IV Hypoglycemia 04/18/20 10:45 07/17/20 10:44 Dextrose (Dextrose 50%) 50 ml Q30M PRN IV Hypoglycemia 04/18/20 10:45 07/17/20 10:44 Docusate Sodium (Colace) 100 mg THREE TIMES A DAY ORAL 04/18/20 13:00 05/18/20 12:59 04/25/20 08:11 Enoxaparin Sodium (Lovenox) 40 mg DAILY SUBQ 04/24/20 09:00 07/23/20 08:59 04/25/20 08:14 Insulin Aspart (NovoLOG) BEFORE MEALS AND HS SUBQ 04/18/20 11:30 07/17/20 11:29 04/25/20 05:25 Ondansetron HCl (Zofran) 4 mg Q6H PRN IVP Nausea & Vomiting 04/18/20 10:45 05/18/20 10:44 Pantoprazole (Protonix) 40 mg EVERY 12 HOURS ORAL 04/18/20 21:00 05/18/20 20:59 04/25/20 08:11 Polyethylene Glycol (Miralax) 17 gm DAILYPRN PRN ORAL Constipation 04/18/20 10:45 05/18/20 10:44 Potassium Chloride 30 meq/ Sodium Chloride 1,015 ml @ 50 mls/hr [id number] IV 04/19/20 09:00 05/19/20 08:59 04/24/20 11:29 Promethazine HCl/ Codeine (Phenergan with Codeine) 5 ml Q6H PRN ORAL cough 04/18/20 10:45 05/18/20 10:44 04/25/20 01:50 Andria Pond M.D. Apr 25, 2020 08:36
--- NOTE | 2020-04-25 11:34 | Pulmonology Progress Note ---
Subjective ROS Limited/Unobtainable: Yes Allergies: Coded Allergies: No Known Allergies (Unverified , 04/18/20) Subjective no on NC no resp distress, no SOB pulse ox stable remains afebrile, no leukocytosis still intermittent dry cough, chest discomfort with cough and deep breathing Objective Last 24 Hour Vital Signs Date Time Temp Pulse Resp B/P (MAP) Pulse Ox O2 Delivery O2 Flow Rate FiO2 04/25/20 08:00 97.3 98 18 106/59 (75) 94 04/25/20 04:00 97.9 88 19 153/72 (99) 96 04/25/20 03:12 60 04/25/20 00:00 96.6 82 17 162/85 (110) 97 04/24/20 23:12 81 04/24/20 21:00 Nasal Cannula 4.0 04/24/20 20:14 95 Nasal Cannula 4.0 36 04/24/20 20:00 97.3 76 17 158/76 (103) 99 04/24/20 19:48 76 04/24/20 16:00 98.0 92 20 140/72 (94) 92 04/24/20 16:00 96 04/24/20 12:00 86 04/24/20 12:00 98.2 89 20 140/74 (96) 94 Intake and Output 04/24/20 04/25/20 19:00 07:00 Intake Total 1150 ml 400 ml Output Total 1050 ml Balance 1150 ml -650 ml Intake Oral 550 ml IV Total 600 ml 400 ml Output Urine Total 1050 ml # Voids 3 4 # Bowel Movements 1 1 General Appearance: WD/WN, no acute distress HEENT: normocephalic Respiratory: chest wall non-tender, lungs clear - with moderate air exchange , other - NC Cardiovascular: normal peripheral pulses, normal rate Abdomen: normal bowel sounds, no organomegaly Extremities: no edema Skin: no rash Neurologic: abnormal gait Musculoskeletal: normal muscle bulk Laboratory Tests 04/24/20 15:50: POC Whole Blood Glucose 232H 04/25/20 04:00: White Blood Count 7.3, Red Blood Count 4.02L, Hemoglobin 12.6L, Hematocrit 35.2L , Mean Corpuscular Volume 88, Mean Corpuscular Hemoglobin 31.3H, Mean Corpuscular Hemoglobin Concent 35.7, Red Cell Distribution Width 13.4, Platelet Count 342, Mean Platelet Volume 6.5, Neutrophils (%) (Auto) 73.4, Lymphocytes (%) (Auto) 13.0L, Monocytes (%) (Auto) 11.0H, Eosinophils (%) (Auto) 1.6, Basophils (%) (Auto) 1.0, C-Reactive Protein, Quantitative [Pending] 04/25/20 04:49: Sodium Level 139, Potassium Level 3.9, Chloride Level 104, Carbon Dioxide Level 33H, Anion Gap 2L, Blood Urea Nitrogen 18, Creatinine 0.8, Estimat Glomerular Filtration Rate > 60, Glucose Level 245#H, Calcium Level 8.9 Current Medications Medications (Trade) Dose Ordered Sig/Lucy Route PRN Reason Start Time Stop Time Status Last Admin Dose Admin Acetaminophen (Tylenol) 650 mg Q4H PRN ORAL FEVER 04/18/20 10:45 05/18/20 10:44 Albuterol/ Ipratropium (Combivent Respimat) 1 puff Q4H PRN INH Shortness of Breath 04/18/20 11:15 05/18/20 11:14 Dexamethasone (Decadron) 6 mg DAILY ORAL 04/19/20 09:00 04/28/20 09:01 04/25/20 08:11 Dextrose (Dextrose 50%) 25 ml Q30M PRN IV Hypoglycemia 04/18/20 10:45 07/17/20 10:44 Dextrose (Dextrose 50%) 50 ml Q30M PRN IV Hypoglycemia 04/18/20 10:45 07/17/20 10:44 Docusate Sodium (Colace) 100 mg THREE TIMES A DAY ORAL 04/18/20 13:00 05/18/20 12:59 04/25/20 08:11 Enoxaparin Sodium (Lovenox) 40 mg DAILY SUBQ 04/24/20 09:00 07/23/20 08:59 04/25/20 08:14 Insulin Aspart (NovoLOG) BEFORE MEALS AND HS SUBQ 04/18/20 11:30 07/17/20 11:29 04/25/20 05:25 Ondansetron HCl (Zofran) 4 mg Q6H PRN IVP Nausea & Vomiting 04/18/20 10:45 05/18/20 10:44 Pantoprazole (Protonix) 40 mg EVERY 12 HOURS ORAL 04/18/20 21:00 05/18/20 20:59 04/25/20 08:11 Polyethylene Glycol (Miralax) 17 gm DAILYPRN PRN ORAL Constipation 04/18/20 10:45 05/18/20 10:44 Potassium Chloride 30 meq/ Sodium Chloride 1,015 ml @ 50 mls/hr [id number] IV 04/19/20 09:00 05/19/20 08:59 04/24/20 11:29 Promethazine HCl/ Codeine (Phenergan with Codeine) 5 ml Q6H PRN ORAL cough 04/18/20 10:45 05/18/20 10:44 04/25/20 01:50 Assessment/Plan Assessment/Plan ASSESSMENT Acute hypoxemic respiratory failure requiring face mask mask COVID-19 pneumonia Diabetes mellitus Hypertension Hyperlipidemia BPH PLAN OF CARE tele isolation room Date of sx onset: few days prior to presentation to ED on 04/18 Positive test: 04/18 rapid COVID + ( was tested positive prior as well) O2 - NC HFA s/p REM x 5 days ( 04/18 - 04/22 ) Dex Day# 8( 04/18 -) DVT PPX: Lovenox Venous Duplex BLE 1/2 NGT D dimer 0.64 Trend CRP 16.5 - > 7-> 7.2-> 55.2 CXR 1/2 -> Patchy bilateral airspace consolidations, consistent with severe multifocal infiltrate CXR 04/24 -> no significant changes s/p abx per ID recs, completed 04/23 monitor volumes and renal function Fup with consultants recs FC Discuss GOC BS management with SSI BP management GI prophylaxis supportive care case discussed and evaluated by supervising physician Sridevi Alfaro NP Apr 25, 2020 11:34
--- NOTE | 2020-04-25 11:46 | Nephrology Progress Note ---
Assessment/Plan Problem List: (1) Electrolyte imbalance (2) Coronavirus infection (3) Hypoxia (4) BPH (benign prostatic hyperplasia) Assessment Electrolyte imbalance Low sodium, low magnesium, low potassium Coronavirus infection, hypoxia Diabetes mellitus Plan April 25: Labs reviewed. Stable renal parameters. Continue per consultants. April 24: Labs reviewed. Renal parameters stable. Continue per consultants. April 23: Labs reviewed. Renal parameters stable. Continue as current treatment plan. April 22: Today's labs reviewed and renal parameters remain stable continue per consultants April 21: Labs reviewed. Renal parameters stable. Continue per consultants. Medication list reviewed. April 20: Labs reviewed. Renal parameters and electrolytes stable. Continue per consultants. Previously: Normal saline with potassium IV Mag sulfate IV Protonix and stool softener Antibiotics Monitor electrolytes and renal parameters Per orders Subjective ROS Limited/Unobtainable: No Constitutional: Reports: malaise, weakness Objective Objective Last 24 Hour Vital Signs Date Time Temp Pulse Resp B/P (MAP) Pulse Ox O2 Delivery O2 Flow Rate FiO2 04/25/20 08:00 97.3 98 18 106/59 (75) 94 04/25/20 04:00 97.9 88 19 153/72 (99) 96 04/25/20 03:12 60 04/25/20 00:00 96.6 82 17 162/85 (110) 97 04/24/20 23:12 81 04/24/20 21:00 Nasal Cannula 4.0 04/24/20 20:14 95 Nasal Cannula 4.0 36 04/24/20 20:00 97.3 76 17 158/76 (103) 99 04/24/20 19:48 76 04/24/20 16:00 98.0 92 20 140/72 (94) 92 04/24/20 16:00 96 04/24/20 12:00 86 04/24/20 12:00 98.2 89 20 140/74 (96) 94 Intake and Output 04/24/20 04/25/20 19:00 07:00 Intake Total 1150 ml 400 ml Output Total 1050 ml Balance 1150 ml -650 ml Intake Oral 550 ml IV Total 600 ml 400 ml Output Urine Total 1050 ml # Voids 3 4 # Bowel Movements 1 1 Laboratory Tests 04/24/20 15:50: POC Whole Blood Glucose 232H 04/25/20 04:00: White Blood Count 7.3, Red Blood Count 4.02L, Hemoglobin 12.6L, Hematocrit 35.2L , Mean Corpuscular Volume 88, Mean Corpuscular Hemoglobin 31.3H, Mean Corpuscular Hemoglobin Concent 35.7, Red Cell Distribution Width 13.4, Platelet Count 342, Mean Platelet Volume 6.5, Neutrophils (%) (Auto) 73.4, Lymphocytes (%) (Auto) 13.0L, Monocytes (%) (Auto) 11.0H, Eosinophils (%) (Auto) 1.6, Basophils (%) (Auto) 1.0, C-Reactive Protein, Quantitative [Pending] 04/25/20 04:49: Sodium Level 139, Potassium Level 3.9, Chloride Level 104, Carbon Dioxide Level 33H, Anion Gap 2L, Blood Urea Nitrogen 18, Creatinine 0.8, Estimat Glomerular Filtration Rate > 60, Glucose Level 245#H, Calcium Level 8.9 Height (Feet): 5 Height (Inches): 6.00 Weight (Pounds): 172 General Appearance: no apparent distress, other - On nasal cannula Cardiovascular: tachycardia Respiratory/Chest: decreased breath sounds Abdomen: distended Roberto Yang MD Apr 25, 2020 11:46
[2020-04-25 12:00] VITALS: BP 125/61
--- NOTE | 2020-04-25 12:17 | Internal Med Progress Note ---
Subjective Date of Service: Apr 25, 2020 Physician Name Fili Alfaro Attending Physician Romie Murray MD Current Medications Medications (Trade) Dose Ordered Sig/Lucy Route PRN Reason Start Time Stop Time Status Last Admin Dose Admin Acetaminophen (Tylenol) 650 mg Q4H PRN ORAL FEVER 04/18/20 10:45 05/18/20 10:44 Albuterol/ Ipratropium (Combivent Respimat) 1 puff Q4H PRN INH Shortness of Breath 04/18/20 11:15 05/18/20 11:14 Dexamethasone (Decadron) 6 mg DAILY ORAL 04/19/20 09:00 04/28/20 09:01 04/25/20 08:11 Dextrose (Dextrose 50%) 25 ml Q30M PRN IV Hypoglycemia 04/18/20 10:45 07/17/20 10:44 Dextrose (Dextrose 50%) 50 ml Q30M PRN IV Hypoglycemia 04/18/20 10:45 07/17/20 10:44 Docusate Sodium (Colace) 100 mg THREE TIMES A DAY ORAL 04/18/20 13:00 05/18/20 12:59 04/25/20 08:11 Enoxaparin Sodium (Lovenox) 40 mg DAILY SUBQ 04/24/20 09:00 07/23/20 08:59 04/25/20 08:14 Insulin Aspart (NovoLOG) BEFORE MEALS AND HS SUBQ 04/18/20 11:30 07/17/20 11:29 04/25/20 05:25 Ondansetron HCl (Zofran) 4 mg Q6H PRN IVP Nausea & Vomiting 04/18/20 10:45 05/18/20 10:44 Pantoprazole (Protonix) 40 mg EVERY 12 HOURS ORAL 04/18/20 21:00 05/18/20 20:59 04/25/20 08:11 Polyethylene Glycol (Miralax) 17 gm DAILYPRN PRN ORAL Constipation 04/18/20 10:45 05/18/20 10:44 Potassium Chloride 30 meq/ Sodium Chloride 1,015 ml @ 50 mls/hr [id number] IV 04/19/20 09:00 05/19/20 08:59 04/24/20 11:29 Promethazine HCl/ Codeine (Phenergan with Codeine) 5 ml Q6H PRN ORAL cough 04/18/20 10:45 05/18/20 10:44 04/25/20 01:50 Allergies: Coded Allergies: No Known Allergies (Unverified , 04/18/20) ROS Limited/Unobtainable: No Constitutional: Reports: no symptoms HEENT: Reports: no symptoms Cardiovascular: Reports: no symptoms Respiratory: Reports: no symptoms Gastrointestinal/Abdominal: Reports: no symptoms Genitourinary: Reports: no symptoms Neurologic/Psychiatric: Reports: no symptoms Subjective 79 YO M admitted with dyspnea. Now COVID 19 pneumonia. Cover for Int Med - Dr Murray. Sitting at side of bed and eating lunch Objective Last Vital Signs Date Time Temp Pulse Resp B/P (MAP) Pulse Ox O2 Delivery O2 Flow Rate FiO2 04/25/20 08:00 97.3 98 18 106/59 (75) 94 04/24/20 21:00 Nasal Cannula 4.0 04/24/20 20:14 36 Laboratory Tests Test 04/24/20 15:50 04/25/20 04:00 04/25/20 04:49 POC Whole Blood Glucose 232 MG/DL (74-106) H White Blood Count 7.3 K/UL (4.8-10.8) Red Blood Count 4.02 M/UL (4.70-6.10) L Hemoglobin 12.6 G/DL (14.2-18.0) L Hematocrit 35.2 % (42.0-52.0) L Mean Corpuscular Volume 88 FL (80-99) Mean Corpuscular Hemoglobin 31.3 PG (27.0-31.0) H Mean Corpuscular Hemoglobin Concent 35.7 G/DL (32.0-36.0) Red Cell Distribution Width 13.4 % (11.6-14.8) Platelet Count 342 K/UL (150-450) Mean Platelet Volume 6.5 FL (6.5-10.1) Neutrophils (%) (Auto) 73.4 % (45.0-75.0) Lymphocytes (%) (Auto) 13.0 % (20.0-45.0) L Monocytes (%) (Auto) 11.0 % (1.0-10.0) H Eosinophils (%) (Auto) 1.6 % (0.0-3.0) Basophils (%) (Auto) 1.0 % (0.0-2.0) C-Reactive Protein, Quantitative Pending Sodium Level 139 MMOL/L (136-145) Potassium Level 3.9 MMOL/L (3.5-5.1) Chloride Level 104 MMOL/L (98-107) Carbon Dioxide Level 33 MMOL/L (21-32) H Anion Gap 2 mmol/L (5-15) L Blood Urea Nitrogen 18 mg/dL (7-18) Creatinine 0.8 MG/DL (0.55-1.30) Estimat Glomerular Filtration Rate > 60 mL/min (>60) Glucose Level 245 MG/DL (74-106) #H Calcium Level 8.9 MG/DL (8.5-10.1) Intake and Output 04/24/20 04/25/20 19:00 07:00 Intake Total 1150 ml 400 ml Output Total 1050 ml Balance 1150 ml -650 ml Intake Oral 550 ml IV Total 600 ml 400 ml Output Urine Total 1050 ml # Voids 3 4 # Bowel Movements 1 1 Objective PHYSICAL EXAMINATION: GENERAL: The patient is a well-developed and well-nourished male, in no apparent distress. HEENT: Eyes, pupils are equal and responsive to light and accommodation. Extraocular movements are intact. NECK: Supple without lymphadenopathy. CHEST: Nasal canula, Decreased breath sounds in bilateral bases, otherwise clear to auscultation without wheezes. CARDIOVASCULAR: Tachycardic, regular rhythm. S1, S2 normal without murmurs, rubs, or gallops. ABDOMEN: Soft, nontender, and nondistended. Positive bowel sounds. No evidence of hepatosplenomegaly. Currently, no rebound or guarding noted. EXTREMITIES: Negative for clubbing, cyanosis, or edema. RECTAL/GENITAL: Refused. NEUROLOGIC: Cranial nerves II through XII are grossly intact without focal deficits. Motor strength is 5/5 bilaterally. Deep tendon reflexes are 2+ plantar. Assessment/Plan Assessment/Plan ASSESSMENT: This is an 79-year-old male with: 1. COVID-19 positive. 2. Bilateral pneumonia. 3. Diabetes type 2. 4. Hypertension. 5. Hypercholesterolemia. 6. Benign prostatic hypertrophy. TREATMENT: 1. COVID-19 positive/bilateral pneumonia. Nasal Canula. Pulmonary consultation = Dr. Angel Daniel. Continue remdesivir and Decadron intravenously. antibiotics = S/P ceftriaxone and azithromycin Inf Dis=Dr Pond 2. Diabetes type 2. NovoLog sliding scale has been instituted. 3. Hypertension. Continue amlodipine, hydrochlorothiazide, and losartan as above. 4. Hypercholesterolemia. Continue simvastatin as above. 5. Benign prostatic hypertrophy. Continue Flomax as above. Fili Alfaro MD Apr 25, 2020 12:16
--- NOTE | 2020-04-25 12:33 | Surgery Progress Note ---
Surgery Progress Note Subjective Additional Comments Patient seen and examined bedside. No acute events. Resting comfortably. Labs noted. Exam stable. No complaints at this time. Imaging reviewed micro revi ewed afebrile hemodynamic stable Objective Last 24 Hour Vital Signs Date Time Temp Pulse Resp B/P (MAP) Pulse Ox O2 Delivery O2 Flow Rate FiO2 04/25/20 09:00 Nasal Cannula 4.0 04/25/20 08:00 97.3 98 18 106/59 (75) 94 04/25/20 08:00 103 04/25/20 04:00 97.9 88 19 153/72 (99) 96 04/25/20 03:12 60 04/25/20 00:00 96.6 82 17 162/85 (110) 97 04/24/20 23:12 81 04/24/20 21:00 Nasal Cannula 4.0 04/24/20 20:14 95 Nasal Cannula 4.0 36 04/24/20 20:00 97.3 76 17 158/76 (103) 99 04/24/20 19:48 76 04/24/20 16:00 98.0 92 20 140/72 (94) 92 04/24/20 16:00 96 I&O Intake and Output 04/24/20 04/25/20 19:00 07:00 Intake Total 1150 ml 400 ml Output Total 1050 ml Balance 1150 ml -650 ml Intake Oral 550 ml IV Total 600 ml 400 ml Output Urine Total 1050 ml # Voids 3 4 # Bowel Movements 1 1 Cardiovascular: RSR Respiratory: clear Abdomen: soft, flat, non-tender, present bowel sounds, non-distended Extremities: no edema, no tenderness, no cyanosis Laboratory Tests Test 04/24/20 15:50 04/25/20 04:00 04/25/20 04:49 POC Whole Blood Glucose 232 MG/DL (74-106) H White Blood Count 7.3 K/UL (4.8-10.8) Red Blood Count 4.02 M/UL (4.70-6.10) L Hemoglobin 12.6 G/DL (14.2-18.0) L Hematocrit 35.2 % (42.0-52.0) L Mean Corpuscular Volume 88 FL (80-99) Mean Corpuscular Hemoglobin 31.3 PG (27.0-31.0) H Mean Corpuscular Hemoglobin Concent 35.7 G/DL (32.0-36.0) Red Cell Distribution Width 13.4 % (11.6-14.8) Platelet Count 342 K/UL (150-450) Mean Platelet Volume 6.5 FL (6.5-10.1) Neutrophils (%) (Auto) 73.4 % (45.0-75.0) Lymphocytes (%) (Auto) 13.0 % (20.0-45.0) L Monocytes (%) (Auto) 11.0 % (1.0-10.0) H Eosinophils (%) (Auto) 1.6 % (0.0-3.0) Basophils (%) (Auto) 1.0 % (0.0-2.0) C-Reactive Protein, Quantitative Pending Sodium Level 139 MMOL/L (136-145) Potassium Level 3.9 MMOL/L (3.5-5.1) Chloride Level 104 MMOL/L (98-107) Carbon Dioxide Level 33 MMOL/L (21-32) H Anion Gap 2 mmol/L (5-15) L Blood Urea Nitrogen 18 mg/dL (7-18) Creatinine 0.8 MG/DL (0.55-1.30) Estimat Glomerular Filtration Rate > 60 mL/min (>60) Glucose Level 245 MG/DL (74-106) #H Calcium Level 8.9 MG/DL (8.5-10.1) Plan Problems: (1) Abnormal LFTs Assessment & Plan: elevated lft's t bili elevated direct <50% elevated unlikely obstructed biliary unlikely alon abd exam benign US hold for now given covid will follow clinically with exam and recs thank you DAILY ESTIMATED NEEDS: Needs based on pulmonary, DM 67.5kg 25-30 kcals/kg 6985-5390 total kcals 1-1.5 g protein/kg 68-101 g total protein 25-30 mL/kg 4854-2964 total fluid mLs NUTRITION DIAGNOSIS: Altered nutrition related lab values r/t clinical status and diabetes as evidenced by A1C 7.1, elev BG (118-245), elev CO2 (33). CUR[facility] PO DIET RECOMMENDATIONS: [facility] ADDITIONAL RECOMMENDATIONS: 1) Maintain daily calibrated bed scale wts Obtain a standing weight as able 2) Good po intake on all meals, consider increasing insulin coverage for improved glycemic control (2) Diabetes (3) Hypoxia (4) Coronavirus infection Assessment & Plan: There are bilateral patchy and streaky infiltrates in a peribronchovascular distribution, left greater than right. Heart size is normal. Pleural spaces are clear. Impression: Bilateral infiltrates, consistent with multifocal pneumonia, likely viral pulm input appreciated ID on abx and Rx pulm respiratory support (5) History of hypertension (6) BPH (benign prostatic hyperplasia) (7) Electrolyte imbalance Assessment & Plan: being replaced cont diet Jesus Manuel Cruz Apr 25, 2020 12:33
--- NOTE | 2020-04-25 14:41 | Cardiac Electrophysiology PN ---
Subjective Subjective [id number] Objective Last 24 Hour Vital Signs Date Time Temp Pulse Resp B/P (MAP) Pulse Ox O2 Delivery O2 Flow Rate FiO2 04/25/20 12:00 98.3 89 18 125/61 (82) 94 04/25/20 09:00 Nasal Cannula 4.0 04/25/20 08:00 97.3 98 18 106/59 (75) 94 04/25/20 08:00 103 04/25/20 04:00 97.9 88 19 153/72 (99) 96 04/25/20 03:12 60 04/25/20 00:00 96.6 82 17 162/85 (110) 97 04/24/20 23:12 81 04/24/20 21:00 Nasal Cannula 4.0 04/24/20 20:14 95 Nasal Cannula 4.0 36 04/24/20 20:00 97.3 76 17 158/76 (103) 99 04/24/20 19:48 76 04/24/20 16:00 98.0 92 20 140/72 (94) 92 04/24/20 16:00 96 Intake and Output 04/24/20 04/25/20 19:00 07:00 Intake Total 1150 ml 400 ml Output Total 1050 ml Balance 1150 ml -650 ml Intake Oral 550 ml IV Total 600 ml 400 ml Output Urine Total 1050 ml # Voids 3 4 # Bowel Movements 1 1 Laboratory Tests Test 04/24/20 15:50 04/25/20 04:00 04/25/20 04:49 04/25/20 12:52 POC Whole Blood Glucose 232 MG/DL (74-106) H 160 MG/DL (74-106) H White Blood Count 7.3 K/UL (4.8-10.8) Red Blood Count 4.02 M/UL (4.70-6.10) L Hemoglobin 12.6 G/DL (14.2-18.0) L Hematocrit 35.2 % (42.0-52.0) L Mean Corpuscular Volume 88 FL (80-99) Mean Corpuscular Hemoglobin 31.3 PG (27.0-31.0) H Mean Corpuscular Hemoglobin Concent 35.7 G/DL (32.0-36.0) Red Cell Distribution Width 13.4 % (11.6-14.8) Platelet Count 342 K/UL (150-450) Mean Platelet Volume 6.5 FL (6.5-10.1) Neutrophils (%) (Auto) 73.4 % (45.0-75.0) Lymphocytes (%) (Auto) 13.0 % (20.0-45.0) L Monocytes (%) (Auto) 11.0 % (1.0-10.0) H Eosinophils (%) (Auto) 1.6 % (0.0-3.0) Basophils (%) (Auto) 1.0 % (0.0-2.0) C-Reactive Protein, Quantitative Pending Sodium Level 139 MMOL/L (136-145) Potassium Level 3.9 MMOL/L (3.5-5.1) Chloride Level 104 MMOL/L (98-107) Carbon Dioxide Level 33 MMOL/L (21-32) H Anion Gap 2 mmol/L (5-15) L Blood Urea Nitrogen 18 mg/dL (7-18) Creatinine 0.8 MG/DL (0.55-1.30) Estimat Glomerular Filtration Rate > 60 mL/min (>60) Glucose Level 245 MG/DL (74-106) #H Calcium Level 8.9 MG/DL (8.5-10.1) Terrance Nicole MD Apr 25, 2020 14:41
--- NOTE | 2020-04-25 15:30 | Consultation ---
DATE OF CONSULTATION: 04/25/2020 CARDIOLOGY CONSULTATION REFERRING PHYSICIAN: Romie Murray M.D. REASON FOR CONSULTATION: Nine beats of ventricular tachycardia. HISTORY OF PRESENT ILLNESS: The patient is an 79-year-old gentleman with a history of hypertension, diabetes, and benign prostatic hypertrophy, who was brought in by paramedics for difficulty breathing. The patient had recent COVID infection. The patient had recently been to emergency room at [facility], was diagnosed with coronavirus with saturation in the 80s. The patient was started on 4 L nasal cannula. The patient was admitted on April 18, 2020 and cardiology consultation was obtained today as the patient had 9 beats of ventricular tachycardia. REVIEW OF SYSTEMS: Negative other than what is mentioned in history of present illness. PAST MEDICAL HISTORY: As mentioned above. FAMILY HISTORY: Noncontributory. PHYSICAL EXAMINATION: VITAL SIGNS: Blood pressure 125/61, pulse is 89, respirations 18, and temperature 98.3. HEAD AND NECK: No JVD. LUNGS: Coarse rhonchi. CARDIOVASCULAR: Regular S1 and S2 with no gallop. ABDOMEN: Soft. EXTREMITIES: 1+ pitting edema. LABORATORY AND DIAGNOSTIC DATA: Labs show white count of 7.2, hemoglobin 12.7, hematocrit 35.2, and platelet count is 342. Sodium 139, potassium 3.9, BUN of 18, creatinine 0.8, and glucose of 245. INR is 1. D-dimer is 0.64. ASSESSMENT AND PLAN: 1. Nonsustained ventricular tachycardia. We will completely rule out NV protocol, get an echocardiogram for further evaluation. Avoid electrolyte abnormalities. Today potassium is 3.9, and BUN and creatinine are normal and sodium is normal. 2. History of hypertension. Blood pressure is currently stable, even though earlier today it was 162/85. We will start the patient on low-dose beta-preet that would help with the patient's ventricular tachycardia as well. 3. Diabetes, on insulin. 4. COVID pneumonia, on dexamethasone and albuterol. Further evaluation by ID and Pulmonary. Thank you very much for allowing me to participate in the care of this patient. Please do not hesitate to contact me for any questions regarding my evaluation. Terrance Nicole M.D. DR: PELON JOB#: [id number] CC:
--- NOTE | 2020-04-25 15:50 | NUR ---
NURSE NOTES: Patient on room air oxygen saturation within normal limits above 94%. Upon ambulation patients oxygen saturation decreases 88%-90%. The patient also became tachypneic to 23 breaths per minute. Once patients is done ambulating and sits to rest oxygen saturation returns within normal limit >94%.
[2020-04-25 16:00] VITALS: BP 129/63
--- NOTE | 2020-04-25 16:04 | Cardiology Report ---
APPROVED REPORT EKG Measurement Heart [id number] <Conclusion> Sinus tachycardia with premature supraventricular complexes Low voltage QRS Borderline ECG
--- NOTE | 2020-04-25 19:20 | NUR ---
NURSE NOTES: Report received from REANNA Wilson. Patient alert and oriented x 4. surveillance monitor is in place. No resp distress noted, sating at 92% on RA. IV site is on right hand g-22 running IVF of NS + 30 Meqs KCL @ 50 cc/hour. Bed in low position and locked, side rails up x 2, call light button and bedside table within reach, instructed to call for any assistance needed. Will continue plan of care.
--- NOTE | 2020-04-25 19:45 | NUR ---
NURSE HAND-OFF REPORT: Important Events on Shift:[O2 saturation on ambulation] Patient Status: [Full code] Diet: [CCHO low] Pending Orders: [Troponin, 2D echo] Pending Results/Labs:[N/A] Pending MD notification:[N/A] Latest Vital Signs: Temperature 98.6 , Pulse 101 , B/P 129 /63 , Respiratory Rate 22 , O2 SAT 93 , Simple Mask, O2 Flow Rate 4.0 . Vital Sign Comment: [] EKG Rhythm: Sinus Tachycardia Rhythm change?: N MD Notified?: Kiarra Daniel MD Response: No New Orders Received Latest Rivas Fall Score: 45 Fall Risk: High Risk Safety Measures: Call light Within Reach, Bed Alarm Zone 1, Side Rails Side Rails x2, Bed position Low and Locked. Fall Precautions: Yellow Socks Yellow Gown Door Sign Patient Fall Education Report given to [REANNA Tilley].
[2020-04-25 20:00] VITALS: BP 150/77
[2020-04-26] VITALS: BP 150/70
[2020-04-26 04:00] VITALS: BP 155/73
[2020-04-26 06:19] LABS: BASOPHILS % (AUTO) 0.7 % (0.0-2.0); EOSINOPHILS % (AUTO) 1.8 % (0.0-3.0); HEMATOCRIT 42.6 % (42.0-52.0); HEMOGLOBIN 14.1 G/DL (14.2-18.0); LYMPHOCYTES % (AUTO) 20.2 % (20.0-45.0); MEAN CORPUSCULAR VOLUME 93 FL (80-99); MONOCYTES % (AUTO) 11.8 % (1.0-10.0); NEUTROPHILS % (AUTO) 65.4 % (45.0-75.0); PLATELET COUNT 343 K/UL (150-450); RED BLOOD COUNT 4.59 M/UL (4.70-6.10); RED CELL DISTRIBUTION WIDTH 12.6 % (11.6-14.8); WHITE BLOOD COUNT 7.8 K/UL (4.8-10.8)
[2020-04-26] MEDS: NovoLOG Insulin Flexpen SUBQ SCH ×4 (06:30→20:58)
--- NOTE | 2020-04-26 06:54 | NUR ---
NURSE NOTES: EKG done
[2020-04-26 07:00] LABS: ALANINE AMINOTRANSFERASE 31 U/L (12-78); ALBUMIN 2.5 G/DL (3.4-5.0); ALBUMIN/GLOBULIN RATIO 0.6 (1.0-2.7); ALKALINE PHOSPHATASE 62 U/L (46-116); ANION GAP 3 mmol/L (5-15); ASPARTATE AMINO TRANSFERASE 25 U/L (15-37); BILIRUBIN,TOTAL 0.4 MG/DL (0.2-1.0); BLOOD UREA NITROGEN 17 mg/dL (7-18); CALCIUM 9.3 MG/DL (8.5-10.1); CARBON DIOXIDE 31 MMOL/L (21-32); CHLORIDE 106 MMOL/L (98-107); CREATININE 0.8 MG/DL (0.55-1.30); PHOSPHORUS 2.9 MG/DL (2.5-4.9); POTASSIUM 4.2 MMOL/L (3.5-5.1); SODIUM 140 MMOL/L (136-145)
--- NOTE | 2020-04-26 07:29 | NUR ---
NURSE NOTES: Patient seen in bed watching TV in semifowlers position, patient is under no acute signs of distress and does not complain of any pain. The patient has finished breakfast, is on room air, and receiving 30Meq KCL in NS @ 50cc on the left wrist 22G that is clean, patent and intact.The patients bed is in lowest position locked side rails x2, call light within reach. Patients request have been met at this time. Patient educated precision grinder light for further request.
--- NOTE | 2020-04-26 07:35 | NUR ---
NURSE HAND-OFF REPORT: Important Events on Shift:[ekg done, restarted IV 20G] Patient Status: [full cod estable] Diet: [] Pending Orders: [] Pending Results/Labs:[] Pending MD notification:[] Latest Vital Signs: Temperature 97.8 , Pulse 70 , B/P 155 /73 , Respiratory Rate 18 , O2 SAT 97 , Simple Mask, O2 Flow Rate 4.0 . Vital Sign Comment: [] EKG Rhythm: Sinus Rhythm Rhythm change?: N Notified?: N -Dr. Fredy JOE Response: No New Orders Received Latest Rivas Fall Score: 45 Fall Risk: High Risk Safety Measures: Call light Within Reach, Bed Alarm Zone 1, Side Rails Side Rails x2, Bed position Low and Locked. Fall Precautions: Yellow Socks Yellow Gown Door Sign Patient Fall Education Report given to [REANNA Wilson].
--- NOTE | 2020-04-26 07:37 | NUR ---
CASE MANAGEMENT:REVIEW 04/26/20 SI: COVID PNEUMONIA SATS DROPPED TO 91% ON 4L LAST NIGHT 97.8 76 18 155/73 97% ON 4L/NC HGB-14.1 GLUCOSE+125 MAG-1.7 IS: LOVENOX SQ QD IVF+KCL@50/HR DECADRON PO QD PROTONIX PO Q12 COLACE PO TID SS INSULIN AC+HS : TELEMETRY STATUS DCP: FROM HOME PLAN: TRANSFER TO [place] TO [phone] 2DECHO PENDING FOR TODAY WEAN OXYGEN ABLE
[2020-04-26 08:00] VITALS: BP 128/72
[2020-04-26] MEDS: Docusate 100mg cap ORAL SCH ×3 (08:26→17:25)
[2020-04-26] MEDS: Enoxaparin 40mg Inj SUBQ SCH (08:27)
--- NOTE | 2020-04-26 09:00 | Infectious Diseases Prog Note ---
Assessment/Plan 79yo M with: COVID pna Acute hypoxia 2/2 severe COVID pna Afebrile Normal WBC Lymphopenia Elevated AST to 38 likely 2/2 COVID 04/12 COVID positive; flu neg 04/18 COVID rapid test positive BCx NTD Resp cx NTD CXR: BL pna UA neg 04/21 CXR: Patchy bilateral airspace consolidations, consistent with severe multifocal infiltrate. Overall, minimal worsening when compared to previous study. 04/24 CXR: No change from prior Cr 1.1 No DVT on US 04/21 PMH: DM2 HTN HLD Prostate disease Plan: Cont dex 6mg daily #/10 - if discharged home please complete course of steroids Monitor off abx OK to d/c home off isolation given >10 days out from initial dx and doing well on RA 04/23 SP RDV #5, CTX/az #5 This institution does not have access to convalescent plasma, and as pt 6 days out from diagnosis less likely to benefit from it. Monitor CBC/CMP Monitor resp status Monitor temp curve, hemodynamics D/w RN Thank you for this consult. [facility] will continue to follow. Subjective Allergies: Coded Allergies: No Known Allergies (Unverified , 04/18/20) AF WBC 7.8 NAD, feeling good, when walking around feels fine, no SOB Satting 94-98% on RA Objective Last 24 Hour Vital Signs Date Time Temp Pulse Resp B/P (MAP) Pulse Ox O2 Delivery O2 Flow Rate FiO2 04/26/20 04:00 97.8 76 18 155/73 (100) 97 04/26/20 04:00 70 04/26/20 00:00 81 04/26/20 00:00 97.0 88 18 150/70 (96) 96 04/25/20 21:00 Room Air 04/25/20 20:00 96.9 87 19 150/77 (101) 91 04/25/20 20:00 114 04/25/20 16:00 101 04/25/20 16:00 98.6 93 22 129/63 (85) 93 04/25/20 12:00 98.3 89 18 125/61 (82) 94 04/25/20 12:00 62 Height (Feet): 5 Height (Inches): 6.00 Weight (Pounds): 172 Gen: NAD HEENT: NCAT Pulm: BL chest rise Abd: Non-distended Ext: No c/c/e Skin: No visible rashes Neuro: Awake Laboratory Tests Test 04/25/20 12:52 04/25/20 17:08 04/25/20 21:13 04/26/20 05:00 POC Whole Blood Glucose 160 MG/DL (74-106) H 246 MG/DL (74-106) H 155 MG/DL (74-106) H White Blood Count 7.8 K/UL (4.8-10.8) Red Blood Count 4.59 M/UL (4.70-6.10) L Hemoglobin 14.1 G/DL (14.2-18.0) L Hematocrit 42.6 % (42.0-52.0) Mean Corpuscular Volume 93 FL (80-99) Mean Corpuscular Hemoglobin 30.7 PG (27.0-31.0) Mean Corpuscular Hemoglobin Concent 33.1 G/DL (32.0-36.0) Red Cell Distribution Width 12.6 % (11.6-14.8) Platelet Count 343 K/UL (150-450) Mean Platelet Volume 6.7 FL (6.5-10.1) Neutrophils (%) (Auto) 65.4 % (45.0-75.0) Lymphocytes (%) (Auto) 20.2 % (20.0-45.0) Monocytes (%) (Auto) 11.8 % (1.0-10.0) H Eosinophils (%) (Auto) 1.8 % (0.0-3.0) Basophils (%) (Auto) 0.7 % (0.0-2.0) Sodium Level 140 MMOL/L (136-145) Potassium Level 4.2 MMOL/L (3.5-5.1) Chloride Level 106 MMOL/L (98-107) Carbon Dioxide Level 31 MMOL/L (21-32) Anion Gap 3 mmol/L (5-15) L Blood Urea Nitrogen 17 mg/dL (7-18) Creatinine 0.8 MG/DL (0.55-1.30) Estimat Glomerular Filtration Rate > 60 mL/min (>60) Glucose Level 125 MG/DL (74-106) #H Calcium Level 9.3 MG/DL (8.5-10.1) Phosphorus Level 2.9 MG/DL (2.5-4.9) Magnesium Level 1.7 MG/DL (1.8-2.4) L Total Bilirubin 0.4 MG/DL (0.2-1.0) Aspartate Amino Transf (AST/SGOT) 25 U/L (15-37) Alanine Aminotransferase (ALT/SGPT) 31 U/L (12-78) Alkaline Phosphatase 62 U/L (46-116) Troponin I 0.005 ng/mL (0.000-0.056) C-Reactive Protein, Quantitative Pending Pro-B-Type Natriuretic Peptide 326 pg/mL (0-125) H Total Protein 6.8 G/DL (6.4-8.2) Albumin 2.5 G/DL (3.4-5.0) L Globulin 4.3 g/dL Albumin/Globulin Ratio 0.6 (1.0-2.7) L Test 04/26/20 05:56 POC Whole Blood Glucose 135 MG/DL (74-106) H Current Medications Medications (Trade) Dose Ordered Sig/Lucy Route PRN Reason Start Time Stop Time Status Last Admin Dose Admin Acetaminophen (Tylenol) 650 mg Q4H PRN ORAL FEVER 04/18/20 10:45 05/18/20 10:44 Albuterol/ Ipratropium (Combivent Respimat) 1 puff Q4H PRN INH Shortness of Breath 04/18/20 11:15 05/18/20 11:14 Dexamethasone (Decadron) 6 mg DAILY ORAL 04/19/20 09:00 04/28/20 09:01 04/26/20 08:26 Dextrose (Dextrose 50%) 25 ml Q30M PRN IV Hypoglycemia 04/18/20 10:45 07/17/20 10:44 Dextrose (Dextrose 50%) 50 ml Q30M PRN IV Hypoglycemia 04/18/20 10:45 07/17/20 10:44 Docusate Sodium (Colace) 100 mg THREE TIMES A DAY ORAL 04/18/20 13:00 05/18/20 12:59 04/26/20 08:26 Enoxaparin Sodium (Lovenox) 40 mg DAILY SUBQ 04/24/20 09:00 07/23/20 08:59 04/26/20 08:27 Insulin Aspart (NovoLOG) BEFORE MEALS AND HS SUBQ 04/18/20 11:30 07/17/20 11:29 04/25/20 21:19 Ondansetron HCl (Zofran) 4 mg Q6H PRN IVP Nausea & Vomiting 04/18/20 10:45 05/18/20 10:44 Pantoprazole (Protonix) 40 mg EVERY 12 HOURS ORAL 04/18/20 21:00 05/18/20 20:59 04/26/20 08:26 Polyethylene Glycol (Miralax) 17 gm DAILYPRN PRN ORAL Constipation 04/18/20 10:45 05/18/20 10:44 Potassium Chloride 30 meq/ Sodium Chloride 1,015 ml @ 50 mls/hr [id number] IV 04/19/20 09:00 05/19/20 08:59 04/26/20 04:36 Promethazine HCl/ Codeine (Phenergan with Codeine) 5 ml Q6H PRN ORAL cough 04/18/20 10:45 05/18/20 10:44 04/25/20 01:50 Andria Pond M.D. Apr 26, 2020 09:00
--- NOTE | 2020-04-26 11:04 | NUR ---
NURSE NOTES: Patient at rest and on room air oxygen saturation ranges from 94%-98%. When patient begins to ambulates on room air the patient O2 Saturation ranges from 87%-91%. Once the patient sits back in bed and rest patients oxygen saturation returns to normal above 94%.
--- NOTE | 2020-04-26 11:50 | Surgery Progress Note ---
Surgery Progress Note Subjective Additional Comments cardio input noted no n/v labs stable exam stable on steroids stable off abx Objective Last 24 Hour Vital Signs Date Time Temp Pulse Resp B/P (MAP) Pulse Ox O2 Delivery O2 Flow Rate FiO2 04/26/20 09:00 Room Air 04/26/20 08:00 96.8 95 18 128/72 (90) 95 04/26/20 08:00 92 04/26/20 04:00 97.8 76 18 155/73 (100) 97 04/26/20 04:00 70 04/26/20 00:00 81 04/26/20 00:00 97.0 88 18 150/70 (96) 96 04/25/20 21:00 Room Air 04/25/20 20:00 96.9 87 19 150/77 (101) 91 04/25/20 20:00 114 04/25/20 16:00 101 04/25/20 16:00 98.6 93 22 129/63 (85) 93 04/25/20 12:00 98.3 89 18 125/61 (82) 94 04/25/20 12:00 62 I&O Intake and Output 04/25/20 04/26/20 19:00 07:00 Intake Total 910 ml Output Total 400 ml Balance 910 ml -400 ml Intake Oral 760 ml IV Total 150 ml Output Urine Total 400 ml # Voids 2 1 Dressing: saturated Cardiovascular: RSR Respiratory: clear Abdomen: soft, non-tender, present bowel sounds, non-distended Extremities: no edema, no tenderness, no cyanosis Laboratory Tests Test 04/25/20 12:52 04/25/20 17:08 04/25/20 21:13 04/26/20 05:00 POC Whole Blood Glucose 160 MG/DL (74-106) H 246 MG/DL (74-106) H 155 MG/DL (74-106) H White Blood Count 7.8 K/UL (4.8-10.8) Red Blood Count 4.59 M/UL (4.70-6.10) L Hemoglobin 14.1 G/DL (14.2-18.0) L Hematocrit 42.6 % (42.0-52.0) Mean Corpuscular Volume 93 FL (80-99) Mean Corpuscular Hemoglobin 30.7 PG (27.0-31.0) Mean Corpuscular Hemoglobin Concent 33.1 G/DL (32.0-36.0) Red Cell Distribution Width 12.6 % (11.6-14.8) Platelet Count 343 K/UL (150-450) Mean Platelet Volume 6.7 FL (6.5-10.1) Neutrophils (%) (Auto) 65.4 % (45.0-75.0) Lymphocytes (%) (Auto) 20.2 % (20.0-45.0) Monocytes (%) (Auto) 11.8 % (1.0-10.0) H Eosinophils (%) (Auto) 1.8 % (0.0-3.0) Basophils (%) (Auto) 0.7 % (0.0-2.0) Sodium Level 140 MMOL/L (136-145) Potassium Level 4.2 MMOL/L (3.5-5.1) Chloride Level 106 MMOL/L (98-107) Carbon Dioxide Level 31 MMOL/L (21-32) Anion Gap 3 mmol/L (5-15) L Blood Urea Nitrogen 17 mg/dL (7-18) Creatinine 0.8 MG/DL (0.55-1.30) Estimat Glomerular Filtration Rate > 60 mL/min (>60) Glucose Level 125 MG/DL (74-106) #H Calcium Level 9.3 MG/DL (8.5-10.1) Phosphorus Level 2.9 MG/DL (2.5-4.9) Magnesium Level 1.7 MG/DL (1.8-2.4) L Total Bilirubin 0.4 MG/DL (0.2-1.0) Aspartate Amino Transf (AST/SGOT) 25 U/L (15-37) Alanine Aminotransferase (ALT/SGPT) 31 U/L (12-78) Alkaline Phosphatase 62 U/L (46-116) Troponin I 0.005 ng/mL (0.000-0.056) C-Reactive Protein, Quantitative Pending Pro-B-Type Natriuretic Peptide 326 pg/mL (0-125) H Total Protein 6.8 G/DL (6.4-8.2) Albumin 2.5 G/DL (3.4-5.0) L Globulin 4.3 g/dL Albumin/Globulin Ratio 0.6 (1.0-2.7) L Test 1/7/21 05:56 POC Whole Blood Glucose 135 MG/DL (74-106) H Plan Problems: (1) Abnormal LFTs Assessment & Plan: elevated lft's t bili elevated direct <50% elevated unlikely obstructed biliary unlikely alon abd exam benign US hold for now given covid will follow clinically with exam and recs thank you DAILY ESTIMATED NEEDS: Needs based on pulmonary, DM 67.5kg 25-30 kcals/kg 1641-2095 total kcals 1-1.5 g protein/kg 68-101 g total protein 25-30 mL/kg 8234-3483 total fluid mLs NUTRITION DIAGNOSIS: Altered nutrition related lab values r/t clinical status and diabetes as evidenced by A1C 7.1, elev BG (118-245), elev CO2 (33). CURRENT DIET:[facility] PO DIET RECOMMENDATIONS: [facility] ADDITIONAL RECOMMENDATIONS: 1) Maintain daily calibrated bed scale wts Obtain a standing weight as able 2) Good po intake on all meals, consider increasing insulin coverage for improved glycemic control (2) Diabetes (3) Hypoxia (4) Coronavirus infection Assessment & Plan: There are bilateral patchy and streaky infiltrates in a peribronchovascular distribution, left greater than right. Heart size is normal. Pleural spaces are clear. Impression: Bilateral infiltrates, consistent with multifocal pneumonia, likely viral pulm input appreciated ID on abx and Rx pulm respiratory support (5) History of hypertension (6) BPH (benign prostatic hyperplasia) (7) Electrolyte imbalance Assessment & Plan: being replaced cont diet Jesus Manuel Cruz Apr 26, 2020 11:50
[2020-04-26 12:00] VITALS: BP 144/84
--- NOTE | 2020-04-26 12:39 | Pulmonology Progress Note ---
Subjective ROS Limited/Unobtainable: No Allergies: Coded Allergies: No Known Allergies (Unverified , 04/18/20) Subjective now on RA, howevere desaturated to 87% while ambulating while sitting pulse ox stable no resp distress, no SOB remains afebrile, no leukocytosis less cough,less chest discomfort with cough and deep breathing Objective Last 24 Hour Vital Signs Date Time Temp Pulse Resp B/P (MAP) Pulse Ox O2 Delivery O2 Flow Rate FiO2 04/26/20 12:00 97.6 92 18 144/84 (104) 93 04/26/20 12:00 97 04/26/20 09:00 Room Air 04/26/20 08:00 96.8 95 18 128/72 (90) 95 04/26/20 08:00 92 04/26/20 04:00 97.8 76 18 155/73 (100) 97 04/26/20 04:00 70 04/26/20 00:00 81 04/26/20 00:00 97.0 88 18 150/70 (96) 96 04/25/20 21:00 Room Air 04/25/20 20:00 96.9 87 19 150/77 (101) 91 04/25/20 20:00 114 04/25/20 16:00 101 04/25/20 16:00 98.6 93 22 129/63 (85) 93 Intake and Output 04/25/20 04/26/20 19:00 07:00 Intake Total 910 ml Output Total 400 ml Balance 910 ml -400 ml Intake Oral 760 ml IV Total 150 ml Output Urine Total 400 ml # Voids 2 1 General Appearance: WD/WN, no acute distress HEENT: normocephalic Respiratory: chest wall non-tender, lungs clear - with moderate air exchange , other - RA Cardiovascular: normal peripheral pulses, normal rate Abdomen: normal bowel sounds, no organomegaly Extremities: no edema Skin: no rash Neurologic: abnormal gait Musculoskeletal: normal muscle bulk Laboratory Tests 04/25/20 12:52: POC Whole Blood Glucose 160H 04/25/20 17:08: POC Whole Blood Glucose 246H 04/25/20 21:13: POC Whole Blood Glucose 155H 04/26/20 05:00: White Blood Count 7.8, Red Blood Count 4.59L, Hemoglobin 14.1L, Hematocrit 42.6, Mean Corpuscular Volume 93, Mean Corpuscular Hemoglobin 30.7, Mean Corpuscular Hemoglobin Concent 33.1, Red Cell Distribution Width 12.6, Platelet Count 343, Mean Platelet Volume 6.7, Neutrophils (%) (Auto) 65.4, Lymphocytes (%) (Auto) 20.2, Monocytes (%) (Auto) 11.8H, Eosinophils (%) (Auto) 1.8, Basophils (%) (Auto) 0.7, Sodium Level 140, Potassium Level 4.2, Chloride Level 106, Carbon Dioxide Level 31, Anion Gap 3L, Blood Urea Nitrogen 17, Creatinine 0.8, Estimat Glomerular Filtration Rate > 60, Glucose Level 125#H, Calcium Level 9.3, Phosphorus Level 2.9, Magnesium Level 1.7L, Total Bilirubin 0.4, Aspartate Amino Transf (AST/SGOT) 25, Alanine Aminotransferase (ALT/SGPT) 31, Alkaline P hosphatase 62, Troponin I 0.005, C-Reactive Protein, Quantitative [Pending], Pro-B-Type Natriuretic Peptide 326H, Total Protein 6.8, Albumin 2.5L, Globulin 4.3, Albumin/Globulin Ratio 0.6L 04/26/20 05:56: POC Whole Blood Glucose 135H Current Medications Medications (Trade) Dose Ordered Sig/Lucy Route PRN Reason Start Time Stop Time Status Last Admin Dose Admin Acetaminophen (Tylenol) 650 mg Q4H PRN ORAL FEVER 04/18/20 10:45 05/18/20 10:44 Albuterol/ Ipratropium (Combivent Respimat) 1 puff Q4H PRN INH Shortness of Breath 04/18/20 11:15 05/18/20 11:14 Dexamethasone (Decadron) 6 mg DAILY ORAL 04/19/20 09:00 04/28/20 09:01 04/26/20 08:26 Dextrose (Dextrose 50%) 25 ml Q30M PRN IV Hypoglycemia 04/18/20 10:45 07/17/20 10:44 Dextrose (Dextrose 50%) 50 ml Q30M PRN IV Hypoglycemia 04/18/20 10:45 07/17/20 10:44 Docusate Sodium (Colace) 100 mg THREE TIMES A DAY ORAL 04/18/20 13:00 05/18/20 12:59 04/26/20 12:12 Enoxaparin Sodium (Lovenox) 40 mg DAILY SUBQ 04/24/20 09:00 07/23/20 08:59 04/26/20 08:27 Insulin Aspart (NovoLOG) BEFORE MEALS AND HS SUBQ 04/18/20 11:30 07/17/20 11:29 04/26/20 12:23 Ondansetron HCl (Zofran) 4 mg Q6H PRN IVP Nausea & Vomiting 04/18/20 10:45 05/18/20 10:44 Pantoprazole (Protonix) 40 mg EVERY 12 HOURS ORAL 04/18/20 21:00 05/18/20 20:59 04/26/20 08:26 Polyethylene Glycol (Miralax) 17 gm DAILYPRN PRN ORAL Constipation 04/18/20 10:45 05/18/20 10:44 Potassium Chloride 30 meq/ Sodium Chloride 1,015 ml @ 50 mls/hr [id number] IV 04/19/20 09:00 05/19/20 08:59 04/26/20 04:36 Promethazine HCl/ Codeine (Phenergan with Codeine) 5 ml Q6H PRN ORAL cough 04/18/20 10:45 05/18/20 10:44 04/25/20 01:50 Assessment/Plan Assessment/Plan ASSESSMENT Acute hypoxemic respiratory failure requiring face mask mask COVID-19 pneumonia Diabetes mellitus Hypertension Hyperlipidemia BPH PLAN OF CARE tele isolation room Date of sx onset: few days prior to presentation to ED on 04/18 Positive test: 04/18 rapid COVID + ( was tested positive prior as well) O2 - RA but desaturates while ambulating HFA s/p REM x 5 days ( 04/18 - 04/22 ) Dex Day# 9( 04/18 -) DVT PPX: Lovenox Venous Duplex BLE 1/2 NGT D dimer 0.64 Trend CRP 16.5 - > 7-> 7.2-> 55.2 -> 27.8 CXR 1/2 -> Patchy bilateral airspace consolidations, consistent with severe multifocal infiltrate CXR 04/24 -> no significant changes s/p abx per ID recs, completed 04/23 monitor volumes and renal function Fup with consultants recs FC Discuss GOC BS management with SSI BP management GI prophylaxis supportive care dc plan for tomorrow if still desaturates may need O2 case discussed and evaluated by supervising physician Sridevi Alfaro NP Apr 26, 2020 12:39 Mo Hinton MD Apr 26, 2020 17:21
--- NOTE | 2020-04-26 12:56 | Nephrology Progress Note ---
Assessment/Plan Problem List: (1) Electrolyte imbalance (2) Coronavirus infection (3) Hypoxia (4) BPH (benign prostatic hyperplasia) Assessment Electrolyte imbalance Low sodium, low magnesium, low potassium Coronavirus infection, hypoxia Diabetes mellitus Plan April 26: Labs reviewed. Renal parameters are stable. Continue per consultants. April 25: Labs reviewed. Stable renal parameters. Continue per consultants. April 24: Labs reviewed. Renal parameters stable. Continue per consultants. April 23: Labs reviewed. Renal parameters stable. Continue as current treatment plan. April 22: Today's labs reviewed and renal parameters remain stable continue per consultants April 21: Labs reviewed. Renal parameters stable. Continue per consultants. Medication list reviewed. April 20: Labs reviewed. Renal parameters and electrolytes stable. Continue per consultants. Previously: Normal saline with potassium IV Mag sulfate IV Protonix and stool softener Antibiotics Monitor electrolytes and renal parameters Per orders Subjective ROS Limited/Unobtainable: No Constitutional: Reports: malaise, weakness Objective Objective Last 24 Hour Vital Signs Date Time Temp Pulse Resp B/P (MAP) Pulse Ox O2 Delivery O2 Flow Rate FiO2 04/26/20 12:00 97.6 92 18 144/84 (104) 93 04/26/20 12:00 97 04/26/20 09:00 Room Air 04/26/20 08:00 96.8 95 18 128/72 (90) 95 04/26/20 08:00 92 04/26/20 04:00 97.8 76 18 155/73 (100) 97 04/26/20 04:00 70 04/26/20 00:00 81 04/26/20 00:00 97.0 88 18 150/70 (96) 96 04/25/20 21:00 Room Air 04/25/20 20:00 96.9 87 19 150/77 (101) 91 04/25/20 20:00 114 04/25/20 16:00 101 04/25/20 16:00 98.6 93 22 129/63 (85) 93 Intake and Output 04/25/20 04/26/20 19:00 07:00 Intake Total 910 ml Output Total 400 ml Balance 910 ml -400 ml Intake Oral 760 ml IV Total 150 ml Output Urine Total 400 ml # Voids 2 1 Current Medications Medications (Trade) Dose Ordered Sig/Lucy Route PRN Reason Start Time Stop Time Status Last Admin Dose Admin Acetaminophen (Tylenol) 650 mg Q4H PRN ORAL FEVER 04/18/20 10:45 05/18/20 10:44 Albuterol/ Ipratropium (Combivent Respimat) 1 puff Q4H PRN INH Shortness of Breath 04/18/20 11:15 05/18/20 11:14 Dexamethasone (Decadron) 6 mg DAILY ORAL 04/19/20 09:00 04/28/20 09:01 04/26/20 08:26 Dextrose (Dextrose 50%) 25 ml Q30M PRN IV Hypoglycemia 04/18/20 10:45 07/17/20 10:44 Dextrose (Dextrose 50%) 50 ml Q30M PRN IV Hypoglycemia 04/18/20 10:45 07/17/20 10:44 Docusate Sodium (Colace) 100 mg THREE TIMES A DAY ORAL 04/18/20 13:00 05/18/20 12:59 04/26/20 12:12 Enoxaparin Sodium (Lovenox) 40 mg DAILY SUBQ 04/24/20 09:00 07/23/20 08:59 04/26/20 08:27 Insulin Aspart (NovoLOG) BEFORE MEALS AND HS SUBQ 04/18/20 11:30 07/17/20 11:29 04/26/20 12:23 Ondansetron HCl (Zofran) 4 mg Q6H PRN IVP Nausea & Vomiting 04/18/20 10:45 05/18/20 10:44 Pantoprazole (Protonix) 40 mg EVERY 12 HOURS ORAL 04/18/20 21:00 05/18/20 20:59 04/26/20 08:26 Polyethylene Glycol (Miralax) 17 gm DAILYPRN PRN ORAL Constipation 04/18/20 10:45 05/18/20 10:44 Potassium Chloride 30 meq/ Sodium Chloride 1,015 ml @ 50 mls/hr [id number] IV 04/19/20 09:00 05/19/20 08:59 04/26/20 04:36 Promethazine HCl/ Codeine (Phenergan with Codeine) 5 ml Q6H PRN ORAL cough 04/18/20 10:45 05/18/20 10:44 04/25/20 01:50 Laboratory Tests 04/25/20 17:08: POC Whole Blood Glucose 246H 04/25/20 21:13: POC Whole Blood Glucose 155H 04/26/20 05:00: White Blood Count 7.8, Red Blood Count 4.59L, Hemoglobin 14.1L, Hematocrit 42.6, Mean Corpuscular Volume 93, Mean Corpuscular Hemoglobin 30.7, Mean Corpuscular Hemoglobin Concent 33.1, Red Cell Distribution Width 12.6, Platelet Count 343, Mean Platelet Volume 6.7, Neutrophils (%) (Auto) 65.4, Lymphocytes (%) (Auto) 20.2, Monocytes (%) (Auto) 11.8H, Eosinophils (%) (Auto) 1.8, Basophils (%) (Auto) 0.7, Sodium Level 140, Potassium Level 4.2, Chloride Level 106, Carbon Dioxide Level 31, Anion Gap 3L, Blood Urea Nitrogen 17, Creatinine 0.8, Estimat Glomerular Filtration Rate > 60, Glucose Level 125#H, Calcium Level 9.3, Phosphorus Level 2.9, Magnesium Level 1.7L, Total Bilirubin 0.4, Aspartate Amino Transf (AST/SGOT) 25, Alanine Aminotransferase (ALT/SGPT) 31, Alkaline Phosphatase 62, Troponin I 0.005, C-Reactive Protein, Quantitative [Pending], Pro-B-Type Natriuretic Peptide 326H, Total Protein 6.8, Albumin 2.5L, Globulin 4.3, Albumin/Globulin Ratio 0.6L 04/26/20 05:56: POC Whole Blood Glucose 135H Height (Feet): 5 Height (Inches): 6.00 Weight (Pounds): 172 General Appearance: no apparent distress Cardiovascular: tachycardia Respiratory/Chest: decreased breath sounds Abdomen: distended Roberto aYng MD Apr 26, 2020 12:56
--- NOTE | 2020-04-26 15:49 | Cardiac Electrophysiology PN ---
Assessment/Plan Assessment/Plan 1. Nonsustained ventricular tachycardia. Ruled out for ME and echocardiogram EF 65%. Avoid electrolyte abnormalities. Add Lopressor 25 po bid 2. History of hypertension. Add Lopressor 25 po bid 3. Diabetes, on insulin. 4. COVID pneumonia, on dexamethasone and albuterol. Further evaluation by ID and Pulmonary. Subjective Subjective Alert in covid isolation on RA Objective Last 24 Hour Vital Signs Date Time Temp Pulse Resp B/P (MAP) Pulse Ox O2 Delivery O2 Flow Rate FiO2 04/26/20 12:00 97.6 92 18 144/84 (104) 93 04/26/20 12:00 97 04/26/20 09:00 Room Air 04/26/20 08:00 96.8 95 18 128/72 (90) 95 04/26/20 08:00 92 04/26/20 04:00 97.8 76 18 155/73 (100) 97 04/26/20 04:00 70 04/26/20 00:00 81 04/26/20 00:00 97.0 88 18 150/70 (96) 96 04/25/20 21:00 Room Air 04/25/20 20:00 96.9 87 19 150/77 (101) 91 04/25/20 20:00 114 04/25/20 16:00 101 04/25/20 16:00 98.6 93 22 129/63 (85) 93 Intake and Output0 04/25/20 04/26/20 19:00 07:00 Intake Total 910 ml Output Total 400 ml Balance 910 ml -400 ml Intake Oral 760 ml IV Total 150 ml Output Urine Total 400 ml # Voids 2 1 Laboratory Tests Test 04/25/20 17:08 04/25/20 21:13 04/26/20 05:00 04/26/20 05:56 POC Whole Blood Glucose 246 MG/DL (74-106) H 155 MG/DL (74-106) H 135 MG/DL (74-106) H White Blood Count 7.8 K/UL (4.8-10.8) Red Blood Count 4.59 M/UL (4.70-6.10) L Hemoglobin 14.1 G/DL (14.2-18.0) L Hematocrit 42.6 % (42.0-52.0) Mean Corpuscular Volume 93 FL (80-99) Mean Corpuscular Hemoglobin 30.7 PG (27.0-31.0) Mean Corpuscular Hemoglobin Concent 33.1 G/DL (32.0-36.0) Red Cell Distribution Width 12.6 % (11.6-14.8) Platelet Count 343 K/UL (150-450) Mean Platelet Volume 6.7 FL (6.5-10.1) Neutrophils (%) (Auto) 65.4 % (45.0-75.0) Lymphocytes (%) (Auto) 20.2 % (20.0-45.0) Monocytes (%) (Auto) 11.8 % (1.0-10.0) H Eosinophils (%) (Auto) 1.8 % (0.0-3.0) Basophils (%) (Auto) 0.7 % (0.0-2.0) Sodium Level 140 MMOL/L (136-145) Potassium Level 4.2 MMOL/L (3.5-5.1) Chloride Level 106 MMOL/L (98-107) Carbon Dioxide Level 31 MMOL/L (21-32) Anion Gap 3 mmol/L (5-15) L Blood Urea Nitrogen 17 mg/dL (7-18) Creatinine 0.8 MG/DL (0.55-1.30) Estimat Glomerular Filtration Rate > 60 mL/min (>60) Glucose Level 125 MG/DL (74-106) #H Calcium Level 9.3 MG/DL (8.5-10.1) Phosphorus Level 2.9 MG/DL (2.5-4.9) Magnesium Level 1.7 MG/DL (1.8-2.4) L Total Bilirubin 0.4 MG/DL (0.2-1.0) Aspartate Amino Transf (AST/SGOT) 25 U/L (15-37) Alanine Aminotransferase (ALT/SGPT) 31 U/L (12-78) Alkaline Phosphatase 62 U/L (46-116) Troponin I 0.005 ng/mL (0.000-0.056) C-Reactive Protein, Quantitative Pending Pro-B-Type Natriuretic Peptide 326 pg/mL (0-125) H Total Protein 6.8 G/DL (6.4-8.2) Albumin 2.5 G/DL (3.4-5.0) L Globulin 4.3 g/dL Albumin/Globulin Ratio 0.6 (1.0-2.7) L Test 04/26/20 14:37 POC Whole Blood Glucose 222 MG/DL (74-106) H Objective HEAD AND NECK: No JVD. LUNGS: Coarse rhonchi. CARDIOVASCULAR: Regular S1 and S2 with no gallop. ABDOMEN: Soft. EXTREMITIES: 1+ pitting edema. Terrance Nicole MD Apr 26, 2020 15:49
[2020-04-26 16:00] VITALS: BP 128/72
--- NOTE | 2020-04-26 18:01 | Internal Med Progress Note ---
Subjective Physician Name Romie Murray Attending Physician Romie Murray MD Current Medications Medications (Trade) Dose Ordered Sig/Lucy Route PRN Reason Start Time Stop Time Status Last Admin Dose Admin Acetaminophen (Tylenol) 650 mg Q4H PRN ORAL FEVER 04/18/20 10:45 05/18/20 10:44 Albuterol/ Ipratropium (Combivent Respimat) 1 puff Q4H PRN INH Shortness of Breath 04/18/20 11:15 05/18/20 11:14 Dexamethasone (Decadron) 6 mg DAILY ORAL 04/19/20 09:00 04/28/20 09:01 04/26/20 08:26 Dextrose (Dextrose 50%) 25 ml Q30M PRN IV Hypoglycemia 04/18/20 10:45 07/17/20 10:44 Dextrose (Dextrose 50%) 50 ml Q30M PRN IV Hypoglycemia 04/18/20 10:45 07/17/20 10:44 Docusate Sodium (Colace) 100 mg THREE TIMES A DAY ORAL 04/18/20 13:00 05/18/20 12:59 04/26/20 17:25 Enoxaparin Sodium (Lovenox) 40 mg DAILY SUBQ 04/24/20 09:00 07/23/20 08:59 04/26/20 08:27 Insulin Aspart (NovoLOG) BEFORE MEALS AND HS SUBQ 04/18/20 11:30 07/17/20 11:29 04/26/20 17:27 Metoprolol Tartrate (Lopressor) 25 mg Q12HR ORAL 04/26/20 21:00 07/25/20 20:59 Ondansetron HCl (Zofran) 4 mg Q6H PRN IVP Nausea & Vomiting 04/18/20 10:45 05/18/20 10:44 Pantoprazole (Protonix) 40 mg EVERY 12 HOURS ORAL 04/18/20 21:00 05/18/20 20:59 04/26/20 08:26 Polyethylene Glycol (Miralax) 17 gm DAILYPRN PRN ORAL Constipation 04/18/20 10:45 05/18/20 10:44 Potassium Chloride 30 meq/ Sodium Chloride 1,015 ml @ 50 mls/hr [id number] IV 04/19/20 09:00 05/19/20 08:59 04/26/20 04:36 Promethazine HCl/ Codeine (Phenergan with Codeine) 5 ml Q6H PRN ORAL cough 04/18/20 10:45 05/18/20 10:44 04/25/20 01:50 Allergies: Coded Allergies: No Known Allergies (Unverified , 04/18/20) Subjective Awake, alert, responsive, no acute distress. WBC: 7.8 Objective Last Vital Signs Date Time Temp Pulse Resp B/P (MAP) Pulse Ox O2 Delivery O2 Flow Rate FiO2 04/26/20 16:00 96.8 95 18 128/72 (90) 95 04/26/20 09:00 Room Air 04/25/20 21:00 04/25/20 07:00 36 Laboratory Tests Test 04/25/20 21:13 04/26/20 05:00 04/26/20 05:56 04/26/20 14:37 POC Whole Blood Glucose 155 MG/DL (74-106) H 135 MG/DL (74-106) H 222 MG/DL (74-106) H White Blood Count 7.8 K/UL (4.8-10.8) Red Blood Count 4.59 M/UL (4.70-6.10) L Hemoglobin 14.1 G/DL (14.2-18.0) L Hematocrit 42.6 % (42.0-52.0) Mean Corpuscular Volume 93 FL (80-99) Mean Corpuscular Hemoglobin 30.7 PG (27.0-31.0) Mean Corpuscular Hemoglobin Concent 33.1 G/DL (32.0-36.0) Red Cell Distribution Width 12.6 % (11.6-14.8) Platelet Count 343 K/UL (150-450) Mean Platelet Volume 6.7 FL (6.5-10.1) Neutrophils (%) (Auto) 65.4 % (45.0-75.0) Lymphocytes (%) (Auto) 20.2 % (20.0-45.0) Monocytes (%) (Auto) 11.8 % (1.0-10.0) H Eosinophils (%) (Auto) 1.8 % (0.0-3.0) Basophils (%) (Auto) 0.7 % (0.0-2.0) Sodium Level 140 MMOL/L (136-145) Potassium Level 4.2 MMOL/L (3.5-5.1) Chloride Level 106 MMOL/L (98-107) Carbon Dioxide Level 31 MMOL/L (21-32) Anion Gap 3 mmol/L (5-15) L Blood Urea Nitrogen 17 mg/dL (7-18) Creatinine 0.8 MG/DL (0.55-1.30) Estimat Glomerular Filtration Rate > 60 mL/min (>60) Glucose Level 125 MG/DL (74-106) #H Calcium Level 9.3 MG/DL (8.5-10.1) Phosphorus Level 2.9 MG/DL (2.5-4.9) Magnesium Level 1.7 MG/DL (1.8-2.4) L Total Bilirubin 0.4 MG/DL (0.2-1.0) Aspartate Amino Transf (AST/SGOT) 25 U/L (15-37) Alanine Aminotransferase (ALT/SGPT) 31 U/L (12-78) Alkaline Phosphatase 62 U/L (46-116) Troponin I 0.005 ng/mL (0.000-0.056) C-Reactive Protein, Quantitative Pending Pro-B-Type Natriuretic Peptide 326 pg/mL (0-125) H Total Protein 6.8 G/DL (6.4-8.2) Albumin 2.5 G/DL (3.4-5.0) L Globulin 4.3 g/dL Albumin/Globulin Ratio 0.6 (1.0-2.7) L Intake and Output 04/25/20 04/26/20 19:00 07:00 Intake Total 910 ml Output Total 400 ml Balance 910 ml -400 ml Intake Oral 760 ml IV Total 150 ml Output Urine Total 400 ml # Voids 2 1 Objective General: No acute distress, awake and alert HEENT: NCAT, sclera anicteric, PERRL, EOMI. Neck: Supple, no significant jugular venous distention, Lungs: Good inspiratory effort, no accessory muscle use, no Wheeze or Rales. Heart: Regular rate and rhythm, normal S1/S2, no murmurs/gallops Abdomen: soft, nontender, nondistended. Normoactive bowel sounds. / Rectal: Refused and deferred. Extremities: No Cyanosis , clubbing or edema. Neuro: A&O x 3, Able to move all extremities Skin: warm, no rashes or lesions Psych: Normal mood and affect Assessment/Plan Assessment/Plan ASSESSMENT: This is an 79-year-old male with: 1. COVID-19 positive. 2. Bilateral pneumonia. 3. Diabetes type 2. 4. Hypertension. 5. Hypercholesterolemia. 6. Benign prostatic hypertrophy. TREATMENT: 1. COVID-19 positive/bilateral pneumonia. Nasal Can[place]. Pulmonary consultation Continue Decadron intravenously. antibiotics = Off S/P ceftriaxone and azithromycin X 5 days Inf Dis=Dr Pond 2. Diabetes type 2. NovoLog sliding scale has been instituted. 3. Hypertension. Continue amlodipine, hydrochlorothiazide, and losartan as above. 4. Hypercholesterolemia. Continue simvastatin as above. 5. Benign prostatic hypertrophy. Continue Flomax as above. Romie Murray MD Apr 26, 2020 18:01
--- NOTE | 2020-04-26 19:28 | NUR ---
NURSE HAND-OFF REPORT: Important Events on Shift:[Med change, 2D echo] Patient Status: [Full code] Diet: [CCHO medium] Pending Orders: [N/A] Pending Results/Labs:[N/A] Pending MD notification:[N/A] Latest Vital Signs: Temperature 96.8 , Pulse 88 , B/P 128 /72 , Respiratory Rate 18 , O2 SAT 95 , Simple Mask, O2 Flow Rate . Vital Sign Comment: [] EKG Rhythm: Sinus Rhythm Rhythm change?: N MD Notified?: N -Dr. Fredy JOE Response: No New Orders Received Latest Rivas Fall Score: 45 Fall Risk: High Risk Safety Measures: Call light Within Reach, Bed Alarm Zone 1, Side Rails Side Rails x2, Bed position Low and Locked. Fall Precautions: Yellow Socks Yellow Gown Door Sign Patient Fall Education Report given to [REANNA Guillen].
--- NOTE | 2020-04-26 19:35 | NUR ---
NURSE NOTES: Report received from REANNA Wilson. Patient alert and oriented x 4. spool salvager is in place. No resp distress noted, sating at 93% on RA. IV site is on right hand g-20 running IVF of NS + 30 Meqs KCL @ 50 cc/hour. Bed in low position and locked, side rails up x 2, call light button and bedside table within reach, instructed to call for any assistance needed. Will continue plan of care.
[2020-04-26 20:00] VITALS: BP 138/62
[2020-04-27] VITALS: BP 130/60
[2020-04-27 04:00] VITALS: BP 143/70
[2020-04-27] MEDS: NovoLOG Insulin Flexpen SUBQ SCH ×4 (06:30→21:16)
--- NOTE | 2020-04-27 07:19 | NUR ---
NURSE HAND-OFF REPORT: Important Events on Shift:[n/a] Patient Status: [full code, stable] Diet: consistent carb diet med] Pending Orders: [] Pending Results/Labs:[] Pending MD notification:[] Latest Vital Signs: Temperature 98.8 , Pulse 66 , B/P 143 /70 , Respiratory Rate 20 , O2 SAT 95 , Simple Mask, O2 Flow Rate . Vital Sign Comment: [] EKG Rhythm: Sinus Rhythm Rhythm change?: N MD Notified?: N -Dr. Fredy JOE Response: No New Orders Received Latest Rivas Fall Score: 45 Fall Risk: High Risk Safety Measures: Call light Within Reach, Bed Alarm Zone 1, Side Rails Side Rails x2, Bed position Low and Locked. Fall Precautions: Yellow Socks Yellow Gown Door Sign Patient Fall Education Report given to [ALIREZARN].
[2020-04-27 08:00] VITALS: BP 150/72
[2020-04-27] MEDS: Enoxaparin 40mg Inj SUBQ SCH (09:00)
[2020-04-27] MEDS: Docusate 100mg cap ORAL SCH ×3 (09:00→17:18)
--- NOTE | 2020-04-27 09:36 | Infectious Diseases Prog Note ---
Assessment/Plan 79yo M with: COVID pna Acute hypoxia 2/2 severe COVID pna Afebrile Normal WBC Lymphopenia Elevated AST to 38 likely 2/2 COVID 04/12 COVID positive; flu neg 04/18 COVID rapid test positive BCx NTD Resp cx NTD CXR: BL pna UA neg 04/21 CXR: Patchy bilateral airspace consolidations, consistent with severe multifocal infiltrate. Overall, minimal worsening when compared to previous study. 04/24 CXR: No change from prior Cr 1.1 No DVT on US 04/21 PMH: DM2 HTN HLD Prostate disease Plan: Cont dex 6mg daily #01/27, last day today Monitor off abx OK to d/c home off isolation given >10 days out from initial dx and doing well on RA 04/23 SP RDV #5, CTX/az #5 This institution does not have access to convalescent plasma, and as pt 6 days out from diagnosis less likely to benefit from it. Monitor CBC/CMP Monitor resp status Monitor temp curve, hemodynamics D/w RN Thank you for this consult. [facility] will continue to follow. Subjective Allergies: Coded Allergies: No Known Allergies (Unverified , 04/18/20) AF Satting 95% on RA NAD, feeling fine, says breathing stable when walking around Objective Last 24 Hour Vital Signs Date Time Temp Pulse Resp B/P (MAP) Pulse Ox O2 Delivery O2 Flow Rate FiO2 04/27/20 08:41 Room Air 04/27/20 04:00 98.8 86 20 143/70 (94) 95 04/27/20 04:00 66 04/27/20 00:00 97.9 74 20 130/60 (83) 94 04/27/20 00:00 70 04/26/20 21:00 Room Air 04/26/20 20:50 68 138/60 04/26/20 20:00 97.4 80 18 138/62 (87) 94 04/26/20 20:00 79 04/26/20 16:00 88 04/26/20 16:00 96.8 95 18 128/72 (90) 95 04/26/20 12:00 97.6 92 18 144/84 (104) 93 04/26/20 12:00 97 Height (Feet): 5 Height (Inches): 6.00 Weight (Pounds): 172 Gen: NAD HEENT: NCAT Pulm: BL chest rise Abd: Non-distended Ext: No c/c/e Skin: No visible rashes Neuro: Awake Laboratory Tests Test 04/26/20 14:37 04/26/20 20:47 04/27/20 05:32 04/27/20 05:57 POC Whole Blood Glucose 222 MG/DL (74-106) H 186 MG/DL (74-106) H 117 MG/DL (74-106) H C-Reactive Protein, Quantitative Pending Current Medications Medications (Trade) Dose Ordered Sig/Lucy Route PRN Reason Start Time Stop Time Status Last Admin Dose Admin Acetaminophen (Tylenol) 650 mg Q4H PRN ORAL FEVER 04/18/20 10:45 05/18/20 10:44 Albuterol/ Ipratropium (Combivent Respimat) 1 puff Q4H PRN INH Shortness of Breath 04/18/20 11:15 05/18/20 11:14 Dexamethasone (Decadron) 6 mg DAILY ORAL 04/19/20 09:00 04/28/20 09:01 04/26/20 08:26 Dextrose (Dextrose 50%) 25 ml Q30M PRN IV Hypoglycemia 04/18/20 10:45 07/17/20 10:44 Dextrose (Dextrose 50%) 50 ml Q30M PRN IV Hypoglycemia 04/18/20 10:45 07/17/20 10:44 Docusate Sodium (Colace) 100 mg THREE TIMES A DAY ORAL 04/18/20 13:00 05/18/20 12:59 04/26/20 17:25 Enoxaparin Sodium (Lovenox) 40 mg DAILY SUBQ 04/24/20 09:00 07/23/20 08:59 04/26/20 08:27 Insulin Aspart (NovoLOG) BEFORE MEALS AND HS SUBQ 04/18/20 11:30 07/17/20 11:29 04/26/20 20:58 Metoprolol Tartrate (Lopressor) 25 mg Q12HR ORAL 04/26/20 21:00 07/25/20 20:59 04/26/20 20:50 Ondansetron HCl (Zofran) 4 mg Q6H PRN IVP Nausea & Vomiting 04/18/20 10:45 05/18/20 10:44 Pantoprazole (Protonix) 40 mg EVERY 12 HOURS ORAL 04/18/20 21:00 05/18/20 20:59 04/26/20 20:43 Polyethylene Glycol (Miralax) 17 gm DAILYPRN PRN ORAL Constipation 04/18/20 10:45 05/18/20 10:44 Potassium Chloride 30 meq/ Sodium Chloride 1,015 ml @ 50 mls/hr [id number] IV 04/19/20 09:00 05/19/20 08:59 04/27/20 00:19 Promethazine HCl/ Codeine (Phenergan with Codeine) 5 ml Q6H PRN ORAL cough 04/18/20 10:45 05/18/20 10:44 04/25/20 01:50 Andria Pond M.D. Apr 27, 2020 09:36
--- NOTE | 2020-04-27 10:13 | Nephrology Progress Note ---
Assessment/Plan Problem List: (1) Electrolyte imbalance (2) Coronavirus infection (3) Hypoxia (4) BPH (benign prostatic hyperplasia) Assessment Electrolyte imbalance Low sodium, low magnesium, low potassium Coronavirus infection, hypoxia Diabetes mellitus Plan April 27: No CHEM panel drawn today. Remains stable from renal standpoint of view. Continue per consultants. April 26: Labs reviewed. Renal parameters are stable. Continue per consultants. April 25: Labs reviewed. Stable renal parameters. Continue per consultants. April 24: Labs reviewed. Renal parameters stable. Continue per consultants. April 23: Labs reviewed. Renal parameters stable. Continue as current tr eatment plan. April 22: Today's labs reviewed and renal parameters remain stable continue per consultants April 21: Labs reviewed. Renal parameters stable. Continue per consultants. Medication list reviewed. April 20: Labs reviewed. Renal parameters and electrolytes stable. Continue per consultants. Previously: Normal saline with potassium IV Mag sulfate IV Protonix and stool softener Antibiotics Monitor electrolytes and renal parameters Per orders Subjective ROS Limited/Unobtainable: No Constitutional: Reports: malaise Objective Objective Last 24 Hour Vital Signs Date Time Temp Pulse Resp B/P (MAP) Pulse Ox O2 Delivery O2 Flow Rate FiO2 04/27/20 09:00 66 143/70 04/27/20 08:41 Room Air 04/27/20 04:00 98.8 86 20 143/70 (94) 95 04/27/20 04:00 66 04/27/20 00:00 97.9 74 20 130/60 (83) 94 04/27/20 00:00 70 04/26/20 21:00 Room Air 04/26/20 20:50 68 138/60 04/26/20 20:00 97.4 80 18 138/62 (87) 94 04/26/20 20:00 79 04/26/20 16:00 88 04/26/20 16:00 96.8 95 18 128/72 (90) 95 04/26/20 12:00 97.6 92 18 144/84 (104) 93 04/26/20 12:00 97 Intake and Output 04/26/20 04/27/20 19:00 07:00 Intake Total 500 ml 700 ml Output Total 1200 ml Balance -700 ml 700 ml Intake Oral 500 ml 700 ml Output Urine Total 1200 ml # Voids 2 # Bowel Movements 1 Current Medications Medications (Trade) Dose Ordered Sig/Lucy Route PRN Reason Start Time Stop Time Status Last Admin Dose Admin Acetaminophen (Tylenol) 650 mg Q4H PRN ORAL FEVER 04/18/20 10:45 05/18/20 10:44 Albuterol/ Ipratropium (Combivent Respimat) 1 puff Q4H PRN INH Shortness of Breath 04/18/20 11:15 05/18/20 11:14 Dexamethasone (Decadron) 6 mg DAILY ORAL 04/19/20 09:00 04/28/20 09:01 04/27/20 09:00 Dextrose (Dextrose 50%) 25 ml Q30M PRN IV Hypoglycemia 04/18/20 10:45 07/17/20 10:44 Dextrose (Dextrose 50%) 50 ml Q30M PRN IV Hypoglycemia 04/18/20 10:45 07/17/20 10:44 Docusate Sodium (Colace) 100 mg THREE TIMES A DAY ORAL 04/18/20 13:00 05/18/20 12:59 04/27/20 09:00 Enoxaparin Sodium (Lovenox) 40 mg DAILY SUBQ 04/24/20 09:00 07/23/20 08:59 04/27/20 09:00 Insulin Aspart (NovoLOG) BEFORE MEALS AND HS SUBQ 04/18/20 11:30 07/17/20 11:29 04/26/20 20:58 Metoprolol Tartrate (Lopressor) 25 mg Q12HR ORAL 04/26/20 21:00 07/25/20 20:59 04/27/20 09:00 Ondansetron HCl (Zofran) 4 mg Q6H PRN IVP Nausea & Vomiting 04/18/20 10:45 05/18/20 10:44 Pantoprazole (Protonix) 40 mg EVERY 12 HOURS ORAL 04/18/20 21:00 05/18/20 20:59 04/27/20 09:00 Polyethylene Glycol (Miralax) 17 gm DAILYPRN PRN ORAL Constipation 04/18/20 10:45 05/18/20 10:44 Potassium Chloride 30 meq/ Sodium Chloride 1,015 ml @ 50 mls/hr [id number] IV 04/19/20 09:00 05/19/20 08:59 04/27/20 00:19 Promethazine HCl/ Codeine (Phenergan with Codeine) 5 ml Q6H PRN ORAL cough 04/18/20 10:45 05/18/20 10:44 04/25/20 01:50 Laboratory Tests 04/26/20 14:37: POC Whole Blood Glucose 222H 04/26/20 20:47: POC Whole Blood Glucose 186H 04/27/20 05:32: C-Reactive Protein, Quantitative [Pending] 04/27/20 05:57: POC Whole Blood Glucose 117H Height (Feet): 5 Height (Inches): 6.00 Weight (Pounds): 172 General Appearance: no apparent distress Cardiovascular: normal rate Respiratory/Chest: decreased breath sounds Abdomen: distended Roberto Yang MD Apr 27, 2020 10:13
--- NOTE | 2020-04-27 10:44 | NUR ---
CASE MANAGEMENT:REVIEW 04/27/20 SI: COVID PNA. NSVT 98.8 86 20 143/70 95% ON RA GLUCOSE+117 IS: LOPRESSOR PO Q12 LOVENOX SQ QD IVF+KCL@50/HR DECADRON PO QD PROTONIX PO Q12 : TELEMETRY STATUS DCP: FROM HOME
--- NOTE | 2020-04-27 10:45 | Surgery Progress Note ---
Surgery Progress Note Subjective Additional Comments Patient seen and examined bedside. No acute events. Resting comfortably. Labs reviewed micro reviewed imaging reviewed. Afebrile hemodynamically stable at this time Objective Last 24 Hour Vital Signs Date Time Temp Pulse Resp B/P (MAP) Pulse Ox O2 Delivery O2 Flow Rate FiO2 04/27/20 09:00 66 143/70 04/27/20 08:41 Room Air 04/27/20 04:00 98.8 86 20 143/70 (94) 95 04/27/20 04:00 66 04/27/20 00:00 97.9 74 20 130/60 (83) 94 04/27/20 00:00 70 04/26/20 21:00 Room Air 04/26/20 20:50 68 138/60 04/26/20 20:00 97.4 80 18 138/62 (87) 94 04/26/20 20:00 79 04/26/20 16:00 88 04/26/20 16:00 96.8 95 18 128/72 (90) 95 04/26/20 12:00 97.6 92 18 144/84 (104) 93 04/26/20 12:00 97 I&O Intake and Output 04/26/20 04/27/20 19:00 07:00 Intake Total 500 ml 700 ml Output Total 1200 ml Balance -700 ml 700 ml Intake Oral 500 ml 700 ml Output Urine Total 1200 ml # Voids 2 # Bowel Movements 1 Dressing: saturated Cardiovascular: RSR Respiratory: decreased breath sounds Abdomen: soft, non-tender, present bowel sounds Extremities: no tenderness, no cyanosis Laboratory Tests Test 04/26/20 14:37 04/26/20 20:47 04/27/20 05:32 04/27/20 05:57 POC Whole Blood Glucose 222 MG/DL (74-106) H 186 MG/DL (74-106) H 117 MG/DL (74-106) H C-Reactive Protein, Quantitative Pending Plan Problems: (1) Abnormal LFTs Assessment & Plan: elevated lft's t bili elevated direct <50% elevated unlikely obstructed biliary unlikely alon abd exam benign US hold for now given covid will follow clinically with exam and recs thank you DAILY ESTIMATED NEEDS: Needs based on pulmonary, DM 67.5kg 25-30 kcals/kg 8777-2507 total kcals 1-1.5 g protein/kg 68-101 g total protein 25-30 mL/kg 0218-3121 total fluid mLs NUTRITION DIAGNOSIS: Altered nutrition related lab values r/t clinical status and diabetes as evidenced by A1C 7.1, elev BG (118-245), elev CO2 (33). CURRENT DIET:[facility] PO DIET RECOMMENDATIONS: [facility] ADDITIONAL RECOMMENDATIONS: 1) Maintain daily calibrated bed scale wts Obtain a standing weight as able 2) Good po intake on all meals, consider increasing insulin coverage for improved glycemic control (2) Diabetes (3) Hypoxia (4) Coronavirus infection Assessment & Plan: There are bilateral patchy and streaky infiltrates in a peribronchovascular distribution, left greater than right. Heart size is normal. Pleural spaces are clear. Impression: Bilateral infiltrates, consistent with multifocal pneumonia, likely viral pulm input appreciated ID on abx and Rx pulm respiratory support (5) History of hypertension (6) BPH (benign prostatic hyperplasia) (7) Electrolyte imbalance Assessment & Plan: being replaced cont diet Jesus Manuel Cruz Apr 27, 2020 10:45
--- NOTE | 2020-04-27 11:13 | Pulmonology Progress Note ---
Subjective ROS Limited/Unobtainable: No Allergies: Coded Allergies: No Known Allergies (Unverified , 04/18/20) Subjective now on RA, stable no resp distress, no SOB remains afebrile, no leukocytosis less cough,less chest discomfort with cough and deep breathing Objective Last 24 Hour Vital Signs Date Time Temp Pulse Resp B/P (MAP) Pulse Ox O2 Delivery O2 Flow Rate FiO2 04/27/20 09:00 66 143/70 04/27/20 08:41 Room Air 04/27/20 04:00 98.8 86 20 143/70 (94) 95 04/27/20 04:00 66 04/27/20 00:00 97.9 74 20 130/60 (83) 94 04/27/20 00:00 70 04/26/20 21:00 Room Air 04/26/20 20:50 68 138/60 04/26/20 20:00 97.4 80 18 138/62 (87) 94 04/26/20 20:00 79 04/26/20 16:00 88 04/26/20 16:00 96.8 95 18 128/72 (90) 95 04/26/20 12:00 97.6 92 18 144/84 (104) 93 04/26/20 12:00 97 Intake and Output 04/26/20 04/27/20 19:00 07:00 Intake Total 500 ml 700 ml Output Total 1200 ml Balance -700 ml 700 ml Intake Oral 500 ml 700 ml Output Urine Total 1200 ml # Voids 2 # Bowel Movements 1 General Appearance: WD/WN, no acute distress HEENT: normocephalic Respiratory: chest wall non-tender, lungs clear - with moderate air exchange , other - RA Cardiovascular: normal peripheral pulses, normal rate Abdomen: normal bowel sounds, no organomegaly Extremities: no edema Skin: no rash Neurologic: abnormal gait Musculoskeletal: normal muscle bulk Laboratory Tests 04/26/20 14:37: POC Whole Blood Glucose 222H 04/26/20 20:47: POC Whole Blood Glucose 186H 04/27/20 05:32: C-Reactive Protein, Quantitative [Pending] 04/27/20 05:57: POC Whole Blood Glucose 117H Current Medications Medications (Trade) Dose Ordered Sig/Lucy Route PRN Reason Start Time Stop Time Status Last Admin Dose Admin Acetaminophen (Tylenol) 650 mg Q4H PRN ORAL FEVER 04/18/20 10:45 05/18/20 10:44 Albuterol/ Ipratropium (Combivent Respimat) 1 puff Q4H PRN INH Shortness of Breath 04/18/20 11:15 05/18/20 11:14 Dexamethasone (Decadron) 6 mg DAILY ORAL 04/19/20 09:00 04/28/20 09:01 04/27/20 09:00 Dextrose (Dextrose 50%) 25 ml Q30M PRN IV Hypoglycemia 04/18/20 10:45 07/17/20 10:44 Dextrose (Dextrose 50%) 50 ml Q30M PRN IV Hypoglycemia 04/18/20 10:45 07/17/20 10:44 Docusate Sodium (Colace) 100 mg THREE TIMES A DAY ORAL 04/18/20 13:00 05/18/20 12:59 04/27/20 09:00 Enoxaparin Sodium (Lovenox) 40 mg DAILY SUBQ 04/24/20 09:00 07/23/20 08:59 04/27/20 09:00 Insulin Aspart (NovoLOG) BEFORE MEALS AND HS SUBQ 04/18/20 11:30 07/17/20 11:29 04/26/20 20:58 Metoprolol Tartrate (Lopressor) 25 mg Q12HR ORAL 04/26/20 21:00 07/25/20 20:59 04/27/20 09:00 Ondansetron HCl (Zofran) 4 mg Q6H PRN IVP Nausea & Vomiting 04/18/20 10:45 05/18/20 10:44 Pantoprazole (Protonix) 40 mg EVERY 12 HOURS ORAL 04/18/20 21:00 05/18/20 20:59 04/27/20 09:00 Polyethylene Glycol (Miralax) 17 gm DAILYPRN PRN ORAL Constipation 04/18/20 10:45 05/18/20 10:44 Potassium Chloride 30 meq/ Sodium Chloride 1,015 ml @ 50 mls/hr [id number] IV 04/19/20 09:00 05/19/20 08:59 04/27/20 00:19 Promethazine HCl/ Codeine (Phenergan with Codeine) 5 ml Q6H PRN ORAL cough 04/18/20 10:45 05/18/20 10:44 1/6/21 01:50 Assessment/Plan Assessment/Plan ASSESSMENT Acute hypoxemic respiratory failure requiring face mask mask COVID-19 pneumonia Diabetes mellitus Hypertension Hyperlipidemia BPH PLAN OF CARE tele isolation room Date of sx onset: few days prior to presentation to ED on 04/18 Positive test: 04/18 rapid COVID + ( was tested positive prior as well) O2 - RA but desaturates while ambulating HFA s/p REM x 5 days ( 04/18 - 04/22 ) Dex Day# 10( 04/18 -) DVT PPX: Lovenox Venous Duplex BLE / NGT D dimer 0.64 Trend CRP 16.5 - > 7-> 7.2-> 55.2 -> 27.8 CXR 04/21 -> Patchy bilateral airspace consolidations, consistent with severe multifocal infiltrate CXR 04/24 -> no significant changes s/p abx per ID recs, completed 04/23 monitor volumes and renal function Fup with consultants recs FC Discuss GOC BS management with SSI BP management GI prophylaxis supportive care repeat O2 sat on RA with ambulation if still desaturates may need O2 for home CM to assist with dc : apparently everyone at home have COVID per pt, ID cleared to dc home off isolation dc plan for today case discussed and evaluated by supervising physician Sridevi Alfaro NP Apr 27, 2020 11:13
[2020-04-27 12:00] VITALS: BP 137/65
--- NOTE | 2020-04-27 12:10 | NUR ---
*-*DISCHARGE PLANNING*-* SPOKE WITH PATIENTS DAUGHTER WHO STATED, WILL CALL HER MOTHERS SEE IF ITS OKAY FOR GEORGE HILL TO GO HOME AND ISOLATE WITH HIS COVID POSITIVE IN THE SAME HOME, AND WILL CALL BACK.
--- NOTE | 2020-04-27 12:57 | Cardiology Report ---
APPROVED REPORT EKG Measurement Heart [id number] <Conclusion> Sinus rhythm with premature supraventricular complexes Otherwise normal ECG
--- NOTE | 2020-04-27 14:52 | Cardiac Electrophysiology PN ---
Assessment/Plan Assessment/Plan 1. Nonsustained ventricular tachycardia. Ruled out for ND and echocardiogram EF 65%.On Lopressor 25 po bid 2. History of hypertension. Obn Lopressor 25 po bid 3. Diabetes, on insulin. 4. COVID pneumonia, on dexamethasone and albuterol. Fu by ID and Pulmonary. DC home pending Subjective Subjective Alert in covid isolation on RA. DC home in progress Objective Last 24 Hour Vital Signs Date Time Temp Pulse Resp B/P (MAP) Pulse Ox O2 Delivery O2 Flow Rate FiO2 04/27/20 12:00 97.7 82 20 137/65 (89) 94 04/27/20 12:00 91 04/27/20 09:00 66 143/70 04/27/20 08:41 Room Air 04/27/20 08:00 98.6 113 18 150/72 (98) 95 04/27/20 08:00 95 04/27/20 04:00 98.8 86 20 143/70 (94) 95 04/27/20 04:00 66 04/27/20 00:00 97.9 74 20 130/60 (83) 94 04/27/20 00:00 70 04/26/20 21:00 Room Air 04/26/20 20:50 68 138/60 04/26/20 20:00 97.4 80 18 138/62 (87) 94 04/26/20 20:00 79 04/26/20 16:00 88 04/26/20 16:00 96.8 95 18 128/72 (90) 95 Intake and Output 04/26/20 04/27/20 19:00 07:00 Intake Total 500 ml 700 ml Output Total 1200 ml Balance -700 ml 700 ml Intake Oral 500 ml 700 ml Output Urine Total 1200 ml # Voids 2 # Bowel Movements 1 Laboratory Tests Test 04/26/20 20:47 04/27/20 05:32 04/27/20 05:57 POC Whole Blood Glucose 186 MG/DL (74-106) H 117 MG/DL (74-106) H C-Reactive Protein, Quantitative Pending Objective HEAD AND NECK: No JVD. LUNGS: Coarse rhonchi. CARDIOVASCULAR: Regular S1 and S2 with no gallop. ABDOMEN: Soft. EXTREMITIES: 1+ pitting edema. Terrance Nicole MD Apr 27, 2020 14:52
--- NOTE | 2020-04-27 15:47 | Internal Med Progress Note ---
Subjective Physician Name Romie Murray Attending Physician Romie Murray MD Current Medications Medications (Trade) Dose Ordered Sig/Lucy Route PRN Reason Start Time Stop Time Status Last Admin Dose Admin Acetaminophen (Tylenol) 650 mg Q4H PRN ORAL FEVER 04/18/20 10:45 05/18/20 10:44 Albuterol/ Ipratropium (Combivent Respimat) 1 puff Q4H PRN INH Shortness of Breath 04/18/20 11:15 05/18/20 11:14 Dexamethasone (Decadron) 6 mg DAILY ORAL 04/19/20 09:00 04/28/20 09:01 04/27/20 09:00 Dextrose (Dextrose 50%) 25 ml Q30M PRN IV Hypoglycemia 04/18/20 10:45 07/17/20 10:44 Dextrose (Dextrose 50%) 50 ml Q30M PRN IV Hypoglycemia 04/18/20 10:45 07/17/20 10:44 Docusate Sodium (Colace) 100 mg THREE TIMES A DAY ORAL 04/18/20 13:00 05/18/20 12:59 04/27/20 13:02 Enoxaparin Sodium (Lovenox) 40 mg DAILY SUBQ 04/24/20 09:00 07/23/20 08:59 04/27/20 09:00 Insulin Aspart (NovoLOG) BEFORE MEALS AND HS SUBQ 04/18/20 11:30 07/17/20 11:29 04/26/20 20:58 Metoprolol Tartrate (Lopressor) 25 mg Q12HR ORAL 04/26/20 21:00 07/25/20 20:59 04/27/20 09:00 Ondansetron HCl (Zofran) 4 mg Q6H PRN IVP Nausea & Vomiting 04/18/20 10:45 05/18/20 10:44 Pantoprazole (Protonix) 40 mg EVERY 12 HOURS ORAL 04/18/20 21:00 05/18/20 20:59 04/27/20 09:00 Polyethylene Glycol (Miralax) 17 gm DAILYPRN PRN ORAL Constipation 04/18/20 10:45 05/18/20 10:44 Potassium Chloride 30 meq/ Sodium Chloride 1,015 ml @ 50 mls/hr [id number] IV 04/19/20 09:00 05/19/20 08:59 04/27/20 00:19 Promethazine HCl/ Codeine (Phenergan with Codeine) 5 ml Q6H PRN ORAL cough 04/18/20 10:45 05/18/20 10:44 04/25/20 01:50 Allergies: Coded Allergies: No Known Allergies (Unverified , 04/18/20) Subjective Awake, alert, responsive, no acute distress. feeling good. Objective Last Vital Signs Date Time Temp Pulse Resp B/P (MAP) Pulse Ox O2 Delivery O2 Flow Rate FiO2 04/27/20 12:00 97.7 82 20 137/65 (89) 94 04/27/20 08:41 Room Air 04/25/20 21:00 04/25/20 07:00 36 Laboratory Tests Test 04/26/20 20:47 04/27/20 05:32 04/27/20 05:57 POC Whole Blood Glucose 186 MG/DL (74-106) H 117 MG/DL (74-106) H C-Reactive Protein, Quantitative Pending Intake and Output 04/26/20 04/27/20 19:00 07:00 Intake Total 500 ml 700 ml Output Total 1200 ml Balance -700 ml 700 ml Intake Oral 500 ml 700 ml Output Urine Total 1200 ml # Voids 2 # Bowel Movements 1 Objective General: No acute distress, awake and alert HEENT: NCAT, sclera anicteric, PERRL, EOMI. Neck: Supple, no significant jugular venous distention, Lungs: Good inspiratory effort, no accessory muscle use, no Wheeze or Rales. Heart: Regular rate and rhythm, normal S1/S2, no murmurs/gallops Abdomen: soft, nontender, nondistended. Normoactive bowel sounds. / Rectal: Refused and deferred. Extremities: No Cyanosis , clubbing or edema. Neuro: A&O x 3, Able to move all extremities Skin: warm, no rashes or lesions Psych: Normal mood and affect Assessment/Plan Assessment/Plan ASSESSMENT: This is an 79-year-old male with: 1. COVID-19 positive. 2. Bilateral pneumonia. 3. Diabetes type 2. 4. Hypertension. 5. Hypercholesterolemia. 6. Benign prostatic hypertrophy. TREATMENT: 1. COVID-19 positive/bilateral pneumonia. Nasal Can[place]. Pulmonary consultation Continue Decadron intravenously. antibiotics = Off S/P ceftriaxone and azithromycin X 5 days Inf Dis=Dr [facility] 2. Diabetes type 2. NovoLog sliding scale has been instituted. 3. Hypertension. Continue amlodipine, hydrochlorothiazide, and losartan as above. 4. Hypercholesterolemia. Continue simvastatin as above. 5. Benign prostatic hypertrophy. Continue Flomax as above. Discharge home today follow-up with his primary physician at [facility] within 1 week. Romie Murray MD Apr 27, 2020 15:47
[2020-04-27] MEDS ORDERED: XARELTO10 MG ORAL (15:50)
[2020-04-27 16:00] VITALS: BP 125/67
--- NOTE | 2020-04-27 19:35 | NUR ---
NURSE NOTES: The patient is alert and oriented x4 Azeri speaker, cooperative with hi care and doesn't appear to be in any distress at this time. He is lying on his bed and is on Room air with Resp even and unlabored.The patient was able to ambulate to the bathroom unassisted.He has a Right hand 20g that is patent and asymptomatic.The bed in lowest level, call light within easy reach and siderails up x2.Will continue to monitor as indicated.
[2020-04-27 20:00] VITALS: BP 150/88
[2020-04-28] VITALS (7 sets, daily range): BP systolic 132–160; BP diastolic 67–83
[2020-04-28] MEDS: NovoLOG Insulin Flexpen SUBQ SCH ×4 (06:30→21:21)
[2020-04-28 07:20] LABS: ALANINE AMINOTRANSFERASE 27 U/L (12-78); ALBUMIN 2.4 G/DL (3.4-5.0); ALBUMIN/GLOBULIN RATIO 0.6 (1.0-2.7); ALKALINE PHOSPHATASE 47 U/L (46-116); ANION GAP 5 mmol/L (5-15); ASPARTATE AMINO TRANSFERASE 18 U/L (15-37); BILIRUBIN,TOTAL 0.4 MG/DL (0.2-1.0); BLOOD UREA NITROGEN 16 mg/dL (7-18); CARBON DIOXIDE 29 MMOL/L (21-32); CHLORIDE 106 MMOL/L (98-107); CREATININE 0.7 MG/DL (0.55-1.30); PHOSPHORUS 2.7 MG/DL (2.5-4.9); POTASSIUM 4.4 MMOL/L (3.5-5.1); SODIUM 140 MMOL/L (136-145)
--- NOTE | 2020-04-28 07:37 | NUR ---
NURSE HAND-OFF REPORT: Important Events on Shift:Alert and stable ,cooperative with his care Patient Status: Diet: Pending Orders: Pending Results/Labs: Pending MD notification: Latest Vital Signs: Temperature 98.8 , Pulse 64 , B/P 149 /68 , Respiratory Rate 17 , O2 SAT 93 , Simple Mask, O2 Flow Rate . Vital Sign Comment: EKG Rhythm: Sinus Rhythm Rhythm change?: N MD Notified?: N -Dr. Fredy JOE Response: No New Orders Received Latest Rivas Fall Score: 45 Fall Risk: High Risk Safety Measures: Call light Within Reach, Bed Alarm Zone 1, Side Rails Side Rails x2, Bed position Low and Locked. Fall Precautions: Yellow Socks Yellow Gown Door Sign Patient Fall Education Report given to .
--- NOTE | 2020-04-28 07:39 | Pulmonology Progress Note ---
Subjective ROS Limited/Unobtainable: No Allergies: Coded Allergies: No Known Allergies (Unverified , 04/18/20) Subjective now on RA, stable no resp distress, no SOB remains afebrile, no leukocytosis less cough dc plan in progress Objective Last 24 Hour Vital Signs Date Time Temp Pulse Resp B/P (MAP) Pulse Ox O2 Delivery O2 Flow Rate FiO2 04/28/20 04:00 98.8 63 17 149/68 (95) 93 04/28/20 04:00 64 04/28/20 00:00 66 04/28/20 00:00 97.9 70 17 147/68 (94) 94 04/27/20 21:00 Room Air 04/27/20 20:52 77 150/88 04/27/20 20:16 95 Room Air 21 04/27/20 20:00 76 04/27/20 20:00 97.5 77 17 150/88 (108) 95 04/27/20 16:00 97.6 84 18 125/67 (86) 95 04/27/20 16:00 87 04/27/20 12:00 97.7 82 20 137/65 (89) 94 04/27/20 12:00 91 04/27/20 09:00 66 143/70 04/27/20 08:41 Room Air 04/27/20 08:00 98.6 113 18 150/72 (98) 95 04/27/20 08:00 95 Intake and Output 04/27/20 04/28/20 19:00 07:00 Intake Total 530 ml 900 ml Balance 530 ml 900 ml Intake Oral 480 ml 500 ml IV Total 50 ml 400 ml # Voids 3 3 # Bowel Movements 1 General Appearance: WD/WN, no acute distress HEENT: normocephalic Respiratory: chest wall non-tender, lungs clear - with moderate air exchange , other - RA Cardiovascular: normal peripheral pulses, normal rate Abdomen: normal bowel sounds, no organomegaly Extremities: no edema Skin: no rash Neurologic: abnormal gait Musculoskeletal: normal muscle bulk Laboratory Tests 04/28/20 04:50: Sodium Level 140, Potassium Level 4.4, Chloride Level 106, Carbon Dioxide Level 29, Anion Gap 5, Blood Urea Nitrogen 16, Creatinine 0.7, Estimat Glomerular Filtration Rate > 60, Glucose Level 114H, Calcium Level 9.0, Phosphorus Level 2.7, Magnesium Level 1.8, Total Bilirubin 0.4, Aspartate Amino Transf (AST/SGOT) 18, Alanine Aminotransferase (ALT/SGPT) 27, Alkaline Phosphatase 47, Total Protein 6.5, Albumin 2.4L, Globulin 4.1, Albumin/Globulin Ratio 0.6L 04/28/20 05:16: POC Whole Blood Glucose 118H Current Medications Medications (Trade) Dose Ordered Sig/Lucy Route PRN Reason Start Time Stop Time Status Last Admin Dose Admin Acetaminophen (Tylenol) 650 mg Q4H PRN ORAL FEVER 04/18/20 10:45 05/18/20 10:44 Albuterol/ Ipratropium (Combivent Respimat) 1 puff Q4H PRN INH Shortness of Breath 04/18/20 11:15 05/18/20 11:14 Dexamethasone (Decadron) 6 mg DAILY ORAL 04/19/20 09:00 04/28/20 09:01 04/27/20 09:00 Dextrose (Dextrose 50%) 25 ml Q30M PRN IV Hypoglycemia 04/18/20 10:45 07/17/20 10:44 Dextrose (Dextrose 50%) 50 ml Q30M PRN IV Hypoglycemia 04/18/20 10:45 07/17/20 10:44 Docusate Sodium (Colace) 100 mg THREE TIMES A DAY ORAL 04/18/20 13:00 05/18/20 12:59 04/27/20 13:02 Enoxaparin Sodium (Lovenox) 40 mg DAILY SUBQ 04/24/20 09:00 07/23/20 08:59 04/27/20 09:00 Insulin Aspart (NovoLOG) BEFORE MEALS AND HS SUBQ 04/18/20 11:30 07/17/20 11:29 04/27/20 21:16 Metoprolol Tartrate (Lopressor) 25 mg Q12HR ORAL 04/26/20 21:00 07/25/20 20:59 04/27/20 20:52 Ondansetron HCl (Zofran) 4 mg Q6H PRN IVP Nausea & Vomiting 04/18/20 10:45 05/18/20 10:44 Pantoprazole (Protonix) 40 mg EVERY 12 HOURS ORAL 04/18/20 21:00 05/18/20 20:59 04/27/20 20:52 Polyethylene Glycol (Miralax) 17 gm DAILYPRN PRN ORAL Constipation 04/18/20 10:45 05/18/20 10:44 Potassium Chloride 30 meq/ Sodium Chloride 1,015 ml @ 50 mls/hr [id number] IV 04/19/20 09:00 05/19/20 08:59 04/27/20 20:43 Promethazine HCl/ Codeine (Phenergan with Codeine) 5 ml Q6H PRN ORAL cough 04/18/20 10:45 05/18/20 10:44 04/25/20 01:50 Assessment/Plan Assessment/Plan ASSESSMENT Acute hypoxemic respiratory failure requiring face mask mask COVID-19 pneumonia Diabetes mellitus Hypertension Hyperlipidemia BPH PLAN OF CARE tele isolation room Date of sx onset: few days prior to presentation to ED on 04/18 Positive test: 04/18 rapid COVID + ( was tested positive prior as well) O2 - RA but desaturates while ambulating HFA s/p REM x 5 days ( 04/18 - 04/22 ) s/p Dex x10 days ( 04/18 -) DVT PPX: Lovenox Venous Duplex BLE / NGT D dimer 0.64 Trend CRP 16.5 - > 7-> 7.2-> 55.2 -> 27.8 CXR 12 -> Patchy bilateral airspace consolidations, consistent with severe multifocal infiltrate CXR 04/24 -> no significant changes s/p abx per ID recs, completed 04/23 monitor volumes and renal function Fup with consultants recs FC Discuss GOC BS management with SSI BP management GI prophylaxis supportive care repeat O2 sat on RA with ambulation if still desaturates may need O2 for home CM to assist with dc : apparently everyone at home have COVID per pt, ID cleared to dc home off isolation dc plan for today pt was not dc yesterday daughter is concerned if it is safe for him to go home with whi is COVID positive, ID cleared pt for dc daughter wants to discuss issue with pt PMD and get back to us ( per dc internet media planner) case discussed and evaluated by supervising physician Sridevi Alfaro NP Apr 28, 2020 07:39
--- NOTE | 2020-04-28 08:38 | NUR ---
NURSE NOTES: pt sitting at bed side having breakfast. pt on bus driver/monitor no signs of cardiac or respiratory distress. will Bed is locked and in lowest position call light within reach. Will continue to monitor.
[2020-04-28] MEDS: Docusate 100mg cap ORAL SCH ×3 (09:19→18:35)
[2020-04-28] MEDS: Enoxaparin 40mg Inj SUBQ SCH (09:19)
--- NOTE | 2020-04-28 11:00 | NUR ---
NURSE NOTES: RN received report from Jessica Mondragon RN. RN received patient in bed. Patient AAOX4, verbally responsive, no s/s of pain or respiratory distress noted on RA. IV running, patent, intact, dry and asymptomatic. All belongings present with the patient. Call light within reach. Bed in lowest position and locked. Will continue to monitor.
--- NOTE | 2020-04-28 11:27 | Surgery Progress Note ---
Surgery Progress Note Subjective Symptoms: improved, tolerating diet, passing flatus Objective Last 24 Hour Vital Signs Date Time Temp Pulse Resp B/P (MAP) Pulse Ox O2 Delivery O2 Flow Rate FiO2 04/28/20 09:20 87 160/80 04/28/20 09:08 Room Air 04/28/20 08:00 97.6 87 16 160/80 (106) 91 04/28/20 08:00 74 04/28/20 04:00 98.8 63 17 149/68 (95) 93 04/28/20 04:00 64 04/28/20 00:00 66 04/28/20 00:00 97.9 70 17 147/68 (94) 94 04/27/20 21:00 Room Air 04/27/20 20:52 77 150/88 04/27/20 20:16 95 Room Air 21 04/27/20 20:00 76 04/27/20 20:00 97.5 77 17 150/88 (108) 95 04/27/20 16:00 97.6 84 18 125/67 (86) 95 04/27/20 16:00 87 04/27/20 12:00 97.7 82 20 137/65 (89) 94 04/27/20 12:00 91 I&O Intake and Output 04/27/20 04/28/20 19:00 07:00 Intake Total 530 ml 1050 ml Balance 530 ml 1050 ml Intake Oral 480 ml 500 ml IV Total 50 ml 550 ml # Voids 3 3 # Bowel Movements 1 Dressing: saturated Cardiovascular: RSR Respiratory: clear, decreased breath sounds Abdomen: soft, non-tender, present bowel sounds Extremities: no edema, no tenderness, no cyanosis Laboratory Tests Test 04/28/20 04:50 04/28/20 05:16 Sodium Level 140 MMOL/L (136-145) Potassium Level 4.4 MMOL/L (3.5-5.1) Chloride Level 106 MMOL/L (98-107) Carbon Dioxide Level 29 MMOL/L (21-32) Anion Gap 5 mmol/L (5-15) Blood Urea Nitrogen 16 mg/dL (7-18) Creatinine 0.7 MG/DL (0.55-1.30) Estimat Glomerular Filtration Rate > 60 mL/min (>60) Glucose Level 114 MG/DL (74-106) H Calcium Level 9.0 MG/DL (8.5-10.1) Phosphorus Level 2.7 MG/DL (2.5-4.9) Magnesium Level 1.8 MG/DL (1.8-2.4) Total Bilirubin 0.4 MG/DL (0.2-1.0) Aspartate Amino Transf (AST/SGOT) 18 U/L (15-37) Alanine Aminotransferase (ALT/SGPT) 27 U/L (12-78) Alkaline Phosphatase 47 U/L (46-116) Total Protein 6.5 G/DL (6.4-8.2) Albumin 2.4 G/DL (3.4-5.0) L Globulin 4.1 g/dL Albumin/Globulin Ratio 0.6 (1.0-2.7) L POC Whole Blood Glucose 118 MG/DL (74-106) H Plan Problems: (1) Abnormal LFTs Assessment & Plan: elevated lft's t bili elevated direct <50% elevated unlikely obstructed biliary unlikely alon abd exam benign US hold for now given covid will follow clinically with exam and recs thank you DAILY ESTIMATED NEEDS: Needs based on pulmonary, DM 67.5kg 25-30 kcals/kg [id number] total kcals 1-1.5 g protein/kg 68-101 g total protein 25-30 mL/kg 3815-0271 total fluid mLs NUTRITION DIAGNOSIS: Altered nutrition related lab values r/t clinical status and diabetes as evidenced by A1C 7.1, elev BG (118-245), elev CO2 (33). CURRENT DIET:[facility] PO DIET RECOMMENDATIONS: [facility] ADDITIONAL RECOMMENDATIONS: 1) Maintain daily calibrated bed scale wts Obtain a standing weight as able 2) Good po intake on all meals, consider increasing insulin coverage for improved glycemic control (2) Diabetes (3) Hypoxia (4) Coronavirus infection Assessment & Plan: There are bilateral patchy and streaky infiltrates in a peribronchovascular distribution, left greater than right. Heart size is normal. Pleural spaces are clear. Impression: Bilateral infiltrates, consistent with multifocal pneumonia, likely viral pulm input appreciated ID on abx and Rx pulm respiratory support (5) History of hypertension (6) BPH (benign prostatic hyperplasia) (7) Electrolyte imbalance Assessment & Plan: being replaced cont diet Jesus Manuel Cruz Apr 28, 2020 11:27
--- NOTE | 2020-04-28 12:34 | Nephrology Progress Note ---
Assessment/Plan Problem List: (1) Electrolyte imbalance (2) Coronavirus infection (3) Hypoxia (4) BPH (benign prostatic hyperplasia) Assessment Electrolyte imbalance Low sodium, low magnesium, low potassium Coronavirus infection, hypoxia Diabetes mellitus Plan April 28: Labs reviewed. Renal parameters stable. Continue per consultants. April 27: No CHEM panel drawn today. Remains stable from renal standpoint of view. Continue per consultants. April 26: Labs reviewed. Renal parameters are stable. Continue per consultants. April 25: Labs reviewed. Stable renal parameters. Continue per consultants. April 24: Labs reviewed. Renal parameters stable. Continue per consultants. April 23: Labs reviewed. Renal parameters stable. Continue as current treatment plan. April 22: Today's labs reviewed and renal parameters remain stable continue per consultants April 21: Labs reviewed. Renal parameters stable. Continue per consultants. Medication list reviewed. April 20: Labs reviewed. Renal parameters and electrolytes stable. Continue per consultants. Previously: Normal saline with potassium IV Mag sulfate IV Protonix and stool softener Antibiotics Monitor electrolytes and renal parameters Per orders Subjective ROS Limited/Unobtainable: No Constitutional: Reports: malaise Objective Objective Last 24 Hour Vital Signs Date Time Temp Pulse Resp B/P (MAP) Pulse Ox O2 Delivery O2 Flow Rate FiO2 04/28/20 09:20 87 160/80 04/28/20 09:08 Room Air 04/28/20 08:00 97.6 87 16 160/80 (106) 91 04/28/20 08:00 74 04/28/20 04:00 98.8 63 17 149/68 (95) 93 04/28/20 04:00 64 04/28/20 00:00 66 04/28/20 00:00 97.9 70 17 147/68 (94) 94 04/27/20 21:00 Room Air 04/27/20 20:52 77 150/88 04/27/20 20:16 95 Room Air 21 04/27/20 20:00 76 04/27/20 20:00 97.5 77 17 150/88 (108) 95 04/27/20 16:00 97.6 84 18 125/67 (86) 95 04/27/20 16:00 87 Intake and Output 04/27/20 04/28/20 19:00 07:00 Intake Total 530 ml 1050 ml Balance 530 ml 1050 ml Intake Oral 480 ml 500 ml IV Total 50 ml 550 ml # Voids 3 3 # Bowel Movements 1 Current Medications Medications (Trade) Dose Ordered Sig/Lucy Route PRN Reason Start Time Stop Time Status Last Admin Dose Admin Acetaminophen (Tylenol) 650 mg Q4H PRN ORAL FEVER 04/18/20 10:45 05/18/20 10:44 Albuterol/ Ipratropium (Combivent Respimat) 1 puff Q4H PRN INH Shortness of Breath 04/18/20 11:15 05/18/20 11:14 Dextrose (Dextrose 50%) 25 ml Q30M PRN IV Hypoglycemia 04/18/20 10:45 07/17/20 10:44 Dextrose (Dextrose 50%) 50 ml Q30M PRN IV Hypoglycemia 04/18/20 10:45 07/17/20 10:44 Docusate Sodium (Colace) 100 mg THREE TIMES A DAY ORAL 04/18/20 13:00 05/18/20 12:59 04/28/20 09:19 Enoxaparin Sodium (Lovenox) 40 mg DAILY SUBQ 04/24/20 09:00 07/23/20 08:59 04/28/20 09:19 Insulin Aspart (NovoLOG) BEFORE MEALS AND HS SUBQ 04/18/20 11:30 07/17/20 11:29 04/27/20 21:16 Metoprolol Tartrate (Lopressor) 25 mg Q12HR ORAL 04/26/20 21:00 07/25/20 20:59 04/28/20 09:20 Ondansetron HCl (Zofran) 4 mg Q6H PRN IVP Nausea & Vomiting 04/18/20 10:45 05/18/20 10:44 Pantoprazole (Protonix) 40 mg EVERY 12 HOURS ORAL 04/18/20 21:00 05/18/20 20:59 04/28/20 09:19 Polyethylene Glycol (Miralax) 17 gm DAILYPRN PRN ORAL Constipation 04/18/20 10:45 05/18/20 10:44 Potassium Chloride 30 meq/ Sodium Chloride 1,015 ml @ 50 mls/hr [id number] IV 04/19/20 09:00 05/19/20 08:59 04/27/20 20:43 Promethazine HCl/ Codeine (Phenergan with Codeine) 5 ml Q6H PRN ORAL cough 04/18/20 10:45 05/18/20 10:44 04/25/20 01:50 Laboratory Tests 04/28/20 04:50: Sodium Level 140, Potassium Level 4.4, Chloride Level 106, Carbon Dioxide Level 29, Anion Gap 5, Blood Urea Nitrogen 16, Creatinine 0.7, Estimat Glomerular Filtration Rate > 60, Glucose Level 114H, Calcium Level 9.0, Phosphorus Level 2.7, Magnesium Level 1.8, Total Bilirubin 0.4, Aspartate Amino Transf (AST/SGOT) 18, Alanine Aminotransferase (ALT/SGPT) 27, Alkaline Phosphatase 47, Total Protein 6.5, Albumin 2.4L, Globulin 4.1, Albumin/Globulin Ratio 0.6L 04/28/20 05:16: POC Whole Blood Glucose 118H Height (Feet): 5 Height (Inches): 6.00 Weight (Pounds): 172 General Appearance: no apparent distress Cardiovascular: normal rate Respiratory/Chest: decreased breath sounds Abdomen: soft Roberto Yang MD Apr 28, 2020 12:34
--- NOTE | 2020-04-28 15:51 | Internal Med Progress Note ---
Subjective Date of Service: Apr 28, 2020 Physician Name Fili Alfaro Attending Physician Romie Murray MD Current Medications Medications (Trade) Dose Ordered Sig/Lucy Route PRN Reason Start Time Stop Time Status Last Admin Dose Admin Acetaminophen (Tylenol) 650 mg Q4H PRN ORAL FEVER 04/18/20 10:45 05/18/20 10:44 Albuterol/ Ipratropium (Combivent Respimat) 1 puff Q4H PRN INH Shortness of Breath 04/18/20 11:15 05/18/20 11:14 Dextrose (Dextrose 50%) 25 ml Q30M PRN IV Hypoglycemia 04/18/20 10:45 07/17/20 10:44 Dextrose (Dextrose 50%) 50 ml Q30M PRN IV Hypoglycemia 04/18/20 10:45 07/17/20 10:44 Docusate Sodium (Colace) 100 mg THREE TIMES A DAY ORAL 04/18/20 13:00 05/18/20 12:59 04/28/20 13:10 Enoxaparin Sodium (Lovenox) 40 mg DAILY SUBQ 04/24/20 09:00 07/23/20 08:59 04/28/20 09:19 Insulin Aspart (NovoLOG) BEFORE MEALS AND HS SUBQ 04/18/20 11:30 07/17/20 11:29 04/28/20 13:10 Metoprolol Tartrate (Lopressor) 25 mg Q12HR ORAL 04/26/20 21:00 07/25/20 20:59 04/28/20 09:20 Ondansetron HCl (Zofran) 4 mg Q6H PRN IVP Nausea & Vomiting 04/18/20 10:45 05/18/20 10:44 Pantoprazole (Protonix) 40 mg EVERY 12 HOURS ORAL 04/18/20 21:00 05/18/20 20:59 04/28/20 09:19 Polyethylene Glycol (Miralax) 17 gm DAILYPRN PRN ORAL Constipation 04/18/20 10:45 05/18/20 10:44 Potassium Chloride 30 meq/ Sodium Chloride 1,015 ml @ 50 mls/hr [id number] IV 04/19/20 09:00 05/19/20 08:59 04/27/20 20:43 Promethazine HCl/ Codeine (Phenergan with Codeine) 5 ml Q6H PRN ORAL cough 04/18/20 10:45 05/18/20 10:44 04/25/20 01:50 Allergies: Coded Allergies: No Known Allergies (Unverified , 04/18/20) ROS Limited/Unobtainable: No Constitutional: Reports: no symptoms HEENT: Reports: no symptoms Cardiovascular: Reports: no symptoms Respiratory: Reports: no symptoms Gastrointestinal/Abdominal: Reports: no symptoms Genitourinary: Reports: no symptoms Neurologic/Psychiatric: Reports: no symptoms Subjective 79 YO M admitted with dyspnea. Now COVID 19 pneumonia. Cover for Int Med - Dr Murray. Sitting at side of bed and eating lunch Objective Last Vital Signs Date Time Temp Pulse Resp B/P (MAP) Pulse Ox O2 Delivery O2 Flow Rate FiO2 04/28/20 12:00 98.1 70 18 132/67 (88) 95 04/28/20 09:08 Room Air 04/27/20 20:16 21 04/25/20 21:00 Laboratory Tests Test 04/28/20 04:50 04/28/20 05:16 04/28/20 13:06 Sodium Level 140 MMOL/L (136-145) Potassium Level 4.4 MMOL/L (3.5-5.1) Chloride Level 106 MMOL/L (98-107) Carbon Dioxide Level 29 MMOL/L (21-32) Anion Gap 5 mmol/L (5-15) Blood Urea Nitrogen 16 mg/dL (7-18) Creatinine 0.7 MG/DL (0.55-1.30) Estimat Glomerular Filtration Rate > 60 mL/min (>60) Glucose Level 114 MG/DL (74-106) H Calcium Level 9.0 MG/DL (8.5-10.1) Phosphorus Level 2.7 MG/DL (2.5-4.9) Magnesium Level 1.8 MG/DL (1.8-2.4) Total Bilirubin 0.4 MG/DL (0.2-1.0) Aspartate Amino Transf (AST/SGOT) 18 U/L (15-37) Alanine Aminotransferase (ALT/SGPT) 27 U/L (12-78) Alkaline Phosphatase 47 U/L (46-116) Total Protein 6.5 G/DL (6.4-8.2) Albumin 2.4 G/DL (3.4-5.0) L Globulin 4.1 g/dL Albumin/Globulin Ratio 0.6 (1.0-2.7) L POC Whole Blood Glucose 118 MG/DL (74-106) H 196 MG/DL (74-106) H Intake and Output 04/27/20 04/28/20 19:00 07:00 Intake Total 530 ml 1050 ml Balance 530 ml 1050 ml Intake Oral 480 ml 500 ml IV Total 50 ml 550 ml # Voids 3 3 # Bowel Movements 1 Objective PHYSICAL EXAMINATION: GENERAL: The patient is a well-developed and well-nourished male, in no apparent distress. HEENT: Eyes, pupils are equal and responsive to light and accommodation. Extraocular movements are intact. NECK: Supple without lymphadenopathy. CHEST: Nasal canula, Decreased breath sounds in bilateral bases, otherwise clear to auscultation without wheezes. CARDIOVASCULAR: Tachycardic, regular rhythm. S1, S2 normal without murmurs, rubs, or gallops. ABDOMEN: Soft, nontender, and nondistended. Positive bowel sounds. No evidence of hepatosplenomegaly. Currently, no rebound or guarding noted. EXTREMITIES: Negative for clubbing, cyanosis, or edema. RECTAL/GENITAL: Refused. NEUROLOGIC: Cranial nerves II through XII are grossly intact without focal deficits. Motor strength is 5/5 bilaterally. Deep tendon reflexes are 2+ plantar. Assessment/Plan Assessment/Plan ASSESSMENT: This is an 79-year-old male with: 1. COVID-19 positive. 2. Bilateral pneumonia. 3. Diabetes type 2. 4. Hypertension. 5. Hypercholesterolemia. 6. Benign prostatic hypertrophy. TREATMENT: 1. COVID-19 positive/bilateral pneumonia. Nasal Canula. Pulmonary consultation = Dr. Anegl Daniel. Continue remdesivir and Decadron intravenously. antibiotics = S/P ceftriaxone and azithromycin Inf Dis=Dr Pond 2. Diabetes type 2. NovoLog sliding scale has been instituted. 3. Hypertension. Continue amlodipine, hydrochlorothiazide, and losartan as above. 4. Hypercholesterolemia. Continue simvastatin as above. 5. Benign prostatic hypertrophy. Continue Flomax as above. 6. Discharge planning Fili Alfaro MD Apr 28, 2020 15:51
--- NOTE | 2020-04-28 19:25 | NUR ---
NURSE NOTES: Received report from REANNA Llamas. Pt is A&Ox4. Bed locked and in lowest position, call light within reach, IVF infusing well. Pt has no needs right now. Will continue to monitor.
--- NOTE | 2020-04-28 19:48 | NUR ---
NURSE HAND-OFF: Important Events on Shift:transfer from [facility], uneventful Patient Status: stable Diet: consistent carb diet, medium Pending Orders: n/a Pending Results/Labs:n/a Pending MD notification:n/a Latest Vital Signs: Temperature 97.9 , Pulse 70 , B/P 147 /70 , Respiratory Rate 18 , O2 SAT 95 , Simple Mask, O2 Flow Rate . Vital Sign Comment: stable Latest Rivas Fall Score: 45 Fall Risk: High Risk Safety Measures: Call light Within Reach, Bed Alarm Zone 1, Side Rails Side Rails x2, Bed position Low and Locked. Fall Precautions: Yellow Socks Yellow Gown Door Sign Patient Fall Education Report given to REANNA Trinidad.
--- NOTE | 2020-04-28 21:51 | Cardiac Electrophysiology PN ---
Assessment/Plan Assessment/Plan 1. Nonsustained ventricular tachycardia. Ruled out for VT and echocardiogram EF 65%.On Lopressor 25 po bid 2. History of hypertension. On Lopressor 25 po bid 3. Diabetes, on insulin. 4. COVID pneumonia, on dexamethasone and albuterol. Fu by ID and Pulmonary. DC home pending Subjective Subjective Alert in covid isolation on RA. Tele was DCed. on RA Objective Last 24 Hour Vital Signs Date Time Temp Pulse Resp B/P (MAP) Pulse Ox O2 Delivery O2 Flow Rate FiO2 04/28/20 21:12 82 151/83 04/28/20 21:10 98.2 82 18 151/83 (105) 95 04/28/20 20:00 98.2 82 18 151/83 (105) 95 04/28/20 19:33 95 Room Air 21 04/28/20 16:00 97.9 70 18 147/70 (95) 94 04/28/20 12:00 98.1 70 18 132/67 (88) 95 04/28/20 09:20 87 160/80 04/28/20 09:08 Room Air 04/28/20 08:00 97.6 87 16 160/80 (106) 91 04/28/20 08:00 74 04/28/20 04:00 98.8 63 17 149/68 (95) 93 04/28/20 04:00 64 04/28/20 00:00 66 04/28/20 00:00 97.9 70 17 147/68 (94) 94 Intake and Output 04/27/20 04/28/20 19:00 07:00 Intake Total 530 ml 1050 ml Balance 530 ml 1050 ml Intake Oral 480 ml 500 ml IV Total 50 ml 550 ml # Voids 3 3 # Bowel Movements 1 Laboratory Tests Test 04/28/20 04:50 04/28/20 05:16 04/28/20 13:06 04/28/20 17:13 Sodium Level 140 MMOL/L (136-145) Potassium Level 4.4 MMOL/L (3.5-5.1) Chloride Level 106 MMOL/L (98-107) Carbon Dioxide Level 29 MMOL/L (21-32) Anion Gap 5 mmol/L (5-15) Blood Urea Nitrogen 16 mg/dL (7-18) Creatinine 0.7 MG/DL (0.55-1.30) Estimat Glomerular Filtration Rate > 60 mL/min (>60) Glucose Level 114 MG/DL (74-106) H Calcium Level 9.0 MG/DL (8.5-10.1) Phosphorus Level 2.7 MG/DL (2.5-4.9) Magnesium Level 1.8 MG/DL (1.8-2.4) Total Bilirubin 0.4 MG/DL (0.2-1.0) Aspartate Amino Transf (AST/SGOT) 18 U/L (15-37) Alanine Aminotransferase (ALT/SGPT) 27 U/L (12-78) Alkaline Phosphatase 47 U/L (46-116) Total Protein 6.5 G/DL (6.4-8.2) Albumin 2.4 G/DL (3.4-5.0) L Globulin 4.1 g/dL Albumin/Globulin Ratio 0.6 (1.0-2.7) L POC Whole Blood Glucose 118 MG/DL (74-106) H 196 MG/DL (74-106) H 217 MG/DL (74-106) H Test 04/28/20 21:17 POC Whole Blood Glucose 193 MG/DL (74-106) H Objective HEAD AND NECK: No JVD. LUNGS: Coarse rhonchi. CARDIOVASCULAR: Regular S1 and S2 with no gallop. ABDOMEN: Soft. EXTREMITIES: 1+ pitting edema. Terrance Nicole MD Apr 28, 2020 21:51
[2020-04-29] VITALS: BP 142/70
[2020-04-29 04:00] VITALS: BP 158/78
[2020-04-29] MEDS: NovoLOG Insulin Flexpen SUBQ SCH ×4 (06:30→21:00)
--- NOTE | 2020-04-29 07:05 | NUR ---
NURSE HAND-OFF: Important Events on Shift: BM Patient Status: calm Diet: CCHO medium Pending Orders: Pending Results/Labs: Pending MD notification: Latest Vital Signs: Temperature 97.7 , Pulse 70 , B/P 158 /78 , Respiratory Rate 17 , O2 SAT 95 , Simple Mask, O2 Flow Rate . Vital Sign Comment: VSS Latest Rivas Fall Score: 45 Fall Risk: High Risk Safety Measures: Call light Within Reach, Bed Alarm Zone 1, Side Rails Side Rails x2, Bed position Low and Locked. Fall Precautions: Yellow Socks Yellow Gown Door Sign Patient Fall Education Report given to REANNA Liriano.
[2020-04-29 08:00] VITALS: BP 160/74
--- NOTE | 2020-04-29 08:00 | NUR ---
NURSE NOTES: Received report from REANNA Awad. Pt is A/Ox4, ambulatory. In NAD, no complaint of pain or discomfort. Bed is locked at lowest position possible, call light within easy reach, and bed in lowest position possible. Right hand with IVF infusing well. Will continue to monitor patient and follow up with the plan of care.
--- NOTE | 2020-04-29 08:53 | Pulmonology Progress Note ---
Subjective ROS Limited/Unobtainable: No Allergies: Coded Allergies: No Known Allergies (Unverified , 04/18/20) Subjective now on RA, stable no resp distress, no SOB remains afebrile, no leukocytosis less cough dc plan in progress Objective Last 24 Hour Vital Signs Date Time Temp Pulse Resp B/P (MAP) Pulse Ox O2 Delivery O2 Flow Rate FiO2 04/29/20 04:00 97.7 70 17 158/78 (104) 95 04/29/20 00:00 97.4 69 18 142/70 (94) 95 04/28/20 21:12 82 151/83 04/28/20 21:10 98.2 82 18 151/83 (105) 95 04/28/20 21:00 Room Air 04/28/20 20:00 98.2 82 18 151/83 (105) 95 04/28/20 19:33 95 Room Air 21 04/28/20 16:00 97.9 70 18 147/70 (95) 94 04/28/20 12:00 98.1 70 18 132/67 (88) 95 04/28/20 09:20 87 160/80 04/28/20 09:08 Room Air Intake and Output 04/28/20 04/29/20 19:00 07:00 Intake Total 500 ml 400 ml Balance 500 ml 400 ml Intake Oral 500 ml 400 ml # Voids 2 2 General Appearance: WD/WN, no acute distress HEENT: normocephalic Respiratory: chest wall non-tender, lungs clear - with moderate air exchange , other - RA Cardiovascular: normal peripheral pulses, normal rate Abdomen: normal bowel sounds, no organomegaly Extremities: no edema Skin: no rash Neurologic: abnormal gait Musculoskeletal: normal muscle bulk Laboratory Tests 04/28/20 13:06: POC Whole Blood Glucose 196H 04/28/20 17:13: POC Whole Blood Glucose 217H 04/28/20 21:17: POC Whole Blood Glucose 193H Current Medications Medications (Trade) Dose Ordered Sig/Lucy Route PRN Reason Start Time Stop Time Status Last Admin Dose Admin Acetaminophen (Tylenol) 650 mg Q4H PRN ORAL FEVER 04/18/20 10:45 05/18/20 10:44 Albuterol/ Ipratropium (Combivent Respimat) 1 puff Q4H PRN INH Shortness of Breath 04/18/20 11:15 05/18/20 11:14 Dextrose (Dextrose 50%) 25 ml Q30M PRN IV Hypoglycemia 04/18/20 10:45 07/17/20 10:44 Dextrose (Dextrose 50%) 50 ml Q30M PRN IV Hypoglycemia 04/18/20 10:45 07/17/20 10:44 Docusate Sodium (Colace) 100 mg THREE TIMES A DAY ORAL 04/18/20 13:00 05/18/20 12:59 04/28/20 18:35 Enoxaparin Sodium (Lovenox) 40 mg DAILY SUBQ 04/24/20 09:00 07/23/20 08:59 04/28/20 09:19 Insulin Aspart (NovoLOG) BEFORE MEALS AND HS SUBQ 04/18/20 11:30 07/17/20 11:29 04/28/20 21:21 Metoprolol Tartrate (Lopressor) 25 mg Q12HR ORAL 04/26/20 21:00 07/25/20 20:59 04/28/20 21:12 Ondansetron HCl (Zofran) 4 mg Q6H PRN IVP Nausea & Vomiting 04/18/20 10:45 05/18/20 10:44 Pantoprazole (Protonix) 40 mg EVERY 12 HOURS ORAL 04/18/20 21:00 05/18/20 20:59 04/28/20 21:12 Polyethylene Glycol (Miralax) 17 gm DAILYPRN PRN ORAL Constipation 04/18/20 10:45 05/18/20 10:44 Potassium Chloride 30 meq/ Sodium Chloride 1,015 ml @ 50 mls/hr [id number] IV 04/19/20 09:00 05/19/20 08:59 04/28/20 17:04 Promethazine HCl/ Codeine (Phenergan with Codeine) 5 ml Q6H PRN ORAL cough 04/18/20 10:45 05/18/20 10:44 04/25/20 01:50 Assessment/Plan Assessment/Plan ASSESSMENT Acute hypoxemic respiratory failure requiring face mask mask COVID-19 pneumonia Diabetes mellitus Hypertension Hyperlipidemia BPH PLAN OF CARE tele isolation room Date of sx onset: few days prior to presentation to ED on 04/18 Positive test: 04/18 rapid COVID + ( was tested positive prior as well) O2 - RA but desaturates while ambulating HFA s/p REM x 5 days ( 04/18 - 04/22 ) s/p Dex x10 days ( 04/18 -) DVT PPX: Lovenox Venous Duplex BLE 04/21 NGT D dimer 0.64 Trend CRP 16.5 - > 7-> 7.2-> 55.2 -> 27.8 CXR 04/21 -> Patchy bilateral airspace consolidations, consistent with severe multifocal infiltrate CXR 04/24 -> no significant changes s/p abx per ID recs, completed 04/23 monitor volumes and renal function Fup with consultants recs FC Discuss GOC BS management with SSI BP management GI prophylaxis supportive care repeat O2 sat on RA with ambulation if still desaturates may need O2 for home CM to assist with dc : apparently everyone at home have COVID per pt, ID cleared to dc home off isolation dc plan for today pt was not dc yesterday daughter is concerned if it is safe for him to go home with whi is COVID positive, ID cleared pt for dc daughter wants to discuss issue with pt PMD and get back to us ( per dc office workforce planner) dc plan in progress case discussed and evaluated by supervising physician Sridevi Alfaro NP Apr 29, 2020 08:53
[2020-04-29 09:29] LABS: ANION GAP 8 mmol/L (5-15); BLOOD UREA NITROGEN 12 mg/dL (7-18); CALCIUM 9.2 MG/DL (8.5-10.1); CARBON DIOXIDE 27 MMOL/L (21-32); CHLORIDE 105 MMOL/L (98-107); CREATININE 0.7 MG/DL (0.55-1.30); POTASSIUM 4.1 MMOL/L (3.5-5.1); SODIUM 140 MMOL/L (136-145)
[2020-04-29 09:42] LABS: EOSINOPHILS % (AUTO) 1.2 % (0.0-3.0); HEMATOCRIT 41.4 % (42.0-52.0); HEMOGLOBIN 14.1 G/DL (14.2-18.0); LYMPHOCYTES % (AUTO) 20.6 % (20.0-45.0); MEAN CORPUSCULAR VOLUME 90 FL (80-99); MONOCYTES % (AUTO) 10.2 % (1.0-10.0); NEUTROPHILS % (AUTO) 66.9 % (45.0-75.0); PLATELET COUNT 274 K/UL (150-450); RED BLOOD COUNT 4.61 M/UL (4.70-6.10); RED CELL DISTRIBUTION WIDTH 13.5 % (11.6-14.8); WHITE BLOOD COUNT 8.2 K/UL (4.8-10.8)
[2020-04-29] MEDS: Docusate 100mg cap ORAL SCH ×3 (09:59→16:51)
[2020-04-29] MEDS: Enoxaparin 40mg Inj SUBQ SCH (10:01)
--- NOTE | 2020-04-29 10:55 | Infectious Diseases Prog Note ---
Assessment/Plan 79yo M with: COVID pna Acute hypoxia 2/2 severe COVID pna Afebrile Normal WBC Lymphopenia Elevated AST to 38 likely 2/2 COVID 04/12 COVID positive; flu neg 04/18 COVID rapid test positive BCx NTD Resp cx NTD CXR: BL pna UA neg 04/21 CXR: Patchy bilateral airspace consolidations, consistent with severe multifocal infiltrate. Overall, minimal worsening when compared to previous study. 04/24 CXR: No change from prior Cr 1.1 No DVT on US 04/21 PMH: DM2 HTN HLD Prostate disease Plan: Monitor off abx OK to d/c home off isolation given >10 days out from initial dx and doing well on RA 04/28 SP dex #10 04/23 SP RDV #5, CTX/az #5 This institution does not have access to convalescent plasma, and as pt 6 days out from diagnosis less likely to benefit from it. Monitor CBC/CMP Monitor resp status Monitor temp curve, hemodynamics D/w RN Thank you for this consult. [facility] will continue to follow. Subjective Allergies: Coded Allergies: No Known Allergies (Unverified , 04/18/20) AF WBC 8.2 NAD, doing well, breathing normal No SOB when walking around Objective Last 24 Hour Vital Signs Date Time Temp Pulse Resp B/P (MAP) Pulse Ox O2 Delivery O2 Flow Rate FiO2 04/29/20 09:59 84 160/74 04/29/20 08:00 97.3 84 18 160/74 (102) 90 04/29/20 04:00 97.7 70 17 158/78 (104) 95 04/29/20 00:00 97.4 69 18 142/70 (94) 95 04/28/20 21:12 82 151/83 04/28/20 21:10 98.2 82 18 151/83 (105) 95 04/28/20 21:00 Room Air 04/28/20 20:00 98.2 82 18 151/83 (105) 95 04/28/20 19:33 95 Room Air 21 04/28/20 16:00 97.9 70 18 147/70 (95) 94 04/28/20 12:00 98.1 70 18 132/67 (88) 95 Height (Feet): 5 Height (Inches): 6.00 Weight (Pounds): 172 Gen: NAD HEENT: NCAT Pulm: BL chest rise Abd: Non-distended Ext: No c/c/e Skin: No visible rashes Neuro: Awake Laboratory Tests Test 04/28/20 13:06 04/28/20 17:13 04/28/20 21:17 04/29/20 08:00 POC Whole Blood Glucose 196 MG/DL (74-106) H 217 MG/DL (74-106) H 193 MG/DL (74-106) H White Blood Count 8.2 K/UL (4.8-10.8) Red Blood Count 4.61 M/UL (4.70-6.10) L Hemoglobin 14.1 G/DL (14.2-18.0) L Hematocrit 41.4 % (42.0-52.0) L Mean Corpuscular Volume 90 FL (80-99) Mean Corpuscular Hemoglobin 30.5 PG (27.0-31.0) Mean Corpuscular Hemoglobin Concent 34.0 G/DL (32.0-36.0) Red Cell Distribution Width 13.5 % (11.6-14.8) Platelet Count 274 K/UL (150-450) Mean Platelet Volume 6.9 FL (6.5-10.1) Neutrophils (%) (Auto) 66.9 % (45.0-75.0) Lymphocytes (%) (Auto) 20.6 % (20.0-45.0) Monocytes (%) (Auto) 10.2 % (1.0-10.0) H Eosinophils (%) (Auto) 1.2 % (0.0-3.0) Basophils (%) (Auto) 1.0 % (0.0-2.0) Sodium Level 140 MMOL/L (136-145) Potassium Level 4.1 MMOL/L (3.5-5.1) Chloride Level 105 MMOL/L (98-107) Carbon Dioxide Level 27 MMOL/L (21-32) Anion Gap 8 mmol/L (5-15) Blood Urea Nitrogen 12 mg/dL (7-18) Creatinine 0.7 MG/DL (0.55-1.30) Estimat Glomerular Filtration Rate > 60 mL/min (>60) Glucose Level 173 MG/DL (74-106) H Calcium Level 9.2 MG/DL (8.5-10.1) Current Medications Medications (Trade) Dose Ordered Sig/Lucy Route PRN Reason Start Time Stop Time Status Last Admin Dose Admin Acetaminophen (Tylenol) 650 mg Q4H PRN ORAL FEVER 04/18/20 10:45 05/18/20 10:44 Albuterol/ Ipratropium (Combivent Respimat) 1 puff Q4H PRN INH Shortness of Breath 04/18/20 11:15 05/18/20 11:14 Dextrose (Dextrose 50%) 25 ml Q30M PRN IV Hypoglycemia 04/18/20 10:45 07/17/20 10:44 Dextrose (Dextrose 50%) 50 ml Q30M PRN IV Hypoglycemia 04/18/20 10:45 07/17/20 10:44 Docusate Sodium (Colace) 100 mg THREE TIMES A DAY ORAL 04/18/20 13:00 05/18/20 12:59 04/29/20 09:59 Enoxaparin Sodium (Lovenox) 40 mg DAILY SUBQ 04/24/20 09:00 07/23/20 08:59 04/29/20 10:01 Insulin Aspart (NovoLOG) BEFORE MEALS AND HS SUBQ 04/18/20 11:30 07/17/20 11:29 04/28/20 21:21 Metoprolol Tartrate (Lopressor) 25 mg Q12HR ORAL 04/26/20 21:00 07/25/20 20:59 04/29/20 09:59 Ondansetron HCl (Zofran) 4 mg Q6H PRN IVP Nausea & Vomiting 04/18/20 10:45 05/18/20 10:44 Pantoprazole (Protonix) 40 mg EVERY 12 HOURS ORAL 04/18/20 21:00 05/18/20 20:59 04/29/20 09:59 Polyethylene Glycol (Miralax) 17 gm DAILYPRN PRN ORAL Constipation 04/18/20 10:45 05/18/20 10:44 Potassium Chloride 30 meq/ Sodium Chloride 1,015 ml @ 50 mls/hr [id number] IV 04/19/20 09:00 05/19/20 08:59 04/28/20 17:04 Promethazine HCl/ Codeine (Phenergan with Codeine) 5 ml Q6H PRN ORAL cough 04/18/20 10:45 05/18/20 10:44 04/25/20 01:50 Andria Pond M.D. Apr 29, 2020 10:55
[2020-04-29 12:00] VITALS: BP 147/79
--- NOTE | 2020-04-29 14:00 | Surgery Progress Note ---
Surgery Progress Note Subjective Symptoms: improved, pain absent, tolerating diet, passing flatus, BM Objective Last 24 Hour Vital Signs Date Time Temp Pulse Resp B/P (MAP) Pulse Ox O2 Delivery O2 Flow Rate FiO2 04/29/20 12:00 97.7 81 18 147/79 (101) 90 04/29/20 09:59 84 160/74 04/29/20 09:00 Room Air 04/29/20 08:00 97.3 84 18 160/74 (102) 90 04/29/20 04:00 97.7 70 17 158/78 (104) 95 04/29/20 00:00 97.4 69 18 142/70 (94) 95 04/28/20 21:12 82 151/83 04/28/20 21:10 98.2 82 18 151/83 (105) 95 04/28/20 21:00 Room Air 04/28/20 20:00 98.2 82 18 151/83 (105) 95 04/28/20 19:33 95 Room Air 21 04/28/20 16:00 97.9 70 18 147/70 (95) 94 I&O Intake and Output 04/28/20 04/29/20 19:00 07:00 Intake Total 500 ml 400 ml Balance 500 ml 400 ml Intake Oral 500 ml 400 ml # Voids 2 2 Dressing: dry Respiratory: clear, decreased breath sounds Abdomen: soft, non-tender, present bowel sounds Extremities: no edema, no tenderness, no cyanosis Laboratory Tests Test 04/28/20 17:13 04/28/20 21:17 04/29/20 08:00 POC Whole Blood Glucose 217 MG/DL (74-106) H 193 MG/DL (74-106) H White Blood Count 8.2 K/UL (4.8-10.8) Red Blood Count 4.61 M/UL (4.70-6.10) L Hemoglobin 14.1 G/DL (14.2-18.0) L Hematocrit 41.4 % (42.0-52.0) L Mean Corpuscular Volume 90 FL (80-99) Mean Corpuscular Hemoglobin 30.5 PG (27.0-31.0) Mean Corpuscular Hemoglobin Concent 34.0 G/DL (32.0-36.0) Red Cell Distribution Width 13.5 % (11.6-14.8) Platelet Count 274 K/UL (150-450) Mean Platelet Volume 6.9 FL (6.5-10.1) Neutrophils (%) (Auto) 66.9 % (45.0-75.0) Lymphocytes (%) (Auto) 20.6 % (20.0-45.0) Monocytes (%) (Auto) 10.2 % (1.0-10.0) H Eosinophils (%) (Auto) 1.2 % (0.0-3.0) Basophils (%) (Auto) 1.0 % (0.0-2.0) Sodium Level 140 MMOL/L (136-145) Potassium Level 4.1 MMOL/L (3.5-5.1) Chloride Level 105 MMOL/L (98-107) Carbon Dioxide Level 27 MMOL/L (21-32) Anion Gap 8 mmol/L (5-15) Blood Urea Nitrogen 12 mg/dL (7-18) Creatinine 0.7 MG/DL (0.55-1.30) Estimat Glomerular Filtration Rate > 60 mL/min (>60) Glucose Level 173 MG/DL (74-106) H Calcium Level 9.2 MG/DL (8.5-10.1) Plan Problems: (1) Abnormal LFTs Assessment & Plan: elevated lft's t bili elevated direct <50% elevated unlikely obstructed biliary unlikely alon abd exam benign US hold for now given covid will follow clinically with exam and recs thank you DAILY ESTIMATED NEEDS: Needs based on pulmonary, DM 67.5kg 25-30 kcals/kg 2732-5376 total kcals 1-1.5 g protein/kg 68-101 g total protein 25-30 mL/kg 2194-3768 total fluid mLs NUTRITION DIAGNOSIS: Altered nutrition related lab values r/t clinical status and diabetes as evidenced by A1C 7.1, elev BG (118-245), elev CO2 (33). [facility]ET[facility]ET RECOMMENDATIONS: [facility] MED ADDITIONAL RECOMMENDATIONS: 1) Maintain daily calibrated bed scale wts Obtain a standing weight as able 2) Good po intake on all meals, consider increasing insulin coverage for improved glycemic control (2) Diabetes (3) Hypoxia (4) Coronavirus infection Assessment & Plan: There are bilateral patchy and streaky infiltrates in a peribronchovascular distribution, left greater than right. Heart size is normal. Pleural spaces are clear. Impression: Bilateral infiltrates, consistent with multifocal pneumonia, likely viral pulm input appreciated ID on abx and Rx pulm respiratory support (5) History of hypertension (6) BPH (benign prostatic hyperplasia) (7) Electrolyte imbalance Assessment & Plan: being replaced cont diet Jesus Manuel Cruz Apr 29, 2020 14:00
--- NOTE | 2020-04-29 14:47 | Internal Med Progress Note ---
Subjective Date of Service: Apr 29, 2020 Physician Name Fili Alfaro Attending Physician Romie Murray MD Current Medications Medications (Trade) Dose Ordered Sig/Lucy Route PRN Reason Start Time Stop Time Status Last Admin Dose Admin Acetaminophen (Tylenol) 650 mg Q4H PRN ORAL FEVER 04/18/20 10:45 05/18/20 10:44 Albuterol/ Ipratropium (Combivent Respimat) 1 puff Q4H PRN INH Shortness of Breath 04/18/20 11:15 05/18/20 11:14 Dextrose (Dextrose 50%) 25 ml Q30M PRN IV Hypoglycemia 04/18/20 10:45 07/17/20 10:44 Dextrose (Dextrose 50%) 50 ml Q30M PRN IV Hypoglycemia 04/18/20 10:45 07/17/20 10:44 Docusate Sodium (Colace) 100 mg THREE TIMES A DAY ORAL 04/18/20 13:00 05/18/20 12:59 04/29/20 13:23 Enoxaparin Sodium (Lovenox) 40 mg DAILY SUBQ 04/24/20 09:00 07/23/20 08:59 04/29/20 10:01 Insulin Aspart (NovoLOG) BEFORE MEALS AND HS SUBQ 04/18/20 11:30 07/17/20 11:29 04/28/20 21:21 Metoprolol Tartrate (Lopressor) 25 mg Q12HR ORAL 04/26/20 21:00 07/25/20 20:59 04/29/20 09:59 Ondansetron HCl (Zofran) 4 mg Q6H PRN IVP Nausea & Vomiting 04/18/20 10:45 05/18/20 10:44 Pantoprazole (Protonix) 40 mg EVERY 12 HOURS ORAL 04/18/20 21:00 05/18/20 20:59 04/29/20 09:59 Polyethylene Glycol (Miralax) 17 gm DAILYPRN PRN ORAL Constipation 04/18/20 10:45 05/18/20 10:44 Potassium Chloride 30 meq/ Sodium Chloride 1,015 ml @ 50 mls/hr [id number] IV 04/19/20 09:00 05/19/20 08:59 04/29/20 13:24 Promethazine HCl/ Codeine (Phenergan with Codeine) 5 ml Q6H PRN ORAL cough 04/18/20 10:45 05/18/20 10:44 04/25/20 01:50 Allergies: Coded Allergies: No Known Allergies (Unverified , 04/18/20) ROS Limited/Unobtainable: No Constitutional: Reports: no symptoms HEENT: Reports: no symptoms Cardiovascular: Reports: no symptoms Respiratory: Reports: no symptoms Gastrointestinal/Abdominal: Reports: no symptoms Genitourinary: Reports: no symptoms Neurologic/Psychiatric: Reports: no symptoms Subjective 79 YO M admitted with dyspnea. Now COVID 19 pneumonia. Cover for Int Med - Dr Murray. Sitting at side of bed and eating lunch Objective Last Vital Signs Date Time Temp Pulse Resp B/P (MAP) Pulse Ox O2 Delivery O2 Flow Rate FiO2 04/29/20 12:00 97.7 81 18 147/79 (101) 90 04/29/20 09:00 Room Air 04/28/20 19:33 21 04/25/20 21:00 Laboratory Tests Test 04/28/20 17:13 04/28/20 21:17 04/29/20 08:00 POC Whole Blood Glucose 217 MG/DL (74-106) H 193 MG/DL (74-106) H White Blood Count 8.2 K/UL (4.8-10.8) Red Blood Count 4.61 M/UL (4.70-6.10) L Hemoglobin 14.1 G/DL (14.2-18.0) L Hematocrit 41.4 % (42.0-52.0) L Mean Corpuscular Volume 90 FL (80-99) Mean Corpuscular Hemoglobin 30.5 PG (27.0-31.0) Mean Corpuscular Hemoglobin Concent 34.0 G/DL (32.0-36.0) Red Cell Distribution Width 13.5 % (11.6-14.8) Platelet Count 274 K/UL (150-450) Mean Platelet Volume 6.9 FL (6.5-10.1) Neutrophils (%) (Auto) 66.9 % (45.0-75.0) Lymphocytes (%) (Auto) 20.6 % (20.0-45.0) Monocytes (%) (Auto) 10.2 % (1.0-10.0) H Eosinophils (%) (Auto) 1.2 % (0.0-3.0) Basophils (%) (Auto) 1.0 % (0.0-2.0) Sodium Level 140 MMOL/L (136-145) Potassium Level 4.1 MMOL/L (3.5-5.1) Chloride Level 105 MMOL/L (98-107) Carbon Dioxide Level 27 MMOL/L (21-32) Anion Gap 8 mmol/L (5-15) Blood Urea Nitrogen 12 mg/dL (7-18) Creatinine 0.7 MG/DL (0.55-1.30) Estimat Glomerular Filtration Rate > 60 mL/min (>60) Glucose Level 173 MG/DL (74-106) H Calcium Level 9.2 MG/DL (8.5-10.1) Intake and Output 04/28/20 04/29/20 19:00 07:00 Intake Total 500 ml 400 ml Balance 500 ml 400 ml Intake Oral 500 ml 400 ml # Voids 2 2 Objective PHYSICAL EXAMINATION: GENERAL: The patient is a well-developed and well-nourished male, in no apparent distress. HEENT: Eyes, pupils are equal and responsive to light and accommodation. Extraocular movements are intact. NECK: Supple without lymphadenopathy. CHEST: Nasal canula, Decreased breath sounds in bilateral bases, otherwise clear to auscultation without wheezes. CARDIOVASCULAR: Tachycardic, regular rhythm. S1, S2 normal without murmurs, rubs, or gallops. ABDOMEN: Soft, nontender, and nondistended. Positive bowel sounds. No evidence of hepatosplenomegaly. Currently, no rebound or guarding noted. EXTREMITIES: Negative for clubbing, cyanosis, or edema. RECTAL/GENITAL: Refused. NEUROLOGIC: Cranial nerves II through XII are grossly intact without focal deficits. Motor strength is 5/5 bilaterally. Deep tendon reflexes are 2+ plantar. Assessment/Plan Assessment/Plan ASSESSMENT: This is an 79-year-old male with: 1. COVID-19 positive. 2. Bilateral pneumonia. 3. Diabetes type 2. 4. Hypertension. 5. Hypercholesterolemia. 6. Benign prostatic hypertrophy. TREATMENT: 1. COVID-19 positive/bilateral pneumonia. Nasal Canula. Pulmonary consultation = Dr. Angel Daniel. Continue remdesivir and Decadron intravenously. antibiotics = S/P ceftriaxone and azithromycin Inf Dis=Dr Pond 2. Diabetes type 2. NovoLog sliding scale has been instituted. 3. Hypertension. Continue amlodipine, hydrochlorothiazide, and losartan as above. 4. Hypercholesterolemia. Continue simvastatin as above. 5. Benign prostatic hypertrophy. Continue Flomax as above. 6. Discharge planning Fili Alfaro MD Apr 29, 2020 14:47
[2020-04-29 16:00] VITALS: BP 146/72
--- NOTE | 2020-04-29 16:21 | Nephrology Progress Note ---
Assessment/Plan Problem List: (1) Electrolyte imbalance (2) Coronavirus infection (3) Hypoxia (4) BPH (benign prostatic hyperplasia) Assessment Electrolyte imbalance Low sodium, low magnesium, low potassium Coronavirus infection, hypoxia Diabetes mellitus Plan April 29: Labs reviewed. Renal parameters stable. Continue per consultants. April 28: Labs reviewed. Renal parameters stable. Continue per consultants. April 27: No CHEM panel drawn today. Remains stable from renal standpoint of view. Continue per consultants. April 26: Labs reviewed. Renal parameters are stable. Continue per consultants. April 25: Labs reviewed. Stable renal parameters. Continue per consultants. April 24: Labs reviewed. Renal parameters stable. Continue per consultants. April 23: Labs reviewed. Renal parameters stable. Continue as current treatment plan. April 22: Today's labs reviewed and renal parameters remain stable continue per consultants April 21: Labs reviewed. Renal parameters stable. Continue per consultants. Medication list reviewed. April 20: Labs reviewed. Renal parameters and electrolytes stable. Continue per consultants. Previously: Normal saline with potassium IV Mag sulfate IV Protonix and stool softener Antibiotics Monitor electrolytes and renal parameters Per orders Subjective ROS Limited/Unobtainable: No Constitutional: Reports: malaise Objective Objective Last 24 Hour Vital Signs Date Time Temp Pulse Resp B/P (MAP) Pulse Ox O2 Delivery O2 Flow Rate FiO2 04/29/20 16:00 97.5 69 18 146/72 (96) 91 04/29/20 12:00 97.7 81 18 147/79 (101) 90 04/29/20 09:59 84 160/74 04/29/20 09:00 Room Air 04/29/20 08:00 97.3 84 18 160/74 (102) 90 04/29/20 04:00 97.7 70 17 158/78 (104) 95 04/29/20 00:00 97.4 69 18 142/70 (94) 95 04/28/20 21:12 82 151/83 04/28/20 21:10 98.2 82 18 151/83 (105) 95 04/28/20 21:00 Room Air 04/28/20 20:00 98.2 82 18 151/83 (105) 95 04/28/20 19:33 95 Room Air 21 Intake and Output 04/28/20 04/29/20 19:00 07:00 Intake Total 500 ml 400 ml Balance 500 ml 400 ml Intake Oral 500 ml 400 ml # Voids 2 2 Current Medications Medications (Trade) Dose Ordered Sig/Lucy Route PRN Reason Start Time Stop Time Status Last Admin Dose Admin Acetaminophen (Tylenol) 650 mg Q4H PRN ORAL FEVER 04/18/20 10:45 05/18/20 10:44 Albuterol/ Ipratropium (Combivent Respimat) 1 puff Q4H PRN INH Shortness of Breath 04/18/20 11:15 05/18/20 11:14 Dextrose (Dextrose 50%) 25 ml Q30M PRN IV Hypoglycemia 04/18/20 10:45 07/17/20 10:44 Dextrose (Dextrose 50%) 50 ml Q30M PRN IV Hypoglycemia 04/18/20 10:45 07/17/20 10:44 Docusate Sodium (Colace) 100 mg THREE TIMES A DAY ORAL 04/18/20 13:00 05/18/20 12:59 04/29/20 13:23 Enoxaparin Sodium (Lovenox) 40 mg DAILY SUBQ 04/24/20 09:00 07/23/20 08:59 04/29/20 10:01 Insulin Aspart (NovoLOG) BEFORE MEALS AND HS SUBQ 04/18/20 11:30 07/17/20 11:29 04/28/20 21:21 Metoprolol Tartrate (Lopressor) 25 mg Q12HR ORAL 04/26/20 21:00 07/25/20 20:59 04/29/20 09:59 Ondansetron HCl (Zofran) 4 mg Q6H PRN IVP Nausea & Vomiting 04/18/20 10:45 05/18/20 10:44 Pantoprazole (Protonix) 40 mg EVERY 12 HOURS ORAL 04/18/20 21:00 05/18/20 20:59 04/29/20 09:59 Polyethylene Glycol (Miralax) 17 gm DAILYPRN PRN ORAL Constipation 04/18/20 10:45 05/18/20 10:44 Potassium Chloride 30 meq/ Sodium Chloride 1,015 ml @ 50 mls/hr [id number] IV 04/19/20 09:00 05/19/20 08:59 04/29/20 13:24 Promethazine HCl/ Codeine (Phenergan with Codeine) 5 ml Q6H PRN ORAL cough 04/18/20 10:45 05/18/20 10:44 04/25/20 01:50 Laboratory Tests 04/28/20 17:13: POC Whole Blood Glucose 217H 04/28/20 21:17: POC Whole Blood Glucose 193H 04/29/20 08:00: White Blood Count 8.2, Red Blood Count 4.61L, Hemoglobin 14.1L, Hematocrit 41.4L , Mean Corpuscular Volume 90, Mean Corpuscular Hemoglobin 30.5, Mean Corpuscular Hemoglobin Concent 34.0, Red Cell Distribution Width 13.5, Platelet Count 274, Mean Platelet Volume 6.9, Neutrophils (%) (Auto) 66.9, Lymphocytes (%) (Auto) 20.6, Monocytes (%) (Auto) 10.2H, Eosinophils (%) (Auto) 1.2, Basophils (%) (Auto) 1.0, Sodium Level 140, Potassium Level 4.1, Chloride Level 105, Carbon Dioxide Level 27, Anion Gap 8, Blood Urea Nitrogen 12, Creatinine 0.7, Estimat Glomerular Filtration Rate > 60, Glucose Level 173H, Calcium Level 9.2 Height (Feet): 5 Height (Inches): 6.00 Weight (Pounds): 172 Cardiovascular: normal rate Respiratory/Chest: decreased breath sounds Abdomen: distended Roberto Yang MD Apr 29, 2020 16:21
--- NOTE | 2020-04-29 19:30 | NUR ---
NURSE NOTES: Patient awake in bed, no complaint of SOB nor pain, no sign of respiratory distress. Instructed patient to use call light for assistance. Bed in lowest and lock engaged. Will continue to monitor patient.
--- NOTE | 2020-04-29 19:36 | NUR ---
NURSE HAND-OFF: Important Events on Shift:[] Patient Status: [] Diet: [ccho medium] Pending Orders: [cbc, director of creative services, mg, phos, howard panel] Pending Results/Labs:[] Pending MD notification:[] Latest Vital Signs: Temperature 97.5 , Pulse 69 , B/P 146 /72 , Respiratory Rate 18 , O2 SAT 91 , Simple Mask, O2 Flow Rate . Vital Sign Comment: [] Latest Rivas Fall Score: 45 Fall Risk: High Risk Safety Measures: Call light Within Reach, Bed Alarm Zone 1, Side Rails Side Rails x2, Bed position Low and Locked. Fall Precautions: Yellow Socks Yellow Gown Door Sign Patient Fall Education Report given to [REANNA Du].
[2020-04-29 20:00] VITALS: BP 150/77
[2020-04-30] VITALS: BP 154/71
[2020-04-30 04:00] VITALS: BP 157/74
[2020-04-30] MEDS: NovoLOG Insulin Flexpen SUBQ SCH ×4 (06:30→21:00)
[2020-04-30 07:21] LABS: BASOPHILS % (AUTO) 0.9 % (0.0-2.0); EOSINOPHILS % (AUTO) 2.9 % (0.0-3.0); HEMATOCRIT 41.1 % (42.0-52.0); HEMOGLOBIN 13.6 G/DL (14.2-18.0); LYMPHOCYTES % (AUTO) 22.1 % (20.0-45.0); MEAN CORPUSCULAR VOLUME 93 FL (80-99); MONOCYTES % (AUTO) 13.8 % (1.0-10.0); NEUTROPHILS % (AUTO) 60.3 % (45.0-75.0); PLATELET COUNT 256 K/UL (150-450); RED BLOOD COUNT 4.43 M/UL (4.70-6.10); RED CELL DISTRIBUTION WIDTH 13.2 % (11.6-14.8); WHITE BLOOD COUNT 6.5 K/UL (4.8-10.8)
--- NOTE | 2020-04-30 07:40 | NUR ---
NURSE HAND-OFF: Important Events on Shift: AM labdraw, accucheck, safety Patient Status: Diet: ccho medium Pending Orders: Pending Results/Labs:am labs Pending MD notification: Latest Vital Signs: Temperature 97.8 , Pulse 90 , B/P 157 /74 , Respiratory Rate 18 , O2 SAT 92 , Simple Mask, O2 Flow Rate . Vital Sign Comment: Latest Rivas Fall Score: 45 Fall Risk: High Risk Safety Measures: Call light Within Reach, Bed Alarm Zone 1, Side Rails Side Rails x2, Bed position Low and Locked. Fall Precautions: Yellow Socks Yellow Gown Door Sign Patient Fall Education Report given to REANNA Liriano.
[2020-04-30 07:56] LABS: ANION GAP 6 mmol/L (5-15); BLOOD UREA NITROGEN 14 mg/dL (7-18); CALCIUM 9.3 MG/DL (8.5-10.1); CARBON DIOXIDE 29 MMOL/L (21-32); CHLORIDE 106 MMOL/L (98-107); CREATININE 0.8 MG/DL (0.55-1.30); POTASSIUM 4.5 MMOL/L (3.5-5.1); SODIUM 141 MMOL/L (136-145)
[2020-04-30 08:00] VITALS: BP 135/74
[2020-04-30 08:05] LABS: ALANINE AMINOTRANSFERASE 33 U/L (12-78); ALBUMIN 2.5 G/DL (3.4-5.0); ALKALINE PHOSPHATASE 52 U/L (46-116); ASPARTATE AMINO TRANSFERASE 18 U/L (15-37); BILIRUBIN,DIRECT < 0.1 MG/DL (0.0-0.3); BILIRUBIN,TOTAL 0.4 MG/DL (0.2-1.0); PHOSPHORUS 3.6 MG/DL (2.5-4.9)
--- NOTE | 2020-04-30 09:01 | NUR ---
RD ASSESSMENT & RECOMMENDATIONS SEE CARE ACTIVITY FOR COMPLETE ASSESSMENT DAILY ESTIMATED NEEDS: Needs based on pulmonary, DM 67.5kg 25-30 kcals/kg total kcals 1-1.5 g protein/kg 68-101 g total protein 25-30 mL/kg total fluid mLs NUTRITION DIAGNOSIS: Altered nutrition related lab values r/t clinical status and diabetes as evidenced by A1C 7.1, elev BG (118-245), elev CO2 (33- now wnl). CURRENT DIET:[facility] PO DIET RECOMMENDATIONS: [facility] MED/ LOW NA ADDITIONAL RECOMMENDATIONS: 1) Maintain daily calibrated bed scale wts Obtain a standing weight as able, wt trend is up. 2) Good po intake on all meals, consider increasing insulin coverage for improved glycemic control
[2020-04-30] MEDS: Docusate 100mg cap ORAL SCH ×3 (09:45→17:18)
[2020-04-30] MEDS: Enoxaparin 40mg Inj SUBQ SCH (09:45)
--- NOTE | 2020-04-30 10:34 | Pulmonology Progress Note ---
Subjective ROS Limited/Unobtainable: No Allergies: Coded Allergies: No Known Allergies (Unverified , 04/18/20) Subjective now on RA, stable no resp distress, no SOB remains afebrile, no leukocytosis less cough dc plan in progress Objective Last 24 Hour Vital Signs Date Time Temp Pulse Resp B/P (MAP) Pulse Ox O2 Delivery O2 Flow Rate FiO2 04/30/20 09:46 90 157/74 04/30/20 08:00 96.8 76 18 135/74 (94) 92 04/30/20 04:00 97.8 90 18 157/74 (101) 92 04/30/20 00:00 99.0 68 18 154/71 (98) 93 04/29/20 22:02 69 150/77 04/29/20 21:00 Room Air 04/29/20 20:00 98.7 69 18 150/77 (101) 92 04/29/20 16:00 97.5 69 18 146/72 (96) 91 04/29/20 12:00 97.7 81 18 147/79 (101) 90 Intake and Output 04/29/20 04/30/20 19:00 07:00 Intake Total 960 ml Balance 960 ml Intake Oral 960 ml # Voids 4 2 General Appearance: WD/WN, no acute distress HEENT: normocephalic Respiratory: chest wall non-tender, lungs clear - with moderate air exchange , other - RA Cardiovascular: normal peripheral pulses, normal rate Abdomen: normal bowel sounds, no organomegaly Extremities: no edema Skin: no rash Neurologic: abnormal gait Musculoskeletal: normal muscle bulk Laboratory Tests 04/29/20 11:20: POC Whole Blood Glucose [Pending] 04/29/20 16:53: POC Whole Blood Glucose [Pending] 04/29/20 22:06: POC Whole Blood Glucose [Pending] 04/30/20 04:35: White Blood Count 6.5, Red Blood Count 4.43L, Hemoglobin 13.6L, Hematocrit 41.1L , Mean Corpuscular Volume 93, Mean Corpuscular Hemoglobin 30.6, Mean Corpuscular Hemoglobin Concent 33.0, Red Cell Distribution Width 13.2, Platelet Count 256, Mean Platelet Volume 7.2, Neutrophils (%) (Auto) 60.3, Lymphocytes (%) (Auto) 22.1, Monocytes (%) (Auto) 13.8H, Eosinophils (%) (Auto) 2.9, Basophils (%) (Auto) 0.9, Sodium Level 141, Potassium Level 4.5, Chloride Level 106, Carbon Dioxide Level 29, Anion Gap 6, Blood Urea Nitrogen 14, Creatinine 0.8, Estimat Glomerular Filtration Rate > 60, Glucose Level 114H, Calcium Level 9.3, Phosphorus Level 3.6, Magnesium Level 1.9, Total Bilirubin 0.4, Direct Bilirubin < 0.1, Aspartate Amino Transf (AST/SGOT) 18, Alanine Aminotransferase (ALT/SGPT) 33, Alkaline Phosphatase 52, Total Protein 6.7, Albumin 2.5L 04/30/20 04:43: POC Whole Blood Glucose [Pending] Current Medications Medications (Trade) Dose Ordered Sig/Lucy Route PRN Reason Start Time Stop Time Status Last Admin Dose Admin Acetaminophen (Tylenol) 650 mg Q4H PRN ORAL FEVER 04/18/20 10:45 05/18/20 10:44 Albuterol/ Ipratropium (Combivent Respimat) 1 puff Q4H PRN INH Shortness of Breath 04/18/20 11:15 05/18/20 11:14 Dextrose (Dextrose 50%) 25 ml Q30M PRN IV Hypoglycemia 04/18/20 10:45 07/17/20 10:44 Dextrose (Dextrose 50%) 50 ml Q30M PRN IV Hypoglycemia 04/18/20 10:45 07/17/20 10:44 Docusate Sodium (Colace) 100 mg THREE TIMES A DAY ORAL 04/18/20 13:00 05/18/20 12:59 04/30/20 09:45 Enoxaparin Sodium (Lovenox) 40 mg DAILY SUBQ 04/24/20 09:00 07/23/20 08:59 04/30/20 09:45 Insulin Aspart (NovoLOG) BEFORE MEALS AND HS SUBQ 04/18/20 11:30 07/17/20 11:29 04/29/20 16:57 Metoprolol Tartrate (Lopressor) 25 mg Q12HR ORAL 04/26/20 21:00 07/25/20 20:59 04/30/20 09:46 Ondansetron HCl (Zofran) 4 mg Q6H PRN IVP Nausea & Vomiting 04/18/20 10:45 05/18/20 10:44 Pantoprazole (Protonix) 40 mg EVERY 12 HOURS ORAL 04/18/20 21:00 05/18/20 20:59 04/30/20 09:45 Polyethylene Glycol (Miralax) 17 gm DAILYPRN PRN ORAL Constipation 04/18/20 10:45 05/18/20 10:44 Potassium Chloride 30 meq/ Sodium Chloride 1,015 ml @ 50 mls/hr [id number] IV 04/19/20 09:00 05/19/20 08:59 04/30/20 09:46 Promethazine HCl/ Codeine (Phenergan with Codeine) 5 ml Q6H PRN ORAL cough 04/18/20 10:45 05/18/20 10:44 04/25/20 01:50 Assessment/Plan Assessment/Plan ASSESSMENT Acute hypoxemic respiratory failure requiring face mask mask COVID-19 pneumonia Diabetes mellitus Hypertension Hyperlipidemia BPH PLAN OF CARE tele isolation room Date of sx onset: few days prior to presentation to ED on 04/18 Positive test: 04/18 rapid COVID + ( was tested positive prior as well) O2 - RA but desaturates while ambulating HFA s/p REM x 5 days ( 04/18 - 04/22 ) s/p Dex x10 days ( 04/18 -) DVT PPX: Lovenox Venous Duplex BLE 04/21 NGT D dimer 0.64 Trend CRP 16.5 - > 7-> 7.2-> 55.2 -> 27.8 CXR 1 -> Patchy bilateral airspace consolidations, consistent with severe multifocal infiltrate CXR 04/24 -> no significant changes s/p abx per ID recs, completed 04/23 monitor volumes and renal function Fup with consultants recs FC Discuss GOC BS management with SSI BP management GI prophylaxis supportive care repeat O2 sat on RA with ambulation if still desaturates may need O2 for home CM to assist with dc : apparently everyone at home have COVID per pt, ID cleared to dc home off isolation dc plan for today pt was not dc yesterday daughter is concerned if it is safe for him to go home with whi is COVID positive, ID cleared pt for dc daughter wants to discuss issue with pt PMD and get back to us ( per dc tool and production planner) dc plan in progress hope to dc today case discussed and evaluated by supervising physician Sridevi Alfaro NP Apr 30, 2020 10:34
--- NOTE | 2020-04-30 10:47 | Cardiac Electrophysiology PN ---
Assessment/Plan Assessment/Plan 1. Nonsustained ventricular tachycardia. Ruled out for [place] and EF 65%.On Lopressor 25 po bid 2. History of hypertension. On Lopressor 25 po bid 3. Diabetes, on insulin. 4. COVID pneumonia, on dexamethasone and albuterol. On RA now DC pending Subjective Subjective Alert in covid isolation on RA. Tele was DCed on RA Objective Last 24 Hour Vital Signs Date Time Temp Pulse Resp B/P (MAP) Pulse Ox O2 Delivery O2 Flow Rate FiO2 04/30/20 09:46 90 157/74 04/30/20 08:00 96.8 76 18 135/74 (94) 92 04/30/20 04:00 97.8 90 18 157/74 (101) 92 04/30/20 00:00 99.0 68 18 154/71 (98) 93 04/29/20 22:02 69 150/77 04/29/20 21:00 Room Air 04/29/20 20:00 98.7 69 18 150/77 (101) 92 04/29/20 16:00 97.5 69 18 146/72 (96) 91 04/29/20 12:00 97.7 81 18 147/79 (101) 90 Intake and Output 04/29/20 04/30/20 19:00 07:00 Intake Total 960 ml Balance 960 ml Intake Oral 960 ml # Voids 4 2 Laboratory Tests Test 04/29/20 11:20 04/29/20 16:53 04/29/20 22:06 04/30/20 04:35 POC Whole Blood Glucose Pending Pending Pending White Blood Count 6.5 K/UL (4.8-10.8) Red Blood Count 4.43 M/UL (4.70-6.10) L Hemoglobin 13.6 G/DL (14.2-18.0) L Hematocrit 41.1 % (42.0-52.0) L Mean Corpuscular Volume 93 FL (80-99) Mean Corpuscular Hemoglobin 30.6 PG (27.0-31.0) Mean Corpuscular Hemoglobin Concent 33.0 G/DL (32.0-36.0) Red Cell Distribution Width 13.2 % (11.6-14.8) Platelet Count 256 K/UL (150-450) Mean Platelet Volume 7.2 FL (6.5-10.1) Neutrophils (%) (Auto) 60.3 % (45.0-75.0) Lymphocytes (%) (Auto) 22.1 % (20.0-45.0) Monocytes (%) (Auto) 13.8 % (1.0-10.0) H Eosinophils (%) (Auto) 2.9 % (0.0-3.0) Basophils (%) (Auto) 0.9 % (0.0-2.0) Sodium Level 141 MMOL/L (136-145) Potassium Level 4.5 MMOL/L (3.5-5.1) Chloride Level 106 MMOL/L (98-107) Carbon Dioxide Level 29 MMOL/L (21-32) Anion Gap 6 mmol/L (5-15) Blood Urea Nitrogen 14 mg/dL (7-18) Creatinine 0.8 MG/DL (0.55-1.30) Estimat Glomerular Filtration Rate > 60 mL/min (>60) Glucose Level 114 MG/DL (74-106) H Calcium Level 9.3 MG/DL (8.5-10.1) Phosphorus Level 3.6 MG/DL (2.5-4.9) Magnesium Level 1.9 MG/DL (1.8-2.4) Total Bilirubin 0.4 MG/DL (0.2-1.0) Direct Bilirubin < 0.1 MG/DL (0.0-0.3) Aspartate Amino Transf (AST/SGOT) 18 U/L (15-37) Alanine Aminotransferase (ALT/SGPT) 33 U/L (12-78) Alkaline Phosphatase 52 U/L (46-116) Total Protein 6.7 G/DL (6.4-8.2) Albumin 2.5 G/DL (3.4-5.0) L Test 04/30/20 04:43 POC Whole Blood Glucose Pending Objective HEAD AND NECK: No JVD. LUNGS: Coarse rhonchi. CARDIOVASCULAR: Regular S1 and S2 with no gallop. ABDOMEN: Soft. EXTREMITIES: 1+ pitting edema. Terrance Nicole MD Apr 30, 2020 10:47
[2020-04-30 11:39] VITALS: BP 143/68
--- NOTE | 2020-04-30 12:40 | Nephrology Progress Note ---
Assessment/Plan Problem List: (1) Electrolyte imbalance (2) Coronavirus infection (3) Hypoxia (4) BPH (benign prostatic hyperplasia) Assessment Electrolyte imbalance Low sodium, low magnesium, low potassium Coronavirus infection, hypoxia Diabetes mellitus Plan April 30: Labs reviewed. Electrolyte renal parameters stable. Medication list reviewed continue per consultants. April 29: Labs reviewed. Renal parameters stable. Continue per consultants. April 28: Labs reviewed. Renal parameters stable. Continue per consultants. April 27: No CHEM panel drawn today. Remains stable from renal standpoint of view. Continue per consultants. April 26: Labs reviewed. Renal parameters are stable. Continue per consultants. April 25: Labs reviewed. Stable renal parameters. Continue per consultants. April 24: Labs reviewed. Renal parameters stable. Continue per consultants. April 23: Labs reviewed. Renal parameters stable. Continue as current treatment plan. April 22: Today's labs reviewed and renal parameters remain stable continue per consultants April 21: Labs reviewed. Renal parameters stable. Continue per consultants. Medication list reviewed. April 20: Labs reviewed. Renal parameters and electrolytes stable. Continue per consultants. Previously: Normal saline with potassium IV Mag sulfate IV Protonix and stool softener Antibiotics Monitor electrolytes and renal parameters Per orders Subjective ROS Limited/Unobtainable: No Constitutional: Reports: malaise Objective Objective Last 24 Hour Vital Signs Date Time Temp Pulse Resp B/P (MAP) Pulse Ox O2 Delivery O2 Flow Rate FiO2 04/30/20 11:39 97.2 65 18 143/68 (93) 92 04/30/20 09:46 90 157/74 04/30/20 08:00 96.8 76 18 135/74 (94) 92 04/30/20 04:00 97.8 90 18 157/74 (101) 92 04/30/20 00:00 99.0 68 18 154/71 (98) 93 04/29/20 22:02 69 150/77 04/29/20 21:00 Room Air 04/29/20 20:00 98.7 69 18 150/77 (101) 92 04/29/20 16:00 97.5 69 18 146/72 (96) 91 Intake and Output 04/29/20 04/30/20 19:00 07:00 Intake Total 960 ml Balance 960 ml Intake Oral 960 ml # Voids 4 2 Current Medications Medications (Trade) Dose Ordered Sig/Lucy Route PRN Reason Start Time Stop Time Status Last Admin Dose Admin Acetaminophen (Tylenol) 650 mg Q4H PRN ORAL FEVER 04/18/20 10:45 05/18/20 10:44 Albuterol/ Ipratropium (Combivent Respimat) 1 puff Q4H PRN INH Shortness of Breath 04/18/20 11:15 05/18/20 11:14 Dextrose (Dextrose 50%) 25 ml Q30M PRN IV Hypoglycemia 04/18/20 10:45 07/17/20 10:44 Dextrose (Dextrose 50%) 50 ml Q30M PRN IV Hypoglycemia 04/18/20 10:45 07/17/20 10:44 Docusate Sodium (Colace) 100 mg THREE TIMES A DAY ORAL 04/18/20 13:00 05/18/20 12:59 04/30/20 09:45 Enoxaparin Sodium (Lovenox) 40 mg DAILY SUBQ 04/24/20 09:00 07/23/20 08:59 04/30/20 09:45 Insulin Aspart (NovoLOG) BEFORE MEALS AND HS SUBQ 04/18/20 11:30 07/17/20 11:29 04/29/20 16:57 Metoprolol Tartrate (Lopressor) 25 mg Q12HR ORAL 04/26/20 21:00 07/25/20 20:59 04/30/20 09:46 Ondansetron HCl (Zofran) 4 mg Q6H PRN IVP Nausea & Vomiting 04/18/20 10:45 05/18/20 10:44 Pantoprazole (Protonix) 40 mg EVERY 12 HOURS ORAL 04/18/20 21:00 05/18/20 20:59 04/30/20 09:45 Polyethylene Glycol (Miralax) 17 gm DAILYPRN PRN ORAL Constipation 04/18/20 10:45 05/18/20 10:44 Potassium Chloride 30 meq/ Sodium Chloride 1,015 ml @ 50 mls/hr [id number] IV 04/19/20 09:00 05/19/20 08:59 04/30/20 09:46 Promethazine HCl/ Codeine (Phenergan with Codeine) 5 ml Q6H PRN ORAL cough 04/18/20 10:45 05/18/20 10:44 04/25/20 01:50 Laboratory Tests 04/29/20 16:53: POC Whole Blood Glucose [Pending] 04/29/20 22:06: POC Whole Blood Glucose [Pending] 04/30/20 04:35: White Blood Count 6.5, Red Blood Count 4.43L, Hemoglobin 13.6L, Hematocrit 41.1L , Mean Corpuscular Volume 93, Mean Corpuscular Hemoglobin 30.6, Mean Corpuscular Hemoglobin Concent 33.0, Red Cell Distribution Width 13.2, Platelet Count 256, Mean Platelet Volume 7.2, Neutrophils (%) (Auto) 60.3, Lymphocytes (%) (Auto) 22.1, Monocytes (%) (Auto) 13.8H, Eosinophils (%) (Auto) 2.9, Basophils (%) (Auto) 0.9, Sodium Level 141, Potassium Level 4.5, Chloride Level 106, Carbon Dioxide Level 29, Anion Gap 6, Blood Urea Nitrogen 14, Creatinine 0.8, Estimat Glomerular Filtration Rate > 60, Glucose Level 114H, Calcium Level 9.3, Phosphorus Level 3.6, Magnesium Level 1.9, Total Bilirubin 0.4, Direct Bilirubin < 0.1, Aspartate Amino Transf (AST/SGOT) 18, Alanine Aminotransferase (ALT/SGPT) 33, Alkaline Phosphatase 52, Total Protein 6.7, Albumin 2.5L 04/30/20 04:43: POC Whole Blood Glucose [Pending] Height (Feet): 5 Height (Inches): 6.00 Weight (Pounds): 172 General Appearance: no apparent distress Cardiovascular: normal rate Respiratory/Chest: decreased breath sounds Abdomen: soft Roberto Yang MD Apr 30, 2020 12:39
[2020-04-30 16:00] VITALS: BP 146/74
--- NOTE | 2020-04-30 16:23 | NUR ---
BURR PICKER NOTE NUMEROUS CALLS MADE TO PATIENTS RP FLORINDA HILL (DTR) [phone]. CALL RINGS ONCE AND GOES TO . LEFT WITH REQUEST TO CALL CM. WILL CONTINUE TO ATTEMPT TO REACH DTR IN RE TO DC.
--- NOTE | 2020-04-30 16:36 | NUR ---
CASE MANAGEMENT:REVIEW SI;COVID PNA. DM. HTN. 99.0 90 18 157/74 92% ON RA ALB 2.5 IS;LOPRESSOR O Q12 LOVENOX SQ QD KCL/NS @ 50 ML/HR PROTONIX PO BID MED SURG STATUS DCP;FROM HOME
--- NOTE | 2020-04-30 18:58 | Internal Med Progress Note ---
Subjective Date of Service: Apr 30, 2020 Physician Name Fili Alfaro Attending Physician Romie Murray MD Current Medications Medications (Trade) Dose Ordered Sig/Lucy Route PRN Reason Start Time Stop Time Status Last Admin Dose Admin Acetaminophen (Tylenol) 650 mg Q4H PRN ORAL FEVER 04/18/20 10:45 05/18/20 10:44 Albuterol/ Ipratropium (Combivent Respimat) 1 puff Q4H PRN INH Shortness of Breath 04/18/20 11:15 05/18/20 11:14 Dextrose (Dextrose 50%) 25 ml Q30M PRN IV Hypoglycemia 04/18/20 10:45 07/17/20 10:44 Dextrose (Dextrose 50%) 50 ml Q30M PRN IV Hypoglycemia 04/18/20 10:45 07/17/20 10:44 Docusate Sodium (Colace) 100 mg THREE TIMES A DAY ORAL 04/18/20 13:00 05/18/20 12:59 04/30/20 17:18 Enoxaparin Sodium (Lovenox) 40 mg DAILY SUBQ 04/24/20 09:00 07/23/20 08:59 04/30/20 09:45 Insulin Aspart (NovoLOG) BEFORE MEALS AND HS SUBQ 04/18/20 11:30 07/17/20 11:29 04/29/20 16:57 Metoprolol Tartrate (Lopressor) 25 mg Q12HR ORAL 04/26/20 21:00 07/25/20 20:59 04/30/20 09:46 Ondansetron HCl (Zofran) 4 mg Q6H PRN IVP Nausea & Vomiting 04/18/20 10:45 05/18/20 10:44 Pantoprazole (Protonix) 40 mg EVERY 12 HOURS ORAL 04/18/20 21:00 05/18/20 20:59 04/30/20 09:45 Polyethylene Glycol (Miralax) 17 gm DAILYPRN PRN ORAL Constipation 04/18/20 10:45 05/18/20 10:44 Potassium Chloride 30 meq/ Sodium Chloride 1,015 ml @ 50 mls/hr [id number] IV 04/19/20 09:00 05/19/20 08:59 04/30/20 09:46 Promethazine HCl/ Codeine (Phenergan with Codeine) 5 ml Q6H PRN ORAL cough 04/18/20 10:45 05/18/20 10:44 04/25/20 01:50 Allergies: Coded Allergies: No Known Allergies (Unverified , 04/18/20) ROS Limited/Unobtainable: No Constitutional: Reports: no symptoms HEENT: Reports: no symptoms Cardiovascular: Reports: no symptoms Respiratory: Reports: no symptoms Gastrointestinal/Abdominal: Reports: no symptoms Genitourinary: Reports: no symptoms Neurologic/Psychiatric: Reports: no symptoms Subjective 79 YO M admitted with dyspnea. Now COVID 19 pneumonia. Cover for Int Med - Dr Murray. Objective Last Vital Signs Date Time Temp Pulse Resp B/P (MAP) Pulse Ox O2 Delivery O2 Flow Rate FiO2 04/30/20 16:00 97.4 74 18 146/74 (98) 91 04/30/20 09:00 Room Air 04/29/20 07:00 21 04/25/20 21:00 Laboratory Tests Test 04/29/20 22:06 04/30/20 04:35 04/30/20 04:43 POC Whole Blood Glucose Pending Pending White Blood Count 6.5 K/UL (4.8-10.8) Red Blood Count 4.43 M/UL (4.70-6.10) L Hemoglobin 13.6 G/DL (14.2-18.0) L Hematocrit 41.1 % (42.0-52.0) L Mean Corpuscular Volume 93 FL (80-99) Mean Corpuscular Hemoglobin 30.6 PG (27.0-31.0) Mean Corpuscular Hemoglobin Concent 33.0 G/DL (32.0-36.0) Red Cell Distribution Width 13.2 % (11.6-14.8) Platelet Count 256 K/UL (150-450) Mean Platelet Volume 7.2 FL (6.5-10.1) Neutrophils (%) (Auto) 60.3 % (45.0-75.0) Lymphocytes (%) (Auto) 22.1 % (20.0-45.0) Monocytes (%) (Auto) 13.8 % (1.0-10.0) H Eosinophils (%) (Auto) 2.9 % (0.0-3.0) Basophils (%) (Auto) 0.9 % (0.0-2.0) Sodium Level 141 MMOL/L (136-145) Potassium Level 4.5 MMOL/L (3.5-5.1) Chloride Level 106 MMOL/L (98-107) Carbon Dioxide Level 29 MMOL/L (21-32) Anion Gap 6 mmol/L (5-15) Blood Urea Nitrogen 14 mg/dL (7-18) Creatinine 0.8 MG/DL (0.55-1.30) Estimat Glomerular Filtration Rate > 60 mL/min (>60) Glucose Level 114 MG/DL (74-106) H Calcium Level 9.3 MG/DL (8.5-10.1) Phosphorus Level 3.6 MG/DL (2.5-4.9) Magnesium Level 1.9 MG/DL (1.8-2.4) Total Bilirubin 0.4 MG/DL (0.2-1.0) Direct Bilirubin < 0.1 MG/DL (0.0-0.3) Aspartate Amino Transf (AST/SGOT) 18 U/L (15-37) Alanine Aminotransferase (ALT/SGPT) 33 U/L (12-78) Alkaline Phosphatase 52 U/L (46-116) Total Protein 6.7 G/DL (6.4-8.2) Albumin 2.5 G/DL (3.4-5.0) L Intake and Output 04/29/20 04/30/20 19:00 07:00 Intake Total 1510 ml 50 ml Balance 1510 ml 50 ml Intake Oral 960 ml IV Total 550 ml 50 ml # Voids 4 2 Objective PHYSICAL EXAMINATION: GENERAL: The patient is a well-developed and well-nourished male, in no apparent distress. HEENT: Eyes, pupils are equal and responsive to light and accommodation. Extraocular movements are intact. NECK: Supple without lymphadenopathy. CHEST: Nasal canula, Decreased breath sounds in bilateral bases, otherwise clear to auscultation without wheezes. CARDIOVASCULAR: Tachycardic, regular rhythm. S1, S2 normal without murmurs, rubs, or gallops. ABDOMEN: Soft, nontender, and nondistended. Positive bowel sounds. No evidence of hepatosplenomegaly. Currently, no rebound or guarding noted. EXTREMITIES: Negative for clubbing, cyanosis, or edema. RECTAL/GENITAL: Refused. NEUROLOGIC: Cranial nerves II through XII are grossly intact without focal deficits. Motor strength is 5/5 bilaterally. Deep tendon reflexes are 2+ plantar. Assessment/Plan Assessment/Plan ASSESSMENT: This is an 79-year-old male with: 1. COVID-19 positive. 2. Bilateral pneumonia. 3. Diabetes type 2. 4. Hypertension. 5. Hypercholesterolemia. 6. Benign prostatic hypertrophy. TREATMENT: 1. COVID-19 positive/bilateral pneumonia. Nasal Can[place]. Pulmonary consultation = Dr. Angel Daniel. Continue remdesivir and Decadron intravenously. antibiotics = S/P ceftriaxone and azithromycin Inf Dis=Dr Pond 2. Diabetes type 2. NovoLog sliding scale has been instituted. 3. Hypertension. Continue amlodipine, hydrochlorothiazide, and losartan as above. 4. Hypercholesterolemia. Continue simvastatin as above. 5. Benign prostatic hypertrophy. Continue Flomax as above. 6. Discharge planning Fili Alfaro MD Apr 30, 2020 18:58
--- NOTE | 2020-04-30 19:16 | Surgery Progress Note ---
Surgery Progress Note Subjective Symptoms: improved, pain absent, tolerating diet, passing flatus, BM Objective Last 24 Hour Vital Signs Date Time Temp Pulse Resp B/P (MAP) Pulse Ox O2 Delivery O2 Flow Rate FiO2 04/30/20 16:00 97.4 74 18 146/74 (98) 91 04/30/20 11:39 97.2 65 18 143/68 (93) 92 04/30/20 09:46 90 157/74 04/30/20 09:00 Room Air 04/30/20 08:00 96.8 76 18 135/74 (94) 92 04/30/20 04:00 97.8 90 18 157/74 (101) 92 04/30/20 00:00 99.0 68 18 154/71 (98) 93 04/29/20 22:02 69 150/77 04/29/20 21:00 Room Air 04/29/20 20:00 98.7 69 18 150/77 (101) 92 I&O Intake and Output 04/29/20 04/30/20 19:00 07:00 Intake Total 1510 ml 50 ml Balance 1510 ml 50 ml Intake Oral 960 ml IV Total 550 ml 50 ml # Voids 4 2 Dressing: dry Wound: clean Cardiovascular: RSR Respiratory: clear Abdomen: soft, non-tender, present bowel sounds, non-distended Extremities: no tenderness, no cyanosis Laboratory Tests Test 04/29/20 22:06 04/30/20 04:35 04/30/20 04:43 POC Whole Blood Glucose Pending Pending White Blood Count 6.5 K/UL (4.8-10.8) Red Blood Count 4.43 M/UL (4.70-6.10) L Hemoglobin 13.6 G/DL (14.2-18.0) L Hematocrit 41.1 % (42.0-52.0) L Mean Corpuscular Volume 93 FL (80-99) Mean Corpuscular Hemoglobin 30.6 PG (27.0-31.0) Mean Corpuscular Hemoglobin Concent 33.0 G/DL (32.0-36.0) Red Cell Distribution Width 13.2 % (11.6-14.8) Platelet Count 256 K/UL (150-450) Mean Platelet Volume 7.2 FL (6.5-10.1) Neutrophils (%) (Auto) 60.3 % (45.0-75.0) Lymphocytes (%) (Auto) 22.1 % (20.0-45.0) Monocytes (%) (Auto) 13.8 % (1.0-10.0) H Eosinophils (%) (Auto) 2.9 % (0.0-3.0) Basophils (%) (Auto) 0.9 % (0.0-2.0) Sodium Level 141 MMOL/L (136-145) Potassium Level 4.5 MMOL/L (3.5-5.1) Chloride Level 106 MMOL/L (98-107) Carbon Dioxide Level 29 MMOL/L (21-32) Anion Gap 6 mmol/L (5-15) Blood Urea Nitrogen 14 mg/dL (7-18) Creatinine 0.8 MG/DL (0.55-1.30) Estimat Glomerular Filtration Rate > 60 mL/min (>60) Glucose Level 114 MG/DL (74-106) H Calcium Level 9.3 MG/DL (8.5-10.1) Phosphorus Level 3.6 MG/DL (2.5-4.9) Magnesium Level 1.9 MG/DL (1.8-2.4) Total Bilirubin 0.4 MG/DL (0.2-1.0) Direct Bilirubin < 0.1 MG/DL (0.0-0.3) Aspartate Amino Transf (AST/SGOT) 18 U/L (15-37) Alanine Aminotransferase (ALT/SGPT) 33 U/L (12-78) Alkaline Phosphatase 52 U/L (46-116) Total Protein 6.7 G/DL (6.4-8.2) Albumin 2.5 G/DL (3.4-5.0) L Plan Problems: (1) Abnormal LFTs Assessment & Plan: elevated lft's t bili elevated direct <50% elevated unlikely obstructed biliary unlikely alon abd exam benign US hold for now given covid will follow clinically with exam and recs thank you DAILY ESTIMATED NEEDS: Needs based on pulmonary, DM 67.5kg 25-30 kcals/kg 8177-5948 total kcals 1-1.5 g protein/kg 68-101 g total protein 25-30 mL/kg 4385-4449 total fluid mLs NUTRITION DIAGNOSIS: Altered nutrition related lab values r/t clinical status and diabetes as evidenced by A1C 7.1, elev BG (118-245), elev CO2 (33). [facility] DIET RECOMMENDATIONS: [facility] ADDITIONAL RECOMMENDATIONS: 1) Maintain daily calibrated bed scale wts Obtain a standing weight as able 2) Good po intake on all meals, consider increasing insulin coverage for improved glycemic control (2) Diabetes (3) Hypoxia (4) Coronavirus infection Assessment & Plan: There are bilateral patchy and streaky infiltrates in a peribronchovascular distribution, left greater than right. Heart size is normal. Pleural spaces are clear. Impression: Bilateral infiltrates, consistent with multifocal pneumonia, likely viral pulm input appreciated ID on abx and Rx pulm respiratory support (5) History of hypertension (6) BPH (benign prostatic hyperplasia) (7) Electrolyte imbalance Assessment & Plan: being replaced cont diet Jesus Manuel Cruz Apr 30, 2020 19:16
--- NOTE | 2020-04-30 19:20 | NUR ---
NURSE NOTES: RECEIVED PATIENT FROM REANNA ADAM. PATIENT IS AWAKE, AAOX4, ON ROOM AIR, NO ACUTE DISTRESS NOTED. PIV INTACT AND PATENT. FLUID INFUSING. BED IS LOCKED AND LOW, BED ALARMS ACTIVE, SIDE RAILS UPX2, AND CALL LIGHT IS WITHIN REACH. WILL CONTINUE TO MONITOR.
--- NOTE | 2020-04-30 19:37 | NUR ---
NURSE HAND-OFF: Important Events on Shift:[] Patient Status: [] Diet: [ccho medium Pending Orders: [cbc, bmp] Pending Results/Labs:[] Pending MD notification:[] Latest Vital Signs: Temperature 97.4 , Pulse 74 , B/P 146 /74 , Respiratory Rate 18 , O2 SAT 91 , Simple Mask, O2 Flow Rate . Vital Sign Comment: [] Latest Rivas Fall Score: 45 Fall Risk: High Risk Safety Measures: Call light Within Reach, Bed Alarm Zone 1, Side Rails Side Rails x2, Bed position Low and Locked. Fall Precautions: Yellow Socks Yellow Gown Door Sign Patient Fall Education Report given to [rn Victor M].
[2020-04-30 20:00] VITALS: BP 146/96
[2020-05-01] VITALS: BP 105/55
[2020-05-01] MEDS: NovoLOG Insulin Flexpen SUBQ SCH ×2 (05:54→11:30)
--- NOTE | 2020-05-01 06:46 | NUR ---
NURSE HAND-OFF: Important Events on Shift: blood sugar monitoring, on NC 2L, monitor oxygenation Patient Status: stable Diet: CCHO med Pending Orders: D/C planning Pending Results/Labs: N/A Pending MD notification: N/A Latest Vital Signs: Temperature 97.7 , Pulse 68 , B/P 105 /55 , Respiratory Rate 18 , O2 SAT 95 , Simple Mask, O2 Flow Rate . Vital Sign Comment: stable Latest Rivas Fall Score: 45 Fall Risk: High Risk Safety Measures: Call light Within Reach, Bed Alarm Zone 1, Side Rails Side Rails x2, Bed position Low and Locked. Fall Precautions: Yellow Socks Yellow Gown Door Sign Patient Fall Education
[2020-05-01 06:50] LABS: BASOPHILS % (AUTO) 1.7 % (0.0-2.0); EOSINOPHILS % (AUTO) 2.3 % (0.0-3.0); HEMOGLOBIN 14.4 G/DL (14.2-18.0); LYMPHOCYTES % (AUTO) 18.6 % (20.0-45.0); MEAN CORPUSCULAR VOLUME 91 FL (80-99); MONOCYTES % (AUTO) 9.9 % (1.0-10.0); NEUTROPHILS % (AUTO) 67.5 % (45.0-75.0); PLATELET COUNT 270 K/UL (150-450); RED BLOOD COUNT 4.72 M/UL (4.70-6.10); RED CELL DISTRIBUTION WIDTH 13.4 % (11.6-14.8); WHITE BLOOD COUNT 7.9 K/UL (4.8-10.8)
--- NOTE | 2020-05-01 07:20 | NUR ---
NURSE NOTES: RN received report from Gertrude, RN. RN received patient in bed. Patient AAOX4, verbally responsive, no s/s of pain or respiratory distress noted on RA. IV running, patent, intact, dry and asymptomatic. All belongings present with the patient. Call light within reach. Bed in lowest position and locked. Will continue to monitor.
--- NOTE | 2020-05-01 07:39 | NUR ---
HAND-OFF: Report given to REANNA Espinoza.
--- NOTE | 2020-05-01 07:54 | NUR ---
C 40A CREW CHIEF NOTE NELSON attempted to call pt's daughter, Amber Mondragon [phone], the call was not answered and vm full, thus unable to leave a new vm. Addendum: 05/01/20 at 0948 by TYRONE DAMON NELSON spoke w/ Amber [phone], explained CDC guideline and that pt may take precaution but no longer need to be in acute care setting. The daughter will call the hospital once the placement is arranged within 3 hours. Addendum: 05/01/20 at 1052 by TYRONE DAMON NELSON discussed the case w/ CM, and charge authorizer that the team has educated and explained the daughter for days. The daughter does not reside in [facility]. Pt is residing w/ his and the has tested positive as well. Pt is A&O4x and has a reyes to the house. The team determines pt has right to return home. Pt was educated post- hospitalization precaution by the team.
[2020-05-01 08:00] VITALS: BP 120/74
[2020-05-01 08:14] LABS: ANION GAP 6 mmol/L (5-15); BLOOD UREA NITROGEN 17 mg/dL (7-18); CALCIUM 9.4 MG/DL (8.5-10.1); CARBON DIOXIDE 30 MMOL/L (21-32); CHLORIDE 106 MMOL/L (98-107); POTASSIUM 4.7 MMOL/L (3.5-5.1); SODIUM 141 MMOL/L (136-145)
[2020-05-01] MEDS: Docusate 100mg cap ORAL SCH (09:08)
[2020-05-01] MEDS: Enoxaparin 40mg Inj SUBQ SCH (09:09)
--- NOTE | 2020-05-01 10:36 | Pulmonology Progress Note ---
Subjective ROS Limited/Unobtainable: No Allergies: Coded Allergies: No Known Allergies (Unverified , 04/18/20) Subjective now on RA, stable no resp distress, no SOB remains afebrile, no leukocytosis less cough dc plan in progress Objective Last 24 Hour Vital Signs Date Time Temp Pulse Resp B/P (MAP) Pulse Ox O2 Delivery O2 Flow Rate FiO2 05/01/20 09:08 85 120/74 05/01/20 09:00 Room Air 05/01/20 08:00 98.2 85 18 120/74 (89) 94 05/01/20 00:00 97.7 68 18 105/55 (72) 95 04/30/20 21:00 Room Air 04/30/20 20:57 66 146/96 04/30/20 20:00 98.4 66 18 146/96 (113) 94 04/30/20 16:00 97.4 74 18 146/74 (98) 91 04/30/20 11:39 97.2 65 18 143/68 (93) 92 Intake and Output 04/30/20 05/01/20 19:00 07:00 Intake Total 750 ml 800 ml Balance 750 ml 800 ml Intake Oral 400 ml 300 ml IV Total 350 ml 500 ml # Voids 3 2 # Bowel Movements 1 General Appearance: WD/WN, no acute distress HEENT: normocephalic Respiratory: chest wall non-tender, lungs clear - with moderate air exchange , other - RA Cardiovascular: normal peripheral pulses, normal rate Abdomen: normal bowel sounds, no organomegaly Extremities: no edema Skin: no rash Neurologic: abnormal gait Musculoskeletal: normal muscle bulk Laboratory Tests 04/30/20 11:34: POC Whole Blood Glucose [Pending] 04/30/20 17:21: POC Whole Blood Glucose [Pending] 04/30/20 21:01: POC Whole Blood Glucose 157H 05/01/20 05:40: POC Whole Blood Glucose 137H, White Blood Count 7.9, Red Blood Count 4.72, Hemoglobin 14.4, Hematocrit 43.0, Mean Corpuscular Volume 91, Mean Corpuscular Hemoglobin 30.5, Mean Corpuscular Hemoglobin Concent 33.4, Red Cell Distribution Width 13.4, Platelet Count 270, Mean Platelet Volume 7.1, Neutrophils (%) (Auto) 67.5, Lymphocytes (%) (Auto) 18.6L, Monocytes (%) (Auto) 9.9, Eosinophils (%) (Auto) 2.3, Basophils (%) (Auto) 1.7, Sodium Level 141, Potassium Level 4.7, Chloride Level 106, Carbon Dioxide Level 30, Anion Gap 6, Blood Urea Nitrogen 17, Creatinine 1.0, Estimat Glomerular Filtration Rate > 60, Glucose Level 127H, Calcium Level 9.4 Current Medications Medications (Trade) Dose Ordered Sig/Lucy Route PRN Reason Start Time Stop Time Status Last Admin Dose Admin Acetaminophen (Tylenol) 650 mg Q4H PRN ORAL FEVER 04/18/20 10:45 05/18/20 10:44 Albuterol/ Ipratropium (Combivent Respimat) 1 puff Q4H PRN INH Shortness of Breath 04/18/20 11:15 05/18/20 11:14 Dextrose (Dextrose 50%) 25 ml Q30M PRN IV Hypoglycemia 04/18/20 10:45 07/17/20 10:44 Dextrose (Dextrose 50%) 50 ml Q30M PRN IV Hypoglycemia 04/18/20 10:45 07/17/20 10:44 Docusate Sodium (Colace) 100 mg THREE TIMES A DAY ORAL 04/18/20 13:00 05/18/20 12:59 05/01/20 09:08 Enoxaparin Sodium (Lovenox) 40 mg DAILY SUBQ 04/24/20 09:00 07/23/20 08:59 05/01/20 09:09 Insulin Aspart (NovoLOG) BEFORE MEALS AND HS SUBQ 04/18/20 11:30 07/17/20 11:29 04/29/20 16:57 Metoprolol Tartrate (Lopressor) 25 mg Q12HR ORAL 04/26/20 21:00 07/25/20 20:59 05/01/20 09:08 Ondansetron HCl (Zofran) 4 mg Q6H PRN IVP Nausea & Vomiting 04/18/20 10:45 05/18/20 10:44 Pantoprazole (Protonix) 40 mg EVERY 12 HOURS ORAL 04/18/20 21:00 05/18/20 20:59 05/01/20 09:07 Polyethylene Glycol (Miralax) 17 gm DAILYPRN PRN ORAL Constipation 04/18/20 10:45 05/18/20 10:44 Potassium Chloride 30 meq/ Sodium Chloride 1,015 ml @ 50 mls/hr [id number] IV 04/19/20 09:00 05/19/20 08:59 05/01/20 05:33 Promethazine HCl/ Codeine (Phenergan with Codeine) 5 ml Q6H PRN ORAL cough 04/18/20 10:45 05/18/20 10:44 04/25/20 01:50 Assessment/Plan Assessment/Plan ASSESSMENT Acute hypoxemic respiratory failure requiring face mask mask COVID-19 pneumonia Diabetes mellitus Hypertension Hyperlipidemia BPH PLAN OF CARE tele isolation room Date of sx onset: few days prior to presentation to ED on 04/18 Positive test: 04/18 rapid COVID + ( was tested positive prior as well) O2 - RA but desaturates while ambulating HFA s/p REM x 5 days ( 04/18 - 04/22 ) s/p Dex x10 days ( 04/18 -) DVT PPX: Lovenox Venous Duplex BLE 04/21 NGT D dimer 0.64 Trend CRP 16.5 - > 7-> 7.2-> 55.2 -> 27.8 CXR 04/21 -> Patchy bilateral airspace consolidations, consistent with severe multifocal infiltrate CXR 04/24 -> no significant changes s/p abx per ID recs, completed 04/23 monitor volumes and renal function Fup with consultants recs FC Discuss GOC BS management with SSI BP management GI prophylaxis supportive care repeat O2 sat on RA with ambulation if still desaturates may need O2 for home CM to assist with dc : apparently everyone at home have COVID per pt, ID cleared to dc home off isolation dc plan for today pt was not dc yesterday daughter is concerned if it is safe for him to go home with whi is COVID positive, ID cleared pt for dc daughter wants to discuss issue with pt PMD and get back to us ( per dc digital media planner) dc today case discussed and evaluated by supervising physician Sridevi Alfaro NP May 01, 2020 10:36
--- NOTE | 2020-05-01 10:41 | NUR ---
NURSE NOTES: Rn spoke with patient and asked if patient has access to his home. Patient states that he has a reyes to his house and can easily get in when discharged. RN clarified with patient that he will be going home today and access to house is important. Patient understood and aware of situation
--- NOTE | 2020-05-01 10:43 | NUR ---
BOX TRUCK WASHER NOTE S/W PATIENTS RP (DTR) ZENOBIA IN RE TO PATIENT HAVING BEEN DISCHARGED OF 04/27/20. PER DTR, SHE IS ACTIVELY ATTEMPTING TO SEEK ALTERNATE HOUSING FOR PATIENT TEMPORARILY PATIENTS IS ALSO COVID POSITIVE. STATES PATIENTS WAS TESTED ON 04/23/19 WITH A POSITIVE RESULT AND INSTRUCTED TO MAINTAIN SELF ISOLATION FOR 10 DAYS, THEREFORE PATIENT CANNOT RETURN HOME. EDUCATION ON CDC AND DP GUIDELINES IN RE TO SELF ISOLATION FOR COVID (+) PATIENTS PROVIDED TO DTR. CM ALSO INFORMED PATIENTS DTR THAT SINCE PATIENT IS AAO X4, AMBULATORY AND INDEPENDENT, PATIENT CONFIRMS HE HAS HIS APT KEYS IN HIS POSSESSION, [facility] WOULD PROVIDE A TAXI VOUCHER FOR PATIENT TO RETURN HOME TODAY. PATIENTS DAUGHTER VERBALIZED UNDERSTANDING AND APPRECIATIVE FOR INFO PROVIDED. SW AND CRN AWARE AND WILL PROCEED WITH DISCHARGE.
--- NOTE | 2020-05-01 10:48 | Infectious Diseases Prog Note ---
Assessment/Plan 79yo M with: COVID pna Acute hypoxia 2/2 severe COVID pna Afebrile Normal WBC Lymphopenia Elevated AST to 38 likely 2/2 COVID 04/12 COVID positive; flu neg 04/18 COVID rapid test positive BCx NTD Resp cx NTD CXR: BL pna UA neg 04/21 CXR: Patchy bilateral airspace consolidations, consistent with severe multifocal infiltrate. Overall, minimal worsening when compared to previous study. 04/24 CXR: No change from prior Cr 1.1 No DVT on US 04/21 PMH: DM2 HTN HLD Prostate disease Plan: Cont to monitor off abx OK to d/c home off isolation given >10 days out from initial dx and doing well on RA 04/28 SP dex #10 04/23 SP RDV #5, CTX/az #5 This institution does not have access to convalescent plasma, and as pt 6 days out from diagnosis less likely to benefit from it. Monitor CBC/CMP Monitor resp status Monitor temp curve, hemodynamics D/w RN Thank you for this consult. [facility] will continue to follow. Subjective Allergies: Coded Allergies: No Known Allergies (Unverified , 04/18/20) AF Satting 94% on RA WBC 7.9 NAD Objective Last 24 Hour Vital Signs Date Time Temp Pulse Resp B/P (MAP) Pulse Ox O2 Delivery O2 Flow Rate FiO2 05/01/20 09:08 85 120/74 05/01/20 09:00 Room Air 05/01/20 08:00 98.2 85 18 120/74 (89) 94 05/01/20 00:00 97.7 68 18 105/55 (72) 95 04/30/20 21:00 Room Air 04/30/20 20:57 66 146/96 04/30/20 20:00 98.4 66 18 146/96 (113) 94 04/30/20 16:00 97.4 74 18 146/74 (98) 91 04/30/20 11:39 97.2 65 18 143/68 (93) 92 Height (Feet): 5 Height (Inches): 6.00 Weight (Pounds): 172 Gen: NAD HEENT: NCAT Pulm: BL chest rise Abd: Non-distended Ext: No c/c/e Skin: No visible rashes Neuro: Awake Laboratory Tests Test 04/30/20 11:34 04/30/20 17:21 04/30/20 21:01 05/01/20 05:40 POC Whole Blood Glucose Pending Pending 157 MG/DL (74-106) H 137 MG/DL (74-106) H White Blood Count 7.9 K/UL (4.8-10.8) Red Blood Count 4.72 M/UL (4.70-6.10) Hemoglobin 14.4 G/DL (14.2-18.0) Hematocrit 43.0 % (42.0-52.0) Mean Corpuscular Volume 91 FL (80-99) Mean Corpuscular Hemoglobin 30.5 PG (27.0-31.0) Mean Corpuscular Hemoglobin Concent 33.4 G/DL (32.0-36.0) Red Cell Distribution Width 13.4 % (11.6-14.8) Platelet Count 270 K/UL (150-450) Mean Platelet Volume 7.1 FL (6.5-10.1) Neutrophils (%) (Auto) 67.5 % (45.0-75.0) Lymphocytes (%) (Auto) 18.6 % (20.0-45.0) L Monocytes (%) (Auto) 9.9 % (1.0-10.0) Eosinophils (%) (Auto) 2.3 % (0.0-3.0) Basophils (%) (Auto) 1.7 % (0.0-2.0) Sodium Level 141 MMOL/L (136-145) Potassium Level 4.7 MMOL/L (3.5-5.1) Chloride Level 106 MMOL/L (98-107) Carbon Dioxide Level 30 MMOL/L (21-32) Anion Gap 6 mmol/L (5-15) Blood Urea Nitrogen 17 mg/dL (7-18) Creatinine 1.0 MG/DL (0.55-1.30) Estimat Glomerular Filtration Rate > 60 mL/min (>60) Glucose Level 127 MG/DL (74-106) H Calcium Level 9.4 MG/DL (8.5-10.1) Current Medications Medications (Trade) Dose Ordered Sig/Lucy Route PRN Reason Start Time Stop Time Status Last Admin Dose Admin Acetaminophen (Tylenol) 650 mg Q4H PRN ORAL FEVER 04/18/20 10:45 05/18/20 10:44 Albuterol/ Ipratropium (Combivent Respimat) 1 puff Q4H PRN INH Shortness of Breath 04/18/20 11:15 05/18/20 11:14 Dextrose (Dextrose 50%) 25 ml Q30M PRN IV Hypoglycemia 04/18/20 10:45 07/17/20 10:44 Dextrose (Dextrose 50%) 50 ml Q30M PRN IV Hypoglycemia 04/18/20 10:45 07/17/20 10:44 Docusate Sodium (Colace) 100 mg THREE TIMES A DAY ORAL 04/18/20 13:00 05/18/20 12:59 05/01/20 09:08 Enoxaparin Sodium (Lovenox) 40 mg DAILY SUBQ 04/24/20 09:00 07/23/20 08:59 05/01/20 09:09 Insulin Aspart (NovoLOG) BEFORE MEALS AND HS SUBQ 04/18/20 11:30 07/17/20 11:29 04/29/20 16:57 Metoprolol Tartrate (Lopressor) 25 mg Q12HR ORAL 04/26/20 21:00 07/25/20 20:59 05/01/20 09:08 Ondansetron HCl (Zofran) 4 mg Q6H PRN IVP Nausea & Vomiting 04/18/20 10:45 05/18/20 10:44 Pantoprazole (Protonix) 40 mg EVERY 12 HOURS ORAL 04/18/20 21:00 05/18/20 20:59 05/01/20 09:07 Polyethylene Glycol (Miralax) 17 gm DAILYPRN PRN ORAL Constipation 04/18/20 10:45 05/18/20 10:44 Potassium Chloride 30 meq/ Sodium Chloride 1,015 ml @ 50 mls/hr [id number] IV 04/19/20 09:00 05/19/20 08:59 05/01/20 05:33 Promethazine HCl/ Codeine (Phenergan with Codeine) 5 ml Q6H PRN ORAL cough 04/18/20 10:45 05/18/20 10:44 04/25/20 01:50 Andria Pond M.D. May 01, 2020 10:48
--- NOTE | 2020-05-01 11:31 | NUR ---
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
--- NOTE | 2020-05-01 11:45 | Cardiac Electrophysiology PN ---
Assessment/Plan Assessment/Plan 1. Nonsustained ventricular tachycardia. Ruled out for MD and EF 65%.On Lopressor 25 po bid 2. History of hypertension. On Lopressor 25 po bid 3. Diabetes, on insulin. 4. COVID pneumonia, on dexamethasone and albuterol. On RA now DC today pending Subjective Subjective Alert in covid isolation on RA DC pending Objective Last 24 Hour Vital Signs Date Time Temp Pulse Resp B/P (MAP) Pulse Ox O2 Delivery O2 Flow Rate FiO2 05/01/20 09:08 85 120/74 05/01/20 09:00 Room Air 05/01/20 08:00 98.2 85 18 120/74 (89) 94 05/01/20 00:00 97.7 68 18 105/55 (72) 95 04/30/20 21:00 Room Air 04/30/20 20:57 66 146/96 04/30/20 20:00 98.4 66 18 146/96 (113) 94 04/30/20 16:00 97.4 74 18 146/74 (98) 91 Intake and Output 04/30/20 05/01/20 19:00 07:00 Intake Total 750 ml 800 ml Balance 750 ml 800 ml Intake Oral 400 ml 300 ml IV Total 350 ml 500 ml # Voids 3 2 # Bowel Movements 1 Laboratory Tests Test 04/30/20 17:21 04/30/20 21:01 05/01/20 05:40 POC Whole Blood Glucose Pending 157 MG/DL (74-106) H 137 MG/DL (74-106) H White Blood Count 7.9 K/UL (4.8-10.8) Red Blood Count 4.72 M/UL (4.70-6.10) Hemoglobin 14.4 G/DL (14.2-18.0) Hematocrit 43.0 % (42.0-52.0) Mean Corpuscular Volume 91 FL (80-99) Mean Corpuscular Hemoglobin 30.5 PG (27.0-31.0) Mean Corpuscular Hemoglobin Concent 33.4 G/DL (32.0-36.0) Red Cell Distribution Width 13.4 % (11.6-14.8) Platelet Count 270 K/UL (150-450) Mean Platelet Volume 7.1 FL (6.5-10.1) Neutrophils (%) (Auto) 67.5 % (45.0-75.0) Lymphocytes (%) (Auto) 18.6 % (20.0-45.0) L Monocytes (%) (Auto) 9.9 % (1.0-10.0) Eosinophils (%) (Auto) 2.3 % (0.0-3.0) Basophils (%) (Auto) 1.7 % (0.0-2.0) Sodium Level 141 MMOL/L (136-145) Potassium Level 4.7 MMOL/L (3.5-5.1) Chloride Level 106 MMOL/L (98-107) Carbon Dioxide Level 30 MMOL/L (21-32) Anion Gap 6 mmol/L (5-15) Blood Urea Nitrogen 17 mg/dL (7-18) Creatinine 1.0 MG/DL (0.55-1.30) Estimat Glomerular Filtration Rate > 60 mL/min (>60) Glucose Level 127 MG/DL (74-106) H Calcium Level 9.4 MG/DL (8.5-10.1) Objective HEAD AND NECK: No JVD. LUNGS: Coarse rhonchi. CARDIOVASCULAR: Regular S1 and S2 with no gallop. ABDOMEN: Soft. EXTREMITIES: 1+ pitting edema. Terrance Nicole MD May 01, 2020 11:45
[2020-05-01 12:00] VITALS: BP 148/75
--- NOTE | 2020-05-01 12:21 | NUR ---
NURSE NOTES: Patient discharged in stable condition. IV site and wrsit band removed. Patient signed discharge packet and was amde aware that patient will be going home via taxi. Patient states correct address and will be going to what he considers as home. RN gave patient education on medication prescribed by doctor and also to isolate self. Family aware of situation. RN then escorted patient safely to taxi and left facility safely
--- NOTE | 2020-05-01 14:10 | Nephrology Progress Note ---
Assessment/Plan Problem List: (1) Electrolyte imbalance (2) Coronavirus infection (3) Hypoxia (4) BPH (benign prostatic hyperplasia) Assessment Electrolyte imbalance Low sodium, low magnesium, low potassium Coronavirus infection, hypoxia Diabetes mellitus Plan May 01: Late note entry. Patient seen this morning. Labs reviewed. Stable from renal standpoint of view. Stable for discharge from renal standpoint of view. April 30: Labs reviewed. Electrolyte renal parameters stable. Medication list reviewed continue per consultants. April 29: Labs reviewed. Renal parameters stable. Continue per consultants. April 28: Labs reviewed. Renal parameters stable. Continue per consultants. April 27: No CHEM panel drawn today. Remains stable from renal standpoint of view. Continue per consultants. April 26: Labs reviewed. Renal parameters are stable. Continue per consultants. April 25: Labs reviewed. Stable renal parameters. Continue per consultants. April 24: Labs reviewed. Renal parameters stable. Continue per consultants. April 23: Labs reviewed. Renal parameters stable. Continue as current treatment plan. April 22: Today's labs reviewed and renal parameters remain stable continue per consultants April 21: Labs reviewed. Renal parameters stable. Continue per consultants. Medication list reviewed. April 20: Labs reviewed. Renal parameters and electrolytes stable. Continue per consultants. Previously: Normal saline with potassium IV Mag sulfate IV Protonix and stool softener Antibiotics Monitor electrolytes and renal parameters Per orders Subjective ROS Limited/Unobtainable: No Constitutional: Reports: malaise Objective Objective Last 24 Hour Vital Signs Date Time Temp Pulse Resp B/P (MAP) Pulse Ox O2 Delivery O2 Flow Rate FiO2 05/01/20 12:00 98.2 84 18 148/75 (99) 94 05/01/20 09:08 85 120/74 05/01/20 09:00 Room Air 05/01/20 08:00 98.2 85 18 120/74 (89) 94 05/01/20 00:00 97.7 68 18 105/55 (72) 95 04/30/20 21:00 Room Air 04/30/20 20:57 66 146/96 04/30/20 20:00 98.4 66 18 146/96 (113) 94 04/30/20 16:00 97.4 74 18 146/74 (98) 91 Intake and Output 04/30/20 05/01/20 19:00 07:00 Intake Total 750 ml 800 ml Balance 750 ml 800 ml Intake Oral 400 ml 300 ml IV Total 350 ml 500 ml # Voids 3 2 # Bowel Movements 1 Laboratory Tests 04/30/20 17:21: POC Whole Blood Glucose [Pending] 04/30/20 21:01: POC Whole Blood Glucose 157H 05/01/20 05:40: POC Whole Blood Glucose 137H, White Blood Count 7.9, Red Blood Count 4.72, Hemoglobin 14.4, Hematocrit 43.0, Mean Corpuscular Volume 91, Mean Corpuscular Hemoglobin 30.5, Mean Corpuscular Hemoglobin Concent 33.4, Red Cell Distribution Width 13.4, Platelet Count 270, Mean Platelet Volume 7.1, Neutrophils (%) (Auto) 67.5, Lymphocytes (%) (Auto) 18.6L, Monocytes (%) (Auto) 9.9, Eosinophils (%) (Auto) 2.3, Basophils (%) (Auto) 1.7, Sodium Level 141, Potassium Level 4.7, Chloride Level 106, Carbon Dioxide Level 30, Anion Gap 6, Blood Urea Nitrogen 17, Creatinine 1.0, Estimat Glomerular Filtration Rate > 60, Glucose Level 127H, Calcium Level 9.4 Height (Feet): 5 Height (Inches): 6.00 Weight (Pounds): 172 General Appearance: no apparent distress Objective No change Roberto Yang MD May 01, 2020 14:09
--- NOTE | 2020-05-01 14:49 | Cardiology Report ---
APPROVED REPORT EXAM: Two-dimensional and M-mode echocardiogram with Doppler and color Doppler. INDICATION Congestive Heart Failure M-Mode DIMENSIONS IVSd1.6 (0.7-1.1cm)Left Atrium (MM)2.8 (1.6-4.0cm) LVDd3.5 (3.5-5.6cm)Aortic Root3.3 (2.0-3.7cm) PWd1.3 (0.7-1.1cm)Aortic Cusp Exc.1.8 (1.5-2.0cm) IVSs1.8 cmEPSS0.6 (>1.0cm) LVDs1.9 (2.5-4.0cm) PWs1.9 cm <Conclusion> Technically difficult study due to poor acoustical windows. Left ventricular ejection fraction estimated to be 65 %. Mild left ventricular hypertrophy. Anterior Echo-free space, may be due to pericardial fat or effusion. Mild left atrial enlargement. Right cardiac chamber sizes are within normal limits. Focal aortic valve sclerosis with adequate cusp excursion. Thickened mitral valve leaflets with normal excursion. Mitral annulus and aortic root calcification. Pulmonic valve not well visualized. Normal tricuspid valve structure. IVC at normal size with physiologic collapse. A color flow and spectral Doppler study was performed and revealed: No aortic regurgitation. Trace mitral regurgitation. Mitral diastolic velocities suggest reduced left ventricular relaxation c/w mild LV diastolic dysfunction (Grade I ) Mild tricuspid regurgitation. Tricuspid systolic velocities suggests peak right ventricular systolic pressure of 42 mmHg consistent with mild pulmonary hypertension.
--- NOTE | 2020-05-01 21:20 | Surgery Progress Note ---
Surgery Progress Note Subjective Additional Comments late entry patient planned for d/c today improved over all no n/v labs improved okay for d/c Objective Last 24 Hour Vital Signs Date Time Temp Pulse Resp B/P (MAP) Pulse Ox O2 Delivery O2 Flow Rate FiO2 05/01/20 12:00 98.2 84 18 148/75 (99) 94 05/01/20 09:08 85 120/74 05/01/20 09:00 Room Air 05/01/20 08:00 98.2 85 18 120/74 (89) 94 05/01/20 00:00 97.7 68 18 105/55 (72) 95 I&O Intake and Output 04/30/20 05/01/20 19:00 07:00 Intake Total 750 ml 800 ml Balance 750 ml 800 ml Intake Oral 400 ml 300 ml IV Total 350 ml 500 ml # Voids 3 2 # Bowel Movements 1 Dressing: saturated Cardiovascular: RSR Respiratory: decreased breath sounds Abdomen: non-tender, present bowel sounds Extremities: no edema, no tenderness, no cyanosis Laboratory Tests Test 05/01/20 05:40 White Blood Count 7.9 K/UL (4.8-10.8) Red Blood Count 4.72 M/UL (4.70-6.10) Hemoglobin 14.4 G/DL (14.2-18.0) Hematocrit 43.0 % (42.0-52.0) Mean Corpuscular Volume 91 FL (80-99) Mean Corpuscular Hemoglobin 30.5 PG (27.0-31.0) Mean Corpuscular Hemoglobin Concent 33.4 G/DL (32.0-36.0) Red Cell Distribution Width 13.4 % (11.6-14.8) Platelet Count 270 K/UL (150-450) Mean Platelet Volume 7.1 FL (6.5-10.1) Neutrophils (%) (Auto) 67.5 % (45.0-75.0) Lymphocytes (%) (Auto) 18.6 % (20.0-45.0) L Monocytes (%) (Auto) 9.9 % (1.0-10.0) Eosinophils (%) (Auto) 2.3 % (0.0-3.0) Basophils (%) (Auto) 1.7 % (0.0-2.0) Sodium Level 141 MMOL/L (136-145) Potassium Level 4.7 MMOL/L (3.5-5.1) Chloride Level 106 MMOL/L (98-107) Carbon Dioxide Level 30 MMOL/L (21-32) Anion Gap 6 mmol/L (5-15) Blood Urea Nitrogen 17 mg/dL (7-18) Creatinine 1.0 MG/DL (0.55-1.30) Estimat Glomerular Filtration Rate > 60 mL/min (>60) Glucose Level 127 MG/DL (74-106) H POC Whole Blood Glucose 137 MG/DL (74-106) H Calcium Level 9.4 MG/DL (8.5-10.1) Plan Problems: (1) Abnormal LFTs Assessment & Plan: elevated lft's t bili elevated direct <50% elevated unlikely obstructed biliary unlikely alon abd exam benign US hold for now given covid will follow clinically with exam and recs thank you DAILY ESTIMATED NEEDS: Needs based on pulmonary, DM 67.5kg 25-30 kcals/kg [id number] total kcals 1-1.5 g protein/kg 68-101 g total protein 25-30 mL/kg 8492-6195 total fluid mLs NUTRITION DIAGNOSIS: Altered nutrition related lab values r/t clinical status and diabetes as evidenced by A1C 7.1, elev BG (118-245), elev CO2 (33). [facility] RECOMMENDATIONS: [facility] ADDITIONAL RECOMMENDATIONS: 1) Maintain daily calibrated bed scale wts Obtain a standing weight as able 2) Good po intake on all meals, consider increasing insulin coverage for improved glycemic control (2) Diabetes (3) Hypoxia (4) Coronavirus infection Assessment & Plan: There are bilateral patchy and streaky infiltrates in a peribronchovascular distribution, left greater than right. Heart size is normal. Pleural spaces are clear. Impression: Bilateral infiltrates, consistent with multifocal pneumonia, likely viral pulm input appreciated ID on abx and Rx pulm respiratory support (5) History of hypertension (6) BPH (benign prostatic hyperplasia) (7) Electrolyte imbalance Assessment & Plan: being replaced cont diet Jesus Manuel Cruz May 01, 2020 21:20
--- NOTE | 2020-05-02 15:25 | Discharge Summary ---
Discharge Summary Discharge Summary _ DATE OF ADMISSION : 04/18/2020 DATE OF DISCHARGE: 05/01/2020 DISCHARGED BY: Dr. Murray REASON FOR ADMISSION: 79 years old male with past medical history of hypertension, diabetes mellitus, hyperlipidemia, BPH, brought from home by paramedics due to increased difficulty with breathing. Patient was tested positive for COVID infection prior in [place] ED. Patient reported fevers and chills for several days. Patient reported dry intermittent cough . Patient reported difficulty with sleeping. Patient was hypoxic - mid 80s on room air and was started on supplemental oxygen 4 L via nasal cannula. Rapid COVID-19 was positive. Chest x-ray revealed bilateral infiltrates consistent with multifocal pneumonia, likely viral. Laboratory work-up revealed no leukocytosis , stable hemoglobin , hematocrit and platelet count. Troponin negative . Pro BNP 225. EKG revealed sinus tachycardia , no acute ischemic changes Potassium 3.0 BUN 20, creatinine 1.1. Glucose 200. Ferritin 721, LDH 319, CRP 16.5 , D-dimer 0.64. Urinalysis revealed +1 protein , no evidence of UTI. In emergency department patient received empiric antibiotic , Lovenox IV, hydration , vitamin D, steroids. Potassium was replaced. Patient admitted to monitored floor isolation room for further management. CONSULTANTS: receiving supervisor Dr. Schwartz pulmonary Dr. Hinton// ID specialist Dr. Pond vp security Dr. Yang surgery Dr. Cruz [facility] COURSE: Patient admitted to telemetry floor to isolation room. Supplemental oxygen provided and titrated to keep pulse oximetry above 92%. Patient at some point required face mask. HFA provided. Patient undergone treatment with remdesivir for 5 days and dexamethasone for 10 days. DVT prophylaxis with Lovenox provided. Venous duplex bilateral lower extremity was negative. D-dimer 0.64. Patient was followed-up with the inflammatory markers and imaging. Patient received empiric antibiotic as per ID specialist recommendation. Blood cultures were negative. Volumes and renal parameters were closely monitored. Electrolytes corrected as needed. Nephrotoxic's were avoided. Blood pressure was managed with beta-preet. Patient noted to have nonsustained ventricular tachycardia. Serial troponin were negative, EKG was nonischemic . Patient was ruled out for acute MS. Echocardiogram revealed preserved ejection fraction of 65%. Blood sugar was managed with sliding scale of insulin. Diabetic diet and diabetic teaching provided. Hemoglobin A1c 7.1. GI prophylaxis provided. Bowel regimen instituted. As patient clinically improved , he was able to be weaned to room air. ID specialist cleared patient for discharge home off isolation , given more than 10 days from the initial diagnosis. Patient subsequently was discharged home in stable condition. FINAL DIAGNOSES: Acute hypoxemic respiratory failure due to COVID-19 pneumonia COVID-19 pneumonia Diabetes mellitus Hypertension Hyperlipidemia Nonsustained ventricular tachycardia BPH DISCHARGE MEDICATIONS: See Medication Reconciliation list. DISCHARGE INSTRUCTIONS: Patient was discharged home. Follow-up with a primary care provider in 1 to 2 weeks. I have been assigned to dictate discharge summary for this account. Sridevi Alfaro NP May 02, 2020 15:25
--- NOTE | 2020-05-04 10:46 | NUR ---
INSURANCE DC SUMMARY/ DC INSTRUCTIONS/CLINICAL/ REVIEW (04/28-05/01)FAXED TO [facility] / DEPARTMENT T: [phone] F: [phone]
== END 2020-05-01 12:15 | disposition home or self-care (01) | DRG 137 ==
LOC: EDBD 07:06 → EMR 07:24 → 2W 07:54 → EDBEDREQ 17:40 → 2E 04-21 16:37 → 4E 04-28 10:37
PROC: XW033E5 Introduction of Remdesivir Anti-infective into Peripheral Vein, Percutaneous Approach, New Technology Group 5 (ICD-10-PCS; principal; 2020-04-18)
DX: U07.1 COVID-19 (principal); N40.0 Benign prostatic hyperplasia without lower urinary tract symptoms; J12.82 Pneumonia due to coronavirus disease 2019; J96.01 Acute respiratory failure with hypoxia; I10 Essential (primary) hypertension; E11.9 Type 2 diabetes mellitus without complications; E78.00 Pure hypercholesterolemia, unspecified; E87.8 Other disorders of electrolyte and fluid balance, not elsewhere classified; D72.810 Lymphocytopenia; I47.2 Ventricular tachycardia
CPT/HCPCS: 36415; 71045; 80048; 80053; 80061; 80069; 80076; 81003; 82248; 82306; 82550; 82553; 82607; 82728; 82746; 82962; 82977; 83036; 83605; 83615; 83690; 83735; 83880; 84100; 84443; 84484; 84550; 85025; 85379; 85610; 85651; 85730; 86140; 87040; 93005; 93306; 93970; 96361; 96365; 96367; 96372; 96375; 99285; J1815; J2765; J3490; J7030; J8499; U0002